=== PATIENT | female | born 1985 | race African-American/Black ===

== ENCOUNTER 2023-08-01 00:48 | Inpatient (IN) | payer OTHER, SELFPAY ==
[2023-07-31] VITALS (12 sets, daily range): BP systolic 157–188; BP diastolic 94–118
[2023-07-31 19:37] LABS: % Basophils 0.2 % (0-2); % Eosinophils 1.6 % (0-6); % Immature Granulocytes 0.7 % (0-0.5); % Lymphocytes 14.5 % (20.5-51.1); Absolute Eosinophils 0.3 10^3/uL (0-0.7); Absolute Immature Granulocytes 0.1 10^3/uL (0-0.05); Absolute Lymphocytes 2.4 10^3/uL (1.2-3.4); Absolute Monocytes 0.8 10^3/uL (0.1-0.6); Absolute Neutrophils 12.7 10^3/uL (1.4-6.5); Hematocrit 31.2 % (37.0-47.0); Hemoglobin 10.6 g/dL (12.0-16.0); Mean Corpuscular Volume 94.3 fL (81.0-99.0); Mean Platelet Volume 11.1 fL (7.4-10.4); Nucleated Red Blood Cells % 0 %; Platelet Count 351 10^3/uL (130-400); Red Blood Cell Count 3.31 10^6/uL (4.20-5.40); Red Cell Dist. Width 13.4 % (11.5-14.5); White Blood Cell Count 16.3 10^3/uL (4.8-10.8)
[2023-07-31 19:49] LABS: ALT (SGPT) 28 U/L (0-35); AST (SGOT) 30 U/L (14-36); Albumin 3.4 g/dl (3.5-5.0); Alkaline Phosphatase 67 U/L (38-126); Blood Urea Nitrogen 15 mg/dl (7-17); Calcium 9.4 mg/dl (8.4-10.2); Carbon Dioxide 25 mmol/L (22-30); Chloride 101 mmol/L (98-107); Glucose 111 mg/dl (70-99); Sodium 137 mmol/L (135-145); Total Bilirubin 0.5 mg/dl (0.2-1.3); Total Protein 6.6 g/dl (6.3-8.2); eGFR > 60.00
[2023-07-31 19:57] LABS: Potassium 4.1 mmol/L (3.5-5.1)
[2023-07-31 20:34] LABS: Urine Albumin Negative (Neg - Trace); Urine Bilirubin Negative (Negative); Urine Character Clear (Clear); Urine Color Yellow; Urine Glucose Negative (Negative); Urine Ketone Negative (Negative); Urine Leukocyte Negative (Negative); Urine Nitrite Negative (Negative); Urine Occult Blood Negative (Negative); Urine Specific Gravity 1.015 (<1.030); Urine Urobilinogen Negative (Neg - 1+)
[2023-07-31] MEDS: OMNIPAQUE 50 ML TUBE (20:52)
[2023-07-31] MEDS: APRESOLINE 10 MG IV (20:52)
[2023-07-31] MEDS: ZOFRAN 4 MG IV (21:18)
[2023-07-31] MEDS: NSS 1000 IV (23:14)
--- NOTE | 2023-07-31 23:21 | ED.GENMED ---
History of Present Illness
General
Chief Complaint: Abdominal Symptoms
Source: ambulance crew
Exam Limitations: clinical condition
Time Seen by Provider: 07/31/23 18:54
Travel History
Have you had any contact with someone who has COVID-19?: Unable to Answer
Do you have any symptoms of coronavirus? Fever > 100 degrees, chills, cough, shortness of breath, sore throat, loss of taste or smell, muscle aches, or headache?: Unable to Answer
History of Present Illness
History of Present Illness:
38-year-old female with a history of traumatic brain injury, tracheostomy, GJ who presents with vomiting. Patient was also found to be hypertensive. Patient was recently given hydralazine prior to arrival. Patient is unable to contribute to her
history. She is nonverbal. pt was recently here for fever and was placed on levaquin for suspected tracheitis
Past History
Past History
ED Past Medical History: Asthma, CHF, GERD, HTN and Other (cardiac arrest, PNA, Iron def anemia, traumatic brain injury, sepsis, Pseudomonas respiratory culture positive)
ED Past Surgical History: Other (Trach)
Social History
Personal: Single
Living: custodial
Phy Exam
Physical Exam
Physical Exam:
CONSTITUTIONAL Patient alert and nonverbal. ill-appearing. Vital signs reviewed.
HEAD atraumatic
NECK Trachea midline, no jugular venous distention. Tracheostomy noted
RESPIRATORY CHEST moderate respiratory distress noted, Chest expansion equal, Bilateral breath sounds clear.
CARDIOVASCULAR regular and tachycardic, Heart sounds normal.
ABDOMEN mild distention, unclear if there is tenderness, feeding tube noted to left upper quadrant.
UPPER EXTREMITY no cyanosis, no edema.
LOWER EXTREMITY , no cyanosis, no edema.
NEURO eyes open, nonverbal.
SKIN multiple areas of skin involved yeast infection
Course
Orders/Labs/Results
Orders:
Orders
07/31/23 18:55
Electrocardiogram (*1) Urgent
Reason for Study: Hypertension, Benign
EKG- Treatment ONCE
07/31/23 19:18
Complete Blood Count/With Diff Urgent
Comprehensive Metabolic Panel Urgent
07/31/23 19:30
CT Head W/o Iv Contrast Stat
Comment:
Reason For Exam: hypertension, vomiting
07/31/23 20:19
HydrALAZINE [Apresoline] 10 mg IV NOW STA
Iohexol [Omnipaque] See Protocol TUBE NOW STA
07/31/23 20:20
CT Abd/pel W Iv And Oral Contr Urgent
Comment: 1 cup VIA feeding tube
Reason For Exam: vomiting
07/31/23 20:26
Urinalysis Reflex To Culture Urgent
Date Specimen was Collected: 07/31/23
Time Specimen was Collected: 20:25
07/31/23 21:14
Ondansetron Injectable [Zofran] 4 mg IV NOW STA
07/31/23 22:53
Enema- Treatment ONCE
Type: Milk of Molasses
CR Chest Portable - 1 View Urgent
Comment:
Reason For Exam: vomiting, r/o aspiration
Reason Study Needs to be Portable: Unable to Transport
07/31/23 22:58
0.9% Sodium Chloride 1000 ml [Nss] 1,000 ml IV BOLUS
07/31/23 23:21
Labetalol HCl [Trandate] 10 mg IV NOW STA
07/31/23 23:30
Lactic Acid Q4H
Comment: CANCEL 2nd LACTIC ACID IF 1st LACTIC ACID IS LESS THAN 2
Blood Culture Q30M
VICK Source: Blood/Venous
Specimen Description:
08/01/23 00:00
Blood Culture Q30M
VICK Source: Blood/Venous
Specimen Description:
08/01/23 03:30
Lactic Acid Q4H
Comment: CANCEL 2nd LACTIC ACID IF 1st LACTIC ACID IS LESS THAN 2
Abnormal Lab Results
07/31/23
19:18
WBC 16.3 H 10^3/uL
(4.8-10.8)
RBC 3.31 L 10^6/uL
(4.20-5.40)
Hgb 10.6 L g/dL
(12.0-16.0)
Hct 31.2 L %
(37.0-47.0)
MCH 32.0 H pg
(27.0-31.0)
MPV 11.1 H fL
(7.4-10.4)
Abs Immat Gran (auto) 0.1 H 10^3/uL
(0-0.05)
Absolute Neuts (auto) 12.7 H 10^3/uL
(1.4-6.5)
Absolute Monos (auto) 0.8 H 10^3/uL
(0.1-0.6)
Immature Gran % 0.7 H %
(0-0.5)
Neutrophils % 78.0 H %
(42.2-75.2)
Lymphocytes % 14.5 L %
(20.5-51.1)
Creatinine 0.4 L mg/dL
(0.6-1.0)
Glucose 111 H mg/dl
(70-99)
Albumin 3.4 L g/dl
(3.5-5.0)
07/31/23 19:18
07/31/23 19:18
Vital Signs
Initial and Last Documented VS:
Initial Vital Signs
Pulse Ox
100
07/31/23 18:16
Last Documented Vital Signs
Temp Pulse Resp BP Pulse Ox
97.8 F 108 32 157/103 100
07/31/23 18:17 07/31/23 21:30 07/31/23 21:30 07/31/23 21:00 07/31/23 21:30
MDM/Problems Addressed
MDM/Problems Addressed:
Intractable vomiting, tachycardia, hypertension, stercoral colitis, constipation
*Radiology
Radiology exam reviewed: preliminary read by ED provider (No free air) and radiology read reviewed
*Pulse Oximetry
Patient hypoxic: no
*EKG
Interpreted by ED Provider?: Yes
Interpretation: abnormal
Rate: tachycardiac
Rhythm: sinus
[place]: normal axis
QRS Pattern: normal QRS
Ischemia: no ischemia
*Wound Care Nurse Interpretation
Rate: tachycardiac
Interpretation: normal
Rhythm: sinus
*Critical Care Note
Total Time (30-74mins, 75-104mins- exclusive of procedures): 30 minutes
Data Reviewed
Review of Other/Old Records Reveals: Progress Notes (Progress Notes from July 2023 reviewed) and Discharge Summary (July 2023 discharge summary reviewed)
Source: ambulance crew
Prescriptions/Medications Considered But Not Given:
Considered antibiotics but hold off for now. Chest x-ray okay
Patient Management
Discussion with other providers: Hospitalist
Escalation/DeEscalation of care consider admission/obs:
Patient remains tachycardic and tachypneic. Also hypertensive. Question whether she may have aspirated. Also noted to have significant constipation with stercoral colitis. Trial enema. Given the persistence of her intermittent vomiting and
tachycardia, admit. Hold antibiotics for now as there is no focal infiltrates on the chest x-ray.
ED Attending Note
-
Portions of this chart may have been created with voice recognition software.� Occasional wrong word or��sound alike� substitutions may have occurred due to the inherent limitations of voice recognition software.
Discharge Plan
Departure
Patient Disposition: Admit
Date of Disposition: 07/31/23
Time of Disposition: 23:31
Admit to: Telemetry
Presentation/result/management discussed w/ accepting MD/DO: Hospitalist
Discharge Problem:
Vomiting, possible aspiration, Constipation, Stercoral colitis
Prescriptions:
No Action
sennosides [senna] 8.6 mg Tablet
17.6 mg feeding tube DAILY PRN (Reason: constipation)
acetaminophen 325 mg Tablet
650 mg FEEDING TUBE Q6H PRN (Reason: mild pain/temp>100.4)
acetaminophen 650 mg Suppository
650 mg KY Q8H PRN (Reason: mild pain/temp>100.4)
ipratropium-albuterol 0.5 mg-3 mg(2.5 mg base)/3 mL Solution For Nebulization
3 ml INHALATION R Q6 PRN (Reason: sob/wheezing)
cetirizine 5 mg Tablet
5 mg feeding tube DAILY
miconazole nitrate 2 % Powder
1 applic TOPICAL BID
Rx Instructions:
apply to abdominal folds and groin
thiamine HCl (vitamin B1) 100 mg Tablet
100 mg FEEDING TUBE MOWEFR
magnesium hydroxide [Milk of Magnesia] 400 mg/5 mL Suspension
30 ml feeding tube DAILY PRN (Reason: if no bm x 3 days)
bisacodyl [Dulcolax (bisacodyl)] 10 mg Suppository
10 mg KY DAILY PRN (Reason: if mom ineffective)
losartan 25 mg Tablet
25 mg feeding tube DAILY
metoprolol tartrate 50 mg Tablet
50 mg feeding tube BID
folic acid 1 mg Tablet
1 mg feeding tube DAILY
atropine 1 % Drops
2 drp PO Q4H PRN (Reason: increased secretions)
glycopyrrolate 2 mg Tablet
2 mg FEEDING TUBE Q8H
Lansoprazole 3mg/Ml
10 ml feeding tube DAILY
docusate sodium
1 tab feeding tube Q12H PRN (Reason: constipation)
budesonide 0.5 mg/2 mL Suspension For Nebulization
0.5 mg inhalation R BID 30 Days Qty: 120 0RF
hydralazine 25 mg Tablet
25 mg feeding tube Q12H PRN (Reason: sbp>170 x 10 days)
Fleet Enema 19-7 gram/118 mL Enema
118 ml KY DAILY PRN (Reason: if dulcolax ineffective)
ipratropium-albuterol 0.5 mg-3 mg(2.5 mg base)/3 mL solution for nebulization
3 ml inhalation R BID@0600,1800
levofloxacin 750 mg tablet
750 mg feeding tube Q24H
Referrals:
Kai Muhammad DO [Family Provider] -
Interventions
Interventions:
*Risk Screen - Suicide Last Done: 07/31/23 18:17
*General Assessment Last Done: 07/31/23 18:17
*Neglect/Abuse Screening Last Done: 07/31/23 18:17
*ED COVID-19 Vaccine History Last Done: 07/31/23 18:17
RG-[id number]-Vebmcetcuc Assessment Last Done: 07/31/23 18:50
[2023-08-01] VITALS (16 sets, daily range): BP systolic 109–186; BP diastolic 72–120; BMI 35.2; BMI 34.8
[2023-08-01] MEDS: TRANDATE 10 MG IV (00:20)
[2023-08-01 00:42] LABS: Lactic Acid 1.1 mmol/L (0.7-2.0)
--- NOTE | 2023-08-01 00:57 | HPS.HSE ---
Family Physician
-
Family Physician: Kai Muhammad, DO
Chief Complaint
-
N/V
History of Present Illness
Patient is a 38y F with PMH significant for �anoxic brain injury s/p cardiac arrest with trach and PEG who presents to ED from [facility] for evaluation of N/V. Patient is non-verbal at baseline and is unable to contribute to this history.
Per [place], patient was noted to have N/V at the facility this evening. She has been hypertensive for the past few days and was newly started on hydralazine on 07/30/22.
Patient had multiple episodes of bilious appearing emesis here in the ED as well.
Medical History
Past Medical History
Past Medical History: Reports Other
Additional Past Medical History:
Cardiac Arrest - Uncertain Etiology
Anoxic Brain Injury secondary to the above
Tracheostomy Status
PEG-Dependent
Hypertension
Obesity
OCD
Past Surgical History: Reports Other
Additional Past Surgical History:
Tracheostomy
G-J Tube Placement
Social History
Unable to obtain full social history at this time due to: Patient Non-verbal
Family History
Family History: Unable to Obtain
Allergies / Home Medications
Allergies reflects when Allergies were last updated in [employer].
Home Medications with original date entered in [employer]
Allergy/Medication List:
Allergies
Allergy/AdvReac Type Severity Reaction Status Date / Time
No Known Allergies Allergy Unverified 07/24/23 01:19
Home Medications
Lansoprazole 3mg/Ml 10 ml feeding tube DAILY Gastrointestinal Issue 07/23/23
acetaminophen 325 mg tablet 650 mg feeding tube Q6H PRN mild pain/temp>100.4 07/23/23
acetaminophen 650 mg rectal suppository 650 mg VT Q8H PRN mild pain/temp>100.4 07/23/23
atropine 1 % eye drops 2 drp PO Q4H PRN increased secretions 07/23/23
bisacodyl 10 mg rectal suppository (Dulcolax (bisacodyl)) 10 mg VT DAILY PRN if mom ineffective 07/23/23
cetirizine 5 mg tablet 5 mg feeding tube DAILY Allergies 07/23/23
docusate sodium 1 tab feeding tube Q12H PRN constipation 07/23/23
folic acid 1 mg tablet 1 mg feeding tube DAILY Supplement 07/23/23
glycopyrrolate 2 mg tablet 2 mg feeding tube Q8H secretions 07/23/23
ipratropium 0.5 mg-albuterol 3 mg (2.5 mg base)/3 mL nebulization soln 3 ml inhalation R Q6 PRN sob/wheezing 07/23/23
losartan 25 mg tablet 25 mg feeding tube DAILY Blood Pressure 07/23/23
magnesium hydroxide 400 mg/5 mL oral suspension (Milk of Magnesia) 30 ml feeding tube DAILY PRN if no bm x 3 days 07/23/23
metoprolol tartrate 50 mg tablet 50 mg feeding tube BID Blood Pressure 07/23/23
miconazole nitrate 2 % topical powder 1 applic topical BID Skin Issues 07/23/23
sennosides 8.6 mg tablet (senna) 17.6 mg feeding tube DAILY PRN constipation 07/23/23
thiamine HCl (vitamin B1) 100 mg tablet 100 mg feeding tube MOWEFR Supplement 07/23/23
budesonide 0.5 mg/2 mL suspension for nebulization 0.5 mg (2 mL) inhalation R BID 30 days #120 mL 07/27/23
hydralazine 25 mg tablet 25 mg feeding tube Q12H PRN sbp>170 x 10 days 07/31/23
ipratropium 0.5 mg-albuterol 3 mg (2.5 mg base)/3 mL nebulization soln 3 ml inhalation R BID@0600,1800 07/31/23
levofloxacin 750 mg tablet 750 mg feeding tube Q24H 07/31/23
sodium phosphates 19 gram-7 gram/118 mL enema (Fleet Enema) 118 ml VT DAILY PRN if dulcolax ineffective 07/31/23
Review of Systems
-
Unable to obtain full review of systems at this time due to: Patient Non-verbal
Physical Exam
Vital Signs
Vital Signs
Temp Pulse Resp BP Pulse Ox
97.8 F 108 22 157/86 100
07/31/23 18:17 08/01/23 00:20 08/01/23 00:00 08/01/23 00:20 08/01/23 00:00
Physical Exam
General: Other (38y F awake but does not answer questions / follow commands.)
HEENT: Other (Thick neck. Trach in place without significant secretions / mucus. )
Respiratory: Other (Scattered coarse breath sounds throughout. No wheezing.)
Cardiac: S1/S2 and Regular Rhythm; No Murmur
GI: Other (Obese, no apparent tenderness. Pos BS. G-J tube site OK.)
Rectal: Other (Rectal exam with yellow, liquid stool. Minimal, very small formed stool removed during digital exam - but no appreciation of fecal stool ball seen on CT.)
Musculoskeletal: No Clubbing and No Cyanosis
Neuro: Awake
Laboratory Results
-
07/31/23 19:18
07/31/23 19:18
Laboratory Results
Lactic Acid Cancelled 08/01/23 03:30
Total Bilirubin 0.5 mg/dl (0.2-1.3) 07/31/23 19:18
AST 30 U/L (14-36) 07/31/23 19:18
ALT 28 U/L (0-35) 07/31/23 19:18
Alkaline Phosphatase 67 U/L (38-126) 07/31/23 19:18
Impression/Plan
-
A/P: �Patient is a 38y F with PMH significant for trach / PEG dependence s/p anoxic brain injury / cardiac arrest who presents to ED from [facility] for evaluation of vomiting.
N/V
Stercoral Colitis
- Admit for further evaluation and treatment.
- N/V likely secondary to constipation / stercoral colitis as noted on CT scan.
- Unable to manually disimpact in the ED as stool mass not appreciated in the rectal vault.
- Aggressive bowel regimen.
- Vent G-tube to alleviate nausea / further emesis.
- Hold TF for now. Meds via J-tube port.
- Follow for clinical improvement / results with bowel regimen.
- GI evaluation.
Anoxic Brain Injury
Cardiac Arrest - Unknown Etiology
Chronic Encephalopathy secondary to the above
�- Continue supportive measures including O2, repositioning, trach care, etc.
�- Hold TF for now pending improvement in acute process / sepsis.
�- IVF support.
Chronic Normocytic Anemia
�- Records indicate both B12 and iron deficiencies - ? etiology.
�- TSat normal and B12 high on recent admission labs.
�- Follow H&H for any changes.
�- No evidence of acute / significant blood loss at present.
Benign Hypertension
�- Recent increase in BP noted at the [facility] and started on hydralazine.
- ? increase due to stercoral colitis / abdominal discomfort?
- Continue losartan and metoprolol at usual doses.
- Hydralazine PRN for higher BP.
- Treat acute GI issue as noted above.
Recent Tracheitis
- Stable. No significant mucus production, coughing, etc noted on today's exam.
- Has completed course of levofloxacin (last dose today).
- Observe off of further abx for now.
DVT Prophylaxis:� Lovenox
Code Status:� Full
[2023-08-01 05:09] LABS: Hematocrit 30.7 % (37.0-47.0); Hemoglobin 10.4 g/dL (12.0-16.0); Mean Corp Hgb Conc. 33.9 g/dL (33.0-37.0); Mean Corpuscular Hgb 32.2 pg (27.0-31.0); Mean Platelet Volume 11.3 fL (7.4-10.4); Platelet Count 310 10^3/uL (130-400); Red Blood Cell Count 3.23 10^6/uL (4.20-5.40); Red Cell Dist. Width 13.6 % (11.5-14.5); White Blood Cell Count 18.3 10^3/uL (4.8-10.8)
[2023-08-01 05:33] LABS: ALT (SGPT) 26 U/L (0-35); AST (SGOT) 29 U/L (14-36); Albumin 3.3 g/dl (3.5-5.0); Alkaline Phosphatase 63 U/L (38-126); Blood Urea Nitrogen 13 mg/dl (7-17); Calcium 9.1 mg/dl (8.4-10.2); Carbon Dioxide 23 mmol/L (22-30); Chloride 102 mmol/L (98-107); Direct Bilirubin 0.5 mg/dl (0.0-0.4); Glucose 104 mg/dl (70-99); Sodium 138 mmol/L (135-145); Total Bilirubin 0.6 mg/dl (0.2-1.3); Total Protein 6.4 g/dl (6.3-8.2); eGFR > 60.00
[2023-08-01 06:02] LABS: TSH Reflex To Free T4 0.77 uIU/ml (0.47-4.68)
[2023-08-01] MEDS: NSS 1000 IV ×2 (06:17→14:16)
--- NOTE | 2023-08-01 07:46 | W.PN.HOSP.TC ---
Today's Communication/Plan
-
see A/P
Assessment / Plan
Assessment / Plan
HPI: 38 yo F with PMH significant for anoxic brain injury s/p cardiac arrest with trach and PEG, from [facility]; p/w N/V.� Patient is non-verbal at baseline and is unable to contribute to history.
Per [facility], patient was noted to have N/V at the facility in the evening.�She has been hypertensive for the past few days and was newly started on hydralazine on 07/30/22.
Patient had multiple episodes of bilious appearing emesis in the ED as well.
CT AP:
1. � ACUTE STERCORAL COLITIS in the RECTUM with fecal impaction, mild wall thickening, and mild perirectal inflammation.
2. � Moderate amount of fecal material throughout the colon consistent with constipation.
3. � No CT evidence for small bowel obstruction.
4. � Percutaneous gastrojejunostomy tube in place.
5. � Mild hepatomegaly and mild diffuse hepatic steatosis.
6. � Mild to moderate cardiomegaly.
A/P:
# N/V
# Stercoral Colitis
N/V likely secondary to constipation / stercoral colitis as noted on CT scan.
Unable to manually disimpact in the ED as stool mass not appreciated in the rectal vault.
Cont aggressive bowel regimen- per RN, she has had BM
Check Abd XR for stool burden
Vent G-tube to alleviate nausea / further emesis.
Hold TF for now.� Meds via J-tube port.
Follow for clinical improvement / results with bowel regimen.
GI evaluation.
# Anoxic Brain Injury
# Cardiac Arrest - Unknown Etiology
# Chronic Encephalopathy secondary to the above
Continue supportive measures including O2, repositioning, trach care, etc.
Hold TF for now pending improvement in acute process / sepsis.
IVF support.
# Chronic Normocytic Anemia
Records indicate both B12 and iron deficiencies - ? etiology.
TSat normal and B12 high on recent admission labs.
Follow H&H for any changes.
No evidence of acute / significant blood loss at present.
# Benign Hypertension
Recent increase in BP noted at the [place] and started on hydralazine.
? increase due to stercoral colitis / abdominal discomfort?
Continue losartan and metoprolol at usual doses- BP stable on such
Hydralazine PRN for higher BP.
Treat acute GI issue as noted above.
# Recent Tracheitis, Stable.�
No significant mucus production, coughing, etc noted on exam.
Has completed course of levofloxacin (last dose on DOA).
Observe off of further abx for now.
DVT Prophylaxis:� Lovenox
Code Status:� Full
DW RN
Anticipated Discharge: Within 24 hours
Subjective/Interval History
-
Date of Service: August 01, 2023
Objective Data
-
Labs:
Laboratory Results
07/31/23 08/01/23
19:18 04:57
WBC 18.3 H
Hgb 10.4 L
Hct 30.7 L
Plt Count 310
Sodium 137 138
Potassium 4.1 4.0
Chloride 101 102
Carbon Dioxide 25 23
BUN 15 13
Creatinine 0.4 L 0.4 L
Glucose 111 H 104 H
Calcium 9.4 9.1
Total Bilirubin 0.5 0.6
AST 30 29
ALT 28 26
Alkaline Phosphatase 67 63
Vital Signs:
Vital Signs
Temp Pulse Resp BP Pulse Ox
36.6 C 93 19 115/95 100
08/01/23 07:42 08/01/23 07:42 08/01/23 07:42 08/01/23 07:42 08/01/23 07:42
I&O
07/31/23 08/01/23 08/02/23
06:59 06:59 06:59
Intake Total 1000 / 1000
Balance 1000 / 1000
[2023-08-01] MEDS: DUONEB 3 ML INH ×2 (07:59→21:44)
[2023-08-01] MEDS: PULMICORT 0.5 MG INH ×2 (08:00→21:44)
[2023-08-01] MEDS: COLACE LIQUID 100 MG TUBE ×2 (08:23→23:35)
[2023-08-01] MEDS: COZAAR 25 MG TUBE (08:29)
[2023-08-01] MEDS: LOPRESSOR 50 MG TUBE ×2 (08:30→23:36)
[2023-08-01] MEDS: PROTONIX IV 40 MG IV (08:32)
[2023-08-01] MEDS: NSS (PRESERVATIVE FREE) 10 ML IV (08:33)
[2023-08-01] MEDS: DESENEX/MITRAZOL/ZEASORB 1 APPLIC TOPICAL ×2 (08:34→23:35)
[2023-08-01] MEDS: MIRALAX 17 GRAMS TUBE ×2 (08:37→23:35)
[2023-08-01] MEDS: APRESOLINE 5 MG IV (11:25)
[2023-08-01 15:26] LABS: COVID-19 Antigen Negative (Negative)
[2023-08-01] MEDS: LOVENOX 40 MG SC (17:11)
--- NOTE | 2023-08-01 20:29 | PTCARENOTE ---
Pt admitted as hold pt from ED aprox 1600 today. Pt slid over to bed to stretcher. Assessment complete. Pt 97% on trach collar. GJ tube currently to gravity. Pt is NPO. Pt turned and changed. Pt is nonverbal. ST on monitor.
[2023-08-01] MEDS: SENOKOT 17.6000000000000014 MG TUBE (23:34)
--- NOTE | 2023-08-01 23:35 | RESPNOTE ---
Pt has an I.D. 8.O cuffless trach, 11.4 mm OD, 7.00 inner cannula.
REF [id number]
I spoke to [facility] and gave REF number and we do not stock this size trach or inner cannulas.
No inner cannulas at bedside RN made aware we do not have supplies for this trach.
Pt has back up trach, ambu bag, and suctioned at bedside.
[2023-08-02] MEDS: NSS 1000 IV ×2 (00:45→10:34)
[2023-08-02] MEDS: ZOFRAN 4 MG IV ×2 (00:46→10:36)
[2023-08-02] MEDS: ATROPINE SULFATE 1% DROPS 2 DROP SL ×2 (00:46→16:13)
--- NOTE | 2023-08-02 02:33 | W.PN.UPDATE ---
Update Note
Progress Note Update
0000 BRAND DESIGNER called on pt for resp distress
RN states she was giving med through J Tube when pt vomited and then sounded 'gurgly.'
By the time BRAND DESIGNER team arrived pt was back to baseline and no signs resp distress noted. pulse ox 100% on trach collar.
Pt does have excess secretions. Has prn atropine and i added robinal both of which pt can have at [facility] too.
Pt afebrile.
Will add cxr for am given high risk for aspiration.
[2023-08-02 04:00] VITALS: BP 160/110
[2023-08-02 06:00] VITALS: BMI 36.1
[2023-08-02 07:00] VITALS: BP 164/109
[2023-08-02] MEDS: PULMICORT 0.5 MG INH ×2 (08:01→19:31)
[2023-08-02] MEDS: DUONEB 3 ML INH ×2 (08:01→19:31)
--- NOTE | 2023-08-02 08:02 | PTCARENOTE ---
Pt vomited and aspirated. trach suction, pt showing signs of respiratory distress. Rapid called. Pt quickly returned to baseline. POX 97%. will continue to monitor and follow plan of care.
[2023-08-02 08:51] LABS: Hematocrit 29.2 % (37.0-47.0); Hemoglobin 9.6 g/dL (12.0-16.0); Mean Corp Hgb Conc. 32.9 g/dL (33.0-37.0); Mean Corpuscular Hgb 31.7 pg (27.0-31.0); Mean Corpuscular Volume 96.4 fL (81.0-99.0); Mean Platelet Volume 11.5 fL (7.4-10.4); Platelet Count 347 10^3/uL (130-400); Red Blood Cell Count 3.03 10^6/uL (4.20-5.40); Red Cell Dist. Width 13.6 % (11.5-14.5); White Blood Cell Count 16.2 10^3/uL (4.8-10.8)
[2023-08-02 09:29] LABS: Blood Urea Nitrogen 9 mg/dl (7-17); Calcium 8.9 mg/dl (8.4-10.2); Carbon Dioxide 23 mmol/L (22-30); Chloride 108 mmol/L (98-107); Estimated Creatinine Clearance > 125 ml/min; Glucose 94 mg/dl (70-99); Potassium 3.8 mmol/L (3.5-5.1); Sodium 137 mmol/L (135-145); eGFR > 60.00
[2023-08-02] MEDS: TYLENOL 650 MG TUBE (10:35)
[2023-08-02] MEDS: MIRALAX 17 GRAMS TUBE ×2 (10:35→20:28)
[2023-08-02] MEDS: LOPRESSOR 50 MG TUBE ×2 (10:36→20:28)
[2023-08-02] MEDS: DESENEX/MITRAZOL/ZEASORB 1 APPLIC TOPICAL ×2 (10:36→20:31)
[2023-08-02] MEDS: COLACE LIQUID 100 MG TUBE ×2 (10:36→20:28)
[2023-08-02] MEDS: NSS (PRESERVATIVE FREE) 10 ML IV (10:36)
[2023-08-02] MEDS: COZAAR 25 MG TUBE (10:36)
[2023-08-02] MEDS: PROTONIX IV 40 MG IV (10:37)
[2023-08-02 11:00] VITALS: BP 168/111
--- NOTE | 2023-08-02 11:00 | W.PN.HOSP.TC ---
Today's Communication/Plan
-
cont to monitor N/V
follow repeat CXR
Assessment / Plan
Assessment / Plan
HPI: 38 yo F with PMH significant for anoxic brain injury s/p cardiac arrest with trach and PEG, from [facility]; p/w N/V.� Patient is non-verbal at baseline and is unable to contribute to history.
Per [facility], patient was noted to have N/V at the facility in the evening.�She has been hypertensive for the past few days and was newly started on hydralazine on 07/30/22.
Patient had multiple episodes of bilious appearing emesis in the ED as well.
CT AP:
1. � ACUTE STERCORAL COLITIS in the RECTUM with fecal impaction, mild wall thickening, and mild perirectal inflammation.
2. � Moderate amount of fecal material throughout the colon consistent with constipation.
3. � No CT evidence for small bowel obstruction.
4. � Percutaneous gastrojejunostomy tube in place.
5. � Mild hepatomegaly and mild diffuse hepatic steatosis.
6. � Mild to moderate cardiomegaly.
A/P:
# N/V
# Stercoral Colitis
N/V likely secondary to constipation / stercoral colitis as noted on CT scan.
s/p aggressive bowel regimen and pt has had BM
Follow up Abd XR: Nonobstructive bowel gas pattern. No gross free air, evaluation limited.
Cont to hold TF for her persistent vomiting
# Anoxic Brain Injury
# Cardiac Arrest - Unknown Etiology
# Chronic Encephalopathy secondary to the above
Continue supportive measures including O2, repositioning, trach care, etc.
Cont to hold TF for her persistent vomiting. IVF support.
Change to cuff trach to prevent aspiration. ENT consulted
Follow CXR 08/02 to eval for aspiration
# Chronic Normocytic Anemia
Records indicate both B12 and iron deficiencies - ? etiology.
TSat normal and B12 high on recent admission labs.
Follow H&H for any changes.
No evidence of acute / significant blood loss at present.
# Benign Hypertension
Recent increase in BP noted at the [place] and started on hydralazine.
? increase due to stercoral colitis / abdominal discomfort?
Continue losartan and metoprolol at usual doses
Hydralazine PRN for higher BP.
Treat acute GI issue as noted above.
# Recent Tracheitis, Stable.�
No significant mucus production, coughing, etc noted on exam.
Has completed course of levofloxacin (last dose on DOA).
Observe off of further abx for now.
DVT Prophylaxis:� Lovenox
Code Status:� Full
DW RN
Anticipated Discharge: 24 - 48 hours
Subjective/Interval History
-
Date of Service: August 02, 2023
Objective Data
-
Labs:
Laboratory Results
08/02/23
07:51
WBC 16.2 H
Hgb 9.6 L
Hct 29.2 L
Plt Count 347
Sodium 137
Potassium 3.8
Chloride 108 H
Carbon Dioxide 23
BUN 9
Creatinine 0.4 L
Glucose 94
Calcium 8.9
Vital Signs:
Vital Signs
Temp Pulse Resp BP Pulse Ox
36.9 C 117 16 164/109 95
08/02/23 07:00 08/02/23 07:00 08/02/23 07:00 08/02/23 07:00 08/02/23 07:00
I&O
08/01/23 08/02/23 08/03/23
06:59 06:59 06:59
Intake Total 1000 / 1000 2180 / 2180
Output Total 300 / 300
Balance 1000 / 1000 2180 / 2180 -300 / -300
Review of Systems
-
Unable to obtain full review of systems at this time due to: Patient Non-verbal
Physical Exam
-
General: Well Developed, Respiratory Distress (chronic) and Appears Chronically Ill
HEENT: Normocephalic, Atraumatic, Moist Mucous Membranes and Oxygen (trach collar)
Respiratory: Clear to Auscultation and Non Labored Respirations; Negative Accessory Resp Muscle Use
Cardiac: Regular Rhythm and S1/S2; Negative Murmur, Rub or Gallop
GI: Soft, Nontender, Nondistended, Normal Bowel Sounds and Peg Tube; Negative Organomegaly
Rectal: Deferred by Provider
Musculoskeletal: No Clubbing, No Cyanosis and No Edema
Skin: Negative Rash
Neuro: Awake and Other (does not follow commands )
Psych: Calm
Data Reviewed
-
Labs: Labs Reviewed by me
--- NOTE | 2023-08-02 11:05 | CM ---
CM following re: discharge planning.
Reviewed pt's chart, met with pt.
Pt is a 38year old female with PMH significant for �anoxic brain injury s/p cardiac arrest with trach and PEG who presents to ED from [facility] for evaluation of N/V. Patient is non-verbal at baseline.
Pt is a long term care administrator care resident at [facility], admitted there not far ago from [facility], requires total care, on Medicaid Pending bed hold.
D/C plan: return back to [facility] when medically stable for a detention, care.
CM will follow with discharge plan updates as hospitalization progresses
--- NOTE | 2023-08-02 12:10 | RESPNOTE ---
received pt in room 329 with Shiley size 7 cuffless trach with model number [id number]. our SPD department does not have size 7 inner cannula or Shiley 7 Trach.
placed Shiley size 6 cuffed and Shiley size 8 cuffed at bedside along with Ambu bag for emergencies.
at this time, this RT cleaned trach site and inner cannula . pt resting comfortably on 35% trach collar
per Dr. Ramos's note ENT has been consulted for replacing pt to cuffed trach.
--- NOTE | 2023-08-02 14:05 | W.PN.UPDATE ---
Update Note
Progress Note Update
Patient with history of traumatic brain injury.
Chronic tracheotomy tube present.
Patient generally on trach collar, uncuffed tube in place.
Patient with constipation, now with nausea and vomiting, admitted to [facility].
I was asked to change to the uncuffed trach tube to a cuffed trach tube.
At the bedside a #7 uncuffed Shiley trach was removed.
Well-healed stoma was noted.
6. Cuffed Shiley trach tube was easily inserted.
Cuff inflated, trach secured.
Patient without any respiratory distress.
Continue care as per medical team.
Please call me if problems arise.
--- NOTE | 2023-08-02 14:16 | RESPNOTE ---
pt is changed to 6Shiley cuffed trach tube by ENT.
this RT inflated cuff for pt for N/V
[2023-08-02 15:00] VITALS: BP 138/94
[2023-08-02] MEDS: LOVENOX 40 MG SC (16:09)
[2023-08-02] MEDS: APRESOLINE 5 MG IV (16:10)
--- NOTE | 2023-08-02 16:19 | PTCARENOTE ---
BP was 168/111. I was attempting to give prn apresoline however repeat BP improved and no longer required prn medications. See vitals.
[2023-08-02 19:30] VITALS: BP 156/101
[2023-08-02 23:00] VITALS: BP 165/108
[2023-08-02] MEDS: SENOKOT 17.6000000000000014 MG TUBE (23:17)
[2023-08-03 03:20] VITALS: BP 157/94
[2023-08-03 04:58] VITALS: BP 157/94
[2023-08-03 07:00] VITALS: BP 138/83
[2023-08-03] MEDS: PULMICORT 0.5 MG INH ×2 (08:19→20:08)
[2023-08-03] MEDS: DUONEB 3 ML INH ×2 (08:19→20:09)
[2023-08-03 08:49] LABS: Hematocrit 27.1 % (37.0-47.0); Mean Corp Hgb Conc. 33.2 g/dL (33.0-37.0); Mean Corpuscular Hgb 31.5 pg (27.0-31.0); Mean Corpuscular Volume 94.8 fL (81.0-99.0); Mean Platelet Volume 10.7 fL (7.4-10.4); Platelet Count 356 10^3/uL (130-400); Red Blood Cell Count 2.86 10^6/uL (4.20-5.40); Red Cell Dist. Width 13.6 % (11.5-14.5); White Blood Cell Count 14.6 10^3/uL (4.8-10.8)
[2023-08-03 09:02] LABS: Blood Urea Nitrogen 9 mg/dl (7-17); Calcium 8.7 mg/dl (8.4-10.2); Carbon Dioxide 23 mmol/L (22-30); Chloride 110 mmol/L (98-107); Estimated Creatinine Clearance > 125 ml/min; Glucose 90 mg/dl (70-99); Potassium 3.7 mmol/L (3.5-5.1); Sodium 137 mmol/L (135-145); eGFR > 60.00
[2023-08-03] MEDS: ATROPINE SULFATE 1% DROPS 2 DROP SL ×3 (10:10→22:34)
[2023-08-03] MEDS: LOPRESSOR 50 MG TUBE ×2 (10:10→21:46)
[2023-08-03] MEDS: COLACE LIQUID 100 MG TUBE ×2 (10:10→21:46)
[2023-08-03] MEDS: ROBINUL 2 MG TUBE (10:11)
[2023-08-03] MEDS: COZAAR 25 MG TUBE (10:11)
[2023-08-03] MEDS: TYLENOL 650 MG TUBE (10:11)
[2023-08-03] MEDS: PROTONIX IV 40 MG IV (10:11)
[2023-08-03] MEDS: DESENEX/MITRAZOL/ZEASORB 1 APPLIC TOPICAL ×2 (10:12→21:47)
[2023-08-03] MEDS: NSS (PRESERVATIVE FREE) 10 ML IV (10:12)
[2023-08-03] MEDS: ZOFRAN 4 MG IV (10:12)
[2023-08-03] MEDS: MIRALAX 17 GRAMS TUBE ×2 (10:12→21:46)
[2023-08-03 11:00] VITALS: BP 146/90
--- NOTE | 2023-08-03 11:55 | W.PN.HOSP.TC ---
Today's Communication/Plan
-
see A/P
Assessment / Plan
Assessment / Plan
HPI: 38 yo F with PMH significant for anoxic brain injury s/p cardiac arrest with trach and PEG, from [facility]; p/w N/V.� Patient is non-verbal at baseline and is unable to contribute to history.
Per NH, patient was noted to have N/V at the facility in the evening.�She has been hypertensive for the past few days and was newly started on hydralazine on 07/30/22.
Patient had multiple episodes of bilious appearing emesis in the ED as well.
CT AP:
1. � ACUTE STERCORAL COLITIS in the RECTUM with fecal impaction, mild wall thickening, and mild perirectal inflammation.
2. � Moderate amount of fecal material throughout the colon consistent with constipation.
3. � No CT evidence for small bowel obstruction.
4. � Percutaneous gastrojejunostomy tube in place.
5. � Mild hepatomegaly and mild diffuse hepatic steatosis.
6. � Mild to moderate cardiomegaly.
A/P:
# N/V
# Stercoral Colitis
N/V likely secondary to constipation / stercoral colitis as noted on CT scan.
s/p aggressive bowel regimen and pt has had BM
Follow up Abd XR: Nonobstructive bowel gas pattern. No gross free air, evaluation limited.
Cont bowel regimen, now PRN
Vomiting has resolved, resumed TF and titrated to goal
# Anoxic Brain Injury
# Cardiac Arrest - Unknown Etiology
# Chronic Encephalopathy secondary to the above
Continue supportive measures including O2, repositioning, trach care, etc.
Changed to cuff trach to prevent aspiration by ENT 08/02
Follow up CXR 08/02 no pneumonia
# Leucocytosis likely reactive
COVID/Flu neg, CXR unrevealing, UA clean
CRP 17
s/p Zosyn
was started with Augmentin, no reason to continue , will stop Abx
# Chronic Normocytic Anemia
Records indicate both B12 and iron deficiencies - ? etiology.
TSat normal and B12 high on recent admission labs.
Follow H&H for any changes.
No evidence of acute / significant blood loss at present.
# Benign Hypertension
Recent increase in BP noted at the [place] and started on hydralazine.
? increase due to stercoral colitis / abdominal discomfort?
Continue with increased doses of losartan and metoprolol
Hold HCTZ
Hydralazine PRN for higher BP.
Treat acute GI issue as noted above.
# Recent Tracheitis, Stable.�
No significant mucus production, coughing, etc noted on exam.
Has completed course of levofloxacin (last dose was on DOA).
DVT Prophylaxis:� Lovenox
Code Status:� Full
DW RN , CM
updated mother on the phone
Anticipated Discharge: Today
Subjective/Interval History
-
Date of Service: August 03, 2023
Objective Data
-
Labs:
Laboratory Results
08/03/23
08:27
WBC 14.6 H
Hgb 9.0 L
Hct 27.1 L
Plt Count 356
Sodium 137
Potassium 3.7
Chloride 110 H
Carbon Dioxide 23
BUN 9
Creatinine 0.4 L
Glucose 90
Calcium 8.7
Vital Signs:
Vital Signs
Temp Pulse Resp BP Pulse Ox
37.0 C 101 14 146/90 95
08/03/23 11:00 08/03/23 11:00 08/03/23 11:00 08/03/23 11:00 08/03/23 11:00
I&O
08/02/23 08/03/23 08/04/23
06:59 06:59 06:59
Intake Total 2180 / 2180
Output Total 300 / 300
Balance 2180 / 2180 -300 / -300
Review of Systems
-
Unable to obtain full review of systems at this time due to: Patient Non-verbal
Physical Exam
-
General: Well Developed, Respiratory Distress (chronic) and Appears Chronically Ill
HEENT: Normocephalic, Atraumatic, Moist Mucous Membranes and Oxygen (trach collar)
Respiratory: Clear to Auscultation and Non Labored Respirations; Negative Accessory Resp Muscle Use
Cardiac: Regular Rhythm and S1/S2; Negative Murmur, Rub or Gallop
GI: Soft, Nontender, Nondistended, Normal Bowel Sounds and Peg Tube; Negative Organomegaly
Rectal: Deferred by Provider
Musculoskeletal: No Clubbing, No Cyanosis and No Edema
Skin: Negative Rash
Neuro: Other (does not follow commands )
Psych: Calm; Negative Intact Judgement/Insight
Data Reviewed
-
Diagnostic Radiology: Image personally visualized and interpreted and Report Reviewed by me
Labs: Labs Reviewed by me
--- NOTE | 2023-08-03 12:44 | PTCARENOTE ---
PT with edema in BUE and both are elevated above heart level. heels with quilted heel booties bilaterlly to prevent pressure ulcer. MD made aware of her strong cough, WBC elevated and she started her on zosyn. IVF finished per orderd and tube feeds
are ordered to continue.
[2023-08-03] MEDS: VISBIOME 1 CAP TUBE (14:30)
[2023-08-03] MEDS: ZOSYN 50 IV ×2 (14:30→21:35)
[2023-08-03 14:42] LABS: Urine Albumin Trace (Neg - Trace); Urine Bilirubin Negative (Negative); Urine Character Clear (Clear); Urine Color Yellow; Urine Glucose Negative (Negative); Urine Ketone Negative (Negative); Urine Leukocyte Negative (Negative); Urine Nitrite Negative (Negative); Urine Occult Blood Negative (Negative); Urine Urobilinogen 1+ (Neg - 1+)
[2023-08-03 15:00] VITALS: BP 165/110
[2023-08-03] MEDS: LOVENOX 40 MG SC (17:00)
--- NOTE | 2023-08-03 17:09 | PTCARENOTE ---
ordered tube feeding to start at 10ml hour with 25 ml flush withgoal of 50 ml. Floor did not have irrigation trays. I called [facility] x3 times for trays so i could flush J tube to begin TF. TF Started at 1700. Tube flushed zero residual and flushed
easily. PT HOB up with aspiration precautions maintained.
[2023-08-03] MEDS: APRESOLINE 5 MG IV (17:11)
[2023-08-03] MEDS: FLUSH (NSS) 2 FLUSH IV (21:35)
[2023-08-03] MEDS: SENOKOT 17.6000000000000014 MG TUBE (21:47)
[2023-08-03 23:50] VITALS: BP 169/113
[2023-08-04] MEDS: FLUSH (NSS) 2 FLUSH IV (02:42)
[2023-08-04] MEDS: ZOSYN 50 IV ×2 (02:42→07:53)
[2023-08-04 03:30] VITALS: BP 168/109
[2023-08-04 06:00] VITALS: BMI 35.7
[2023-08-04 06:53] LABS: Hematocrit 29.9 % (37.0-47.0); Hemoglobin 9.8 g/dL (12.0-16.0); Mean Corp Hgb Conc. 32.8 g/dL (33.0-37.0); Mean Corpuscular Hgb 30.8 pg (27.0-31.0); Mean Platelet Volume 10.9 fL (7.4-10.4); Platelet Count 391 10^3/uL (130-400); Red Blood Cell Count 3.18 10^6/uL (4.20-5.40); Red Cell Dist. Width 13.4 % (11.5-14.5); White Blood Cell Count 13.9 10^3/uL (4.8-10.8)
[2023-08-04 07:18] LABS: Blood Urea Nitrogen 10 mg/dl (7-17); Carbon Dioxide 24 mmol/L (22-30); Chloride 107 mmol/L (98-107); Estimated Creatinine Clearance > 125 ml/min; Glucose 109 mg/dl (70-99); Potassium 3.5 mmol/L (3.5-5.1); Sodium 138 mmol/L (135-145); eGFR > 60.00
[2023-08-04] MEDS: PULMICORT 0.5 MG INH ×2 (07:51→20:27)
[2023-08-04] MEDS: DUONEB 3 ML INH ×2 (07:51→20:27)
[2023-08-04] MEDS: COLACE LIQUID 100 MG TUBE ×2 (07:57→21:05)
[2023-08-04] MEDS: COZAAR 25 MG TUBE ×2 (07:57→12:11)
[2023-08-04] MEDS: VISBIOME 1 CAP TUBE (07:57)
[2023-08-04] MEDS: LOPRESSOR 50 MG TUBE ×2 (07:57→21:06)
[2023-08-04] MEDS: MIRALAX 17 GRAMS TUBE (07:57)
[2023-08-04] MEDS: PROTONIX IV 40 MG IV (07:57)
[2023-08-04] MEDS: NSS (PRESERVATIVE FREE) 10 ML IV (07:58)
[2023-08-04 08:10] VITALS: BP 175/101
[2023-08-04] MEDS: DESENEX/MITRAZOL/ZEASORB 1 APPLIC TOPICAL ×2 (08:11→21:06)
[2023-08-04 11:00] VITALS: BP 154/106
--- NOTE | 2023-08-04 11:34 | W.PN.HOSP.TC ---
Addendum entered and electronically signed by Lewis Corona MD 08/04/23 14:57:
called mother no response. left vm.
Original Note:
Today's Communication/Plan
-
Increase losartan
cont aggressive bowel regimen
monitor for TF tolerance
Assessment / Plan
Assessment / Plan
HPI: 38 yo F with PMH significant for anoxic brain injury s/p cardiac arrest with trach and PEG, from [facility]; p/w N/V.� Patient is non-verbal at baseline and is unable to contribute to history.
Per NH, patient was noted to have N/V at the facility in the evening.�She has been hypertensive for the past few days and was newly started on hydralazine on 07/30/22.
Patient had multiple episodes of bilious appearing emesis in the ED as well.
CT AP:
1. � ACUTE STERCORAL COLITIS in the RECTUM with fecal impaction, mild wall thickening, and mild perirectal inflammation.
2. � Moderate amount of fecal material throughout the colon consistent with constipation.
3. � No CT evidence for small bowel obstruction.
4. � Percutaneous gastrojejunostomy tube in place.
5. � Mild hepatomegaly and mild diffuse hepatic steatosis.
6. � Mild to moderate cardiomegaly.
A/P:
# N/V
# Stercoral Colitis
N/V likely secondary to constipation / stercoral colitis as noted on CT scan.
s/p aggressive bowel regimen and pt has had BM
Follow up Abd XR: Nonobstructive bowel gas pattern. No gross free air, evaluation limited.
Cont bowel regimen
Vomiting has much resolved, resume TF slowly and titrate to goal , monitor for further N/V
# Anoxic Brain Injury
# Cardiac Arrest - Unknown Etiology
# Chronic Encephalopathy secondary to the above
Continue supportive measures including O2, repositioning, trach care, etc.
Changed to cuff trach to prevent aspiration by ENT 08/02
Follow up CXR 08/02 no pneumonia
# Leucocytosis likely reactive vs due to Stercoral Colitis
COVID/Flu neg
CXR unrevealing
CRP 17
UA neg
Improving
Start empiric Zosyn with probiotic
# Chronic Normocytic Anemia
Records indicate both B12 and iron deficiencies - ? etiology.
TSat normal and B12 high on recent admission labs.
Follow H&H for any changes.
No evidence of acute / significant blood loss at present.
# Benign Hypertension with sinus tachycardia
Recent increase in BP noted at the [place] and started on hydralazine.
Continue losartan and metoprolol at usual doses
If BP elevated increase dose of losartan.
Hydralazine PRN for higher BP.
Treat acute GI issue as noted above.
# Recent Tracheitis, Stable.�
No significant mucus production, coughing, etc noted on exam.
Has completed course of levofloxacin (last dose was on DOA).
DVT Prophylaxis:� Lovenox
Code Status:� Full
DW RN
Anticipated Discharge: Within 24 hours
Subjective/Interval History
-
Date of Service: August 04, 2023
No nausea or vomiting overnight
TF rate increased to 30cc this am
Objective Data
-
Labs:
Laboratory Results
08/04/23
06:01
WBC 13.9 H
Hgb 9.8 L
Hct 29.9 L
Plt Count 391
Sodium 138
Potassium 3.5
Chloride 107
Carbon Dioxide 24
BUN 10
Creatinine 0.5 L
Glucose 109 H
Calcium 9.0
Vital Signs:
Vital Signs
Temp Pulse Resp BP Pulse Ox
98.1 F 114 17 175/101 95
08/04/23 08:10 08/04/23 08:10 08/04/23 08:10 08/04/23 08:10 08/04/23 08:10
I&O
08/03/23 08/04/23 08/05/23
06:59 06:59 06:59
Intake Total 160 / 160 715 / 715
Output Total 300 / 300 250 / 250
Balance -300 / -300 160 / 160 465 / 465
Physical Exam
-
General: Well Developed and Appears Chronically Ill
HEENT: Normocephalic, Atraumatic, Moist Mucous Membranes and Oxygen (trach collar)
Respiratory: Clear to Auscultation and Non Labored Respirations; Negative Accessory Resp Muscle Use
Cardiac: Regular Rhythm and S1/S2; Negative Murmur, Rub or Gallop
GI: Soft, Nontender, Nondistended, Normal Bowel Sounds and Peg Tube; Negative Organomegaly
Rectal: Deferred by Provider
Musculoskeletal: No Clubbing, No Cyanosis and No Edema
Skin: Negative Rash
Neuro: Awake and Other (does not follow commands )
Psych: Calm
Data Reviewed
-
Total Time Spent with Patient (in minutes): 54
[2023-08-04 11:47] VITALS: BMI 35.7
[2023-08-04] MEDS: VITAMIN B1 100 MG TUBE (13:19)
[2023-08-04] MEDS: ZOSYN 100 IV ×2 (13:19→21:13)
[2023-08-04 15:01] VITALS: BP 160/106
[2023-08-04] MEDS: LOVENOX 40 MG SC (17:49)
[2023-08-04 19:00] VITALS: BP 160/110
[2023-08-04] MEDS: MIRALAX TUBE (21:10)
[2023-08-04] MEDS: SENOKOT TUBE (21:11)
[2023-08-04 23:00] VITALS: BP 170/99
[2023-08-05 03:00] VITALS: BP 157/99
[2023-08-05] MEDS: ZOSYN 100 IV ×4 (03:10→21:11)
[2023-08-05 05:48] LABS: % Basophils 0.4 % (0-2); % Eosinophils 1.9 % (0-6); % Immature Granulocytes 0.5 % (0-0.5); % Lymphocytes 16.8 % (20.5-51.1); % Monocytes 7.7 % (1.7-9.3); % Neutrophils 72.7 % (42.2-75.2); Absolute Basophils 0.1 10^3/uL (0-0.2); Absolute Eosinophils 0.3 10^3/uL (0-0.7); Absolute Immature Granulocytes 0.1 10^3/uL (0-0.05); Absolute Lymphocytes 2.7 10^3/uL (1.2-3.4); Absolute Monocytes 1.2 10^3/uL (0.1-0.6); Absolute Neutrophils 11.6 10^3/uL (1.4-6.5); Hematocrit 29.2 % (37.0-47.0); Hemoglobin 9.6 g/dL (12.0-16.0); Mean Corp Hgb Conc. 32.9 g/dL (33.0-37.0); Mean Corpuscular Hgb 31.6 pg (27.0-31.0); Mean Corpuscular Volume 96.1 fL (81.0-99.0); Mean Platelet Volume 10.7 fL (7.4-10.4); Nucleated Red Blood Cells % 0 %; Platelet Count 368 10^3/uL (130-400); Red Blood Cell Count 3.04 10^6/uL (4.20-5.40); Red Cell Dist. Width 13.2 % (11.5-14.5); White Blood Cell Count 15.9 10^3/uL (4.8-10.8)
[2023-08-05 06:00] VITALS: BMI 35.6
[2023-08-05 06:18] LABS: Blood Urea Nitrogen 10 mg/dl (7-17); Calcium 8.9 mg/dl (8.4-10.2); Carbon Dioxide 27 mmol/L (22-30); Chloride 102 mmol/L (98-107); Estimated Creatinine Clearance > 125 ml/min; Glucose 123 mg/dl (70-99); Potassium 3.2 mmol/L (3.5-5.1); Sodium 138 mmol/L (135-145); eGFR > 60.00
[2023-08-05 07:34] VITALS: BP 160/112
[2023-08-05] MEDS: DUONEB 3 ML INH ×2 (07:44→19:29)
[2023-08-05] MEDS: PULMICORT 0.5 MG INH ×2 (07:44→19:29)
[2023-08-05] MEDS: LOPRESSOR 75 MG TUBE ×2 (08:43→21:38)
[2023-08-05] MEDS: PREVACID 30 MG TUBE (08:43)
[2023-08-05] MEDS: VISBIOME 1 CAP TUBE (08:43)
[2023-08-05] MEDS: KCL ELIXIR 40 MEQ TUBE (08:43)
[2023-08-05] MEDS: FOLVITE 1 MG TUBE (08:44)
[2023-08-05] MEDS: COZAAR 75 MG TUBE (08:44)
[2023-08-05] MEDS: ZYRTEC 5 MG TUBE (08:44)
[2023-08-05] MEDS: COLACE LIQUID 100 MG TUBE ×2 (08:44→21:34)
[2023-08-05] MEDS: DESENEX/MITRAZOL/ZEASORB 1 APPLIC TOPICAL ×2 (08:45→21:34)
[2023-08-05] MEDS: MIRALAX 17 GRAMS TUBE (08:45)
--- NOTE | 2023-08-05 09:11 | PN.CDI ---
CDI
- -
CDI:
Physician Documentation Request
Admit Date: 08/01/23 00:48
Dear Doctor Cj,
Patient admitted for stercoral colitis.
07/31 H&P: 'PMH significant for �anoxic brain injury s/p cardiac arrest with trach and PEG...Patient is non-verbal at baseline and is unable to contribute to this history...awake but does not answer questions / follow commands'
08/01 PCN: 'Pt slid over to bed to stretcher...Pt turned and changed. Pt is nonverbal.'
08/02 Case Management Note: 'from [facility], requires total care'
Based on the above, could you clarify in the progress notes, the appropriate diagnosis, if significant, that supports the above abnormalities and additional evaluation, monitoring and/or treatment rendered:
Functional quadriplegia
Other
Use of terms such as suspected, likely, concern for, or probable (associated with a specific diagnosis that is being evaluated, monitored, or treated as if it exists) are acceptable and can be coded in the inpatient setting, when documented at the
time of discharge.
Thank you,
Edith Camacho RN, BSN
CDI Specialist
Available via [place] text
Please use your independent medical judgment in providing your response.
[2023-08-05] MEDS: LOPRESSOR TUBE (09:28)
[2023-08-05 11:08] VITALS: BP 150/98
--- NOTE | 2023-08-05 11:22 | CM ---
Addendum entered by Jennifer Andrea 08/05/23 11:27:
Per Jordon with Acute Care, will only require ALS if deep suctioning required past trach
Can transport via BLS if surface suctioning
Original Note:
CM reviewed pt with Dr Corona- ADC tomorrow pending labs/wbc
Update provided to SNF admissions/Delphine
As pt with total care needs, no auth is needed for SNF return
Plan to return back for LT care
Pt will likely need ALS transport due to trach
Return SNF referral sent via [facility] along with updated clinicals
Discharge Disposition- return [facility]
Phone- [phone] Fax- [phone]
--- NOTE | 2023-08-05 11:57 | W.PN.HOSP.TC ---
Today's Communication/Plan
-
Increase TF FWF
IVF 500 x 1
Adjust BP meds
abx
trend cbc
Assessment / Plan
Assessment / Plan
HPI: 38 yo F with PMH significant for anoxic brain injury s/p cardiac arrest with trach and PEG, from [facility]; p/w N/V.� Patient is non-verbal at baseline and is unable to contribute to history.
Per NH, patient was noted to have N/V at the facility in the evening.�She has been hypertensive for the past few days and was newly started on hydralazine on 07/30/22.
Patient had multiple episodes of bilious appearing emesis in the ED as well.
CT AP:
1. � ACUTE STERCORAL COLITIS in the RECTUM with fecal impaction, mild wall thickening, and mild perirectal inflammation.
2. � Moderate amount of fecal material throughout the colon consistent with constipation.
3. � No CT evidence for small bowel obstruction.
4. � Percutaneous gastrojejunostomy tube in place.
5. � Mild hepatomegaly and mild diffuse hepatic steatosis.
6. � Mild to moderate cardiomegaly.
A/P:
# N/V
# Stercoral Colitis
N/V likely secondary to constipation / stercoral colitis as noted on CT scan.
s/p aggressive bowel regimen and pt has had BM
Follow up Abd XR: Nonobstructive bowel gas pattern. No gross free air, evaluation limited.
Cont bowel regimen
Vomiting has much resolved, resume TF slowly and now at goal.
# Anoxic Brain Injury
# Cardiac Arrest post influenza/hypoxemia
# Functional quadriplegia
# Chronic Encephalopathy secondary to the above
Continue supportive measures including O2, repositioning, trach care, etc.
Changed to cuff trach to prevent aspiration by ENT 08/02
Follow up CXR 08/02 no pneumonia
# Leucocytosis likely reactive vs due to Stercoral Colitis
COVID/Flu neg
CXR unrevealing
CRP 17
UA neg
Bump in wbc but afebrile.
Start empiric Zosyn with probiotic-cont for today
# Chronic Normocytic Anemia
Records indicate both B12 and iron deficiencies - ? etiology.
TSat normal and B12 high on recent admission labs.
Follow H&H for any changes.
No evidence of acute / significant blood loss at present.
# Benign Hypertension with sinus tachycardia
Recent increase in BP noted at the [place] and started on hydralazine.
Continue losartan and metoprolol and increase losartan to 75mg lopressor 75mg q12h
If BP elevated increase dose of losartan.
Hydralazine PRN for higher BP.
Treat acute GI issue as noted above.
# Recent Tracheitis, Stable.�
No significant mucus production, coughing, etc noted on exam.
Has completed course of levofloxacin (last dose was on DOA).
DVT Prophylaxis:� Lovenox
Code Status:� Full
Anticipated Discharge: 24 - 48 hours
Subjective/Interval History
-
Date of Service: August 05, 2023
Remains afebrile
BP elevated
rouse with dark color urine
Objective Data
-
Labs:
Laboratory Results
08/05/23
05:25
WBC 15.9 H
Hgb 9.6 L
Hct 29.2 L
Plt Count 368
Sodium 138
Potassium 3.2 L
Chloride 102
Carbon Dioxide 27
BUN 10
Creatinine 0.5 L
Glucose 123 H
Calcium 8.9
Vital Signs:
Vital Signs
Temp Pulse Resp BP Pulse Ox
98.9 F 107 16 150/98 100
08/05/23 11:08 08/05/23 11:08 08/05/23 11:08 08/05/23 11:08 08/05/23 11:08
I&O
08/04/23 08/05/23 08/06/23
06:59 06:59 06:59
Intake Total 160 / 160 715 / 715
Output Total 500 / 500
Balance 160 / 160 215 / 215
Data Reviewed
-
Total Time Spent with Patient (in minutes): 54
[2023-08-05] MEDS: NSS 500 IV (13:30)
[2023-08-05 15:00] VITALS: BP 156/105
[2023-08-05] MEDS: LOVENOX 40 MG SC (16:43)
[2023-08-05 19:10] VITALS: BP 161/109
[2023-08-05 23:05] VITALS: BP 161/110
[2023-08-06] MEDS: ZOSYN 100 IV ×2 (01:52→07:17)
[2023-08-06] MEDS: ROBINUL 2 MG TUBE ×3 (02:02→21:22)
[2023-08-06] MEDS: ATROPINE SULFATE 1% DROPS 2 DROP SL ×4 (02:30→21:26)
[2023-08-06 02:43] VITALS: BMI 35.1
[2023-08-06 03:06] VITALS: BP 155/112
[2023-08-06 06:33] LABS: % Basophils 0.5 % (0-2); % Eosinophils 2.3 % (0-6); % Immature Granulocytes 0.7 % (0-0.5); % Lymphocytes 18.8 % (20.5-51.1); % Monocytes 9.4 % (1.7-9.3); % Neutrophils 68.3 % (42.2-75.2); Absolute Basophils 0.1 10^3/uL (0-0.2); Absolute Eosinophils 0.4 10^3/uL (0-0.7); Absolute Immature Granulocytes 0.1 10^3/uL (0-0.05); Absolute Lymphocytes 2.9 10^3/uL (1.2-3.4); Absolute Monocytes 1.4 10^3/uL (0.1-0.6); Absolute Neutrophils 10.4 10^3/uL (1.4-6.5); Hematocrit 28.5 % (37.0-47.0); Hemoglobin 9.8 g/dL (12.0-16.0); Mean Corp Hgb Conc. 34.4 g/dL (33.0-37.0); Mean Corpuscular Hgb 31.6 pg (27.0-31.0); Mean Corpuscular Volume 91.9 fL (81.0-99.0); Mean Platelet Volume 10.6 fL (7.4-10.4); Nucleated Red Blood Cells % 0 %; Platelet Count 317 10^3/uL (130-400); Red Cell Dist. Width 13.3 % (11.5-14.5); White Blood Cell Count 15.2 10^3/uL (4.8-10.8)
[2023-08-06 06:55] LABS: Blood Urea Nitrogen 9 mg/dl (7-17); Calcium 8.7 mg/dl (8.4-10.2); Carbon Dioxide 28 mmol/L (22-30); Chloride 101 mmol/L (98-107); Estimated Creatinine Clearance > 125 ml/min; Glucose 112 mg/dl (70-99); Potassium 3.4 mmol/L (3.5-5.1); Sodium 139 mmol/L (135-145); eGFR > 60.00
[2023-08-06 07:00] VITALS: BP 166/113
[2023-08-06] MEDS: COLACE LIQUID TUBE (07:15)
[2023-08-06] MEDS: ZYRTEC 5 MG TUBE (07:17)
[2023-08-06] MEDS: VISBIOME 1 CAP TUBE (07:17)
[2023-08-06] MEDS: FOLVITE 1 MG TUBE (07:17)
[2023-08-06] MEDS: PREVACID 30 MG TUBE (07:17)
[2023-08-06] MEDS: COZAAR 75 MG TUBE (07:18)
[2023-08-06] MEDS: LOPRESSOR 75 MG TUBE ×2 (07:21→21:22)
[2023-08-06] MEDS: DESENEX/MITRAZOL/ZEASORB 1 APPLIC TOPICAL ×2 (07:21→21:23)
[2023-08-06] MEDS: MIRALAX TUBE (07:21)
[2023-08-06] MEDS: KCL ELIXIR 40 MEQ TUBE (07:58)
[2023-08-06] MEDS: DUONEB 3 ML INH ×2 (07:58→19:53)
[2023-08-06] MEDS: PULMICORT 0.5 MG INH ×2 (07:58→19:53)
[2023-08-06 11:00] VITALS: BP 138/93
[2023-08-06] MEDS: VITAMIN B1 100 MG TUBE (12:04)
--- NOTE | 2023-08-06 13:38 | W.PN.HOSP.TC ---
Today's Communication/Plan
-
stop abx
robinul standing for secretion
monitor cbc
start dispo planning
Assessment / Plan
Assessment / Plan
HPI: 38 yo F with PMH significant for anoxic brain injury s/p cardiac arrest with trach and PEG, from [facility]; p/w N/V.� Patient is non-verbal at baseline and is unable to contribute to history.
Per NH, patient was noted to have N/V at the facility in the evening.�She has been hypertensive for the past few days and was newly started on hydralazine on 07/30/22.
Patient had multiple episodes of bilious appearing emesis in the ED as well.
CT AP:
1. � ACUTE STERCORAL COLITIS in the RECTUM with fecal impaction, mild wall thickening, and mild perirectal inflammation.
2. � Moderate amount of fecal material throughout the colon consistent with constipation.
3. � No CT evidence for small bowel obstruction.
4. � Percutaneous gastrojejunostomy tube in place.
5. � Mild hepatomegaly and mild diffuse hepatic steatosis.
6. � Mild to moderate cardiomegaly.
A/P:
# N/V
# Stercoral Colitis
N/V likely secondary to constipation / stercoral colitis as noted on CT scan.
s/p aggressive bowel regimen and pt has had BM
Follow up Abd XR: Nonobstructive bowel gas pattern. No gross free air, evaluation limited.
Vomiting has much resolved, resume TF slowly and now at goal.
DC abx and observe
# Anoxic Brain Injury
# Cardiac Arrest post influenza/hypoxemia
# Functional quadriplegia
# Chronic Encephalopathy secondary to the above
Continue supportive measures including O2, repositioning, trach care, etc.
Changed to cuff trach to prevent aspiration by ENT 08/02
Follow up CXR 08/02 no pneumonia
# Leucocytosis likely reactive vs due to Stercoral Colitis
COVID/Flu neg
CXR unrevealing
CRP 17
UA neg
Blood culture negative
DC zosyn and observe.
culture data negative so far
# Chronic Normocytic Anemia
Records indicate both B12 and iron deficiencies - ? etiology.
TSat normal and B12 high on recent admission labs.
Follow H&H for any changes.
No evidence of acute / significant blood loss at present.
# Benign Hypertension with sinus tachycardia
Recent increase in BP noted at the [place] and started on hydralazine.
Continue losartan and metoprolol and increase losartan to 75mg lopressor 75mg q12h
If BP elevated increase dose of losartan further
Hydralazine PRN for higher BP.
# Recent Tracheitis, Stable.�
No significant mucus production, coughing, etc noted on exam.
Has completed course of levofloxacin (last dose was on DOA).
DVT Prophylaxis:� Lovenox
Code Status:� Full
Anticipated Discharge: Within 24 hours
Subjective/Interval History
-
Date of Service: August 06, 2023
having loose stools
afebrile
wbc downtrending
Objective Data
-
Labs:
Laboratory Results
08/06/23
06:02
WBC 15.2 H
Hgb 9.8 L
Hct 28.5 L
Plt Count 317
Sodium 139
Potassium 3.4 L
Chloride 101
Carbon Dioxide 28
BUN 9
Creatinine 0.4 L
Glucose 112 H
Calcium 8.7
Vital Signs:
Vital Signs
Temp Pulse Resp BP Pulse Ox
99.1 F 95 17 138/93 99
08/06/23 11:00 08/06/23 11:00 08/06/23 11:00 08/06/23 11:00 08/06/23 11:00
I&O
08/05/23 08/06/23 08/07/23
06:59 06:59 06:59
Intake Total 715 / 715 1400 / 1400
Output Total 500 / 500 200 / 200
Balance 215 / 215 1200 / 1200
Data Reviewed
-
Total Time Spent with Patient (in minutes): 54
--- NOTE | 2023-08-06 14:03 | PN.CDI ---
CDI
- -
CDI:
Physician Documentation Request
Admit Date: 08/01/23 00:48
Dear Doctor Cj,
Patient admitted for stercoral colitis.
08/05 Potassium level: 3.2
08/05 Potassium chloride 40 meq administered
08/06 Potassium level: 3.4
08/06 Potassium chloride 40 meq administered
Based on the above, could you clarify in the progress notes, the appropriate diagnosis, if significant, that supports the above abnormalities and additional evaluation, monitoring and/or treatment rendered:
Hypokalemia
Abnormal lab value insignificant
Other
Use of terms such as suspected, likely, concern for, or probable (associated with a specific diagnosis that is being evaluated, monitored, or treated as if it exists) are acceptable and can be coded in the inpatient setting, when documented at the
time of discharge.
Thank you,
Edith Camacho RN, BSN
CDI Specialist
Available via [place] text
Please use your independent medical judgment in providing your response.
[2023-08-06 15:00] VITALS: BP 130/91
--- NOTE | 2023-08-06 16:23 | CM ---
Chart reviewed
D/C'ed antibiotics today
Following CBC in AM
Plan - discharge to [facility] when medically stable
[2023-08-06] MEDS: LOVENOX 40 MG SC (16:58)
[2023-08-06 19:36] VITALS: BP 143/97
[2023-08-06] MEDS: COLACE LIQUID 100 MG TUBE (21:23)
[2023-08-06 23:46] VITALS: BP 149/104
[2023-08-07 03:15] VITALS: BP 145/98
[2023-08-07 05:51] VITALS: BMI 35.0
[2023-08-07 06:56] LABS: % Basophils 0.5 % (0-2); % Eosinophils 2.6 % (0-6); % Immature Granulocytes 0.8 % (0-0.5); % Lymphocytes 21.8 % (20.5-51.1); % Monocytes 7.9 % (1.7-9.3); % Neutrophils 66.4 % (42.2-75.2); Absolute Basophils 0.1 10^3/uL (0-0.2); Absolute Eosinophils 0.4 10^3/uL (0-0.7); Absolute Immature Granulocytes 0.1 10^3/uL (0-0.05); Absolute Lymphocytes 3.4 10^3/uL (1.2-3.4); Absolute Monocytes 1.2 10^3/uL (0.1-0.6); Absolute Neutrophils 10.4 10^3/uL (1.4-6.5); Hematocrit 30.1 % (37.0-47.0); Hemoglobin 9.9 g/dL (12.0-16.0); Mean Corp Hgb Conc. 32.9 g/dL (33.0-37.0); Mean Corpuscular Hgb 30.8 pg (27.0-31.0); Mean Corpuscular Volume 93.8 fL (81.0-99.0); Nucleated Red Blood Cells % 0 %; Platelet Count 379 10^3/uL (130-400); Red Blood Cell Count 3.21 10^6/uL (4.20-5.40); Red Cell Dist. Width 13.4 % (11.5-14.5); White Blood Cell Count 15.6 10^3/uL (4.8-10.8)
[2023-08-07 07:00] VITALS: BP 168/105
[2023-08-07 07:21] LABS: Blood Urea Nitrogen 8 mg/dl (7-17); Carbon Dioxide 29 mmol/L (22-30); Chloride 105 mmol/L (98-107); Estimated Creatinine Clearance > 125 ml/min; Glucose 110 mg/dl (70-99); Sodium 136 mmol/L (135-145); eGFR > 60.00
[2023-08-07 07:27] LABS: Potassium 3.9 mmol/L (3.5-5.1)
[2023-08-07] MEDS: DUONEB 3 ML INH ×2 (07:51→19:32)
[2023-08-07] MEDS: PULMICORT 0.5 MG INH ×2 (07:51→19:32)
[2023-08-07] MEDS: COLACE LIQUID 100 MG TUBE ×2 (08:42→21:56)
[2023-08-07] MEDS: FOLVITE 1 MG TUBE (08:43)
[2023-08-07] MEDS: ZYRTEC 5 MG TUBE (08:43)
[2023-08-07] MEDS: ROBINUL 2 MG TUBE ×3 (08:43→22:10)
[2023-08-07] MEDS: VISBIOME 1 CAP TUBE (08:43)
[2023-08-07] MEDS: PREVACID 30 MG TUBE (08:44)
[2023-08-07] MEDS: LOPRESSOR 75 MG TUBE ×2 (08:44→22:01)
[2023-08-07] MEDS: COZAAR 75 MG TUBE (08:44)
[2023-08-07] MEDS: DESENEX/MITRAZOL/ZEASORB 1 APPLIC TOPICAL ×2 (08:45→21:58)
[2023-08-07] MEDS: MIRALAX TUBE (08:45)
--- NOTE | 2023-08-07 11:47 | W.PN.HOSP.TC ---
Today's Communication/Plan
-
Increase free water
Adjust losartan dose
po abx
fiber supplement
Assessment / Plan
Assessment / Plan
HPI: 38 yo F with PMH significant for anoxic brain injury s/p cardiac arrest with trach and PEG, from [facility]; p/w N/V.� Patient is non-verbal at baseline and is unable to contribute to history.
Per NH, patient was noted to have N/V at the facility in the evening.�She has been hypertensive for the past few days and was newly started on hydralazine on 07/30/22.
Patient had multiple episodes of bilious appearing emesis in the ED as well.
CT AP:
1. � ACUTE STERCORAL COLITIS in the RECTUM with fecal impaction, mild wall thickening, and mild perirectal inflammation.
2. � Moderate amount of fecal material throughout the colon consistent with constipation.
3. � No CT evidence for small bowel obstruction.
4. � Percutaneous gastrojejunostomy tube in place.
5. � Mild hepatomegaly and mild diffuse hepatic steatosis.
6. � Mild to moderate cardiomegaly.
A/P:
# Nausea/vomiting
# Stercoral Colitis
N/V likely secondary to constipation / stercoral colitis as noted on CT scan.
s/p aggressive bowel regimen and pt has had BM
Follow up Abd XR: Nonobstructive bowel gas pattern. No gross free air, evaluation limited.
Vomiting has much resolved, resume TF slowly and now at goal.
Increase free water at with some component of dehydration
Add fiber supplements
DC abx and observe
# Anoxic Brain Injury
# Cardiac Arrest post influenza/hypoxemia
# Functional quadriplegia
# Chronic Encephalopathy secondary to the above
Continue supportive measures including O2, repositioning, trach care, etc.
Changed to cuff trach to prevent aspiration by ENT 08/02
Follow up CXR 08/02 no pneumonia
# Leucocytosis likely 2/2 Stercoral Colitis
COVID/Flu neg
CXR unrevealing
CRP 17
UA neg
Blood culture negative
DC zosyn and switch to Augmentin
culture data negative so far
# Chronic Normocytic Anemia
Records indicate both B12 and iron deficiencies - ? etiology.
TSat normal and B12 high on recent admission labs.
Follow H&H for any changes.
No evidence of acute / significant blood loss at present.
# Benign Hypertension with sinus tachycardia
Recent increase in BP noted at the [place] and started on hydralazine.
Continue losartan and metoprolol and increase losartan to 100 mg lopressor 75mg q12h
Hydralazine PRN for higher BP.
# Recent Tracheitis, Stable.�
Has completed course of levofloxacin (last dose was on DOA).
DVT Prophylaxis:� Lovenox
Code Status:� Full
updated mother over the phone in details
Anticipated Discharge: Within 24 hours
Subjective/Interval History
-
Date of Service: August 07, 2023
Remains with increase secretions
afebrile
BP elevated
Objective Data
-
Labs:
Laboratory Results
08/07/23
06:22
WBC 15.6 H
Hgb 9.9 L
Hct 30.1 L
Plt Count 379
Sodium 136
Potassium 3.9
Chloride 105
Carbon Dioxide 29
BUN 8
Creatinine 0.4 L
Glucose 110 H
Calcium 9.0
Vital Signs:
Vital Signs
Temp Pulse Resp BP Pulse Ox
98.7 F 117 20 168/105 100
08/07/23 07:00 08/07/23 08:44 08/07/23 08:03 08/07/23 08:44 08/07/23 08:03
I&O
08/06/23 08/07/23 08/08/23
06:59 06:59 06:59
Intake Total 1400 / 1400 1200 / 1200
Output Total 200 / 200 1075 / 1075
Balance 1200 / 1200 125 / 125
Data Reviewed
-
Total Time Spent with Patient (in minutes): 55
[2023-08-07 11:50] VITALS: BP 156/99
[2023-08-07] MEDS: COZAAR 25 MG TUBE (14:10)
[2023-08-07] MEDS: AUGMENTIN 875 MG/125 MG 1 TABLET TUBE ×2 (14:11→21:49)
[2023-08-07 15:00] VITALS: BP 159/116
[2023-08-07] MEDS: TYLENOL 650 MG TUBE (17:24)
[2023-08-07] MEDS: ATROPINE SULFATE 1% DROPS 2 DROP SL (17:25)
[2023-08-07] MEDS: LOVENOX 40 MG SC (17:26)
[2023-08-07 19:30] VITALS: BP 130/96
[2023-08-07] MEDS: METAMUCIL, KONSYL 1 PACKET TUBE (22:07)
[2023-08-07 23:33] VITALS: BP 150/59
[2023-08-08 03:51] VITALS: BP 106/60
[2023-08-08 05:29] VITALS: BMI 34.6
[2023-08-08 06:33] LABS: % Basophils 0.4 % (0-2); % Immature Granulocytes 0.7 % (0-0.5); % Lymphocytes 12.4 % (20.5-51.1); % Monocytes 5.7 % (1.7-9.3); % Neutrophils 79.8 % (42.2-75.2); Absolute Basophils 0.1 10^3/uL (0-0.2); Absolute Eosinophils 0.2 10^3/uL (0-0.7); Absolute Immature Granulocytes 0.2 10^3/uL (0-0.05); Absolute Lymphocytes 2.7 10^3/uL (1.2-3.4); Absolute Monocytes 1.3 10^3/uL (0.1-0.6); Absolute Neutrophils 17.6 10^3/uL (1.4-6.5); Hemoglobin 10.7 g/dL (12.0-16.0); Mean Corp Hgb Conc. 33.4 g/dL (33.0-37.0); Mean Corpuscular Hgb 31.4 pg (27.0-31.0); Mean Corpuscular Volume 93.8 fL (81.0-99.0); Mean Platelet Volume 10.9 fL (7.4-10.4); Nucleated Red Blood Cells % 0 %; Platelet Count 379 10^3/uL (130-400); Red Blood Cell Count 3.41 10^6/uL (4.20-5.40); Red Cell Dist. Width 13.4 % (11.5-14.5)
[2023-08-08 07:00] VITALS: BP 160/114
[2023-08-08 07:20] LABS: Blood Urea Nitrogen 9 mg/dl (7-17); Calcium 9.2 mg/dl (8.4-10.2); Carbon Dioxide 25 mmol/L (22-30); Chloride 103 mmol/L (98-107); Estimated Creatinine Clearance > 125 ml/min; Glucose 119 mg/dl (70-99); Potassium 4.2 mmol/L (3.5-5.1); Sodium 136 mmol/L (135-145); eGFR > 60.00
[2023-08-08] MEDS: PULMICORT 0.5 MG INH ×2 (07:24→19:55)
[2023-08-08] MEDS: DUONEB 3 ML INH ×2 (07:24→19:55)
[2023-08-08] MEDS: FOLVITE 1 MG TUBE (09:44)
[2023-08-08] MEDS: ROBINUL 2 MG TUBE ×3 (09:44→21:47)
[2023-08-08] MEDS: ZYRTEC 5 MG TUBE (09:44)
[2023-08-08] MEDS: VISBIOME 1 CAP TUBE (09:44)
[2023-08-08] MEDS: METAMUCIL, KONSYL 1 PACKET TUBE ×2 (09:45→21:42)
[2023-08-08] MEDS: COZAAR 100 MG TUBE (09:45)
[2023-08-08] MEDS: PREVACID 30 MG TUBE (09:45)
[2023-08-08] MEDS: LOPRESSOR 75 MG TUBE (09:45)
[2023-08-08] MEDS: COLACE LIQUID TUBE ×2 (09:46→21:09)
[2023-08-08] MEDS: AUGMENTIN 875 MG/125 MG 1 TABLET TUBE ×2 (09:46→21:31)
[2023-08-08] MEDS: DESENEX/MITRAZOL/ZEASORB 1 APPLIC TOPICAL ×2 (09:46→21:36)
[2023-08-08] MEDS: MIRALAX TUBE (09:46)
[2023-08-08 11:00] VITALS: BP 161/111
--- NOTE | 2023-08-08 11:14 | W.PN.HOSP.TC ---
Today's Communication/Plan
-
stool studies
cont TF with increase free water as with diarrhea
Assessment / Plan
Assessment / Plan
HPI: 38 yo F with PMH significant for anoxic brain injury s/p cardiac arrest with trach and PEG, from [facility]; p/w N/V.� Patient is non-verbal at baseline and is unable to contribute to history.
Per NH, patient was noted to have N/V at the facility in the evening.�She has been hypertensive for the past few days and was newly started on hydralazine on 07/30/22.
Patient had multiple episodes of bilious appearing emesis in the ED as well.
CT AP:
1. � ACUTE STERCORAL COLITIS in the RECTUM with fecal impaction, mild wall thickening, and mild perirectal inflammation.
2. � Moderate amount of fecal material throughout the colon consistent with constipation.
3. � No CT evidence for small bowel obstruction.
4. � Percutaneous gastrojejunostomy tube in place.
5. � Mild hepatomegaly and mild diffuse hepatic steatosis.
6. � Mild to moderate cardiomegaly.
A/P:
# Leucocytosis likely 2/2 Stercoral Colitis
COVID/Flu neg
CXR unrevealing
CRP 17
UA neg
Blood culture negative
DC zosyn and switch to Augmentin
culture data negative so far
Check cdiff and stool studies as with recent levaquin exposure
If no improvement may need re-culture and repeat imaging and ID eval
# Nausea/vomiting
# Stercoral Colitis
N/V likely secondary to constipation / stercoral colitis as noted on CT scan.
s/p aggressive bowel regimen and pt has had BM
Follow up Abd XR: Nonobstructive bowel gas pattern. No gross free air, evaluation limited.
Vomiting has much resolved, resume TF slowly and now at goal.
Increase free water at with some component of dehydration
Add fiber supplements
DC abx and observe
# Anoxic Brain Injury
# Cardiac Arrest post influenza/hypoxemia
# Functional quadriplegia
# Chronic Encephalopathy secondary to the above
Continue supportive measures including O2, repositioning, trach care, etc.
Changed to cuff trach to prevent aspiration by ENT 08/02
Follow up CXR 08/02 no pneumonia
# Chronic Normocytic Anemia
Records indicate both B12 and iron deficiencies - ? etiology.
TSat normal and B12 high on recent admission labs.
Follow H&H for any changes.
No evidence of acute / significant blood loss at present.
# Benign Hypertension with sinus tachycardia
Recent increase in BP noted at the [place] and started on hydralazine.
Continue losartan and metoprolol and increase losartan to 100 mg lopressor 75mg q12h
Hydralazine PRN for higher BP.
# Recent Tracheitis, Stable.�
Has completed course of levofloxacin (last dose was on DOA).
DVT Prophylaxis:� Lovenox
Code Status:� Full
updated mother over the phone in details on 08/07
Anticipated Discharge: 24 - 48 hours
Subjective/Interval History
-
Date of Service: August 08, 2023
Bump in wbc
afebrile
remains with loose stools
tolerating TF
Objective Data
-
Labs:
Laboratory Results
08/08/23
06:16
WBC 22.0 H
Hgb 10.7 L
Hct 32.0 L
Plt Count 379
Sodium 136
Potassium 4.2
Chloride 103
Carbon Dioxide 25
BUN 9
Creatinine 0.4 L
Glucose 119 H
Calcium 9.2
Vital Signs:
Vital Signs
Temp Pulse Resp BP Pulse Ox
98.5 F 115 20 160/114 100
08/08/23 07:00 08/08/23 09:45 08/08/23 07:26 08/08/23 09:45 08/08/23 07:26
I&O
08/07/23 08/08/23 08/09/23
06:59 06:59 06:59
Intake Total 1200 / 1200
Output Total 1075 / 1075 1924
Balance 125 / 125 -1880 / -1880
Physical Exam
-
General: Well Developed and Appears Chronically Ill
HEENT: Normocephalic, Atraumatic, Moist Mucous Membranes and Oxygen (trach collar)
Respiratory: Clear to Auscultation and Non Labored Respirations; Negative Accessory Resp Muscle Use
Cardiac: Regular Rhythm and S1/S2; Negative Murmur, Rub or Gallop
GI: Soft, Nontender (No grimacing noted upon palpation of abd), Nondistended, Normal Bowel Sounds and Peg Tube; Negative Organomegaly
Rectal: Deferred by Provider
Musculoskeletal: No Clubbing, No Cyanosis and No Edema
Skin: Negative Rash
Neuro: Awake and Other (does not follow commands . aphasic. )
Psych: Calm
Data Reviewed
-
Total Time Spent with Patient (in minutes): 53
[2023-08-08] MEDS: VITAMIN B1 100 MG TUBE (12:30)
--- NOTE | 2023-08-08 15:38 | CM ---
patient with 98% o2 through trach collar,has pc g j tube ,tolerating tube feedings,abx changed to po augmentin.inc wbc.
Plan: patient will return to [facility] when stable for discharge.
[2023-08-08 15:59] VITALS: BP 169/123
[2023-08-08] MEDS: LOPRESSOR 5 MG IV (17:05)
[2023-08-08] MEDS: LOVENOX 40 MG SC (17:06)
[2023-08-08 20:05] VITALS: BP 160/104
[2023-08-08] MEDS: LOPRESSOR 100 MG TUBE (21:38)
[2023-08-08 23:41] VITALS: BP 155/98
[2023-08-09] VITALS (7 sets, daily range): BP systolic 116–186; BP diastolic 82–110; BMI 36.0
[2023-08-09 07:04] LABS: % Basophils 0.4 % (0-2); % Eosinophils 1.6 % (0-6); % Immature Granulocytes 0.5 % (0-0.5); % Lymphocytes 15.8 % (20.5-51.1); % Monocytes 6.1 % (1.7-9.3); % Neutrophils 75.6 % (42.2-75.2); Absolute Basophils 0.1 10^3/uL (0-0.2); Absolute Eosinophils 0.3 10^3/uL (0-0.7); Absolute Immature Granulocytes 0.1 10^3/uL (0-0.05); Absolute Lymphocytes 3.1 10^3/uL (1.2-3.4); Absolute Monocytes 1.2 10^3/uL (0.1-0.6); Absolute Neutrophils 14.7 10^3/uL (1.4-6.5); Hematocrit 30.5 % (37.0-47.0); Hemoglobin 10.5 g/dL (12.0-16.0); Mean Corp Hgb Conc. 34.4 g/dL (33.0-37.0); Mean Corpuscular Hgb 32.1 pg (27.0-31.0); Mean Corpuscular Volume 93.3 fL (81.0-99.0); Mean Platelet Volume 10.4 fL (7.4-10.4); Nucleated Red Blood Cells % 0 %; Platelet Count 417 10^3/uL (130-400); Red Blood Cell Count 3.27 10^6/uL (4.20-5.40); Red Cell Dist. Width 13.4 % (11.5-14.5); White Blood Cell Count 19.5 10^3/uL (4.8-10.8)
[2023-08-09 07:29] LABS: Blood Urea Nitrogen 10 mg/dl (7-17); Calcium 9.2 mg/dl (8.4-10.2); Carbon Dioxide 26 mmol/L (22-30); Chloride 103 mmol/L (98-107); Estimated Creatinine Clearance > 125 ml/min; Glucose 117 mg/dl (70-99); Potassium 3.9 mmol/L (3.5-5.1); Sodium 135 mmol/L (135-145); eGFR > 60.00
[2023-08-09] MEDS: DUONEB 3 ML INH ×2 (07:48→19:47)
[2023-08-09] MEDS: PULMICORT 0.5 MG INH ×2 (07:48→19:47)
[2023-08-09] MEDS: COLACE LIQUID 100 MG TUBE ×2 (09:32→22:08)
[2023-08-09] MEDS: AUGMENTIN 875 MG/125 MG 1 TABLET TUBE ×2 (09:32→22:07)
[2023-08-09] MEDS: MIRALAX 17 GRAMS TUBE (09:32)
[2023-08-09] MEDS: METAMUCIL, KONSYL 1 PACKET TUBE ×2 (09:32→22:12)
[2023-08-09] MEDS: ROBINUL 2 MG TUBE ×3 (09:33→22:07)
[2023-08-09] MEDS: COZAAR 100 MG TUBE (09:33)
[2023-08-09] MEDS: LOPRESSOR 100 MG TUBE ×2 (09:34→22:09)
[2023-08-09] MEDS: PREVACID 30 MG TUBE (09:34)
[2023-08-09] MEDS: DESENEX/MITRAZOL/ZEASORB TOPICAL (09:34)
[2023-08-09] MEDS: ZYRTEC 5 MG TUBE (09:34)
[2023-08-09] MEDS: VISBIOME 1 CAP TUBE (09:35)
[2023-08-09] MEDS: FOLVITE 1 MG TUBE (09:35)
[2023-08-09] MEDS: APRESOLINE 5 MG IV (09:48)
--- NOTE | 2023-08-09 11:16 | W.PN.HOSP.TC ---
Today's Communication/Plan
-
adjusted BP meds
DC FMS
trend cbc
start dispo planning
Assessment / Plan
Assessment / Plan
HPI: 38 yo F with PMH significant for anoxic brain injury s/p cardiac arrest with trach and PEG, from [facility]; p/w N/V.� Patient is non-verbal at baseline and is unable to contribute to history.
Per NH, patient was noted to have N/V at the facility in the evening.�She has been hypertensive for the past few days and was newly started on hydralazine on 07/30/22.
Patient had multiple episodes of bilious appearing emesis in the ED as well.
CT AP:
1. � ACUTE STERCORAL COLITIS in the RECTUM with fecal impaction, mild wall thickening, and mild perirectal inflammation.
2. � Moderate amount of fecal material throughout the colon consistent with constipation.
3. � No CT evidence for small bowel obstruction.
4. � Percutaneous gastrojejunostomy tube in place.
5. � Mild hepatomegaly and mild diffuse hepatic steatosis.
6. � Mild to moderate cardiomegaly.
A/P:
# Leucocytosis likely 2/2 Stercoral Colitis
COVID/Flu neg
CXR unrevealing
CRP 17
UA neg
Blood culture negative
DC zosyn and switch to Augmentin
culture data negative so far
Check cdiff and stool studies as with recent levaquin exposure -both negativ.e
WBC downtrending
# Nausea/vomiting
# Stercoral Colitis
N/V likely secondary to constipation / stercoral colitis as noted on CT scan.
s/p aggressive bowel regimen and pt has had BM
Follow up Abd XR: Nonobstructive bowel gas pattern. No gross free air, evaluation limited.
Vomiting has much resolved, resume TF slowly and now at goal.
Increase free water at with some component of dehydration
Add fiber supplements
DC abx and observe
DC FMS. Stool starting to form.
# Anoxic Brain Injury
# Cardiac Arrest post influenza/hypoxemia
# Functional quadriplegia
# Chronic Encephalopathy secondary to the above
Continue supportive measures including O2, repositioning, trach care, etc.
Changed to cuff trach to prevent aspiration by ENT 08/02
Follow up CXR 08/02 no pneumonia
# Chronic Normocytic Anemia
Records indicate both B12 and iron deficiencies - ? etiology.
TSat normal and B12 high on recent admission labs.
Follow H&H for any changes.
No evidence of acute / significant blood loss at present.
# Benign Hypertension with sinus tachycardia
Recent increase in BP noted at the [place] and started on hydralazine.
Continue losartan and metoprolol and increase losartan to 100 mg lopressor 100mg q12h
Start HCTZ 12.5mg
# Recent Tracheitis, Stable.�
Has completed course of levofloxacin (last dose was on DOA).
DVT Prophylaxis:� Lovenox
Code Status:� Full
Dispo-to SNF. Start dispo planning.
updated mother over the phone in details on 08/09/23
Anticipated Discharge: Within 24 hours
Subjective/Interval History
-
Date of Service: August 09, 2023
stools are starting to form
loose stools stopped
afebrile
Objective Data
-
Labs:
Laboratory Results
08/09/23
06:52
WBC 19.5 H
Hgb 10.5 L
Hct 30.5 L
Plt Count 417 H
Sodium 135
Potassium 3.9
Chloride 103
Carbon Dioxide 26
BUN 10
Creatinine 0.4 L
Glucose 117 H
Calcium 9.2
Vital Signs:
Vital Signs
Temp Pulse Resp BP Pulse Ox
99.0 F 120 20 156/105 97
08/09/23 07:10 08/09/23 09:48 08/09/23 07:50 08/09/23 10:53 08/09/23 07:50
I&O
08/08/23 08/09/23 08/10/23
06:59 06:59 06:59
Intake Total 45 / 45 45 / 45
Output Total 1924 / 1924 1000 / 1000
Balance -1880 / -1880 -955 / -955
Physical Exam
-
General: Well Developed and Appears Chronically Ill
HEENT: Normocephalic, Atraumatic, Moist Mucous Membranes and Oxygen (trach collar)
Respiratory: Clear to Auscultation and Non Labored Respirations; Negative Accessory Resp Muscle Use
Cardiac: Regular Rhythm and S1/S2; Negative Murmur, Rub or Gallop
GI: Soft, Nontender (No grimacing noted upon palpation of abd), Nondistended, Normal Bowel Sounds and Peg Tube; Negative Organomegaly
Rectal: Deferred by Provider
Musculoskeletal: No Clubbing, No Cyanosis and No Edema
Skin: Negative Rash
Neuro: Awake and Other (does not follow commands . aphasic. )
Psych: Calm
Data Reviewed
-
Total Time Spent with Patient (in minutes): 52
[2023-08-09] MEDS: ORETIC 12.5 MG PO (13:46)
[2023-08-09] MEDS: LOVENOX 40 MG SC (18:10)
[2023-08-09] MEDS: DESENEX/MITRAZOL/ZEASORB 1 APPLIC TOPICAL (22:12)
[2023-08-10 03:43] VITALS: BP 131/88
[2023-08-10] MEDS: ZYRTEC 5 MG TUBE (07:33)
[2023-08-10] MEDS: ROBINUL 2 MG TUBE ×3 (07:33→21:39)
[2023-08-10] MEDS: ORETIC 12.5 MG PO (07:33)
[2023-08-10] MEDS: COLACE LIQUID 100 MG TUBE (07:33)
[2023-08-10] MEDS: METAMUCIL, KONSYL 1 PACKET TUBE (07:33)
[2023-08-10] MEDS: PREVACID 30 MG TUBE (07:34)
[2023-08-10] MEDS: AUGMENTIN 875 MG/125 MG 1 TABLET TUBE ×2 (07:34→21:38)
[2023-08-10] MEDS: COZAAR 100 MG TUBE (07:34)
[2023-08-10] MEDS: DESENEX/MITRAZOL/ZEASORB 1 APPLIC TOPICAL ×2 (07:35→21:32)
[2023-08-10] MEDS: VISBIOME 1 CAP TUBE (07:35)
[2023-08-10] MEDS: MIRALAX 17 GRAMS TUBE (07:35)
[2023-08-10] MEDS: LOPRESSOR 100 MG TUBE ×2 (07:35→21:37)
[2023-08-10] MEDS: FOLVITE 1 MG TUBE (07:35)
[2023-08-10 07:45] LABS: % Basophils 0.4 % (0-2); % Eosinophils 2.4 % (0-6); % Immature Granulocytes 0.7 % (0-0.5); % Lymphocytes 19.3 % (20.5-51.1); % Monocytes 6.9 % (1.7-9.3); % Neutrophils 70.3 % (42.2-75.2); Absolute Basophils 0.1 10^3/uL (0-0.2); Absolute Eosinophils 0.5 10^3/uL (0-0.7); Absolute Immature Granulocytes 0.1 10^3/uL (0-0.05); Absolute Lymphocytes 3.8 10^3/uL (1.2-3.4); Absolute Monocytes 1.4 10^3/uL (0.1-0.6); Absolute Neutrophils 13.8 10^3/uL (1.4-6.5); Hemoglobin 10.2 g/dL (12.0-16.0); Mean Corp Hgb Conc. 32.9 g/dL (33.0-37.0); Mean Corpuscular Hgb 31.5 pg (27.0-31.0); Mean Corpuscular Volume 95.7 fL (81.0-99.0); Mean Platelet Volume 10.8 fL (7.4-10.4); Nucleated Red Blood Cells % 0 %; Platelet Count 414 10^3/uL (130-400); Red Blood Cell Count 3.24 10^6/uL (4.20-5.40); Red Cell Dist. Width 13.5 % (11.5-14.5); White Blood Cell Count 19.7 10^3/uL (4.8-10.8)
[2023-08-10 08:09] LABS: Blood Urea Nitrogen 10 mg/dl (7-17); Calcium 9.7 mg/dl (8.4-10.2); Carbon Dioxide 26 mmol/L (22-30); Chloride 99 mmol/L (98-107); Estimated Creatinine Clearance > 125 ml/min; Glucose 107 mg/dl (70-99); Sodium 136 mmol/L (135-145); eGFR > 60.00
[2023-08-10 08:17] VITALS: BP 133/88
[2023-08-10] MEDS: DUONEB 3 ML INH ×2 (08:26→21:36)
[2023-08-10] MEDS: PULMICORT 0.5 MG INH ×2 (08:26→21:37)
--- NOTE | 2023-08-10 10:30 | CM ---
Rcd message from Dr Corona - regarding pt returning to [facility] today
Called [phone] - [facility] admissions
Left message on with return number to return call - regarding pts return
--- NOTE | 2023-08-10 11:11 | W.PN.HOSP.TC ---
Addendum entered and electronically signed by Lewis Corona MD 08/13/23 08:15:
hypokalemia-repleted
Addendum entered and electronically signed by Tricia Ramos MD 08/12/23 14:08:
Total DC time 40 minutes
Original Note:
Today's Communication/Plan
-
Start dispo
monitor bp
bowel regimen
Cont TF
[employer] prognosis poor
Assessment / Plan
Assessment / Plan
HPI: 38 yo F with PMH significant for anoxic brain injury s/p cardiac arrest with trach and PEG, from [facility]; p/w N/V.� Patient is non-verbal at baseline and is unable to contribute to history.
Per NH, patient was noted to have N/V at the facility in the evening.�She has been hypertensive for the past few days and was newly started on hydralazine on 07/30/22.
Patient had multiple episodes of bilious appearing emesis in the ED as well.
CT AP:
1. � ACUTE STERCORAL COLITIS in the RECTUM with fecal impaction, mild wall thickening, and mild perirectal inflammation.
2. � Moderate amount of fecal material throughout the colon consistent with constipation.
3. � No CT evidence for small bowel obstruction.
4. � Percutaneous gastrojejunostomy tube in place.
5. � Mild hepatomegaly and mild diffuse hepatic steatosis.
6. � Mild to moderate cardiomegaly.
A/P:
# Leucocytosis likely 2/2 Stercoral Colitis
COVID/Flu neg
CXR unrevealing
CRP 17
UA neg
Blood culture negative
DC zosyn and switch to Augmentin
culture data negative so far
Check cdiff and stool studies as with recent levaquin exposure -both negativ.e
Trend WBC. If severe bump and or spikes fever velasquez culture
# Nausea/vomiting
# Stercoral Colitis
N/V likely secondary to constipation / stercoral colitis as noted on CT scan.
s/p aggressive bowel regimen and pt has had BM
Follow up Abd XR: Nonobstructive bowel gas pattern. No gross free air, evaluation limited.
Vomiting has much resolved, resume TF slowly and now at goal.
Increase free water at with some component of dehydration
Add fiber supplements
having bm.
# Anoxic Brain Injury
# Cardiac Arrest post influenza/hypoxemia
# Functional quadriplegia
# Chronic Encephalopathy secondary to the above
Continue supportive measures including O2, repositioning, trach care, etc.
Changed to cuff trach to prevent aspiration by ENT 08/02
Follow up CXR 08/02 no pneumonia
# Chronic Normocytic Anemia
Records indicate both B12 and iron deficiencies - ? etiology.
TSat normal and B12 high on recent admission labs.
Follow H&H for any changes.
No evidence of acute / significant blood loss at present.
# Benign Hypertension with sinus tachycardia
Recent increase in BP noted at the [place] and started on hydralazine.
Continue losartan and metoprolol and increased losartan to 100 mg lopressor 100mg q12h
Started HCTZ 12.5mg
# Recent Tracheitis, Stable.�
Has completed course of levofloxacin (last dose was on DOA).
DVT Prophylaxis:� Lovenox
Code Status:� Full
Dispo-to SNF. await placement. CM aware.
updated mother over the phone in details on 08/09/23
Anticipated Discharge: Today
Subjective/Interval History
-
Date of Service: August 10, 2023
Remains afebrile
Tolerating diet
Objective Data
-
Labs:
Laboratory Results
08/10/23
07:21
WBC 19.7 H
Hgb 10.2 L
Hct 31.0 L
Plt Count 414 H
Sodium 136
Potassium 4.0
Chloride 99
Carbon Dioxide 26
BUN 10
Creatinine 0.4 L
Glucose 107 H
Calcium 9.7
Vital Signs:
Vital Signs
Temp Pulse Resp BP Pulse Ox
99.0 F 115 20 133/88 99
08/10/23 08:17 08/10/23 08:28 08/10/23 08:28 08/10/23 08:17 08/10/23 08:28
I&O
08/09/23 08/10/23 08/11/23
06:59 06:59 06:59
Intake Total 45 / 45 1195 / 1195
Output Total 1000 / 1000 2625 / 2625
Balance -955 / -955 -1430 / -1430
Physical Exam
-
General: Well Developed and Appears Chronically Ill
HEENT: Normocephalic, Atraumatic, Moist Mucous Membranes and Oxygen (trach collar)
Respiratory: Clear to Auscultation and Non Labored Respirations; Negative Accessory Resp Muscle Use
Cardiac: Regular Rhythm and S1/S2; Negative Murmur, Rub or Gallop
GI: Soft, Nontender (No grimacing noted upon palpation of abd), Nondistended, Normal Bowel Sounds and Peg Tube; Negative Organomegaly
Rectal: Deferred by Provider
Musculoskeletal: No Clubbing, No Cyanosis and No Edema
Skin: Negative Rash
Neuro: Awake and Other (does not follow commands . aphasic. )
Psych: Calm
[2023-08-10 12:18] VITALS: BP 146/102
[2023-08-10 15:29] VITALS: BP 142/99
[2023-08-10 16:00] VITALS: BMI 34.0
--- NOTE | 2023-08-10 16:08 | PTCARENOTE ---
Patient mother called in reference to patient condition and treatment plan, RN informed mother of latest treatment and pt condition. Pt is not moving yet as case management called facility and left vm for patient to return back to facility, No clear
answer as to when patient will be returning- mother made aware.
[2023-08-10] MEDS: LOVENOX 40 MG SC (17:23)
[2023-08-10 19:20] VITALS: BP 142/94
[2023-08-10] MEDS: METAMUCIL, KONSYL TUBE (19:46)
[2023-08-10] MEDS: COLACE LIQUID TUBE (19:46)
[2023-08-10] MEDS: TYLENOL 650 MG TUBE (21:35)
[2023-08-10 23:30] VITALS: BP 131/84
[2023-08-11 03:00] VITALS: BP 137/95
[2023-08-11 06:00] VITALS: BMI 33.4
[2023-08-11 07:00] VITALS: BP 143/95
[2023-08-11] MEDS: PULMICORT 0.5 MG INH (07:24)
[2023-08-11] MEDS: DUONEB 3 ML INH (07:24)
[2023-08-11] MEDS: AUGMENTIN 875 MG/125 MG 1 TABLET TUBE (07:45)
[2023-08-11] MEDS: ZYRTEC 5 MG TUBE (07:45)
[2023-08-11] MEDS: ROBINUL 2 MG TUBE (07:46)
[2023-08-11] MEDS: PREVACID 30 MG TUBE (07:46)
[2023-08-11] MEDS: VISBIOME 1 CAP TUBE (07:46)
[2023-08-11] MEDS: ORETIC 12.5 MG PO (07:46)
[2023-08-11] MEDS: LOPRESSOR 100 MG TUBE (07:47)
[2023-08-11] MEDS: COZAAR 100 MG TUBE (07:47)
[2023-08-11] MEDS: MIRALAX TUBE (07:48)
[2023-08-11] MEDS: COLACE LIQUID TUBE (07:48)
[2023-08-11] MEDS: FOLVITE 1 MG TUBE (07:48)
[2023-08-11] MEDS: METAMUCIL, KONSYL TUBE (07:48)
[2023-08-11] MEDS: DESENEX/MITRAZOL/ZEASORB 1 APPLIC TOPICAL (07:48)
--- NOTE | 2023-08-11 09:58 | CM ---
Addendum entered by Oma Phoenix 08/11/23 10:03:
Patient mother updated about transfer and she plans to take papers for social security to the [facility].
Original Note:
Patient for transfer to SNF; return to [facility] today. CM spoke with nurse at [facility] and patient to return to rm [id number]. Please fax treatment/discharge summary to [phone] and call report to [phone]. CM spoke with Acute care and
reviewed transfer with ovidio, forms completed and plan for transfer today. CM will continue to follow for discharge planning needs.
Plan; SNF; return
[2023-08-11 11:00] VITALS: BP 157/105
[2023-08-11] MEDS: VITAMIN B1 100 MG TUBE (11:43)
--- NOTE | 2023-08-11 15:38 | W.DCSUMMARY ---
Discharge Summary
Discharge Data
Date of Admission: 08/01/23
Date of Discharge: 08/11/23
-
Pending Results: No
Hospital Course
Principal Diagnosis:
Leucocytosis with nausea and vomiting, due to Stercoral Colitis
Chronic Diagnoses:�
Anoxic Brain Injury with Chronic Encephalopathy , nonverbal at baseline
History of Cardiac Arrest status post tracheostomy and PEG tube placement
Functional quadriplegia
Chronic Normocytic Anemia
Benign Hypertension
Recent Tracheitis, Stable.�
Consultations:�
ENT
Procedures:�
Exchanged trach from cuffless to cuffed
Clinical course:�
This is a 38-year-old female with past medical history as stated above, from [facility], presented with nausea and vomiting.
Problem 1:
Leucocytosis with nausea and vomiting, due to Stercoral Colitis.
She has had extensive infectious workup this admission.
Her COVID and Flu were negative, her CXR was unrevealing, her UA was negative, her blood culture was negative, and her CRP was only mildly elevated at 17.
Her CT abdomen pelvis noted acute stercoral colitis in the rectum with fecal impaction.
The patient received aggressive bowel regimen and her constipation resolved.
The patient's tracheostomy was changed from a cuffless one to a cuffed one to prevent aspiration in setting of her nausea and vomiting.
Her nausea/ vomiting resolved, and her tube feed was slowly added back which she tolerated well.
She was treated with Zosyn initially, and this was switched to Augmentin subsequently.
No further antibiotic was continued following discharge given unrevealing infectious workup.
As for the rest of her medical problems, they were stable during her hospital stay.
Discharge Plan
-
Patient Disposition: Alf/SNF
Discharge Diagnosis/Procedures: Leucocytosis likely 2/2 Stercoral Colitis; Nausea and vomiting; Primary hypertension
Condition: Fair
Diet: Tube feeding
Activity: As tolerated
Driving Restrictions: No driving
Blood Work: cbc and bmp in 3-5 days with primary doctor.
Activity Restrictions/Additional Instructions:
Your Cozaar dose was increased from 25 to 100 mg daily.
Your metoprolol dose increased from 50 twice daily to 100 mg twice daily.
Your trach was changed from a cuffless one to a�cuff trach to prevent aspiration (by ENT 08/02/23).
Referrals:
Kai Muhammad, DO [Family Provider] - in less than 1 week
Prescriptions:
New
losartan 100 mg Tablet
100 mg feeding tube DAILY Qty: 30 0RF
metoprolol tartrate 100 mg Tablet
100 mg feeding tube BID Qty: 60 0RF
Continued
sennosides [senna] 8.6 mg Tablet
17.6 mg feeding tube DAILY PRN (Reason: constipation)
acetaminophen 325 mg Tablet
650 mg FEEDING TUBE Q6H PRN (Reason: mild pain/temp>100.4)
acetaminophen 650 mg Suppository
650 mg AZ Q8H PRN (Reason: mild pain/temp>100.4)
ipratropium-albuterol 0.5 mg-3 mg(2.5 mg base)/3 mL Solution For Nebulization
3 ml INHALATION R Q6 PRN (Reason: sob/wheezing)
cetirizine 5 mg Tablet
5 mg feeding tube DAILY
miconazole nitrate 2 % Powder
1 applic TOPICAL BID
Rx Instructions:
apply to abdominal folds and groin
thiamine HCl (vitamin B1) 100 mg Tablet
100 mg FEEDING TUBE MOWEFR
magnesium hydroxide [Milk of Magnesia] 400 mg/5 mL Suspension
30 ml feeding tube DAILY PRN (Reason: if no bm x 3 days)
bisacodyl [Dulcolax (bisacodyl)] 10 mg Suppository
10 mg AZ DAILY PRN (Reason: if mom ineffective)
folic acid 1 mg Tablet
1 mg feeding tube DAILY
atropine 1 % Drops
2 drp PO Q4H PRN (Reason: increased secretions)
glycopyrrolate 2 mg Tablet
2 mg FEEDING TUBE Q8H
Lansoprazole 3mg/Ml
10 ml feeding tube DAILY
docusate sodium
1 tab feeding tube Q12H PRN (Reason: constipation)
budesonide 0.5 mg/2 mL Suspension For Nebulization
0.5 mg inhalation R BID 30 Days Qty: 120 0RF
Fleet Enema 19-7 gram/118 mL Enema
118 ml AZ DAILY PRN (Reason: if dulcolax ineffective)
ipratropium-albuterol 0.5 mg-3 mg(2.5 mg base)/3 mL solution for nebulization
3 ml inhalation R BID@0600,1800
hydralazine 25 mg Tablet
25 mg feeding tube Q12H PRN (Reason: sbp>170) Qty: 0 0RF
Discontinued
losartan 25 mg Tablet
25 mg feeding tube DAILY
metoprolol tartrate 50 mg Tablet
50 mg feeding tube BID
levofloxacin 750 mg tablet
750 mg feeding tube Q24H
Discharge Orders:
Discharge Patient (As Directed); Ordered 08/11/23
Ordered By: Jag Van
Discharge Date and Time
Discharge Date/Time: 08/11/23 15:43
== END 2023-08-11 15:43 | DRG 391 ==
LOC: 3 WEST ACU 00:48
PROVIDERS: Hospitalist; Otolaryngology; ADMITTING PHYSICIAN Hospitalist; ATTENDING PHYSICIAN Internal Medicine; EMERGENCY PHYSICIAN Emergency Medicine; FAMILY PHYSICIAN Internal Medicine
PROC: 0B21XEZ Change Endotracheal Airway in Trachea, External Approach (ICD-10-PCS; 2023-08-02)
DX: K52.9 Noninfective gastroenteritis and colitis, unspecified (principal); I46.9 Cardiac arrest, cause unspecified; R53.2 Functional quadriplegia; G93.1 Anoxic brain damage, not elsewhere classified; G93.40 Encephalopathy, unspecified; D50.9 Iron deficiency anemia, unspecified; I50.9 Heart failure, unspecified; I11.0 Hypertensive heart disease with heart failure; K52.89 Other specified noninfective gastroenteritis and colitis; K56.41 Fecal impaction; E87.6 Hypokalemia
CPT/HCPCS: 70450; 71045; 74018; 74177; 80048; 80053; 81003; 82248; 83605; 84443; 85025; 85027; 86140; 87040; 87070; 87324; 87449; 87502; 87811; 89055; 93005; 94640; 96361; 96374; 96375; 99291; Q9967

== ENCOUNTER 2023-08-15 23:54 | Inpatient (IN) | payer OTHER, SELFPAY ==
[2023-08-15 21:53] VITALS: BP 144/105
[2023-08-15 21:54] VITALS: BP 144/105
[2023-08-15 22:00] VITALS: BP 157/90
--- NOTE | 2023-08-15 22:23 | ED.GENMED ---
History of Present Illness
General
Chief Complaint: Breathing Problem
Source: patient, records and previous hospital records
Exam Limitations: non verbal-adult
Time Seen by Provider: 08/15/23 22:04
Nursing documentation reviewed up to this point in time: agreed with
Travel History
Have you had any contact with someone who has COVID-19?: Unable to Answer
Do you have any symptoms of coronavirus? Fever > 100 degrees, chills, cough, shortness of breath, sore throat, loss of taste or smell, muscle aches, or headache?: Unable to Answer
History of Present Illness
History of Present Illness:
38 female group home patient nonverbal trached feeding tube, admitted a few weeks ago with stercoral colitis and constipation treated with antibiotics returns with fever increased sputum from her trach, she is on humidified air here, coughing
noted to be febrile
Past History
Past History
ED Past Medical History: Asthma, CHF, GERD, HTN and Other (cardiac arrest, PNA, Iron def anemia, traumatic brain injury, sepsis, Pseudomonas respiratory culture positive)
ED Past Surgical History: Other (Trach)
Social History
Tobacco: Non-smoker
Alcohol: None
Drug: None
Personal: Single
Living: group home
Review of Systems
Review of Systems
Unable to obtain full review of systems at this time due to: non-verbal
Other source history: transfer record
All Other Systems: Not applicable
Phy Exam
Physical Exam
Physical Exam:
Physical Exam
General: 38-year-old female trach nonverbal coughing
Neck: Yellowish sputum manage
Heart: s1/s2 regular rate and rhythm, no murmur. equal radial pulses.
Lungs: Rhonchi about
Abdomen: Soft
Neuro: Nonverbal blinks eyes
Skin: no rash
Psychiatric: Unable to
Extremities: No edema
Course
Orders/Labs/Results
Orders:
Orders
08/15/23 22:20
IV Insert/Care/Rem.- Treatment PRN
Ipratropium/Albuterol Sulfate [Duoneb] 3 ml INHALATION R NOW ONE
08/15/23 22:22
Electrocardiogram (*1) Stat
Reason for Study: Other
Other Reason for Exam: pneumonia
EKG- Treatment ONCE
CR Chest Portable - 1 View Urgent
Comment:
Reason For Exam: cough fever
Reason Study Needs to be Portable: Patient Unstable
08/15/23 22:26
COVID-19 Antigen Urgent
Source: Nasal Swab
Complete Blood Count/With Diff Urgent
Comprehensive Metabolic Panel Urgent
Lactic Acid Q4H
Comment: CANCEL 2nd LACTIC ACID IF 1st LACTIC ACID IS LESS THAN 2
Blood Culture Q30M
VICK Source: Blood/Venous
Specimen Description:
Influenza A+B Rapid Molecular Urgent
VICK Source: Nasal Swab
Specimen Description:
08/15/23 23:05
Cefepime HCl [Maxipime] 1,000 mg IV NOW STA
08/15/23 23:06
Acetaminophen 1000MG/100Ml [Ofirmev] 1,000 mg in 100 ml IV ONCE
Acetaminophen IV Indication:: ED Narcotic Naive Pt-ONCE
08/15/23 23:21
Blood Culture Q30M
VICK Source: Blood/Venous
Specimen Description:
08/15/23 23:36
Admit/Transfer Patient As Directed
Co-Sign Provider:
Level of Care: Inpatient admission
Assign to:: IMU- Intermediate Care
Physician / Group: Ramesh
Diagnosis: Sepsis / Tracheitis
Reason for Hospitalization: Sepsis / Tracheitis
Expected length of stay greater than two midnights?: Yes
ELOS- Estimated Length of Stay in days: 4
I certify the patient meets the requirements for IP care: Yes
08/15/23 23:39
Code Status As Directed
Resuscitation Status: Do not resuscitate
Reached after discussion with pt or family/Healthcare POA: Yes
08/15/23 23:42
DNR Bracelet Application ONCE
08/15/23 23:45
Influenza A+B Rapid Molecular Urgent
VICK Source: [facility]
Specimen Description:
08/16/23 02:30
Lactic Acid Q4H
Comment: CANCEL 2nd LACTIC ACID IF 1st LACTIC ACID IS LESS THAN 2
Abnormal Lab Results
08/15/23
22:26
WBC 19.4 H 10^3/uL
(4.8-10.8)
RBC 3.50 L 10^6/uL
(4.20-5.40)
Hgb 10.9 L g/dL
(12.0-16.0)
Hct 32.2 L %
(37.0-47.0)
MCH 31.1 H pg
(27.0-31.0)
Plt Count 461 H 10^3/uL
(130-400)
MPV 11.1 H fL
(7.4-10.4)
Abs Immat Gran (auto) 0.2 H 10^3/uL
(0-0.05)
Absolute Neuts (auto) 14.1 H 10^3/uL
(1.4-6.5)
Absolute Lymphs (auto) 3.5 H 10^3/uL
(1.2-3.4)
Absolute Monos (auto) 1.3 H 10^3/uL
(0.1-0.6)
Immature Gran % 0.9 H %
(0-0.5)
Lymphocytes % 17.8 L %
(20.5-51.1)
Sodium 134 L mmol/L
(135-145)
Creatinine 0.4 L mg/dL
(0.6-1.0)
Glucose 113 H mg/dl
(70-99)
ALT 39 H U/L
(0-35)
08/15/23 22:26
08/15/23 22:26
Vital Signs
Initial and Last Documented VS:
Initial Vital Signs
Pulse Resp
127 19
08/15/23 21:52 08/15/23 21:52
Last Documented Vital Signs
Temp Pulse Resp BP Pulse Ox
100.1 F 127 30 158/109 94
08/15/23 22:52 08/15/23 23:30 08/15/23 23:30 08/15/23 23:00 08/15/23 23:30
MDM/Problems Addressed
Differential Diagnosis Includes:
Pneumonia bronchitis aspiration tracheitis influenza
MDM/Problems Addressed:
Fever thick sputum
Chronic conditions affecting care:
Trach PEG anoxic brain injury
Chronic conditions affecting care: Neurological disorder
Acute Exacerbation and/or Progression of Chronic Illness: Neurological disorder
*Radiology
Radiology exam reviewed: preliminary read by ED provider
*Pulse Oximetry
Patient hypoxic: no
*Critical Care Note
Total Time (30-74mins, 75-104mins- exclusive of procedures): Not Applicable
Update Note
Update Note:
Update labs noted chest x-ray noted white count up has been chronically, does have some increased secretions
ED Attending Note
-
Portions of this chart may have been created with voice recognition software.� Occasional wrong word or��sound alike� substitutions may have occurred due to the inherent limitations of voice recognition software.
Discharge Plan
Departure
Patient Disposition: Admit
Date of Disposition: 08/15/23
Time of Disposition: 23:45
Admit to: Med/Surg
Presentation/result/management discussed w/ accepting MD/DO: Hospitalist
Condition: Fair
Covid-19: Negative COVID-19
Discharge Problem:
Tracheitis, Anoxic brain injury, PEG (percutaneous endoscopic gastrostomy) status, Hypertension, Tracheostomy status
Prescriptions:
No Action
sennosides [senna] 8.6 mg Tablet
17.6 mg feeding tube DAILY PRN (Reason: constipation)
acetaminophen 325 mg Tablet
650 mg FEEDING TUBE Q6H PRN (Reason: mild pain/temp>100.4)
cetirizine 5 mg Tablet
5 mg feeding tube DAILY
miconazole nitrate 2 % Powder
1 applic TOPICAL BID
Rx Instructions:
apply to abdominal folds and groin
thiamine HCl (vitamin B1) 100 mg Tablet
100 mg FEEDING TUBE MOWEFR
magnesium hydroxide [Milk of Magnesia] 400 mg/5 mL Suspension
30 ml feeding tube DAILY PRN (Reason: if no bm x 3 days)
bisacodyl [Dulcolax (bisacodyl)] 10 mg Suppository
10 mg [place] DAILY PRN (Reason: if mom ineffective)
folic acid 1 mg Tablet
1 mg feeding tube DAILY
atropine 1 % Drops
2 drp PO Q4H PRN (Reason: increased secretions)
glycopyrrolate 2 mg Tablet
2 mg FEEDING TUBE Q8H
Lansoprazole 3mg/Ml
10 ml feeding tube DAILY
docusate sodium
1 tab feeding tube Q12H PRN (Reason: constipation)
budesonide 0.5 mg/2 mL Suspension For Nebulization
0.5 mg inhalation R BID 30 Days Qty: 120 0RF
Fleet Enema 19-7 gram/118 mL Enema
118 ml [place] DAILY PRN (Reason: if dulcolax ineffective)
ipratropium-albuterol 0.5 mg-3 mg(2.5 mg base)/3 mL solution for nebulization
3 ml inhalation R BID@0600,1800
losartan 100 mg Tablet
100 mg feeding tube DAILY Qty: 30 0RF
metoprolol tartrate 100 mg Tablet
100 mg feeding tube BID Qty: 60 0RF
hydralazine 25 mg Tablet
25 mg feeding tube Q12H PRN (Reason: sbp>170) Qty: 0 0RF
Referrals:
Kai Muhammad, [Family Provider] -
Interventions
Interventions:
*ED COVID-19 Vaccine History Last Done: 08/15/23 21:51
ED- Cardiac Assessment Last Done: 08/15/23 22:22
ED- Pulmonary Assessment Last Done: 08/15/23 22:22
[2023-08-15 22:37] LABS: % Basophils 0.4 % (0-2); % Eosinophils 1.4 % (0-6); % Immature Granulocytes 0.9 % (0-0.5); % Lymphocytes 17.8 % (20.5-51.1); % Monocytes 6.8 % (1.7-9.3); % Neutrophils 72.7 % (42.2-75.2); Absolute Basophils 0.1 10^3/uL (0-0.2); Absolute Eosinophils 0.3 10^3/uL (0-0.7); Absolute Immature Granulocytes 0.2 10^3/uL (0-0.05); Absolute Lymphocytes 3.5 10^3/uL (1.2-3.4); Absolute Monocytes 1.3 10^3/uL (0.1-0.6); Absolute Neutrophils 14.1 10^3/uL (1.4-6.5); Hematocrit 32.2 % (37.0-47.0); Hemoglobin 10.9 g/dL (12.0-16.0); Mean Corp Hgb Conc. 33.9 g/dL (33.0-37.0); Mean Corpuscular Hgb 31.1 pg (27.0-31.0); Mean Platelet Volume 11.1 fL (7.4-10.4); Nucleated Red Blood Cells % 0 %; Platelet Count 461 10^3/uL (130-400); Red Cell Dist. Width 13.2 % (11.5-14.5); White Blood Cell Count 19.4 10^3/uL (4.8-10.8)
[2023-08-15 22:50] LABS: Lactic Acid 1.7 mmol/L (0.7-2.0)
[2023-08-15 22:51] LABS: ALT (SGPT) 39 U/L (0-35); AST (SGOT) 32 U/L (14-36); Albumin 4.1 g/dl (3.5-5.0); Alkaline Phosphatase 92 U/L (38-126); Blood Urea Nitrogen 12 mg/dl (7-17); Calcium 9.7 mg/dl (8.4-10.2); Carbon Dioxide 25 mmol/L (22-30); Chloride 100 mmol/L (98-107); Glucose 113 mg/dl (70-99); Potassium 4.9 mmol/L (3.5-5.1); Sodium 134 mmol/L (135-145); Total Bilirubin 0.5 mg/dl (0.2-1.3); Total Protein 7.5 g/dl (6.3-8.2); eGFR > 60.00
[2023-08-15 22:53] LABS: COVID-19 Antigen Negative (Negative)
[2023-08-15 23:00] VITALS: BP 158/109
[2023-08-15] MEDS: OFIRMEV 100 IV (23:14)
[2023-08-15] MEDS: DUONEB 3 ML INHALATION (23:28)
[2023-08-15] MEDS: MAXIPIME 1000 MG IV (23:36)
[2023-08-16] VITALS (22 sets, daily range): BP systolic 104–163; BP diastolic 76–110; BMI 33.0
--- NOTE | 2023-08-16 00:18 | HPS.HSE ---
Family Physician
-
Family Physician: Kai Muhammad, DO
Chief Complaint
-
Secretions
History of Present Illness
Patient is a 38y F with PMH significant for anoxic brain injury s/p cardiac arrest with trach and PEG who presents to ED from local [place] for evaluation of increased secretions via tracheostomy. Patient was recently hospitalized 08/01 - 08/11
secondary to stercoral colitis. Prior to that, she was hospitalized 07/24 - 07/27 secondary to suspected tracheitis. Today patient was noted to have cough with increased, thick secretions via her tracheostomy. She was sent to the ED for evaluation.
Patient is noted to have rectal temp here of 100.1. She has an effective cough productive of thick, yellow mucus via tracheostomy. Patient is non-verbal at baseline and unable to provide any additional history. No record of her being febrile,
hypoxemic, etc at [place].
Medical History
Past Medical History
Past Medical History: Reports Other
Additional Past Medical History:
Cardiac Arrest - Uncertain Etiology
Anoxic Brain Injury secondary to the above
Tracheostomy Status
PEG-Dependent
Hypertension
Obesity
OCD
Past Surgical History: Reports Other
Additional Past Surgical History:
Tracheostomy
G-J Tube Placement
Social History
Unable to obtain full social history at this time due to: Patient Non-verbal
Family History
Family History: Unable to Obtain
Allergies / Home Medications
Allergies reflects when Allergies were last updated in [facility].
Home Medications with original date entered in [facility]
Allergy/Medication List:
Allergies
Allergy/AdvReac Type Severity Reaction Status Date / Time
No Known Allergies Allergy Verified 08/15/23 21:47
Home Medications
Lansoprazole 3mg/Ml 10 ml feeding tube DAILY Gastrointestinal Issue 07/23/23
acetaminophen 325 mg tablet 650 mg feeding tube Q6H PRN mild pain/temp>100.4 07/23/23
atropine 1 % eye drops 2 drp PO Q4H PRN increased secretions 07/23/23
bisacodyl 10 mg rectal suppository (Dulcolax (bisacodyl)) 10 mg AL DAILY PRN if mom ineffective 07/23/23
cetirizine 5 mg tablet 5 mg feeding tube DAILY Allergies 07/23/23
docusate sodium 1 tab feeding tube Q12H PRN constipation 07/23/23
folic acid 1 mg tablet 1 mg feeding tube DAILY Supplement 07/23/23
glycopyrrolate 2 mg tablet 2 mg feeding tube Q8H secretions 07/23/23
magnesium hydroxide 400 mg/5 mL oral suspension (Milk of Magnesia) 30 ml feeding tube DAILY PRN if no bm x 3 days 07/23/23
miconazole nitrate 2 % topical powder 1 applic topical BID Skin Issues 07/23/23
sennosides 8.6 mg tablet (senna) 17.6 mg feeding tube DAILY PRN constipation 07/23/23
thiamine HCl (vitamin B1) 100 mg tablet 100 mg feeding tube MOWEFR Supplement 07/23/23
budesonide 0.5 mg/2 mL suspension for nebulization 0.5 mg (2 mL) inhalation R BID 30 days #120 mL 07/27/23
ipratropium 0.5 mg-albuterol 3 mg (2.5 mg base)/3 mL nebulization soln 3 ml inhalation R BID@0600,1800 Lung/Breathing Issues 07/31/23
sodium phosphates 19 gram-7 gram/118 mL enema (Fleet Enema) 118 ml AL DAILY PRN if dulcolax ineffective 07/31/23
hydralazine 25 mg tablet 25 mg feeding tube Q12H PRN sbp>170 #0 tabs 08/11/23
losartan 100 mg tablet 100 mg feeding tube DAILY #30 tabs 08/11/23
metoprolol tartrate 100 mg tablet 100 mg feeding tube BID #60 tabs 08/11/23
Review of Systems
-
Unable to obtain full review of systems at this time due to: Patient Non-verbal
Physical Exam
Vital Signs
Vital Signs
Temp Pulse Resp BP Pulse Ox
100.1 F 124 26 158/109 94
08/15/23 22:52 08/15/23 23:45 08/15/23 23:45 08/15/23 23:00 08/15/23 23:45
Physical Exam
General: Other (38y F awake but does not answer questions / follow commands.)
HEENT: Other (Thick neck. Trach in place with cough productive of thick, yellow mucus. Cough is effective.)
Respiratory: Other (Scattered coarse breath sounds throughout. No wheezing.)
Cardiac: S1/S2 and Regular Rhythm; No Murmur
GI: Other (Obese, no apparent tenderness. Pos BS. G-J tube site OK.)
Rectal: Other (Rectal exam with yellow, liquid stool. Minimal, very small formed stool removed during digital exam - but no appreciation of fecal stool ball seen on CT.)
Musculoskeletal: No Clubbing and No Cyanosis
Neuro: Awake
Laboratory Results
-
08/15/23 22:26
08/15/23 22:26
Laboratory Results
Lactic Acid 1.7 mmol/L (0.7-2.0) 08/15/23 22:26
Total Bilirubin 0.5 mg/dl (0.2-1.3) 08/15/23 22:26
AST 32 U/L (14-36) 08/15/23 22:26
ALT 39 U/L (0-35) H 08/15/23 22:26
Alkaline Phosphatase 92 U/L (38-126) 08/15/23 22:26
Impression/Plan
-
A/P: Patient is a 38y F with PMH significant for trach / PEG dependence s/p anoxic brain injury / cardiac arrest who presents to ED from [place] for evaluation of cough / secretions.
Tracheitis
Sepsis secondary to the above
�- Admit for further evaluation and treatment.
�- Increased secretions from trach with leukocytosis, tachycardia.
�- Normal CXR / no evidence of acute pneumonia.
�- ? secondary bacterial infection.
�- Cover with abx given recent hospitalizations, tracheostomy status, etc.
�- Follow-up gram stain / culture from sputum and adjust abx as appropriate.
�- Supportive care with nebs, mucolytics, oxygen support and secretion management.
�- Follow for clinical improvement.
Anoxic Brain Injury
History of Cardiac Arrest
Chronic Encephalopathy secondary to the above
�- Continue supportive measures including O2, repositioning, trach care, etc.
�- Continue tube feeds.
�- IVF support.
Chronic Normocytic Anemia
�- Stable. Hgb at / near known baseline.
�- Follow H&H for any changes.
�- No evidence of acute / significant blood loss at present.
Benign Hypertension
�- Stable. Continue usual BP medications with holding parameters.
DVT Prophylaxis:� Lovenox
Code Status:� DNR confirmed with family via phone.
[2023-08-16] MEDS: NSS 1000 IV ×3 (01:45→20:59)
--- NOTE | 2023-08-16 02:18 | PTCARENOTE ---
Pt arrived to ICU room 3363 from ER at 0105, as IMU overflow. Pt is non-verbal, hx anoxic brain injury. Does not follow commands, has not moved her extremities. Is able to open eyes but does not track. Will grimace to pain, try to clamp mouth shut
during mouth care, react to trach suctioning, etc. ST 120s on monitor. SpO2 96%, currently is on trach collar 28%. Pt with copious thick yellowish/whitish secretions that she is mostly able to cough up herself. Pt was suctioned once for sputum
culture, which was sent to the lab. Trach care done, inner cannula changed and new drsg sponge applied. Physical assessment completed, see nursing shift assessment flowsheet for full details. Attempted to complete admission database, unable to
document everything; called ER to ask if pt had any paperwork that came with her from [facility], they stated that she did not have any paperwork with her.
[2023-08-16 04:58] LABS: Hemoglobin 10.6 g/dL (12.0-16.0); Mean Corp Hgb Conc. 33.1 g/dL (33.0-37.0); Mean Corpuscular Hgb 30.9 pg (27.0-31.0); Mean Corpuscular Volume 93.3 fL (81.0-99.0); Mean Platelet Volume 10.5 fL (7.4-10.4); Platelet Count 434 10^3/uL (130-400); Red Blood Cell Count 3.43 10^6/uL (4.20-5.40); Red Cell Dist. Width 13.2 % (11.5-14.5); White Blood Cell Count 20.6 10^3/uL (4.8-10.8)
[2023-08-16 05:21] LABS: Blood Urea Nitrogen 11 mg/dl (7-17); Calcium 9.6 mg/dl (8.4-10.2); Carbon Dioxide 25 mmol/L (22-30); Chloride 104 mmol/L (98-107); Estimated Creatinine Clearance > 125 ml/min; Glucose 113 mg/dl (70-99); Magnesium 1.9 mg/dl (1.6-2.3); Potassium 4.4 mmol/L (3.5-5.1); Sodium 136 mmol/L (135-145); eGFR > 60.00
[2023-08-16] MEDS: PULMICORT 0.5 MG INH ×2 (07:27→20:16)
[2023-08-16] MEDS: DUONEB 3 ML INH ×4 (07:27→20:16)
--- NOTE | 2023-08-16 08:14 | W.PN.UPDATE ---
Update Note
Progress Note Update
Patient admitted early as of this morning for increased tracheal secretions and concern for tracheitis and pneumonia.
Afebrile today. Tachycardia noted. Sinus rhythm. Blood pressure stable. Saturating okay on trach collar.
Chest x-ray noted with possible left basilar pneumonia.
Leukocytosis noted
Previous tracheal aspirate of Pseudomonas aeruginosa noted.
Continue with cefepime. Continue with fluid support.
Continue with tube feeds.CW respiratory secretions management.
[2023-08-16] MEDS: COZAAR 100 MG TUBE (08:53)
[2023-08-16] MEDS: ZYRTEC 5 MG TUBE (08:53)
[2023-08-16] MEDS: FOLVITE 1 MG TUBE (08:54)
[2023-08-16] MEDS: PREVACID 30 MG TUBE (08:54)
[2023-08-16] MEDS: APRESOLINE 25 MG TUBE (08:54)
[2023-08-16] MEDS: ROBINUL 2 MG TUBE ×2 (08:56→15:27)
[2023-08-16] MEDS: LOPRESSOR 100 MG TUBE ×2 (08:56→20:57)
[2023-08-16] MEDS: MAXIPIME 2000 MG IV ×2 (08:57→15:27)
[2023-08-16] MEDS: DESENEX/MITRAZOL/ZEASORB 1 APPLIC TOPICAL ×2 (08:57→20:58)
[2023-08-16] MEDS: COLACE LIQUID 100 MG TUBE ×2 (08:57→20:58)
[2023-08-16] MEDS: ATROPINE SULFATE 1% DROPS 2 DROP SL ×3 (10:21→21:01)
[2023-08-16] MEDS: STERILE WATER FOR INJECTION 10 ML IV ×2 (10:21→15:27)
--- NOTE | 2023-08-16 10:59 | CON.PUL ---
Consultation
Consultation Request
Date/Time Consultation Requested: 08/16/2023-7 AM
Date/Time Consultation Performed: 08/16/2023-7:30 AM
Requesting Provider: Hospitalist
Performing Provider: Dr. Devine
Reason for Consultation: Shortness of breath, secretions
Medical History
-
Chief Complaint: Shortness of breath
History of Present Illness:
38-year-old female with a past medical history of anoxic brain injury status postcardiac arrest with trach and gastrostomy tube who has recurrent hospitalizations and presented with increasing secretions-pulmonary consulted for shortness of breath,
secretion management 08/16/2023. The patient is nonverbal and review of systems was unobtainable. Nursing reports voluminous amounts of thick yellow mucus coming from tracheostomy tube as well as a low-grade rectal temperature.
Past Medical History
Past Medical History: None (Anoxic brain injury status postcardiac arrest. Chronic tracheostomy tube-#6 Shiley. Gastrostomy tube. Hypertension. Obesity. OCD.)
Social History
Tobacco: Non-smoker
Alcohol: None
Drug: None
Personal: Single
Living: Assisted
Occupational Exposures: Unknown tuberculosis exposure
Environmental Exposures: Unknown asbestos exposure
Family History
Family History: Unable to Obtain
Allergies / Home Medications
Allergies
Allergy/AdvReac Type Severity Reaction Status Date / Time
No Known Allergies Allergy Verified 08/15/23 21:47
Home Medications
Medication Instructions Recorded Confirmed Last Taken Type
Lansoprazole 3mg/Ml 10 ml feeding tube DAILY 07/23/23 08/15/23 Unknown History
Gastrointestinal Issue
acetaminophen 325 mg tablet 650 mg feeding tube Q6H PRN mild 07/23/23 08/15/23 Unknown History
pain/temp>100.4
atropine 1 % eye drops 2 drp PO Q4H PRN increased 07/23/23 08/15/23 Unknown History
secretions
bisacodyl 10 mg rectal suppository 10 mg NJ DAILY PRN if mom 01/17/24 02/09/24 Unknown History
(Dulcolax (bisacodyl)) ineffective
cetirizine 5 mg tablet 5 mg feeding tube DAILY Allergies 07/23/23 08/15/23 Unknown History
docusate sodium 1 tab feeding tube Q12H PRN 07/23/23 08/15/23 Unknown History
constipation
folic acid 1 mg tablet 1 mg feeding tube DAILY Supplement 07/23/23 08/15/23 Unknown History
glycopyrrolate 2 mg tablet 2 mg feeding tube Q8H secretions 07/23/23 08/15/23 Unknown History
magnesium hydroxide 400 mg/5 mL 30 ml feeding tube DAILY PRN if no 07/23/23 08/15/23 Unknown History
oral suspension (Milk of Magnesia) bm x 3 days
miconazole nitrate 2 % topical 1 applic topical BID Skin Issues 07/23/23 08/15/23 Unknown History
powder
sennosides 8.6 mg tablet (senna) 17.6 mg feeding tube DAILY PRN 07/23/23 08/15/23 Unknown History
constipation
thiamine HCl (vitamin B1) 100 mg 100 mg feeding tube MOWEFR 07/23/23 08/15/23 Unknown History
tablet Supplement
budesonide 0.5 mg/2 mL suspension 0.5 mg (2 mL) inhalation R BID 30 07/27/23 08/15/23 Unknown Rx
for nebulization days #120 mL
ipratropium 0.5 mg-albuterol 3 mg 3 ml inhalation R BID@0600,1800 07/31/23 08/15/23 Unknown History
(2.5 mg base)/3 mL nebulization Lung/Breathing Issues
soln
sodium phosphates 19 gram-7 118 ml NJ DAILY PRN if dulcolax 07/31/23 08/15/23 Unknown History
gram/118 mL enema (Fleet Enema) ineffective
hydralazine 25 mg tablet 25 mg feeding tube Q12H PRN 08/11/23 08/15/23 Unknown Rx
sbp>170 #0 tabs
losartan 100 mg tablet 100 mg feeding tube DAILY #30 tabs 08/11/23 08/15/23 Unknown Rx
metoprolol tartrate 100 mg tablet 100 mg feeding tube BID #60 tabs 08/11/23 08/15/23 Unknown Rx
Review of Systems
-
Unable to Obtain full review of systems at this time due to: Patient Non Verbal
Vitals / Labs / Diagnostic Testing
Vital Signs
Temp Pulse Resp BP Pulse Ox
99.4 F 108 28 126/93 91
08/16/23 07:23 08/16/23 10:00 08/16/23 10:00 08/16/23 10:00 08/16/23 09:00
Lab Data
08/16/23 04:48
08/16/23 04:48
Microbiology
08/15/23 23:53 Nasal Swab Influenza Types A & B (SEBASTIÁN) - Final
Negative for Influenza A & B, NAAT
Negative results must be combined with clinical observations
and patient history.
Nucleic Acid Amplification test (NAAT)performed on the
[employer] platform.
08/15/23 22:26 Nasal Swab Influenza Types A & B (SEBASTIÁN) - Final
Test repeatedly invalid.
Nucleic Acid Amplification test (NAAT)performed on the
[employer] NOW platform.
Diagnostic Testing:
Physical Exam
-
Exam:
Well-nourished and well-developed in no apparent distress
HEENT-atraumatic, normocephalic, chronic tracheostomy tube
Neck-supple, no JVD, no bruit
Heart-regular rate and rhythm-no murmurs, rubs or gallops
Chest with coarse breath sounds, few rhonchi
Abdomen-soft, nontender, nondistended, no hepatosplenomegaly
Extremities-no cyanosis, clubbing, edema and good peripheral pulses
Integument-intact, no rashes, lesions or ecchymosis
Neurologically not alert, not oriented not moving extremities
Assessment
-
38-year-old female with a past medical history of anoxic brain injury status postcardiac arrest with trach and gastrostomy tube who has recurrent hospitalizations and presented with increasing secretions-pulmonary consulted for shortness of breath,
secretion management 08/16/2023.
Assessment
Tracheobronchitis/early left lower lobe pneumonia
Sepsis without shock
Anoxic brain injury
Chronic tracheostomy tube
Chronic gastrostomy tube
Anemia-normocytic
Leukocytosis-WBC 20.6
Mild hyperglycemia-blood sugar 113
Conditions present prior to admission:
Recent hospitalization 07/27/2023-sepsis with bacteremia, recent influenza and tracheobronchitis
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
Anoxic brain injury status postcardiac arrest.
Chronic tracheostomy tube-#6 Shiley.
Gastrostomy tube.
Hypertension.
Obesity.
OCD.
DNR
Plan
Respiratory decompensation likely due to tracheobronchitis/early pneumonia
Aspiration precautions
Supplemental oxygen
Nebulizers-DuoNebs
Consider saline
Consider Mucomyst
Budesonide continues
Mucolytic's
Suction as needed
Mucus clearing devices including sport bed and vest cofflater if felt may help
Check cultures
Sputum culture pending
Cefepime initiated-history of Pseudomonas
Follow leukocytosis
Gastrostomy tube care
Tube feeds
Monitor hemoglobin
Transfuse as needed
Monitor blood sugar
Insulin supplementation if needed
DVT prophylaxis-on Lovenox
Nutrition-on tube feeds
Bedside range of motion
Reviewed with primary team and nursing
Diagnostic data:
Chest x-ray 07/23/2023-NAD
Chest x-ray 08/02/2023-NAD
Chest x-ray 08/15/2023-slight increase opacification left lung base concerning for early pneumonia
CT head 07/31/2023-severe global hypoxemic ischemic encephalopathy
CT abdomen and pelvis 07/31/2023-acute sterile coral colitis in the rectum with fecal impaction, no evidence for small bowel obstruction, mild hepatomegaly and mild diffuse hepatic steatosis
Data Reviewed
-
EKG: Report reviewed by me
Radiology: Report reviewed by me
CT Scan: Report reviewed by me
Medical Tests (Nuc Med, Echo etc): Report reviewed by me
Labs: Labs reviewed by me
Total Time Spent with Patient (in minutes): 44
--- NOTE | 2023-08-16 12:00 | PTCARENOTE ---
Pt opens eyes, nonverbal. Sinus tachycardia 108.
Large amount of yellow secretions from trach this am. PRN Atropine very effective for increased secretions. Now 100% on 28% trach collar.
Tube feeds started via J-tube. G-tube to gravity.
Incontinent of brown soft stool.
Incontinent of urine. Purewick removed d/t stools.
All other assessments unchanged.
[2023-08-16] MEDS: LOVENOX 40 MG SC (17:21)
[2023-08-16] MEDS: APRESOLINE TUBE (20:57)
[2023-08-16] MEDS: SENOKOT 17.6000000000000014 MG TUBE (20:58)
[2023-08-17] VITALS (13 sets, daily range): BP systolic 104–140; BP diastolic 71–92; BMI 33.6
[2023-08-17] MEDS: MAXIPIME 2000 MG IV ×4 (00:13→23:49)
[2023-08-17] MEDS: STERILE WATER FOR INJECTION 10 ML IV ×4 (00:13→23:48)
[2023-08-17] MEDS: ROBINUL 2 MG TUBE ×4 (00:14→23:49)
[2023-08-17 04:28] LABS: Hematocrit 30.4 % (37.0-47.0); Mean Corp Hgb Conc. 32.9 g/dL (33.0-37.0); Mean Corpuscular Hgb 31.3 pg (27.0-31.0); Mean Platelet Volume 10.6 fL (7.4-10.4); Platelet Count 408 10^3/uL (130-400); Red Cell Dist. Width 12.9 % (11.5-14.5)
--- NOTE | 2023-08-17 04:35 | PTCARENOTE ---
Received pt at change of shift. VSS throughout shift. Trach collar at 28% in place with pulse ox 95-100%. ST on the monitor. Hygiene care provided as documented. Suctioned pt throughout shift PRN. Inner cannula changed this shift. Pt resting
comfortably in bed with call boykin in reach.
[2023-08-17 04:51] LABS: Blood Urea Nitrogen 14 mg/dl (7-17); Calcium 9.2 mg/dl (8.4-10.2); Carbon Dioxide 22 mmol/L (22-30); Chloride 104 mmol/L (98-107); Estimated Creatinine Clearance > 125 ml/min; Glucose 117 mg/dl (70-99); Potassium 4.2 mmol/L (3.5-5.1); Sodium 138 mmol/L (135-145); eGFR > 60.00
[2023-08-17] MEDS: DUONEB 3 ML INH ×4 (07:16→20:35)
[2023-08-17] MEDS: PULMICORT 0.5 MG INH (07:16)
[2023-08-17] MEDS: NSS IV (09:16)
[2023-08-17] MEDS: ZYRTEC 5 MG TUBE (09:19)
[2023-08-17] MEDS: FOLVITE 1 MG TUBE (09:19)
[2023-08-17] MEDS: PREVACID 30 MG TUBE (09:19)
[2023-08-17] MEDS: LOPRESSOR 100 MG TUBE ×2 (09:20→20:26)
[2023-08-17] MEDS: COZAAR 100 MG TUBE (09:21)
[2023-08-17] MEDS: DESENEX/MITRAZOL/ZEASORB 1 APPLIC TOPICAL ×2 (09:22→20:27)
[2023-08-17] MEDS: APRESOLINE 25 MG TUBE ×2 (09:22→20:27)
[2023-08-17] MEDS: COLACE LIQUID TUBE (09:22)
--- NOTE | 2023-08-17 09:29 | W.PN.HOSP.TC ---
Today's Communication/Plan
-
Continue with current antibiotics. Follow blood culture data.
Continue with aggressive trach secretion management.
Assessment / Plan
Assessment / Plan
A/P:� Patient is a 38y F with PMH significant for trach / PEG dependence s/p anoxic brain injury / cardiac arrest who presents to ED from [place] for evaluation of cough / secretions.
Tracheitis
Sepsis secondary to the above
�- Increased secretions from trach with leukocytosis, tachycardia.
�- Normal CXR / no evidence of acute pneumonia.
�- ? secondary bacterial infection.
�- Supportive care with nebs, mucolytics, oxygen support and secretion management.
�- Culture from sputum shows Pseudomonas aeruginosa. MRSA negative.
- 1/2 blood cultures positive for gram-positive cocci in clusters-await identification
-Continue with current antibiotics and follow
Anoxic Brain Injury
History of Cardiac Arrest
Chronic Encephalopathy secondary to the above
�- Continue supportive measures including O2, repositioning, trach care, etc.
�- Continue tube feeds.
�- hold further IV fluids -pt on goal rate of TF
Chronic Normocytic Anemia
�- Stable.� Hgb at / near known baseline.
�- Follow H&H for any changes.
�- No evidence of acute / significant blood loss at present.
Benign Hypertension
�- Stable.� Continue usual BP medications with holding parameters.
DVT Prophylaxis:� Lovenox
Code Status:� DNR�
Anticipated Discharge: > 48 hours
Subjective/Interval History
-
Date of Service: August 17, 2023
Today she is alert with eyes open but nonverbal which is her baseline.
Doesnt follow commands
Objective Data
-
Labs:
Laboratory Results
08/17/23
04:11
WBC 17.0 H
Hgb 10.0 L
Hct 30.4 L
Plt Count 408 H
Sodium 138
Potassium 4.2
Chloride 104
Carbon Dioxide 22
BUN 14
Creatinine 0.4 L
Glucose 117 H
Calcium 9.2
Vital Signs:
Vital Signs
Temp Pulse Resp BP Pulse Ox
98.6 F 119 22 140/90 99
08/17/23 03:15 08/17/23 09:20 08/17/23 07:19 08/17/23 09:20 08/17/23 07:19
I&O
08/16/23 08/17/23 08/18/23
06:59 06:59 06:59
Intake Total 200 / 200 1610 / 1610
Output Total 800 / 800
Balance 200 / 200 810 / 810
Review of Systems
-
Unable to obtain full review of systems at this time due to: Patient Non-verbal
Physical Exam
-
General: Comfortable
HEENT: Moist Mucous Membranes
Respiratory: Rhonchi (BL with significant thin trach secretions)
Cardiac: Regular Rhythm, S1/S2 and Tachycardic
GI: Soft
Neuro: Awake and Alert
Psych: Calm
Data Reviewed
-
Labs: Labs Reviewed by me
--- NOTE | 2023-08-17 10:29 | CM ---
CM reviewed medical records. Patient is from [facility]. Plan to return on discharge.
PLAN: [facility].
--- NOTE | 2023-08-17 10:53 | PTCARENOTE ---
Assumed care of pt from night RN, pt nonverbal at baseline. Purewick draining yellow urine, no Bm so far this shift. Frequent suctioning required via trach. Oral hygiene completed through shift. Pt repositioned frequently. TF rate decreased to
45ml/hr, IVF d/c'd. Family at bedside. Will continue to monitor through shift.
--- NOTE | 2023-08-17 12:26 | W.PN.PUL.V3 ---
Today's Communication / Plan
-
Cultures reviewed
Continue antibiotics
Continue mucus clearing maneuvers
Nebulizers
Assessment
-
38-year-old female with a past medical history of anoxic brain injury status postcardiac arrest with trach and gastrostomy tube who has recurrent hospitalizations and presented with increasing secretions-pulmonary consulted for shortness of breath,
secretion management 08/16/2023.
Assessment
Tracheobronchitis/early left lower lobe pneumonia
Sepsis without shock
Anoxic brain injury
Chronic tracheostomy tube
Chronic gastrostomy tube
Anemia-normocytic
Leukocytosis-WBC 20.6
Mild hyperglycemia-blood sugar 113
Conditions present prior to admission:
Recent hospitalization 07/27/2023-sepsis with bacteremia, recent influenza and tracheobronchitis
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
Anoxic brain injury status postcardiac arrest.
Chronic tracheostomy tube-#6 Shiley.
Gastrostomy tube.
Hypertension.
Obesity.
OCD.
DNR
Plan
Respiratory decompensation likely due to tracheobronchitis/early pneumonia
Aspiration precautions
Trach collar oxygen supplementation
Nebulizers-DuoNebs
Consider saline
Consider Mucomyst if worsens
Budesonide continues
Mucolytic's
Suction as needed
Mucus clearing devices including sport bed and vest cofflater if felt may help
Cultures reviewed
Sputum 08/16/2023 with Pseudomonas-sensitivities pending
Blood cultures 08/15/20239076-[id number] and sensitivities pending
Cefepime initiated-history of Pseudomonas
Monitor leukocytosis-currently 17,000
Gastrostomy tube care
Tube feeds as tolerated
Follow hemoglobin
Transfuse as needed
Monitor blood sugar
Insulin supplementation if needed
DVT prophylaxis-on Lovenox
Nutrition-on tube feeds
Bedside range of motion
Reviewed with nursing
Diagnostic data:
Chest x-ray 07/23/2023-NAD
Chest x-ray 08/02/2023-NAD
Chest x-ray 08/15/2023-slight increase opacification left lung base concerning for early pneumonia
CT head 07/31/2023-severe global hypoxemic ischemic encephalopathy
CT abdomen and pelvis 07/31/2023-acute sterile coral colitis in the rectum with fecal impaction, no evidence for small bowel obstruction, mild hepatomegaly and mild diffuse hepatic steatosis
Subjective Data
-
Date of Service:
Date of Service: August 17, 2023
Chief Complaint: Pulmonary Follow Up and Dyspnea Follow Up
Subjective:
Nonverbal, moderate amount secretions, no respiratory distress
Review of Systems
General: Unobtainable - Pat Unresp
Objective Data
Data Reviewed
Vital Signs / I&O:
Vital Signs
Temp Pulse Resp BP Pulse Ox
99.6 F 110 22 120/75 99
08/17/23 07:05 08/17/23 11:16 08/17/23 11:16 08/17/23 10:00 08/17/23 11:16
Intake and Output
08/16/23 08/17/23 08/18/23
06:59 06:59 06:59
Intake Total 200 / 200 1610 / 1610
Output Total 800 / 800
Balance 200 / 200 810 / 810
SaO2: 99
Physical Exam
General: Respiratory Distress (n) and Comfortable
HEENT: Normocephalic, Anicteric, Moist Mucous Membranes and Tracheotomy
Respiratory: Crackles, Rhonchi, Non-Labored Respirations (n), Accessory Resp Muscle Use and Stridor (n)
GI: Soft, Non Distended and Non Tender
Neurology: Alert and Unresponsive
Skin: Good Color, Cyanosis (n) and Jaundice (n)
Labs/Micro/Reports
Lab Data
08/17/23 04:11
08/17/23 04:11
Microbiology
08/15/23 23:21 Blood/Venous Blood Culture - Preliminary
Positive culture in progress
08/15/23 23:21 Blood/Venous Gram Stain - Final
08/16/23 01:49 Tracheal Aspirate Respiratory Culture - Preliminary
Pseudomonas aeruginosa
08/16/23 01:49 Tracheal Aspirate Gram Stain - Preliminary
08/16/23 01:49 Nose MRSA Screen - Final
No Methicillin Resistant Staphylococcus aureus isolated.
08/15/23 22:26 Blood/Venous Blood Culture - Preliminary
No Growth in 24 hours- Final report to follow
08/15/23 23:53 Nasal Swab Influenza Types A & B (SEBASTIÁN) - Final
Negative for Influenza A & B, NAAT
Negative results must be combined with clinical observations
and patient history.
Nucleic Acid Amplification test (NAAT)performed on the
[employer] platform.
08/15/23 22:26 Nasal Swab Influenza Types A & B (SEBASTIÁN) - Final
Test repeatedly invalid.
Nucleic Acid Amplification test (NAAT)performed on the
[employer] platform.
[2023-08-17] MEDS: LOVENOX 40 MG SC (17:20)
[2023-08-17] MEDS: COLACE LIQUID 100 MG TUBE (20:26)
[2023-08-17] MEDS: PULMICORT INH (20:37)
[2023-08-17] MEDS: SENOKOT 17.6000000000000014 MG TUBE (21:41)
[2023-08-18] VITALS (13 sets, daily range): BP systolic 103–141; BP diastolic 41–104
[2023-08-18] MEDS: ATROPINE SULFATE 1% DROPS 2 DROP SL (01:12)
--- NOTE | 2023-08-18 01:29 | PTCARENOTE ---
Pt nonverbal, opens eyes, but does not appear to track. Pupils equal, reactive. Pt recoils to uncomfortable stimuli, such as wet cloths, suctioning. Does not move extremities independently. Q2T schedule in place. Continues to exhibit strong,
productive cough with copious amounts of thick white/clear mucous. Inner cannula, trach ties, gauze replaced by this RN. PRN suctioning provided, but pt maintains SaO2 97-100%. Pt remains ST HR low 100s. Pt had one lg liq malhotra stool. RN and PCT
provided full bed bath with linen change. This RN will continue to monitor pt frequently throughout shift.
[2023-08-18 04:34] LABS: Hematocrit 31.2 % (37.0-47.0); Hemoglobin 10.2 g/dL (12.0-16.0); Mean Corp Hgb Conc. 32.7 g/dL (33.0-37.0); Mean Corpuscular Hgb 30.9 pg (27.0-31.0); Mean Corpuscular Volume 94.5 fL (81.0-99.0); Platelet Count 423 10^3/uL (130-400); White Blood Cell Count 17.5 10^3/uL (4.8-10.8)
[2023-08-18 04:59] LABS: Blood Urea Nitrogen 11 mg/dl (7-17); Calcium 9.7 mg/dl (8.4-10.2); Carbon Dioxide 24 mmol/L (22-30); Chloride 102 mmol/L (98-107); Estimated Creatinine Clearance > 125 ml/min; Glucose 109 mg/dl (70-99); Potassium 4.1 mmol/L (3.5-5.1); Sodium 138 mmol/L (135-145); eGFR > 60.00
[2023-08-18] MEDS: DUONEB 3 ML INH ×4 (07:42→20:06)
[2023-08-18] MEDS: PULMICORT 0.5 MG INH ×2 (07:42→20:06)
--- NOTE | 2023-08-18 09:13 | W.PN.PUL3 ---
Today's Communication / Plan
-
Pseudomonas in sputum, acute on chronic infection as there may be component of colonization
IV CFP noted, consider transition to PO LVQ or other equivalent for discharge
Trach collar care, can add vent if needed for clearance/hypoxemia/WOB
Continue TF
Fever noted this AM
Can evaluate for discharge when fever free
Assessment
-
38-year-old female with a past medical history of anoxic brain injury status postcardiac arrest with trach and gastrostomy tube who has recurrent hospitalizations and presented with increasing secretions-pulmonary consulted for shortness of breath,
secretion management 08/16/2023.
Pseudomonas pneumonia, acute on chronic infection
Colonization suspected
Sepsis without shock
Anoxic brain injury
Chronic tracheostomy tube
Chronic gastrostomy tube
Anemia-normocytic
Leukocytosis-WBC 20.6
Mild hyperglycemia-blood sugar 113
Conditions present prior to admission:
Recent hospitalization 07/27/2023-sepsis with bacteremia, recent influenza and tracheobronchitis
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
Anoxic brain injury status postcardiac arrest.
Chronic tracheostomy tube-#6 Shiley.
Gastrostomy tube.
Hypertension.
Obesity.
OCD.
DNR
Plan
Respiratory decompensation likely due to tracheobronchitis/early pneumonia
Aspiration precautions
Trach collar oxygen supplementation
Nebulizers-DuoNebs
Consider saline
Consider Mucomyst if worsens
Budesonide continues
Mucolytic's
Suction as needed
Mucus clearing devices including sport bed and vest cofflater if felt may help
Fever noted this AM
Continue to follow temp curve
Cultures reviewed
Sputum 08/16/2023 with Pseudomonas-sensitivities pending
Blood cultures 08/15/20236316-[id number] and sensitivities pending
Cefepime initiated-history of Pseudomonas
Monitor leukocytosis-currently 17,000
Can consider transition to PO LVQ for discharge planning
Pseudomonas likely colonization, has been positive 07/24/23
Gastrostomy tube care
Tube feeds as tolerated
Follow hemoglobin
Transfuse as needed
Monitor blood sugar
Insulin supplementation if needed
DVT prophylaxis-on Lovenox
Nutrition-on tube feeds
Bedside range of motion
Reviewed with nursing
Diagnostic Data:
Chest x-ray 07/23/2023-NAD
Chest x-ray 08/02/2023-NAD
Chest x-ray 08/15/2023-slight increase opacification left lung base concerning for early pneumonia
CT head 07/31/2023-severe global hypoxemic ischemic encephalopathy
CT abdomen and pelvis 07/31/2023-acute sterile coral colitis in the rectum with fecal impaction, no evidence for small bowel obstruction, mild hepatomegaly and mild diffuse hepatic steatosis
Subjective Data
-
Date of Service:
Date of Service: August 18, 2023
Chief Complaint: Pulmonary Follow Up
Subjective:
patient seen and examined, no events ON
Remains on trach collar, baseline unresponsive
copious sputum noted on collar
Objective Data
Data Reviewed
Vital Signs / I&O / Oxygen:
Vital Signs
Temp Pulse Resp BP Pulse Ox
100.5 F H 118 20 141/104 99
08/18/23 03:31 08/18/23 07:43 08/18/23 07:43 08/18/23 04:00 08/18/23 07:43
Intake and Output
08/17/23 08/18/23 08/19/23
06:59 06:59 06:59
Intake Total 1610 / 1610 1640 / 1640 1140 / 1140
Output Total 800 / 800 975 / 975
Balance 810 / 810 665 / 665 1140 / 1140
SaO2 99
Physical Exam
General: Respiratory Distress (n) and Comfortable
HEENT: Normocephalic, Anicteric, Moist Mucous Membranes and Tracheotomy
Cardiovascular: S1-S2 and Regular Rhythm
Respiratory: Rhonchi (bilateral), Non-Labored Respirations (n), Accessory Resp Muscle Use and Stridor (n)
GI: Soft, Non Distended and Non Tender
Neurology: Alert, Unresponsive and Non Verbal (baseline)
Skin: Good Color, Cyanosis (n) and Jaundice (n)
Labs/Micro/Reports
Lab Data
08/18/23 04:04
08/18/23 04:04
Microbiology
08/16/23 01:49 Tracheal Aspirate Respiratory Culture - Final
Pseudomonas aeruginosa
08/16/23 01:49 Tracheal Aspirate Gram Stain - Final
08/15/23 23:21 Blood/Venous Blood Culture - Preliminary
Coagulase neg. staphylococcus
Additional testing on request
08/15/23 23:21 Blood/Venous Gram Stain - Final
08/15/23 22:26 Blood/Venous Blood Culture - Preliminary
No Growth in 48 hours- Final report to follow
08/16/23 01:49 Nose MRSA Screen - Final
No Methicillin Resistant Staphylococcus aureus isolated.
08/15/23 23:53 Nasal Swab Influenza Types A & B (SEBASTIÁN) - Final
Negative for Influenza A & B, NAAT
Negative results must be combined with clinical observations
and patient history.
Nucleic Acid Amplification test (NAAT)performed on the
[employer] platform.
08/15/23 22:26 Nasal Swab Influenza Types A & B (SEBASTIÁN) - Final
Test repeatedly invalid.
Nucleic Acid Amplification test (NAAT)performed on the
[employer] platform.
[2023-08-18] MEDS: COLACE LIQUID 100 MG TUBE ×2 (09:51→20:40)
[2023-08-18] MEDS: APRESOLINE 25 MG TUBE ×2 (09:51→20:40)
[2023-08-18] MEDS: COZAAR 100 MG TUBE (09:52)
[2023-08-18] MEDS: FOLVITE 1 MG TUBE (09:52)
[2023-08-18] MEDS: DESENEX/MITRAZOL/ZEASORB 1 APPLIC TOPICAL ×2 (09:52→22:59)
[2023-08-18] MEDS: LOPRESSOR 100 MG TUBE ×2 (09:52→20:40)
[2023-08-18] MEDS: PREVACID 30 MG TUBE (09:53)
[2023-08-18] MEDS: ZYRTEC 5 MG TUBE (09:54)
[2023-08-18] MEDS: ROBINUL 2 MG TUBE ×3 (09:54→23:00)
[2023-08-18] MEDS: STERILE WATER FOR INJECTION 10 ML IV ×3 (09:55→23:00)
[2023-08-18] MEDS: VITAMIN B1 100 MG TUBE (09:55)
[2023-08-18] MEDS: MAXIPIME 2000 MG IV ×3 (09:55→23:00)
[2023-08-18 11:10] LABS: Procalcitonin 0.06 ng/ml (0.0-0.25)
--- NOTE | 2023-08-18 12:16 | W.PN.HOSP.TC ---
Today's Communication/Plan
-
Monitor vital signs and see plan
Spiked fever this morning, follow fever curve
Continue with cefepime for now
Check blood culture
Likely will need Levaquin on dc
cw trach care
Assessment / Plan
Assessment / Plan
A/P:� Patient is a 38y F with PMH significant for trach / PEG dependence s/p anoxic brain injury / cardiac arrest who presents to ED from [place] for evaluation of cough / secretions.
Tracheitis
Sepsis secondary to the above
�- Increased secretions from trach with leukocytosis, tachycardia.
�- Normal CXR / no evidence of acute pneumonia.
�- ? secondary bacterial infection.
�- Supportive care with nebs, mucolytics, oxygen support and secretion management.
�- Culture from sputum shows Pseudomonas aeruginosa. MRSA negative.
- 1/2 blood cultures positive for gram-positive cocci in clusters-await identification
-Continue with current antibiotics for now; if continues to be febrile then will get ID to evaluate.
procal not significant
Anoxic Brain Injury
History of Cardiac Arrest
Chronic Encephalopathy secondary to the above
�- Continue supportive measures including O2, repositioning, trach care, etc.
�- Continue tube feeds.
�- hold further IV fluids -pt on goal rate of TF
Chronic Normocytic Anemia
�- Stable.� Hgb at / near known baseline.
�- Follow H&H for any changes.
�- No evidence of acute / significant blood loss at present.
Benign Hypertension
�- Stable.� Continue usual BP medications with holding parameters.
DVT Prophylaxis:� Lovenox
Code Status:� DNR�
General: Comfortable
HEENT: Moist Mucous Membranes
Respiratory: Rhonchi (BL with significant thin� trach secretions)
Cardiac: Regular Rhythm, S1/S2 and Tachycardic
GI: Soft
Neuro: Awake and Alert
Psych: Calm
I spent a total of 52 minutes with the patient or on the floor. More than 50% of this time involved counseling and coordination of care.
Anticipated Discharge: > 48 hours
Subjective/Interval History
-
Date of Service: August 18, 2023
non verbal
Objective Data
-
Labs:
Laboratory Results
08/18/23
04:04
WBC 17.5 H
Hgb 10.2 L
Hct 31.2 L
Plt Count 423 H
Sodium 138
Potassium 4.1
Chloride 102
Carbon Dioxide 24
BUN 11
Creatinine 0.4 L
Glucose 109 H
Calcium 9.7
Vital Signs:
Vital Signs
Temp Pulse Resp BP Pulse Ox
100.5 F H 107 19 123/67 97
08/18/23 03:31 08/18/23 11:02 08/18/23 11:02 08/18/23 09:52 08/18/23 11:02
I&O
08/17/23 08/18/23 08/19/23
06:59 06:59 06:59
Intake Total 1610 / 1610 1640 / 1640 1140 / 1140
Output Total 800 / 800 975 / 975
Balance 810 / 810 665 / 665 1140 / 1140
[2023-08-18] MEDS: LOVENOX 40 MG SC (17:22)
--- NOTE | 2023-08-18 18:40 | SUR.OPER ---
Patient is nonverbal, tolerating tube feeds. Moderate amount of white frothy secretions this shift. Suctioned via trach collar. Patient coughing up secretions orally as well. Patient had a fever last night blood cultures completed. Patient turned
every two hours, bedfast, complete care. No objective signs of pain.
--- NOTE | 2023-08-18 21:21 | PTCARENOTE ---
Addendum entered by Aubree Ervin RN 08/18/23 21:56:
Dr Diallo was able to replace trach (#6 Shiley). Blood tinged secretions suctioned from pt. O2 sat 100% on 28% trach collar.
Original Note:
RT Don just replaced inner cannula and suctioned pt. Went into pts room to given 2000 medications, noticed her trach was displaced from her neck. Anesthesia notified via TT, unable to replace trach. ENT management information systems director Dr Diallo, notified via TT and phone,
will be in to insert new trach. VSS. O2 sat 98%. RT @ bedside.
--- NOTE | 2023-08-18 21:49 | W.PN.UPDATE ---
Update Note
Progress Note Update
Called in urgently due to dislodged trach.
Nurse found patient with trach removed from neck, apparently due to strong cough.
Patient was stable, saturating 98% on trach collar.
At the bedside patient was found to be in no distress.
#6 Cuffed Shiley trach easily placed back into stoma with minimal resistance.
Secretions immediately expressed via trach by patient.
Good air exchange noted.
Patient tolerated the replacement of the trach well without any distress.
--- NOTE | 2023-08-18 22:01 | RESPNOTE ---
called to bedside approx 21:10, appears pt had coughed her trach out. trach tie still connected both side, copious amounts of white secretions around stoma and neck. cleared mucus placed 28% trach collar over stoma, saturation remained 99%. Called
[employer] to come and replace, when at bedside, Dr Lynch attempted x1 to replace with a new trach, was uncomfortable to push in the trach. ENT then called, and arrived approx. 21:40, new Shiley size 6 trach replaced and secured at 21:43. suctioned for
copious amounts of thic white secretions. RN replacing trach cause now.
[2023-08-18] MEDS: SENOKOT TUBE (22:59)
[2023-08-19] VITALS (14 sets, daily range): BP systolic 96–156; BP diastolic 66–107
[2023-08-19] MEDS: PULMICORT 0.5 MG INH ×2 (07:22→19:23)
[2023-08-19] MEDS: DUONEB 3 ML INH ×4 (07:22→19:23)
[2023-08-19] MEDS: COLACE LIQUID 100 MG TUBE ×2 (07:55→19:34)
[2023-08-19] MEDS: STERILE WATER FOR INJECTION 10 ML IV (07:55)
[2023-08-19] MEDS: ZYRTEC 5 MG TUBE (07:55)
[2023-08-19] MEDS: MAXIPIME 2000 MG IV (07:55)
[2023-08-19] MEDS: ROBINUL 2 MG TUBE ×2 (07:56→16:57)
[2023-08-19] MEDS: FOLVITE 1 MG TUBE (07:56)
[2023-08-19] MEDS: PREVACID 30 MG TUBE (07:56)
[2023-08-19] MEDS: COZAAR 100 MG TUBE (07:56)
[2023-08-19] MEDS: LOPRESSOR 100 MG TUBE ×2 (07:57→19:34)
[2023-08-19] MEDS: DESENEX/MITRAZOL/ZEASORB 1 APPLIC TOPICAL ×2 (07:58→19:34)
[2023-08-19] MEDS: APRESOLINE 25 MG TUBE ×2 (07:58→19:34)
--- NOTE | 2023-08-19 09:20 | RESPNOTE ---
trach care completed, gauze and collar changed. suctioned for copious thick yellow/blood tinged sputum. SpO2 98% on 28% TC.6 shiley cuffed but DEFLATED.
--- NOTE | 2023-08-19 09:31 | W.PN.PUL3 ---
Today's Communication / Plan
-
Trach event noted, ENT eval reviewed
Tolerating trach collar, can add vent if needed
Continue airway clearance measures
Recommend transitioning IV abx to PO course for 14 days
If afebrile >24 hours, can consider discharge planning
Assessment
-
38-year-old female with a past medical history of anoxic brain injury status postcardiac arrest with trach and gastrostomy tube who has recurrent hospitalizations and presented with increasing secretions-pulmonary consulted for shortness of breath,
secretion management 08/16/2023.
Trach malfunction with replacement 08/18/23
Pseudomonas pneumonia, acute on chronic infection
Colonization suspected
Sepsis without shock
Anoxic brain injury
Chronic tracheostomy tube
Chronic gastrostomy tube
Anemia-normocytic
Leukocytosis-WBC 20.6
Mild hyperglycemia-blood sugar 113
Conditions present prior to admission:
Recent hospitalization 07/27/2023-sepsis with bacteremia, recent influenza and tracheobronchitis
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
Anoxic brain injury status postcardiac arrest.
Chronic tracheostomy tube-#6 Shiley.
Gastrostomy tube.
Hypertension.
Obesity.
OCD.
DNR
Plan
Trach malfunction noted, replaced by ENT, events reviewed
Respiratory decompensation likely due to tracheobronchitis/early pneumonia
+ Pseudomonas in sputum
Aspiration precautions
Trach collar oxygen supplementation
Nebulizers-DuoNebs
Consider saline
Consider Mucomyst if worsens
Budesonide continues
Mucolytic's
Suction as needed
Mucus clearing devices including sport bed and vest, cofflater if felt may help
Last fever 08/18/23
Continue to follow temp curve
Cultures reviewed
Sputum 08/16/2023 with Pseudomonas-velasquez sensitive
Blood cultures 08/15/2023-BUNGY JUMP MASTER likely contaminant
Cefepime initiated-history of Pseudomonas
Monitor leukocytosis-currently 17,000
Can consider transition to PO LVQ for discharge planning
Pseudomonas likely colonization, has been positive 07/24/23
Gastrostomy tube care
Tube feeds as tolerated
Follow hemoglobin
Transfuse as needed
Monitor blood sugar
Insulin supplementation if needed
DVT prophylaxis-on Lovenox
Nutrition-on tube feeds
Bedside range of motion
Reviewed with nursing
Diagnostic Data:
Chest x-ray 07/23/2023-NAD
Chest x-ray 08/02/2023-NAD
Chest x-ray 08/15/2023-slight increase opacification left lung base concerning for early pneumonia
CT head 07/31/2023-severe global hypoxemic ischemic encephalopathy
CT abdomen and pelvis 07/31/2023-acute sterile coral colitis in the rectum with fecal impaction, no evidence for small bowel obstruction, mild hepatomegaly and mild diffuse hepatic steatosis
Subjective Data
-
Date of Service:
Date of Service: August 19, 2023
Chief Complaint: Pulmonary Follow Up
Subjective:
patient seen and examined, events ON noted
now on trach collar tolerating well
Objective Data
Data Reviewed
Vital Signs / I&O / Oxygen:
Vital Signs
Temp Pulse Resp BP Pulse Ox
99.2 F 110 20 112/82 98
08/19/23 07:45 08/19/23 08:00 08/19/23 08:00 08/19/23 07:58 08/19/23 08:00
Intake and Output
08/18/23 08/19/23 08/20/23
06:59 06:59 06:59
Intake Total 1640 / 1640 3540 / 3540 120 / 120
Output Total 975 / 975 1200 / 1200 400 / 400
Balance 665 / 665 2340 / 2340 -280 / -280
SaO2 98
Physical Exam
General: Respiratory Distress (n) and Comfortable
HEENT: Normocephalic, Anicteric, Moist Mucous Membranes and Tracheotomy
Cardiovascular: S1-S2 and Regular Rhythm
Respiratory: Rhonchi (bilateral), Non-Labored Respirations (n), Accessory Resp Muscle Use and Stridor (n)
GI: Soft, Non Distended and Non Tender
Neurology: Alert, Unresponsive and Non Verbal (baseline)
Skin: Good Color, Cyanosis (n) and Jaundice (n)
Labs/Micro/Reports
Microbiology
08/15/23 22:26 Blood/Venous Blood Culture - Preliminary
No Growth in 72 hours- Final report to follow
08/16/23 01:49 Tracheal Aspirate Respiratory Culture - Final
Pseudomonas aeruginosa
08/16/23 01:49 Tracheal Aspirate Gram Stain - Final
08/15/23 23:21 Blood/Venous Blood Culture - Preliminary
Coagulase neg. staphylococcus
Additional testing on request
08/15/23 23:21 Blood/Venous Gram Stain - Final
08/16/23 01:49 Nose MRSA Screen - Final
No Methicillin Resistant Staphylococcus aureus isolated.
[2023-08-19 10:20] LABS: % Basophils 0.3 % (0-2); % Eosinophils 2.9 % (0-6); % Immature Granulocytes 0.7 % (0-0.5); % Lymphocytes 9.5 % (20.5-51.1); % Monocytes 6.2 % (1.7-9.3); % Neutrophils 80.4 % (42.2-75.2); Absolute Basophils 0.1 10^3/uL (0-0.2); Absolute Eosinophils 0.5 10^3/uL (0-0.7); Absolute Immature Granulocytes 0.1 10^3/uL (0-0.05); Absolute Lymphocytes 1.8 10^3/uL (1.2-3.4); Absolute Monocytes 1.1 10^3/uL (0.1-0.6); Absolute Neutrophils 14.8 10^3/uL (1.4-6.5); Hematocrit 29.7 % (37.0-47.0); Hemoglobin 10.1 g/dL (12.0-16.0); Mean Corpuscular Hgb 31.4 pg (27.0-31.0); Mean Corpuscular Volume 92.2 fL (81.0-99.0); Mean Platelet Volume 10.8 fL (7.4-10.4); Nucleated Red Blood Cells % 0 %; Platelet Count 376 10^3/uL (130-400); Red Blood Cell Count 3.22 10^6/uL (4.20-5.40); White Blood Cell Count 18.5 10^3/uL (4.8-10.8)
[2023-08-19 10:35] LABS: Blood Urea Nitrogen 12 mg/dl (7-17); Calcium 9.2 mg/dl (8.4-10.2); Carbon Dioxide 23 mmol/L (22-30); Chloride 105 mmol/L (98-107); Estimated Creatinine Clearance > 125 ml/min; Glucose 128 mg/dl (70-99); Sodium 134 mmol/L (135-145); eGFR > 60.00
--- NOTE | 2023-08-19 11:48 | RESPNOTE ---
patient with vomiting x2, cuff INFLATED for airway protection.
--- NOTE | 2023-08-19 13:13 | W.PN.HOSP.TC ---
Today's Communication/Plan
-
Monitor vital signs and see plan
Check EKG for QTc
Continue with antibiotics
Trach management per pulmonary
Follow fever curve
Follow bcx
Assessment / Plan
Assessment / Plan
A/P:� Patient is a 38y F with PMH significant for trach / PEG dependence s/p anoxic brain injury / cardiac arrest who presents to ED from [place] for evaluation of cough / secretions.
Tracheitis
Sepsis secondary to the above
�- Increased secretions from trach with leukocytosis, tachycardia.
�- Normal CXR / no evidence of acute pneumonia.
�- ? secondary bacterial infection.
�- Supportive care with nebs, mucolytics, oxygen support and secretion management.
�- Culture from sputum shows Pseudomonas aeruginosa. MRSA negative.
- 1/2 blood cultures positive for coag negative staph which appears contamination
-Continue with current antibiotics for now; if continues to be febrile then will get ID to evaluate.
Currently on cefepime, if QTc acceptable then will transition to Levaquin
follow fever curve
procal not significant
Trach event overnight noted 08/19; trach exchanged
Anoxic Brain Injury
History of Cardiac Arrest
Chronic Encephalopathy secondary to the above
�- Continue supportive measures including O2, repositioning, trach care, etc.
�- Continue tube feeds.
�- hold further IV fluids -pt on goal rate of TF
Chronic Normocytic Anemia
�- Stable.� Hgb at / near known baseline.
�- Follow H&H for any changes.
�- No evidence of acute / significant blood loss at present.
Benign Hypertension
�- Stable.� Continue usual BP medications with holding parameters.
DVT Prophylaxis:� Lovenox
Code Status:� DNR�
General: Comfortable
HEENT: Moist Mucous Membranes
Respiratory: Rhonchi (BL with significant thin� trach secretions)
Cardiac: Regular Rhythm, S1/S2 and Tachycardic
GI: Soft
Neuro: Awake and Alert
Psych: Calm
I spent a total of 53 minutes with the patient or on the floor. More than 50% of this time involved counseling and coordination of care.
Anticipated Discharge: 24 - 48 hours
Subjective/Interval History
-
Date of Service: August 19, 2023
trach event noted overnight
Objective Data
-
Labs:
Laboratory Results
08/19/23
10:12
WBC 18.5 H
Hgb 10.1 L
Hct 29.7 L
Plt Count 376
Sodium 134 L
Potassium 4.0
Chloride 105
Carbon Dioxide 23
BUN 12
Creatinine 0.4 L
Glucose 128 H
Calcium 9.2
Vital Signs:
Vital Signs
Temp Pulse Resp BP Pulse Ox
99 F 109 25 132/87 99
08/19/23 11:18 08/19/23 12:00 08/19/23 12:00 08/19/23 12:00 08/19/23 12:00
I&O
08/18/23 08/19/23 08/20/23
06:59 06:59 06:59
Intake Total 1640 / 1640 3540 / 3540 120 / 120
Output Total 975 / 975 1200 / 1200 400 / 400
Balance 665 / 665 2340 / 2340 -280 / -280
--- NOTE | 2023-08-19 15:10 | PTCARENOTE ---
Assumed care of patient at beginning of this shift from previous RN. Patient needs frequent suctioning via trach and orally; frequent productive cough. Patient will occasionally vomit small amount yellow if having a strong cough. Trach care done.
Tube feeing infusing without difficulty. See worklist for full assessment and vital signs.
[2023-08-19] MEDS: MAXIPIME IV (16:35)
[2023-08-19] MEDS: STERILE WATER FOR INJECTION IV (16:35)
[2023-08-19] MEDS: LEVAQUIN 750 MG TUBE (16:57)
[2023-08-19] MEDS: LOVENOX 40 MG SC (17:04)
--- NOTE | 2023-08-19 21:00 | PTCARENOTE ---
Received pt from nick SILVA. Trach #6.5 Sherin and oral care provided. Pt vomited once, suction provided. T.F infusing @45 ml/hr with 50 ml/hr flush through J tube. VSS. Pt is laying comfortable in bed with call boykin in reach.
[2023-08-19] MEDS: SENOKOT 17.6000000000000014 MG TUBE (21:22)
[2023-08-20] VITALS (9 sets, daily range): BP systolic 90–133; BP diastolic 58–88
[2023-08-20] MEDS: ROBINUL 2 MG TUBE ×3 (00:34→15:50)
[2023-08-20 03:30] LABS: % Basophils 0.5 % (0-2); % Eosinophils 3.2 % (0-6); % Immature Granulocytes 0.8 % (0-0.5); % Lymphocytes 15.7 % (20.5-51.1); % Monocytes 6.7 % (1.7-9.3); % Neutrophils 73.1 % (42.2-75.2); Absolute Basophils 0.1 10^3/uL (0-0.2); Absolute Eosinophils 0.5 10^3/uL (0-0.7); Absolute Immature Granulocytes 0.1 10^3/uL (0-0.05); Absolute Lymphocytes 2.3 10^3/uL (1.2-3.4); Absolute Neutrophils 10.6 10^3/uL (1.4-6.5); Hematocrit 31.8 % (37.0-47.0); Hemoglobin 10.6 g/dL (12.0-16.0); Mean Corp Hgb Conc. 33.3 g/dL (33.0-37.0); Mean Corpuscular Hgb 31.2 pg (27.0-31.0); Mean Corpuscular Volume 93.5 fL (81.0-99.0); Mean Platelet Volume 10.7 fL (7.4-10.4); Nucleated Red Blood Cells % 0 %; Platelet Count 409 10^3/uL (130-400); Red Cell Dist. Width 13.1 % (11.5-14.5); White Blood Cell Count 14.5 10^3/uL (4.8-10.8)
[2023-08-20 04:21] LABS: Blood Urea Nitrogen 10 mg/dl (7-17); Calcium 9.7 mg/dl (8.4-10.2); Carbon Dioxide 24 mmol/L (22-30); Chloride 101 mmol/L (98-107); Estimated Creatinine Clearance > 125 ml/min; Glucose 134 mg/dl (70-99); Potassium 4.1 mmol/L (3.5-5.1); Sodium 137 mmol/L (135-145); eGFR > 60.00
[2023-08-20] MEDS: DUONEB 3 ML INH ×3 (08:13→15:45)
[2023-08-20] MEDS: PULMICORT 0.5 MG INH (08:13)
[2023-08-20] MEDS: LEVAQUIN 750 MG TUBE (08:46)
[2023-08-20] MEDS: APRESOLINE 25 MG TUBE (08:46)
[2023-08-20] MEDS: LOPRESSOR 100 MG TUBE (08:47)
[2023-08-20] MEDS: PREVACID 30 MG TUBE (08:50)
[2023-08-20] MEDS: FOLVITE 1 MG TUBE (08:50)
[2023-08-20] MEDS: ZYRTEC 5 MG TUBE (08:50)
[2023-08-20] MEDS: COLACE LIQUID 100 MG TUBE (08:51)
[2023-08-20] MEDS: COZAAR 100 MG TUBE (08:51)
--- NOTE | 2023-08-20 09:32 | W.PN.PUL3 ---
Today's Communication / Plan
-
Transition oral abx per team
Afebrile >48 hours
Routine trach care, she is not on vent support
Discharge planning per team
We will sign off at this time, please call with questions
Assessment
-
38-year-old female with a past medical history of anoxic brain injury status postcardiac arrest with trach and gastrostomy tube who has recurrent hospitalizations and presented with increasing secretions-pulmonary consulted for shortness of breath,
secretion management 08/16/2023.
Trach malfunction with replacement 08/18/23
Pseudomonas pneumonia, acute on chronic infection
Colonization suspected
Sepsis without shock
Anoxic brain injury
Chronic tracheostomy tube
Chronic gastrostomy tube
Anemia-normocytic
Leukocytosis-WBC 20.6
Mild hyperglycemia-blood sugar 113
Conditions present prior to admission:
Recent hospitalization 07/27/2023-sepsis with bacteremia, recent influenza and tracheobronchitis
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
Anoxic brain injury status postcardiac arrest.
Chronic tracheostomy tube-#6 Shiley.
Gastrostomy tube.
Hypertension.
Obesity.
OCD.
DNR
Plan
Trach malfunction noted, replaced by ENT, events reviewed
Resolved, no further issues
Resume routine trach care
Respiratory decompensation likely due to tracheobronchitis/early pneumonia
+ Pseudomonas in sputum
Aspiration precautions
Trach collar oxygen supplementation
Nebulizers-DuoNebs
Consider saline
Consider Mucomyst if worsens
Budesonide continues
Mucolytic's
Suction as needed
Mucus clearing devices including sport bed and vest, cofflater if felt may help
Last fever 08/18/23
Continue to follow temp curve
Cultures reviewed
Sputum 08/16/2023 with Pseudomonas-velasquez sensitive
Blood cultures 08/15/2023-[employer] likely contaminant
Cefepime initiated-history of Pseudomonas
Monitor leukocytosis-currently 17,000
Can consider transition to PO LVQ for discharge planning
Pseudomonas likely colonization, has been positive 07/24/23
Gastrostomy tube care
Tube feeds as tolerated
Follow hemoglobin
Transfuse as needed
Monitor blood sugar
Insulin supplementation if needed
DVT prophylaxis-on Lovenox
Nutrition-on tube feeds
Bedside range of motion
Reviewed with nursing
Diagnostic Data:
Chest x-ray 07/23/2023-NAD
Chest x-ray 08/02/2023-NAD
Chest x-ray 08/15/2023-slight increase opacification left lung base concerning for early pneumonia
CT head 07/31/2023-severe global hypoxemic ischemic encephalopathy
CT abdomen and pelvis 07/31/2023-acute sterile coral colitis in the rectum with fecal impaction, no evidence for small bowel obstruction, mild hepatomegaly and mild diffuse hepatic steatosis
Subjective Data
-
Date of Service:
Date of Service: August 20, 2023
Chief Complaint: Pulmonary Follow Up
Subjective:
patient seen and examined, no acute events ON
remains clinically unchanged
Objective Data
Data Reviewed
Vital Signs / I&O / Oxygen:
Vital Signs
Temp Pulse Resp BP Pulse Ox
99.0 F 109 28 115/83 99
08/20/23 07:48 08/20/23 08:47 08/20/23 08:20 08/20/23 08:51 08/20/23 08:20
Intake and Output
08/19/23 08/20/23 08/21/23
06:59 06:59 06:59
Intake Total 3540 / 3540 2640 / 2640
Output Total 1200 / 1200 1875 / 1875
Balance 2340 / 2340 765 / 765
SaO2 99
Physical Exam
General: Respiratory Distress (n) and Comfortable
HEENT: Normocephalic, Anicteric, Moist Mucous Membranes and Tracheotomy
Cardiovascular: S1-S2 and Regular Rhythm
Respiratory: Rhonchi (bilateral, mild-improving), Non-Labored Respirations (n), Accessory Resp Muscle Use and Stridor (n)
GI: Soft, Non Distended and Non Tender
Neurology: Alert, Unresponsive and Non Verbal (baseline)
Skin: Good Color, Cyanosis (n) and Jaundice (n)
Labs/Micro/Reports
Lab Data
08/20/23 03:13
08/20/23 03:13
Microbiology
08/15/23 22:26 Blood/Venous Blood Culture - Preliminary
No Growth in 4 days- Final report to follow
08/18/23 12:03 Blood/Venous Blood Culture - Preliminary
No Growth in 24 hours- Final report to follow
08/18/23 10:25 Blood/Venous Blood Culture - Preliminary
No Growth in 24 hours- Final report to follow
08/15/23 23:21 Blood/Venous Blood Culture - Preliminary
Coagulase neg. staphylococcus
Additional testing on request
08/15/23 23:21 Blood/Venous Gram Stain - Final
08/16/23 01:49 Tracheal Aspirate Respiratory Culture - Final
Pseudomonas aeruginosa
08/16/23 01:49 Tracheal Aspirate Gram Stain - Final
08/16/23 01:49 Nose MRSA Screen - Final
No Methicillin Resistant Staphylococcus aureus isolated.
[2023-08-20] MEDS: DESENEX/MITRAZOL/ZEASORB 1 APPLIC TOPICAL (10:13)
[2023-08-20] MEDS: VITAMIN B1 100 MG TUBE (10:13)
--- NOTE | 2023-08-20 11:24 | W.PN.HOSP.TC ---
Today's Communication/Plan
-
Monitor vital signs see plan
Discharge today to [facility]
Continue Levaquin
Time of discharge 37 minutes
Assessment / Plan
Assessment / Plan
A/P:� Patient is a 38y F with PMH significant for trach / PEG dependence s/p anoxic brain injury / cardiac arrest who presents to ED from [place] for evaluation of cough / secretions.
Tracheitis
Sepsis secondary to the above
�- Increased secretions from trach with leukocytosis, tachycardia.
�- Normal CXR / no evidence of acute pneumonia.
�- ? secondary bacterial infection.
�- Supportive care with nebs, mucolytics, oxygen support and secretion management.
�- Culture from sputum shows Pseudomonas aeruginosa. MRSA negative.
- 1/2 blood cultures positive for coag negative staph which appears contamination
-Continue with current antibiotics for now; if continues to be febrile then will get ID to evaluate.
Currently on cefepime, if QTc acceptable then will transition to Levaquin
follow fever curve
procal not significant
Trach event overnight noted 08/19; trach exchanged
Anoxic Brain Injury
History of Cardiac Arrest
Chronic Encephalopathy secondary to the above
�- Continue supportive measures including O2, repositioning, trach care, etc.
�- Continue tube feeds.
�- hold further IV fluids -pt on goal rate of TF
Chronic Normocytic Anemia
�- Stable.� Hgb at / near known baseline.
�- Follow H&H for any changes.
�- No evidence of acute / significant blood loss at present.
Benign Hypertension
�- Stable.� Continue usual BP medications with holding parameters.
DVT Prophylaxis:� Lovenox
Code Status:� DNR�
General: Comfortable
HEENT: Moist Mucous Membranes
Respiratory: Rhonchi (BL with significant thin� trach secretions)
Cardiac: Regular Rhythm, S1/S2 and Tachycardic
GI: Soft
Neuro: Awake and Alert
Psych: Calm
Spoke with 08/20.' understands patient worsening condition and appears to be leaning towards hospice.' She will think about it and will speak to [facility]
I spent a total of 52 minutes with the patient or on the floor. More than 50% of this time involved counseling and coordination of care.
Anticipated Discharge: Today
Subjective/Interval History
-
Date of Service: August 20, 2023
no acute events overnight
Objective Data
-
Labs:
Laboratory Results
08/20/23
03:13
WBC 14.5 H
Hgb 10.6 L
Hct 31.8 L
Plt Count 409 H
Sodium 137
Potassium 4.1
Chloride 101
Carbon Dioxide 24
BUN 10
Creatinine 0.4 L
Glucose 134 H
Calcium 9.7
Vital Signs:
Vital Signs
Temp Pulse Resp BP Pulse Ox
99.0 F 99 21 119/88 96
08/20/23 07:48 08/20/23 10:00 08/20/23 10:00 08/20/23 10:00 08/20/23 10:00
I&O
08/19/23 08/20/23 08/21/23
06:59 06:59 06:59
Intake Total 3540 / 3540 2640 / 2640
Output Total 1200 / 1200 1875 / 1875
Balance 2340 / 2340 765 / 765
--- NOTE | 2023-08-20 11:32 | W.DCSUMMARY ---
Discharge Summary
Discharge Data
Date of Admission: 08/15/23
Date of Discharge: 08/20/23
-
Pending Results: No
Hospital Course
38-year-old female with past medical history of anoxic brain injury, history of cardiac arrest, chronic encephalopathy, tracheostomy/PEG dependence, hypertension, normocytic anemia came to the hospital with sepsis secondary to tracheitis. Patient
was seen by pulmonary throughout hospitalization. Patient also had an event on 08/19 via her tracheostomy came out so she was seen by ENT who changed her trach. She also had 1 out of 2 blood culture positive for coag negative staph which was
considered contaminant. She also spiked a fever was she was in the hospital which was likely thought was secondary to her tracheitis. She was initially treated with IV antibiotic which was later transitioned to oral antibiotics. Since patient
symptoms over time improved she was then discharged back to [facility] with instructions to follow-up with all her physicians outpatient.
Discharge Plan
-
Patient Disposition: Fpc/SNF
Discharge Diagnosis/Procedures: Sepsis secondary to tracheitis
Anoxic brain injury
Chronic anemia
Hypertension
Diet: Tube feeding
Activity: With assistance and As tolerated
Driving Restrictions: No driving
Bathing Restrictions: None
Activity Restrictions/Additional Instructions:
Last day Levaquin 08/30/2023
Referrals:
Kai Muhammad, [Family Provider] - in less than 1 week
Prescriptions:
New
levofloxacin 750 mg Tablet
750 mg feeding tube DAILY Qty: 11 0RF
Continued
sennosides [senna] 8.6 mg Tablet
17.6 mg feeding tube DAILY PRN (Reason: constipation)
acetaminophen 325 mg Tablet
650 mg FEEDING TUBE Q6H PRN (Reason: mild pain/temp>100.4)
cetirizine 5 mg Tablet
5 mg feeding tube DAILY
miconazole nitrate 2 % Powder
1 applic TOPICAL BID
Rx Instructions:
apply to abdominal folds and groin
thiamine HCl (vitamin B1) 100 mg Tablet
100 mg FEEDING TUBE MOWEFR
magnesium hydroxide [Milk of Magnesia] 400 mg/5 mL Suspension
30 ml feeding tube DAILY PRN (Reason: if no bm x 3 days)
bisacodyl [Dulcolax (bisacodyl)] 10 mg Suppository
10 mg WA DAILY PRN (Reason: if mom ineffective)
folic acid 1 mg Tablet
1 mg feeding tube DAILY
atropine 1 % Drops
2 drp PO Q4H PRN (Reason: increased secretions)
glycopyrrolate 2 mg Tablet
2 mg FEEDING TUBE Q8H
Lansoprazole 3mg/Ml
10 ml feeding tube DAILY
docusate sodium
1 tab feeding tube Q12H PRN (Reason: constipation)
budesonide 0.5 mg/2 mL Suspension For Nebulization
0.5 mg inhalation R BID 30 Days Qty: 120 0RF
Fleet Enema 19-7 gram/118 mL Enema
118 ml WA DAILY PRN (Reason: if dulcolax ineffective)
ipratropium-albuterol 0.5 mg-3 mg(2.5 mg base)/3 mL solution for nebulization
3 ml inhalation R BID@0600,1800
losartan 100 mg Tablet
100 mg feeding tube DAILY Qty: 30 0RF
metoprolol tartrate 100 mg Tablet
100 mg feeding tube BID Qty: 60 0RF
hydralazine 25 mg Tablet
25 mg feeding tube Q12H PRN (Reason: sbp>170) Qty: 0 0RF
Discharge Orders:
Discharge Patient (As Directed); Ordered 08/20/23
Ordered By: Juan Perez
Discharge Date and Time
Discharge Date/Time: 08/20/23 16:21
--- NOTE | 2023-08-20 14:15 | CM ---
Patient from [facility] with Hx anoxic brain injury, trach, PEG with tube feeds, with Dx Tracheitis, Sepsis. O2 21% trach collar. Jevity tube feedings. Per nurse assessment; non-verbal, complete bedrest.
Spoke with Adm Dayanas [facility]; they are able to accept the patient back today. The ph for report [phone], fax [phone].
Spoke with patient's mother Elias; she agrees with the patient returning to [facility]. Mother confirms patient does not currently have Medicare (IMM not needed), she has Medicaid.
Confirmed with nurse Colby patient has need for occasional deep tracheal suctioning, therefore will need ALS ambulance transport.
Plan return to [facility] today by ALS ambulance.
--- NOTE | 2023-08-20 16:09 | PTCARENOTE ---
Patient being discharged to [facility]. Report given to Arcadio; reviewed that patient's g-tube port is to gravity and confirmed that was done there. Lacrosse bag being sent back connected to patient. Transport was for 16:30; ambulance came at 16:00.
Resp therapist, Danielle, made aware and stated patient is on RA settings; she reviewed with transport. IV sites d/c'd; attends placed in case of incontinence during transport.
--- NOTE | 2023-08-22 14:21 | PN.CDI ---
CDI
- -
CDI:
Physician Documentation Request
Admit Date: 08/15/23 23:54
Dear Doctor Chris,
Please review the following and provide your response in the progress notes.
Clinical Indicators:
The diagnosis of Pseudomonas Pneumonia (acute on chronic infection) was documented by Pulmonology.
Your PN's include: Normal CXR/no evidence of acute pneumonia. ?secondary bacterial infection. Sepsis due to tracheitis
Sputum c/s--pseudomonas
WBC elevated during admission--19.4 on admission and consistently elevated during stay
Low grade temp on admission 100.1 and 100.5 on 08/18
Pt received cefepime IV from 08/15-08/19
Transitioned to Levaquin po and this was continued at d/c
Please clarify the following:
____ - Pseudomonas pneumonia was present on admission and is still being monitored, evaluated or treated
____ - Pseudomonas pneumonia was ruled out
____ - Pseudomonas pneumonia is still a likely, suspected, probable diagnosis
____ - Other
____ - Unable to determine
Use of terms such as suspected, likely, concern for, or probable (associated with a specific diagnosis that is being evaluated, monitored, or treated as if it exists) are acceptable and can be coded in the inpatient setting, when documented at the
time of discharge.
Thank you,
Oma MAZARIEGOS, RN, CCDS
CDI Specialist
[phone]
Please use your independent medical judgment in providing your response.
== END 2023-08-20 16:21 | DRG 872 ==
LOC: IMU 23:54
PROVIDERS: Internal Medicine; ADMITTING PHYSICIAN Hospitalist; ATTENDING PHYSICIAN Internal Medicine; CONSULT PHYSICIAN Internal Medicine Critical Care Medicine; EMERGENCY PHYSICIAN Emergency Medicine; FAMILY PHYSICIAN Internal Medicine
PROC: 0B21XFZ Change Tracheostomy Device in Trachea, External Approach (ICD-10-PCS; 2023-08-19)
DX: A41.89 Other specified sepsis (principal); G93.1 Anoxic brain damage, not elsewhere classified; G93.40 Encephalopathy, unspecified; J04.10 Acute tracheitis without obstruction; I50.9 Heart failure, unspecified; I11.0 Hypertensive heart disease with heart failure; J40 Bronchitis, not specified as acute or chronic; E66.9 Obesity, unspecified; F42.9 Obsessive-compulsive disorder, unspecified; D50.9 Iron deficiency anemia, unspecified; Z66 Do not resuscitate; Z68.33 Body mass index [BMI] 33.0-33.9, adult; Z93.0 Tracheostomy status; Z93.1 Gastrostomy status; Z11.52 Encounter for screening for COVID-19
CPT/HCPCS: 71045; 80048; 80053; 83605; 83735; 84145; 85025; 85027; 87040; 87070; 87071; 87150; 87186; 87205; 87502; 87811; 93005; 94640; 96374; 96375; 99285

== ENCOUNTER 2023-08-21 13:04 | Inpatient (IN) | payer OTHER, SELFPAY ==
[2023-08-21] VITALS (15 sets, daily range): BP systolic 100–148; BP diastolic 71–106; BMI 32.6
--- NOTE | 2023-08-21 09:44 | ED.GENMED ---
History of Present Illness
General
Chief Complaint: Fever
Source: records
Exam Limitations: clinical condition and non verbal-adult
Time Seen by Provider: 08/21/23 09:22
Nursing documentation reviewed up to this point in time: agreed with
Travel History
Have you had any contact with someone who has COVID-19?: Unable to Answer
Do you have any symptoms of coronavirus? Fever > 100 degrees, chills, cough, shortness of breath, sore throat, loss of taste or smell, muscle aches, or headache?: Unable to Answer
History of Present Illness
History of Present Illness:
38-year-old female discharged yesterday see below for details--- briefly seen by myself with fever tracheitis possible pneumonia admitted for antibiotics apparently an issue with her trach which was replaced was deemed stable for discharge this
discharge she is not having fevers EMS called for medical command, concerned that she was septic she was tachycardic my evaluation she has low-grade fever tachycardia tachypnea thick secretions from her trach
From the patient's recent discharge summary
38-year-old female with past medical history of anoxic brain injury, history of cardiac arrest, chronic encephalopathy, tracheostomy/PEG dependence, hypertension, normocytic anemia came to the hospital with sepsis secondary to tracheitis.�
Patient was seen by pulmonary throughout hospitalization.� Patient also had an event on 08/19 via her tracheostomy came out so she was seen by ENT who changed her trach.� She also had 1 out of 2 blood culture positive for coag negative staph which
was considered contaminant.� She also spiked a fever was she was in the hospital which was likely thought was secondary to her tracheitis.� She was initially treated with IV antibiotic which was later transitioned to oral antibiotics.� Since
patient s symptoms over time improved she was then discharged back to [facility] with instructions to follow-up with all her physicians outpatient.
Past History
Past History
ED Past Medical History: Asthma, CHF, GERD, HTN and Other (cardiac arrest, PNA, Iron def anemia, traumatic brain injury, sepsis, Pseudomonas respiratory culture positive)
ED Past Surgical History: Other (Trach)
Social History
Tobacco: Non-smoker
Alcohol: None
Drug: None
Personal: Single
Living: long-term
Employment: Not employed
Family History
Family History: Unable to obtain
Review of Systems
Review of Systems
Unable to obtain full review of systems at this time due to: non-verbal
Other source history: transfer record
All Other Systems: Not applicable
Phy Exam
Physical Exam
Physical Exam:
Physical Exam
General: Chronically ill-appearing female febrile tachycardic
Neck: Tracheostomy in place thick secretion
Heart: Tachycardia
Lungs: Tachypneic
Abdomen: Soft feeding tube
Neuro: Nonverbal
Skin: no rash
Psychiatric: Unable
Extremities: Trace edema
Course
Orders/Labs/Results
Orders:
Orders
08/21/23 09:36
Electrocardiogram (*1) Urgent
Reason for Study: Other
Other Reason for Exam: sepsis
EKG- Treatment ONCE
IV Insert/Care/Rem.- Treatment PRN
Urinalysis Reflex To Culture Urgent
Date Specimen was Collected: 08/21/23
Time Specimen was Collected: 09:40
0.9% Sodium Chloride 1000 ml [Nss] 2,000 ml IV BOLUS
Acetaminophen [Tylenol] 1,000 mg TUBE NOW STA
CR Chest Portable - 1 View Urgent
Comment:
Reason For Exam: fever
Reason Study Needs to be Portable: Patient Unstable
08/21/23 09:41
Lactic Acid Q4H
Comment: CANCEL 2nd LACTIC ACID IF 1st LACTIC ACID IS LESS THAN 2
08/21/23 09:42
Complete Blood Count/With Diff Urgent
Comprehensive Metabolic Panel Urgent
Procalcitonin Urgent
PCT Algorithmm Indication: Sepsis
Blood Culture Q30M
VICK Source: Blood/Venous
Specimen Description:
Sputum Culture [Respiratory Culture/Gram Stain] Routine
VICK Source: Sputum
Specimen Description:
Date Specimen was Collected: 08/21/23
Time Specimen was Collected: 09:40
08/21/23 10:15
Blood Culture Q30M
VICK Source: Blood/Venous
Specimen Description:
08/21/23 11:23
Cefepime HCl [Maxipime] 1,000 mg IV NOW STA
08/21/23 13:45
Lactic Acid Q4H
Comment: CANCEL 2nd LACTIC ACID IF 1st LACTIC ACID IS LESS THAN 2
Abnormal Lab Results
08/21/23 08/21/23
09:41 09:42
WBC 30.8 H 10^3/uL
(4.8-10.8)
RBC 3.57 L 10^6/uL
(4.20-5.40)
Hgb 10.8 L g/dL
(12.0-16.0)
Hct 34.2 L %
(37.0-47.0)
MCHC 31.6 L g/dL
(33.0-37.0)
Plt Count 430 H 10^3/uL
(130-400)
MPV 11.5 H fL
(7.4-10.4)
Glucose 176 H mg/dl
(70-99)
Lactic Acid 3.1 H mmol/L
(0.7-2.0)
Procalcitonin 0.35 H ng/ml
(0.0-0.25)
08/21/23 09:42
08/21/23 09:42
Vital Signs
Initial and Last Documented VS:
Initial Vital Signs
Temp Pulse Resp BP Pulse Ox
100.1 F 131 26 101/73 94
08/21/23 09:24 08/21/23 09:24 08/21/23 09:24 08/21/23 09:24 08/21/23 09:24
Last Documented Vital Signs
Temp Pulse Resp BP Pulse Ox
100.1 F 131 26 101/73 94
08/21/23 09:24 08/21/23 09:24 08/21/23 09:24 08/21/23 09:24 08/21/23 09:24
*Radiology
Radiology exam reviewed: radiology read reviewed
*Pulse Oximetry
Patient hypoxic: no
*EKG
Interpreted by ED Provider?: Yes
Interpretation: abnormal
Comparison EKG: no comparison EKG present
Heart Rate: 115
Rate: tachycardiac
Rhythm: sinus
Ischemia: non-specific ST changes
*Water Plumber Interpretation
Rate: tachycardiac
Interpretation: abnormal
Heart Rate: 118
Rhythm: sinus
*Critical Care Note
Total Time (30-74mins, 75-104mins- exclusive of procedures): 30
comment:
CRITICAL CARE STATEMENT: A total of 30 minutes of critical care time was provided for this patient. This includes management of unstable vital signs, evaluation of the patient at bedside, reviewing the patient's pertinent medical records discussion
with EMS providers and patient's family in addition to discussion with consultants, review of old EKGs and review of pertinent medical records. This time with separate from time utilized to perform the aforementioned documented procedures
Update Note
Update Note:
Update 1130 chest x-ray report noted labs noted white count up significantly, Pro-Willy noted prior trach culture noted looks like Pseudomonas pansensitive patient still having fevers, cultures are pending at this point I believe is prudent to admit
her to the hospital
ED Attending Note
-
Portions of this chart may have been created with voice recognition software.� Occasional wrong word or��sound alike� substitutions may have occurred due to the inherent limitations of voice recognition software.
Discharge Plan
Departure
Patient Disposition: Admit
Date of Disposition: 08/21/23
Time of Disposition: 11:38
Admit to: Telemetry
Presentation/result/management discussed w/ accepting MD/DO: Hospitalist
Patient with high blood pressure during this ER visit?: No
Condition: Fair
Covid-19: Not Applicable
Discharge Problem:
Tracheostomy status, Anoxic brain injury, Tracheitis, Sepsis
Prescriptions:
No Action
sennosides [senna] 8.6 mg Tablet
17.6 mg feeding tube DAILY PRN (Reason: constipation)
acetaminophen 325 mg Tablet
650 mg FEEDING TUBE Q6H PRN (Reason: mild pain/temp>100.4)
cetirizine 5 mg Tablet
5 mg feeding tube DAILY
miconazole nitrate 2 % Powder
1 applic TOPICAL BID
Rx Instructions:
apply to abdominal folds and groin
thiamine HCl (vitamin B1) 100 mg Tablet
100 mg FEEDING TUBE MOWEFR
Colace 50 mg Capsule
50 mg PO BIDPRN PRN (Reason: constipation) Qty: 0
magnesium hydroxide [Milk of Magnesia] 400 mg/5 mL Suspension
30 ml feeding tube [id number] PRN (Reason: if no bm by 3rd day)
bisacodyl [Dulcolax (bisacodyl)] 10 mg Suppository
10 mg OH DAILY PRN (Reason: if mom ineffective)
folic acid 1 mg Tablet
1 mg feeding tube DAILY
atropine 1 % Drops
2 drp PO Q4H PRN (Reason: increased secretions)
glycopyrrolate 2 mg Tablet
2 mg FEEDING TUBE Q8H
Lansoprazole 3mg/Ml
10 ml feeding tube DAILY
budesonide 0.5 mg/2 mL Suspension For Nebulization
0.5 mg inhalation R BID 30 Days Qty: 120 0RF
Fleet Enema 19-7 gram/118 mL Enema
118 ml OH DAILY PRN (Reason: if dulcolax ineffective)
ipratropium-albuterol 0.5 mg-3 mg(2.5 mg base)/3 mL solution for nebulization
3 ml inhalation R BID@0600,1800
losartan 100 mg Tablet
100 mg feeding tube DAILY Qty: 30 0RF
metoprolol tartrate 100 mg Tablet
100 mg feeding tube BID Qty: 60 0RF
hydralazine 25 mg Tablet
25 mg feeding tube Q12H PRN (Reason: sbp>170) Qty: 0 0RF
levofloxacin 750 mg Tablet
750 mg feeding tube DAILY Qty: 11 0RF
Patient Comments:
start 08/21/23- 08/30/23
Referrals:
Kai Muhammad DO [Family Provider] -
Interventions
Interventions:
*Risk Screen - Suicide Last Done: 08/21/23 09:24
*General Assessment Last Done: 08/21/23 09:24
*Neglect/Abuse Screening Last Done: 08/21/23 09:24
*ED COVID-19 Vaccine History Last Done: 08/21/23 09:24
ED- Neurological Assessment Last Done: 08/21/23 10:21
ED-Skin Assessment Last Done: 08/21/23 10:21
[2023-08-21] MEDS: TYLENOL 1000 MG TUBE (09:53)
[2023-08-21] MEDS: NSS 2000 IV (09:53)
[2023-08-21 10:18] LABS: ALT (SGPT) 21 U/L (0-35); AST (SGOT) 23 U/L (14-36); Albumin 4.2 g/dl (3.5-5.0); Alkaline Phosphatase 70 U/L (38-126); Blood Urea Nitrogen 15 mg/dl (7-17); Calcium 9.9 mg/dl (8.4-10.2); Chloride 103 mmol/L (98-107); Glucose 176 mg/dl (70-99); Potassium 4.9 mmol/L (3.5-5.1); Sodium 138 mmol/L (135-145); Total Bilirubin 0.4 mg/dl (0.2-1.3); Total Protein 7.5 g/dl (6.3-8.2); eGFR > 60.00
[2023-08-21 10:19] LABS: Lactic Acid 3.1 mmol/L (0.7-2.0)
[2023-08-21 10:42] LABS: Procalcitonin 0.35 ng/ml (0.0-0.25)
[2023-08-21 10:51] LABS: Carbon Dioxide 25 mmol/L (22-30)
[2023-08-21 10:58] LABS: % Basophils 0.2 % (0-2); % Eosinophils 0.1 % (0-6); % Immature Granulocytes 1.9 % (0-0.5); % Lymphocytes 2.9 % (20.5-51.1); % Monocytes 4.8 % (1.7-9.3); % Neutrophils 90.1 % (42.2-75.2); Absolute Basophils 0.1 10^3/uL (0-0.2); Absolute Immature Granulocytes 0.6 10^3/uL (0-0.05); Absolute Lymphocytes 0.9 10^3/uL (1.2-3.4); Absolute Monocytes 1.5 10^3/uL (0.1-0.6); Absolute Neutrophils 27.7 10^3/uL (1.4-6.5); Hematocrit 34.2 % (37.0-47.0); Hemoglobin 10.8 g/dL (12.0-16.0); Mean Corp Hgb Conc. 31.6 g/dL (33.0-37.0); Mean Corpuscular Hgb 30.3 pg (27.0-31.0); Mean Corpuscular Volume 95.8 fL (81.0-99.0); Mean Platelet Volume 11.5 fL (7.4-10.4); Nucleated Red Blood Cells % 0 %; Platelet Count 430 10^3/uL (130-400); Red Blood Cell Count 3.57 10^6/uL (4.20-5.40); Red Cell Dist. Width 13.2 % (11.5-14.5); White Blood Cell Count 30.8 10^3/uL (4.8-10.8)
[2023-08-21] MEDS: MAXIPIME 1000 MG IV (11:42)
--- NOTE | 2023-08-21 11:52 | CM ---
CM reviewed medical records. Patient is from [facility]. Plan to return on discharge.
[facility]
Report [phone] x [phone],
fax [phone].
[2023-08-21 12:05] LABS: Urine Albumin Negative (Neg - Trace); Urine Bilirubin Negative (Negative); Urine Character Clear (Clear); Urine Color Yellow; Urine Glucose Negative (Negative); Urine Ketone Negative (Negative); Urine Leukocyte Negative (Negative); Urine Nitrite Negative (Negative); Urine Occult Blood Negative (Negative); Urine Specific Gravity 1.015 (<1.030); Urine Urobilinogen Negative (Neg - 1+)
--- NOTE | 2023-08-21 12:14 | HPS.HSE ---
Addendum entered and electronically signed by Juan Perez MD 08/21/23 14:55:
I saw and examined the patient.
The SAILING INSTRUCTOR or PA's note was reviewed and I agree with the note.
Comment: 38-year-old female with a history of asthma, CHF, GERD, hypertension, cardiac arrest, traumatic brain injury, nonverbal at baseline, tracheostomy, recent Pseudomonas tracheitis came to the hospital after having a low-grade fever along with
tachycardia at [facility]. Suspect patient had an aspiration event. Continue with antibiotics for now. Const infectious disease and pulmonary. Monitor leukocytosis.Unfortunately patient will keep on having the similar symptoms due to her
worsening clinical status. Lactic acidosis. Trend lactate. Will need deep suctioning. High risk of decompensation.
General: Comfortable
HEENT: Moist Mucous Membranes
Respiratory: Rhonchi (BL with significant thin� trach secretions)
Cardiac: Regular Rhythm, S1/S2 and Tachycardic
GI: Soft
Neuro: Awake
Psych: Calm
I spent a total of 77 minutes with the patient or on the floor. More than 50% of this time involved counseling and coordination of care.
Original Note:
Family Physician
-
Family Physician: Kai Muhammad, DO
Chief Complaint
-
Tachycardia
Fever
History of Present Illness
38-year-old with past medical history for asthma, congestive heart failure,, GERD, hypertension, cardiac arrest, pneumonia, traumatic brain injury, Pseudomonas presented to us with low-grade fever and tachycardic. Patient is nonverbal. Patient not
able to provide any history.
Upon arrival patient is tachycardic and low-grade fever. Patient received a dose of IV cefepime and 2 L of normal saline in ER. Admitting for further management
Patient was admitted here with sepsis secondary tracheitis from 08/01 to 08/20. Patient was discharged on oral antibiotics.
Medical History
Past Medical History
Past Medical History: Reports Other
Additional Past Medical History:
Cardiac Arrest - Uncertain Etiology
Anoxic Brain Injury secondary to the above
Tracheostomy Status
PEG-Dependent
Hypertension
Obesity
OCD
Past Surgical History: Reports Other
Additional Past Surgical History:
Tracheostomy
GJ tube placement
Social History
Unable to obtain full social history at this time due to: Acuity
Family History
Family History: Not pertinent
Allergies / Home Medications
Allergies reflects when Allergies were last updated in [facility].
Home Medications with original date entered in [facility]
Allergy/Medication List:
Allergies
Allergy/AdvReac Type Severity Reaction Status Date / Time
No Known Allergies Allergy Verified 08/21/23 09:42
Home Medications
Lansoprazole 3mg/Ml 10 ml feeding tube DAILY Gastrointestinal Issue 07/23/23
acetaminophen 325 mg tablet 650 mg feeding tube Q6H PRN mild pain/temp>100.4 07/23/23
atropine 1 % eye drops 2 drp PO Q4H PRN increased secretions 07/23/23
bisacodyl 10 mg rectal suppository (Dulcolax (bisacodyl)) 10 mg CA DAILY PRN if mom ineffective 07/23/23
cetirizine 5 mg tablet 5 mg feeding tube DAILY Allergies 07/23/23
docusate sodium 50 mg capsule 50 mg PO BIDPRN PRN constipation ##0 07/23/23
folic acid 1 mg tablet 1 mg feeding tube DAILY Supplement 07/23/23
glycopyrrolate 2 mg tablet 2 mg feeding tube Q8H secretions 07/23/23
magnesium hydroxide 400 mg/5 mL oral suspension (Milk of Magnesia) 30 ml feeding tube [id number] PRN if no bm by 3rd day 07/23/23
miconazole nitrate 2 % topical powder 1 applic topical BID Skin Issues 07/23/23
sennosides 8.6 mg tablet (senna) 17.6 mg feeding tube DAILY PRN constipation 07/23/23
thiamine HCl (vitamin B1) 100 mg tablet 100 mg feeding tube MOWEFR Supplement 07/23/23
budesonide 0.5 mg/2 mL suspension for nebulization 0.5 mg (2 mL) inhalation R BID 30 days #120 mL 07/27/23
ipratropium 0.5 mg-albuterol 3 mg (2.5 mg base)/3 mL nebulization soln 3 ml inhalation R BID@0600,1800 Lung/Breathing Issues 07/31/23
sodium phosphates 19 gram-7 gram/118 mL enema (Fleet Enema) 118 ml CA DAILY PRN if dulcolax ineffective 07/31/23
hydralazine 25 mg tablet 25 mg feeding tube Q12H PRN sbp>170 #0 tabs 08/11/23
losartan 100 mg tablet 100 mg feeding tube DAILY #30 tabs 08/11/23
metoprolol tartrate 100 mg tablet 100 mg feeding tube BID #60 tabs 08/11/23
levofloxacin 750 mg tablet 750 mg feeding tube DAILY #11 tabs 08/20/23
Review of Systems
-
Unable to obtain full review of systems at this time due to: Acuity
Physical Exam
Vital Signs
Vital Signs
Temp Pulse Resp BP Pulse Ox
100.1 F 124 26 101/73 94
08/21/23 09:24 08/21/23 11:49 08/21/23 11:49 08/21/23 09:24 08/21/23 09:24
Physical Exam
General: Well Developed, Well Nourished and No Apparent Distress
HEENT: NormoCephalic, Moist mucous membranes and Atraumatic
Respiratory: Clear and Decreased Breath Sounds
Cardiac: S1/S2 and Regular Rhythm; No Murmur or Rub
GI: Soft, Non Tender, Non Distended and Normal Bowel Sounds; No Organomegaly
Rectal: Deferred by Provider
Musculoskeletal: No Clubbing, No Cyanosis and No Edema
Skin: No Rash
Laboratory Results
-
08/21/23 09:42
08/21/23 09:42
Laboratory Results
Lactic Acid 3.1 mmol/L (0.7-2.0) H 08/21/23 09:41
Total Bilirubin 0.4 mg/dl (0.2-1.3) 08/21/23 09:42
AST 23 U/L (14-36) 08/21/23 09:42
ALT 21 U/L (0-35) 08/21/23 09:42
Alkaline Phosphatase 70 U/L (38-126) 08/21/23 09:42
Data Reviewed
-
Lab Data: Labs Reviewed by me
Impression/Plan
-
#sepsis likely from tracheitis/ possible pneumonitis
-wbc 30.8, lactic 3.1, procalcitonin 0.35, tachy
-UA negative
-chest x ray with Lungs appear clear for portable AP technique.Cardiomegaly with no evidence for pulmonary edema or pleural effusion.
Culture from sputum shows Pseudomonas aeruginosa.� MRSA negative.
-� 1/2 blood cultures positive for coag negative staph which appears contamination
- Zosyn
-Tylenol prn for fever
-ID, pulmonary consulted
-blood culture and sputum culture sent from ER
-trend lact
#Anoxic Brain Injury
#History of Cardiac Arrest
#Chronic Encephalopathy secondary to the above
�- Continue supportive measures including O2, repositioning, trach care, etc.
�- Continue tube feeds.
#Chronic Normocytic Anemia
�-hgb 10.8
#Benign Hypertension
�- Stable.� Continue usual BP medications with holding parameters.
#DVT Prophylaxis:� Lovenox
#Code Status:� DNR�
[2023-08-21 13:29] LABS: Lactic Acid 2.1 mmol/L (0.7-2.0)
--- NOTE | 2023-08-21 14:56 | CON.PUL ---
Consultation
Consultation Request
Date/Time Consultation Requested: 08/21/23
Date/Time Consultation Performed: 08/21/23
Performing Provider: Maryellen
Reason for Consultation: Sepsis
Medical History
-
History of Present Illness:
Patient is a 38-year-old female with history of VDRF s/p trach/PEG, recent admission for pseudomonas PNA, CHF, anoxic brain injury, GERD, hypertension, sent to ER for fever and tachycardia at [facility]. She is not on routine airway clearance or vent at
facility. No further history/ROS obtained from patient, at baseline she is nonverbal.
She has white streaks from mouth, frothy sputum at trach.
Past Medical History
Past Medical History: Other (see list below)
Social History
Tobacco: Non-smoker
Alcohol: None
Drug: None
Family History
Family History: Reviewed & Not Pertinent
Allergies / Home Medications
Allergies
Allergy/AdvReac Type Severity Reaction Status Date / Time
No Known Allergies Allergy Verified 08/21/23 09:42
Home Medications
Medication Instructions Recorded Confirmed Last Taken Type
Lansoprazole 3mg/Ml 10 ml feeding tube DAILY 07/23/23 08/21/23 Unknown History
Gastrointestinal Issue
acetaminophen 325 mg tablet 650 mg feeding tube Q6H PRN mild 07/23/23 08/21/23 Unknown History
pain/temp>100.4
atropine 1 % eye drops 2 drp PO Q4H PRN increased 07/23/23 08/21/23 Unknown History
secretions
bisacodyl 10 mg rectal suppository 10 mg DE DAILY PRN if mom 07/23/23 08/21/23 Unknown History
(Dulcolax (bisacodyl)) ineffective
cetirizine 5 mg tablet 5 mg feeding tube DAILY Allergies 07/23/23 08/21/23 Unknown History
docusate sodium 50 mg capsule 50 mg PO BIDPRN PRN constipation 07/23/23 08/21/23 Unknown History
##0
folic acid 1 mg tablet 1 mg feeding tube DAILY Supplement 07/23/23 08/21/23 Unknown History
glycopyrrolate 2 mg tablet 2 mg feeding tube Q8H secretions 07/23/23 08/21/23 Unknown History
magnesium hydroxide 400 mg/5 mL 30 ml feeding tube [id number] PRN if 07/23/23 08/21/23 Unknown History
oral suspension (Milk of Magnesia) no bm by 3rd day
miconazole nitrate 2 % topical 1 applic topical BID Skin Issues 07/23/23 08/21/23 Unknown History
powder
sennosides 8.6 mg tablet (senna) 17.6 mg feeding tube DAILY PRN 07/23/23 08/21/23 Unknown History
constipation
thiamine HCl (vitamin B1) 100 mg 100 mg feeding tube MOWEFR 07/23/23 08/21/23 Unknown History
tablet Supplement
budesonide 0.5 mg/2 mL suspension 0.5 mg (2 mL) inhalation R BID 30 07/27/23 08/21/23 Unknown Rx
for nebulization days #120 mL
ipratropium 0.5 mg-albuterol 3 mg 3 ml inhalation R BID@0600,1800 07/31/23 08/21/23 Unknown History
(2.5 mg base)/3 mL nebulization Lung/Breathing Issues
soln
sodium phosphates 19 gram-7 118 ml DE DAILY PRN if dulcolax 07/31/23 08/21/23 Unknown History
gram/118 mL enema (Fleet Enema) ineffective
hydralazine 25 mg tablet 25 mg feeding tube Q12H PRN 08/11/23 08/21/23 Unknown Rx
sbp>170 #0 tabs
losartan 100 mg tablet 100 mg feeding tube DAILY #30 tabs 08/11/23 08/21/23 Unknown Rx
metoprolol tartrate 100 mg tablet 100 mg feeding tube BID #60 tabs 08/11/23 08/21/23 Unknown Rx
levofloxacin 750 mg tablet 750 mg feeding tube DAILY #11 tabs 08/20/23 08/21/23 Unknown Rx
Review of Systems
-
Unable to Obtain full review of systems at this time due to: Patient Non Verbal
Vitals / Labs / Diagnostic Testing
Vital Signs
Temp Pulse Resp BP Pulse Ox
99.2 F 126 15 131/87 94
08/21/23 12:23 08/21/23 14:30 08/21/23 14:30 08/21/23 14:30 08/21/23 09:24
Lab Data
08/21/23 09:42
08/21/23 09:42
Microbiology
08/21/23 09:42 Sputum Gram Stain - Preliminary
Diagnostic Testing:
Physical Exam
-
HEENT: Normocephalic, Anicteric, Moist Mucous Membranes and Tracheotomy
Cardiovascular: S1/S2 and Regular Rhythm
Respiratory: Rhonchi and Non-Labored Respirations
GI: Soft, Non Distended and Non Tender
Neurology: Other (eyes open, nonverbal, does not follow commands)
Skin: Warm and Dry
General: Comfortable and Other (NAD)
Assessment
-
Patient is a 38-year-old female with history of VDRF s/p trach/PEG, recent admission for pseudomonas PNA, CHF, anoxic brain injury, GERD, hypertension, sent to ER for fever and tachycardia at [facility]. She is not on routine airway clearance or vent at
facility. No further history/ROS obtained from patient, at baseline she is nonverbal. We are asked for eval 08/21/23.
Fever/sepsis
Tachycardia
Pseudomonas pneumonia, acute on chronic infection
Colonization suspected
Sepsis without shock
Conditions present prior to admission:
Recent hospitalization 07/27/2023-sepsis with bacteremia, recent influenza and tracheobronchitis
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
Anoxic brain injury status postcardiac arrest.�
Chronic tracheostomy tube-#6 Sherin.�
Gastrostomy tube
Hypertension
Obesity
OCD
Anemia-normocytic
DNR
Plan
Fever/tachy likely continued sepsis from prior admission
+ Pseudomonas in sputum
This is likely colonized
Agree with ID eval
She likely will need vent support for proper airway clearance
Will add vent orders/cofflator
Reviewed with RT
Aspiration precautions
Nebulizers-DuoNebs
Consider saline
Consider Mucomyst if worsens
Budesonide continues
Mucolytic's
Suction as needed
Mucus clearing devices including sport bed and vest, cofflater if felt may help
Fevers noted
Continue to follow temp curve
Cultures reviewed
Resent orders pending
Prior admission cultures:
Sputum 08/16/2023 with Pseudomonas-velasquez sensitive
Blood cultures 08/15/2023-[employer] likely contaminant
Gastrostomy tube care
Tube feeds as tolerated
DVT prophylaxis-on Lovenox
Nutrition-on tube feeds
Bedside range of motion
We will follow
Diagnostic Data:
CXR 08/21/23- Lungs appear clear for portable AP technique. Cardiomegaly with no evidence for pulmonary edema or pleural effusion.
Chest x-ray 07/23/2023-NAD
Chest x-ray 08/02/2023-NAD
Chest x-ray 08/15/2023-slight increase opacification left lung base concerning for early pneumonia
CT head 07/31/2023-severe global hypoxemic ischemic encephalopathy
CT abdomen and pelvis 07/31/2023-acute sterile coral colitis in the rectum with fecal impaction, no evidence for small bowel obstruction, mild hepatomegaly and mild diffuse hepatic steatosis
--- NOTE | 2023-08-21 15:56 | CON.ID ---
Consultation
-
Date/Time Consultation Requested: 08/21/2023 1254
Date/Time Consultation Performed: 08/21/2023 1520
Requesting Provider: Dr. Perez
Performing Provider: Dr. Gilbert
Reason for Consultation: Clinical sepsis
Chief Complaint / Past History
History of Present Illness
Sven Yee is a 38-year-old female being evaluated at the request of Dr. Perez in regards to leukocytosis and suspected sepsis. History is obtained from chart review alone as the patient has a significant past medical history of anoxic brain
injury and is currently noncommunicative.
The patient is known to the Infectious Diseases service, having been seen in mid July 2023 for leukocytosis and fever. She was a recent inpatient at [facility] from 08/15 through 08/20, during which time she was treated for tracheitis with
cefepime from 08/15 through 08/19, and then switched to levofloxacin to continue with a course of therapy.
She presents back to [facility] earlier today for concern of pneumonia as thick secretions from the trach were noted. Little more history is available at this time. In the ER she was started on empiric antibiotics, and Infectious Diseases
is asked to manage further antimicrobial therapy.
Past History
Additional Past Medical History:
Asthma
CHF
GERD
HTN
Hx cardiac arrest with anoxic encephalopathy
Hx PNA
Anemia
Additional Past Surgical History:
Tracheostomy
PEG
Allergy History:
No Known Allergies Allergy (Verified 08/21/23 09:42)
Medications Reviewed: Yes
Current Antibiotics:
Cefepime
Social History
Tobacco: Non-Smoker
Alcohol: None
Drug: None
Personal: Single
Living: Residential
Family History
Family History: Unable to Obtain
Review of Systems
Vital Signs
Temp Pulse Resp BP Pulse Ox
99.2 F 122 26 122/98 94
08/21/23 12:23 08/21/23 15:15 08/21/23 15:15 08/21/23 15:00 08/21/23 09:24
Physical Exam
Physical Exam
Constitutional: Acutely Ill, Chronically Ill and Non-toxic
Eyes: No Conjunctival Hemorrhage and Sclera Anicteric
Pharynx: Other (Tracheostomy in place with whitish secretions)
Cardiovascular: S1/S2; Negative S3/S4 or Murmur
Pulmonary: Rhonchi (Scattered throughout), Coarse and Non Labored
Gastrointestinal: Soft, Non Distended, Normal Bowel Sounds, No Rebound, No Guarding and Other (PEG in place)
Extremities: Other (Bilateral foot drop); Negative Edema, Cyanosis, Erythema or Splinter Hemorrhage
Neurological: Other (Responsive to noxious stimuli. Nonverbal for me. Does not follow commands.)
.
Lab / Diagnostic Study Results
08/21/23 09:42
08/21/23 09:42
Abs Immat Gran (auto) 0.6 10^3/uL (0-0.05) H 08/21/23 09:42
Absolute Neuts (auto) 27.7 10^3/uL (1.4-6.5) H 08/21/23 09:42
Absolute Lymphs (auto) 0.9 10^3/uL (1.2-3.4) L 08/21/23 09:42
Absolute Monos (auto) 1.5 10^3/uL (0.1-0.6) H 08/21/23 09:42
Absolute Basos (auto) 0.1 10^3/uL (0-0.2) 08/21/23 09:42
Immature Gran % 1.9 % (0-0.5) H 08/21/23 09:42
Neutrophils % 90.1 % (42.2-75.2) H 08/21/23 09:42
Lymphocytes % 2.9 % (20.5-51.1) L 08/21/23 09:42
Monocytes % 4.8 % (1.7-9.3) 08/21/23 09:42
Eosinophils % 0.1 % (0-6) 08/21/23 09:42
Basophils % 0.2 % (0-2) 08/21/23 09:42
Lactic Acid 2.1 mmol/L (0.7-2.0) H 08/21/23 13:00
Procalcitonin 0.35 ng/ml (0.0-0.25) H 08/21/23 09:42
Microbiology Results
Micro:
08/21/23 09:42 Respiratory Culture - Pending
Sputum Gram Stain - Preliminary
08/21/23 11:49 Blood Culture - Pending
Blood/Venous
08/21/23 09:42 Blood Culture - Pending
Blood/Venous
Imaging:
08/21/2023 CXR (portable): Cardiac silhouette size is enlarged, with no evidence for pulmonary edema. No significant pleural effusions are identified. Tracheostomy tube is in place. Please see full dictation for additional detail.
Assessment / Plan
Clinical sepsis
Leukocytosis
Lactic acidosis
Elevated procalcitonin
Asthma
CHF
GERD
HTN
Hx cardiac arrest with anoxic encephalopathy
Hx PNA
Anemia
Recommendations:
Blood cultures have been obtained and are pending. Sputum culture pending.
Tracheal aspirate culture from 08/16 reviewed, and reveals growth of a pansensitive Pseudomonas aeruginosa.
Agree that current clinical presentation may be secondary to aspiration event.
Continue with cefepime for now.
Will add metronidazole.
Follow white count and temperatures. Follow pending blood cultures and sputum culture.
Given leukocytosis, check C. difficile if patient develops diarrhea.
Given underlying comorbidities, overall long-term outlook appears dismal to nonexistent for any realistic quality of life.
[2023-08-21] MEDS: COLACE LIQUID TUBE (17:19)
[2023-08-21] MEDS: MIRALAX TUBE (17:19)
[2023-08-21] MEDS: FLAGYL 500 MG 100 IV (17:47)
[2023-08-21] MEDS: ROBINUL 2 MG TUBE (17:47)
[2023-08-21] MEDS: LOVENOX 40 MG SC (17:47)
[2023-08-21] MEDS: MAXIPIME 2000 MG IV (17:48)
[2023-08-21] MEDS: STERILE WATER FOR INJECTION 10 ML IV (17:49)
--- NOTE | 2023-08-21 18:22 | PTCARENOTE ---
Addendum entered by Khalida Vences RN 08/21/23 19:07:
Cdiff resulted negative, lactic 2.1. Next lactic due 22:00.
Addendum entered by Khalida Vences RN 08/21/23 18:36:
Per Dr. Perez, tube feeds on hold at this time.
Original Note:
Pt rec'd into IMU 3348 from ED approx 16:00, grossly incontinent brown liq stool. Pt is nonverbal at baseline 2/2 anoxic brain injury. Pt was fully washed and linens were changed, rectal trumpet placed per Dr. Perez, stool for Cdiff sent. Pt is
coughing frequently, producing copious white frothy secretions orally and via trach. RT at bedside -placed pt on ventilator with settings per pulm DR. Nicholas, AC: 12/400/30%/5, pt is tolerating vent settings at this time, sat is 97%. Repeat lactic
drawn and sent. Purewick placed, medications administered-see SEP. Will pass onto oncoming RN.
[2023-08-21 19:02] LABS: Lactic Acid 2.1 mmol/L (0.7-2.0)
[2023-08-21] MEDS: DUONEB 3 ML INH (20:46)
[2023-08-21] MEDS: LOPRESSOR TUBE (21:30)
[2023-08-21] MEDS: DESENEX/MITRAZOL/ZEASORB 1 APPLIC TOPICAL (22:31)
[2023-08-21] MEDS: LOPRESSOR 100 MG TUBE (22:34)
[2023-08-21 23:27] LABS: Lactic Acid 1.4 mmol/L (0.7-2.0)
[2023-08-22] VITALS (13 sets, daily range): BP systolic 103–146; BP diastolic 72–102; BMI 32.8
[2023-08-22] MEDS: ROBINUL 2 MG TUBE ×3 (00:58→17:28)
[2023-08-22] MEDS: FLAGYL 500 MG 100 IV ×3 (02:47→17:28)
[2023-08-22 05:05] LABS: Hematocrit 29.7 % (37.0-47.0); Hemoglobin 9.9 g/dL (12.0-16.0); Mean Corp Hgb Conc. 33.3 g/dL (33.0-37.0); Mean Corpuscular Hgb 31.2 pg (27.0-31.0); Mean Corpuscular Volume 93.7 fL (81.0-99.0); Mean Platelet Volume 10.7 fL (7.4-10.4); Platelet Count 407 10^3/uL (130-400); Red Blood Cell Count 3.17 10^6/uL (4.20-5.40); Red Cell Dist. Width 13.1 % (11.5-14.5); White Blood Cell Count 16.1 10^3/uL (4.8-10.8)
[2023-08-22 05:30] LABS: Blood Urea Nitrogen 17 mg/dl (7-17); Carbon Dioxide 24 mmol/L (22-30); Chloride 103 mmol/L (98-107); Estimated Creatinine Clearance > 125 ml/min; Potassium 3.9 mmol/L (3.5-5.1); Sodium 139 mmol/L (135-145); eGFR > 60.00
[2023-08-22 05:40] LABS: Calcium 9.6 mg/dl (8.4-10.2); Glucose 116 mg/dl (70-99)
[2023-08-22] MEDS: STERILE WATER FOR INJECTION 10 ML IV ×2 (06:22→17:29)
[2023-08-22] MEDS: MAXIPIME 2000 MG IV ×2 (06:22→17:30)
--- NOTE | 2023-08-22 06:45 | PTCARENOTE ---
Pt had copious oral and tracheal secretions earlier this shift and throughout the night the oral and tracheal secretions have diminished. She appears more restful also, tolerating the ventilator well. She had a 12 beat run of V-Tach at
06:40.Manual BP was 140/80. At times she will lift her head off the bed and have some muscle twitching.
[2023-08-22] MEDS: DUONEB 3 ML INH ×2 (07:27→20:06)
--- NOTE | 2023-08-22 08:02 | PTCARENOTE ---
Notified Dr. Perez via TT pt had 12 beat run of V tach at 0640.
--- NOTE | 2023-08-22 08:57 | PTOTSP ---
PT will sign off as Pt requires total care at baseline and resides in LTC setting at [facility].
[2023-08-22] MEDS: LOPRESSOR 100 MG TUBE ×2 (09:06→21:50)
[2023-08-22] MEDS: COLACE LIQUID 100 MG TUBE ×2 (09:06→21:50)
[2023-08-22] MEDS: COZAAR 100 MG TUBE (09:07)
[2023-08-22] MEDS: PREVACID 30 MG TUBE (09:07)
[2023-08-22] MEDS: FOLVITE 1 MG TUBE (09:07)
[2023-08-22] MEDS: DESENEX/MITRAZOL/ZEASORB 1 APPLIC TOPICAL ×2 (09:07→22:44)
[2023-08-22] MEDS: MIRALAX 17 GRAMS TUBE (09:07)
--- NOTE | 2023-08-22 09:10 | W.PN.PUL3 ---
Today's Communication / Plan
-
Continue airway clearance, Cufflator/sport bed, reviewed with RT
Vent weaning again back to trach collar as tolerated, PS wean at night
Sputum culture reviewed, ID following for abx recs
Resume TFs per team
Assessment
-
Patient is a 38-year-old female with history of VDRF s/p trach/PEG, recent admission for pseudomonas PNA, CHF, anoxic brain injury, GERD, hypertension, sent to ER for fever and tachycardia at [facility]. She is not on routine airway clearance or vent at
facility. No further history/ROS obtained from patient, at baseline she is nonverbal. We are asked for eval 08/21/23.
Fever/sepsis
Tachycardia
New Diphtheroids + sputum
Pseudomonas pneumonia, acute on chronic infection
Colonization suspected
Sepsis without shock
Conditions present prior to admission:
Recent hospitalization 07/27/2023-sepsis with bacteremia, recent influenza and tracheobronchitis
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
Anoxic brain injury status postcardiac arrest.�
Chronic tracheostomy tube-#6 Sherin.�
Gastrostomy tube
Hypertension
Obesity
OCD
Anemia-normocytic
DNR
Plan
Fever/tachy likely continued sepsis from prior admission
+ Pseudomonas in sputum--This is likely colonized
New positive sputum: +Diphtheroids
ID following for recs on abx
She likely will need vent support for proper airway clearance
Continued daily, recommend continuing at facility
Reviewed with RT
Can wean back to trach collar daily and PS wean at night
Aspiration precautions
Nebulizers-DuoNebs
Consider saline
Consider Mucomyst if worsens
Budesonide continues
Mucolytic's
Suction as needed
Mucus clearing devices including sport bed and vest, cofflater
Fevers noted
Continue to follow temp curve
Cultures reviewed
Sputum 08/21/23: Moderate Diphtheroids growth
Prior admission cultures:
Sputum 08/16/2023 with Pseudomonas-velasquez sensitive
Blood cultures 08/15/2023-[employer] likely contaminant
Gastrostomy tube care
Tube feeds as tolerated
DVT prophylaxis-on Lovenox
Nutrition-on tube feeds
Bedside range of motion
Diagnostic Data:
CXR 08/21/23- Lungs appear clear for portable AP technique. Cardiomegaly with no evidence for pulmonary edema or pleural effusion.
Chest x-ray 07/23/2023-NAD
Chest x-ray 08/02/2023-NAD
Chest x-ray 08/15/2023-slight increase opacification left lung base concerning for early pneumonia
CT head 07/31/2023-severe global hypoxemic ischemic encephalopathy
CT abdomen and pelvis 07/31/2023-acute sterile coral colitis in the rectum with fecal impaction, no evidence for small bowel obstruction, mild hepatomegaly and mild diffuse hepatic steatosis
Subjective Data
-
Date of Service:
Date of Service: August 22, 2023
Chief Complaint: Pulmonary Follow Up
Subjective:
improved airway clearance with use of vent
otherwise clinically unchanged
Objective Data
Data Reviewed
Vital Signs / I&O / Oxygen:
Vital Signs
Temp Pulse Resp BP Pulse Ox
99.3 F 115 14 111/76 100
08/22/23 03:50 08/22/23 09:07 08/22/23 06:43 08/22/23 09:07 08/22/23 07:44
Intake and Output
08/21/23 08/22/23 08/23/23
06:59 06:59 06:59
Intake Total 280 / 280
Output Total 850 / 850
Balance -570 / -570
SaO2 [A/C] 100
SaO2 100
Physical Exam
General: Comfortable and Other (NAD, chronically ill appearing)
HEENT: Normocephalic, Anicteric and Tracheotomy
Cardiovascular: S1-S2 and Regular Rhythm
Respiratory: Clear and Non-Labored Respirations
GI: Soft, Non Distended, Non Tender and Feeding Tube
Neurology: Unresponsive and Non Verbal (eyes open but not responding or following commands)
Skin: Warm, Dry and Good Color
Labs/Micro/Reports
Lab Data
08/22/23 04:40
08/22/23 04:40
Microbiology
08/21/23 18:08 Feces/Stool C. difficile GDH Antigen & Toxins - Final
Negative for toxigenic C.difficile
08/21/23 09:42 Sputum Gram Stain - Preliminary
[2023-08-22] MEDS: VITAMIN B1 100 MG TUBE (09:17)
--- NOTE | 2023-08-22 10:07 | W.PN.ID1 ---
Date of Service
Date of Service: August 22, 2023
Today's Communication
Continue current antibiotics.
Assessment / Plan
Clinical sepsis
Leukocytosis
Lactic acidosis
Elevated procalcitonin
Suspected aspiration
Asthma
CHF
GERD
HTN
Hx cardiac arrest with anoxic encephalopathy
Hx PNA
Anemia
Recommendations:
Blood cultures negative thus far. Respiratory culture pending.
Tracheal aspirate culture from 08/16 reviewed, and reveals growth of a pansensitive Pseudomonas aeruginosa.
Continue with cefepime and metronidazole.
Follow white count and temperatures. Follow pending blood cultures and sputum culture.
Given leukocytosis, C. difficile toxin assay was checked, but was negative.
Given underlying comorbidities, overall long-term outlook unfortunately appears nonexistent for any realistic quality of life.
����������������������������������������������������������
Chief Complaint
-: Leukocytosis
Subjective / Review of Systems
Patient seen and examined. Nursing reports no significant issues overnight.
Vital Signs / Physical Exam
Vital Signs
Vital Signs
Temp Pulse Resp BP Pulse Ox
99.1 F 115 14 111/76 100
08/22/23 07:44 08/22/23 09:07 08/22/23 06:43 08/22/23 09:07 08/22/23 07:44
Physical Exam
Constitutional: Chronically Ill and Non-toxic
Eyes: No Conjunctival Hemorrhage and Sclera Anicteric
Oropharyngeal: Other (Trach in place.)
Cardiovascular: S1/S2; Negative S3/S4
Pulmonary: Coarse and Non Labored
Gastrointestinal: Soft and Non Distended
Neurological: Other (Eyes open. Noncommunicative.)
Psychological: Calm
Objective Data
Lab Data
Lab Results
08/22/23 04:40
08/22/23 04:40
Estimated Creat Clear > 125 ml/min 08/22/23 04:40
Lactic Acid 1.4 mmol/L (0.7-2.0) 08/21/23 23:11
Total Bilirubin 0.4 mg/dl (0.2-1.3) 08/21/23 09:42
AST 23 U/L (14-36) 08/21/23 09:42
ALT 21 U/L (0-35) 08/21/23 09:42
Alkaline Phosphatase 70 U/L (38-126) 08/21/23 09:42
Most recent labs reviewed.
Micro Results:
08/21/23 09:42 Blood Culture - Preliminary
Blood/Venous No Growth in 24 hours- Final report to follow
08/21/23 18:08 C. difficile GDH Antigen & Toxins - Final
Feces/Stool Negative for toxigenic C.difficile
08/21/23 09:42 Respiratory Culture - Pending
Sputum Gram Stain - Preliminary
08/21/23 11:49 Blood Culture - Pending
Blood/Venous
Imaging:
08/21/2023 CXR (portable): Cardiac silhouette size is enlarged, with no evidence for pulmonary edema. No significant pleural effusions are identified. Tracheostomy tube is in place. Please see full dictation for additional detail.
--- NOTE | 2023-08-22 12:38 | CM ---
Addendum entered by Nancy Stokes 08/22/23 17:18:
patient 's mother spoke with [facility] and wanted a new facility closer to [place] for LTC.referrals sent via care port.
Addendum entered by Nancy Stokes 08/22/23 13:53:
referral sent to [facility] to speak with pt's mother about hospice.
Original Note:
patient is non verbal at baseline.vent weaning-back to trach collar as tolerated/ps wean ,continue peg tube feedings,iv abx.ry received a call from jaycee at [facility] asking if family is okay with patient returning to their facility.she is on a
bed hold for 15 days. i called and spoke with jarad madrid patient's mother who is interested in learning more information about hospice.dr amezcua aware.
mother shared with ry that pt was adm on jun 09 2023 to [facility] with the flu and pna and the following day had a cardiac arrest.jarad also had 2 daughters but one has with graves disease.so she wants to make sure she
makes the right decision with [facility].she did mention that [facility] is over an hour away and it is difficult for her to visit with her daughter since it is over an hour away.i did contact jaycee again at [facility] with my discussion with pt's
mother. mother indicated she is not able to care for patient if she returns home on hospice.
--- NOTE | 2023-08-22 12:47 | W.PN.HOSP.TC ---
Today's Communication/Plan
-
Monitor vital signs see plan
Continue with antibiotics
trach management per pulmonary
restart tube feeds
Assessment / Plan
Assessment / Plan
General: Comfortable
HEENT: Moist Mucous Membranes
Respiratory: Rhonchi (BL with significant thin� trach secretions)
Cardiac: Regular Rhythm, S1/S2 and Tachycardic
GI: Soft
Neuro: Awake
Psych: Calm
sepsis likely from tracheitis/ possible aspiration pneumonitis
Supect she had an aspiration event
-UA negative
-chest x ray with Lungs appear clear for portable AP technique.Cardiomegaly with no evidence for pulmonary edema or pleural effusion.
Culture from sputum shows Pseudomonas aeruginosa.� MRSA negative.
- Zcw abx per ID
-Tylenol prn for fever
-ID, pulmonary following
-bcx NGTD
neg cdiff
Leukocytosis slowly improving
restart tube feeds
Lactic acidosis
Resolved
#Anoxic Brain Injury
#History of Cardiac Arrest
#Chronic Encephalopathy secondary to the above
�- Continue supportive measures including O2, repositioning, trach care, etc.
�- Continue tube feeds.
#Chronic Normocytic Anemia
�-monitor
#Benign Hypertension
�- Stable.� Continue usual BP medications with holding parameters.
#DVT Prophylaxis:� Lovenox
#Code Status:� DNR�
I spent a total of 52 minutes with the patient or on the floor. More than 50% of this time involved counseling and coordination of care.
Anticipated Discharge: 24 - 48 hours
Subjective/Interval History
-
Date of Service: August 22, 2023
no acute events
Objective Data
-
Labs:
Laboratory Results
08/22/23
04:40
WBC 16.1 H
Hgb 9.9 L
Hct 29.7 L
Plt Count 407 H
Sodium 139
Potassium 3.9
Chloride 103
Carbon Dioxide 24
BUN 17
Creatinine 0.4 L
Glucose 116 H
Calcium 9.6
Vital Signs:
Vital Signs
Temp Pulse Resp BP Pulse Ox
98.9 F 100 15 121/81 99
08/22/23 11:46 08/22/23 10:00 08/22/23 10:00 08/22/23 10:00 08/22/23 12:00
I&O
08/21/23 08/22/23 08/23/23
06:59 06:59 06:59
Intake Total 280 / 280
Output Total 850 / 850
Balance -570 / -570
--- NOTE | 2023-08-22 14:02 | HOSPNOTE ---
Spoke with the patient's mom who is the POA. She would like the patient to be discharged to a facility closer to [place] so the mom can visit. The mom is in agreement with hospice would like to speak with other family members and try to get her
discharged to a facility near home. Case management aware.
[2023-08-22] MEDS: LOVENOX 40 MG SC (17:28)
--- NOTE | 2023-08-22 18:06 | PTCARENOTE ---
Total UO for shift 150mls dark onel. Purewick in place, changed and dry. Bladder scanned for 293ml. Pt weaned successfully to trach collar. Tube feeds initiated at 1800.
[2023-08-23] VITALS (12 sets, daily range): BP systolic 119–155; BP diastolic 68–104; BMI 33.0
[2023-08-23] MEDS: ROBINUL 2 MG TUBE ×3 (00:36→17:21)
[2023-08-23] MEDS: FLAGYL 500 MG 100 IV ×3 (02:52→17:21)
--- NOTE | 2023-08-23 04:10 | PTCARENOTE ---
Addendum entered by Azra Kenny RN 08/23/23 04:12:
Producing less sputum today and it is more manageable. At times she will cough and then begin retching and vomited a small amount yellow thin emesis once when turning her. Gastric port of G/J tube drains brown drainage, flushed as ordered. No
evidence of aspiration noted. Tolerating tube feedings and increased feeding rate to 20cc/hr. Placed on CPAP on vent and tolerating it well. Respiratory therapist did trach care on pt this shift. tolerated it well.
Original Note:
Received pt on 30% trach collar, tolerating it well. Sputunm
[2023-08-23 05:37] LABS: Hematocrit 30.2 % (37.0-47.0); Hemoglobin 10.1 g/dL (12.0-16.0); Mean Corp Hgb Conc. 33.4 g/dL (33.0-37.0); Mean Corpuscular Hgb 30.3 pg (27.0-31.0); Mean Corpuscular Volume 90.7 fL (81.0-99.0); Mean Platelet Volume 10.8 fL (7.4-10.4); Platelet Count 431 10^3/uL (130-400); Red Blood Cell Count 3.33 10^6/uL (4.20-5.40); Red Cell Dist. Width 13.1 % (11.5-14.5); White Blood Cell Count 18.8 10^3/uL (4.8-10.8)
[2023-08-23] MEDS: MAXIPIME 2000 MG IV ×2 (05:38→17:22)
[2023-08-23] MEDS: STERILE WATER FOR INJECTION 10 ML IV ×2 (05:38→17:22)
[2023-08-23 05:54] LABS: Blood Urea Nitrogen 18 mg/dl (7-17); Calcium 9.9 mg/dl (8.4-10.2); Carbon Dioxide 25 mmol/L (22-30); Chloride 101 mmol/L (98-107); Estimated Creatinine Clearance > 125 ml/min; Glucose 146 mg/dl (70-99); Potassium 3.8 mmol/L (3.5-5.1); Sodium 139 mmol/L (135-145); eGFR > 60.00
--- NOTE | 2023-08-23 06:57 | W.PN.ID1 ---
Date of Service
Date of Service: August 23, 2023
Today's Communication
Continue cefepime and metronidazole
Assessment / Plan
Clinical sepsis
Leukocytosis
Lactic acidosis
Elevated procalcitonin
Suspected aspiration
Asthma
CHF
GERD
HTN
Hx cardiac arrest with anoxic encephalopathy
Hx PNA
Anemia
Recommendations:
Blood cultures negative thus far. Respiratory culture without significant growth (only diphtheroids recovered).
Tracheal aspirate culture from 08/16/23 reviewed, and revealed growth of a pansensitive Pseudomonas aeruginosa.
Continue with cefepime and metronidazole.
Follow white count and temperatures. Follow pending blood cultures and sputum culture.
Given leukocytosis, C. difficile toxin assay was checked, but was negative.
Given underlying comorbidities, overall long-term outlook unfortunately appears nonexistent for any realistic quality of life.
����������������������������������������������������������
Chief Complaint
-: Leukocytosis
Subjective / Review of Systems
Seen / examined. Nsg reports retching overnight.
Review of Systems: No Fever
Vital Signs / Physical Exam
Vital Signs
Vital Signs
Temp Pulse Resp BP Pulse Ox
99.3 F 118 19 134/93 99
08/23/23 04:18 08/23/23 04:00 08/23/23 04:00 08/23/23 04:00 08/23/23 04:01
Physical Exam
Constitutional: Chronically Ill and Non-toxic
Eyes: Sclera Anicteric
Oropharyngeal: Other (Trach in place.)
Cardiovascular: Regular Rate (tachy) and S1/S2; Negative S3/S4 or Murmur
Pulmonary: Rhonchi (scattered) and Coarse
Gastrointestinal: Non Distended, Normal Bowel Sounds, No Rebound, No Guarding and Other (PEG in place)
Extremities: Edema (trace); Negative Cyanosis or Erythema
Neurological: Awake and Other (Noncommunicative. Appears more responsive today, though.)
Psychological: Calm
Objective Data
Lab Data
Lab Results
08/23/23 05:03
08/23/23 05:03
Estimated Creat Clear > 125 ml/min 08/23/23 05:03
Lactic Acid 1.4 mmol/L (0.7-2.0) 08/21/23 23:11
Total Bilirubin 0.4 mg/dl (0.2-1.3) 08/21/23 09:42
AST 23 U/L (14-36) 08/21/23 09:42
ALT 21 U/L (0-35) 08/21/23 09:42
Alkaline Phosphatase 70 U/L (38-126) 08/21/23 09:42
Most recent labs reviewed.
Micro Results:
08/21/23 11:49 Blood Culture - Preliminary
Blood/Venous No Growth in 24 hours- Final report to follow
08/21/23 09:42 Respiratory Culture - Preliminary
Sputum Diptheroids
Gram Stain - Preliminary
08/21/23 09:42 Blood Culture - Preliminary
Blood/Venous No Growth in 24 hours- Final report to follow
08/21/23 18:08 C. difficile GDH Antigen & Toxins - Final
Feces/Stool Negative for toxigenic C.difficile
Imaging:
08/21/2023 CXR (portable): Cardiac silhouette size is enlarged, with no evidence for pulmonary edema. No significant pleural effusions are identified. Tracheostomy tube is in place. Please see full dictation for additional detail.
[2023-08-23] MEDS: DUONEB 3 ML INH ×2 (08:10→19:58)
[2023-08-23] MEDS: COZAAR 100 MG TUBE (09:15)
[2023-08-23] MEDS: COLACE LIQUID 100 MG TUBE ×2 (09:15→20:25)
[2023-08-23] MEDS: FOLVITE 1 MG TUBE (09:16)
[2023-08-23] MEDS: LOPRESSOR 100 MG TUBE ×3 (09:17→20:35)
[2023-08-23] MEDS: PREVACID 30 MG TUBE (09:17)
[2023-08-23] MEDS: DESENEX/MITRAZOL/ZEASORB 1 APPLIC TOPICAL ×2 (09:18→20:26)
[2023-08-23] MEDS: MIRALAX TUBE (09:18)
--- NOTE | 2023-08-23 11:54 | W.PN.HOSP.TC ---
Today's Communication/Plan
-
Monitor vital signs see plan
Trach management per pulmonary
Continue with antibiotics
cw tube feeding
updated mother over the phone
Assessment / Plan
Assessment / Plan
General: Comfortable
HEENT: Moist Mucous Membranes
Respiratory: Rhonchi (BL with significant thin� trach secretions)
Cardiac: Regular Rhythm, S1/S2 and Tachycardic
GI: Soft
Neuro: Awake
Psych: Calm
sepsis likely from tracheitis/ possible aspiration pneumonitis
Suspect she had an aspiration event; do not supect pneumonia
has psuedomona tracheitis
-UA negative
-chest x ray with Lungs appear clear for portable AP technique.Cardiomegaly with no evidence for pulmonary edema or pleural effusion.
Culture from sputum shows Pseudomonas aeruginosa.� MRSA negative.
- Zcw abx per ID
-Tylenol prn for fever
-ID, pulmonary following
-bcx NGTD
neg cdiff
monitor leukocytosis
restarted tube feeds
Lactic acidosis
Resolved
#Anoxic Brain Injury
#History of Cardiac Arrest
#Chronic Encephalopathy secondary to the above
�- Continue supportive measures including O2, repositioning, trach care, etc.
�- Continue tube feeds.
#Chronic Normocytic Anemia
�-monitor
#Benign Hypertension
�- Stable.� Continue usual BP medications with holding parameters.
#DVT Prophylaxis:� Lovenox
#Code Status:� DNR�
Mother is interested in hospice but also interested in having patient placed closer to [place]. CM looking into this
I spent a total of 53 minutes with the patient or on the floor. More than 50% of this time involved counseling and coordination of care.
Anticipated Discharge: > 48 hours
Subjective/Interval History
-
Date of Service: August 23, 2023
no acute events
Objective Data
-
Labs:
Laboratory Results
08/23/23
05:03
WBC 18.8 H
Hgb 10.1 L
Hct 30.2 L
Plt Count 431 H
Sodium 139
Potassium 3.8
Chloride 101
Carbon Dioxide 25
BUN 18 H
Creatinine 0.4 L
Glucose 146 H
Calcium 9.9
Vital Signs:
Vital Signs
Temp Pulse Resp BP Pulse Ox
98.9 F 104 24 128/83 98
08/23/23 08:20 08/23/23 10:00 08/23/23 10:00 08/23/23 09:17 08/23/23 09:16
I&O
08/22/23 08/23/23 08/24/23
06:59 06:59 06:59
Intake Total 280 / 280 415 / 415 740 / 740
Output Total 850 / 850 350 / 350 265 / 265
Balance -570 / -570 65 / 65 475 / 475
--- NOTE | 2023-08-23 15:53 | W.PN.PUL3 ---
Today's Communication / Plan
-
Continue airway clearance, Cufflator/sport bed, reviewed with RT
Vent weaning again back to trach collar as tolerated, PS wean at night
Sputum culture reviewed, ID following for abx recs
Add IV vanco; repeat blood Cx
Resume TFs per team
Assessment
-
Patient is a 38-year-old female with history of VDRF s/p trach/PEG, recent admission for pseudomonas PNA, CHF, anoxic brain injury, GERD, hypertension, sent to ER for fever and tachycardia at [facility]. She is not on routine airway clearance or vent at
facility. No further history/ROS obtained from patient, at baseline she is nonverbal. We are asked for eval 08/21/23.
Fever/sepsis
Tachycardia
New Diphtheroids + sputum - seen on SCx from 08/21/2023
GPC in clusters seen on blood Cx from 08/21/2023
Pseudomonas pneumonia, acute on chronic infection
Colonization suspected
Sepsis without shock
Conditions present prior to admission:
Recent hospitalization 07/27/2023-sepsis with bacteremia, recent influenza and tracheobronchitis
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
Anoxic brain injury status postcardiac arrest.�
Chronic tracheostomy tube-#6 Sherin.�
Gastrostomy tube
Hypertension
Obesity
OCD
Anemia-normocytic
DNR
Plan
Fever/tachy likely continued sepsis from prior admission
+ Pseudomonas in sputum--This is likely colonized
New positive sputum: +Diphtheroids
GPC seen on blood Cx from 08/21/2023 --> add IV vanco
ID following for recs on abx
She likely will need vent support for proper airway clearance
Continued daily, recommend continuing at facility
Reviewed with RT
Can wean back to trach collar daily and PS wean at night
Aspiration precautions
Nebulizers-DuoNebs
Consider saline
Consider Mucomyst if worsens
Continue ICS with Flovent
Mucolytic's
Suction as needed
Mucus clearing devices including sport bed and vest, cofflater
Fevers noted -afebrile since 08/18/2023
Continue to follow temp curve
Cultures reviewed
Sputum 08/21/23: Moderate Diphtheroids growth
Prior admission cultures:
Sputum 08/16/2023 with Pseudomonas-velasquez sensitive
Blood cultures 08/15/2023-MILITARY EDUCATION COORDINATOR likely contaminant
Gastrostomy tube care
Tube feeds as tolerated
DVT prophylaxis-on Lovenox
Nutrition-on tube feeds
Bedside range of motion
Pulmonary service will continue to follow along
Diagnostic Data:
CXR 08/21/23- Lungs appear clear for portable AP technique. Cardiomegaly with no evidence for pulmonary edema or pleural effusion.
Chest x-ray 07/23/2023-NAD
Chest x-ray 08/02/2023-NAD
Chest x-ray 08/15/2023-slight increase opacification left lung base concerning for early pneumonia
CT head 07/31/2023-severe global hypoxemic ischemic encephalopathy
CT abdomen and pelvis 07/31/2023-acute sterile coral colitis in the rectum with fecal impaction, no evidence for small bowel obstruction, mild hepatomegaly and mild diffuse hepatic steatosis
Subjective Data
-
Date of Service:
Date of Service: August 23, 2023
Chief Complaint: Pulmonary Follow Up
Subjective:
Patient seen this afternoon. Saturating 90% on trach collar at 28% FiO2. BP 149/105. No acute events reported overnight.
Review of Systems
General: Unobtainable - Pat Unresp
Objective Data
Data Reviewed
Vital Signs / I&O / Oxygen:
Vital Signs
Temp Pulse Resp BP Pulse Ox
98.6 F 102 18 128/83 100
08/23/23 12:07 08/23/23 11:30 08/23/23 11:30 08/23/23 09:17 08/23/23 11:30
Intake and Output
08/22/23 08/23/23 08/24/23
06:59 06:59 06:59
Intake Total 280 / 280 415 / 415 740 / 740
Output Total 850 / 850 350 / 350 265 / 265
Balance -570 / -570 65 / 65 475 / 475
SaO2 [CPAP] 99
SaO2 [A/C] 100
SaO2 100
Physical Exam
General: Comfortable and Other (NAD, chronically ill appearing)
HEENT: Normocephalic, Anicteric and Tracheotomy
Cardiovascular: S1-S2
Respiratory: Clear, Wheeze (n) and Non-Labored Respirations
GI: Soft, Non Distended, Non Tender and Feeding Tube
Neurology: Unresponsive and Non Verbal (eyes open but not responding or following commands)
Skin: Warm, Dry and Good Color
Labs/Micro/Reports
Lab Data
08/23/23 05:03
08/23/23 05:03
Microbiology
08/21/23 11:49 Blood/Venous Blood Culture - Preliminary
No Growth in 48 hours- Final report to follow
08/21/23 09:42 Sputum Respiratory Culture - Final
Diptheroids
08/21/23 09:42 Sputum Gram Stain - Final
08/21/23 09:42 Blood/Venous Blood Culture - Preliminary
Positive culture in progress
08/21/23 09:42 Blood/Venous Gram Stain - Preliminary
08/21/23 18:08 Feces/Stool C. difficile GDH Antigen & Toxins - Final
Negative for toxigenic C.difficile
[2023-08-23] MEDS: LOVENOX 40 MG SC (17:22)
--- NOTE | 2023-08-23 18:40 | PHA.VAN.IN ---
Assessment
- Assessment
Renal Function: Appears similar to baseline
Concomitant Antimicrobials: CEFEPIME
Plan
- Plan
Initial / Loading Dose: VANCO 2000MG X1
Monitoring: RANDOM 08/24 @0600
SCR APPEARS TO BE AT BASELINE. BUN SLOWLY INCREASING, WILL DOSE BY LEVEL FOR NOW
Pharmacokinetics Vancomycin I
- -
Patient Age: 38
Patient Sex: Female
Vancomycin Day #: 1
Indication: Bacteremia
Requesting Provider: DR. GUERRERO
Height / Weight:
Height 5 ft 5 in
Actual Weight 90 kg
Pertinent Past Medical History: TRACH/PEG, ANOXIC BRAIN INJURY, RECENT PSEUDOMONAS PNA, BMI 33
- Vital Signs / Lab Results
Temp Pulse Resp BP Pulse Ox
99.5 F 97 22 151/90 96
08/23/23 15:00 08/23/23 18:00 08/23/23 18:00 08/23/23 18:00 08/23/23 17:33
Lab Results - Hematology
08/21/23 08/22/23 08/23/23
09:42 04:40 05:03
WBC 30.8 H 16.1 H 18.8 H
Lab Results - Chemistry
08/21/23 08/22/23 08/23/23
09:42 04:40 05:03
BUN 15 17 18 H
Creatinine 0.6 0.4 L 0.4 L
Estimated Creat Clear > 125 > 125
Albumin 4.2
08/21/23 08/21/23 08/21/23
09:41 13:00 18:07
Lactic Acid 3.1 H 2.1 H Cancelled
08/21/23 08/21/23
18:08 23:11
Lactic Acid 2.1 H 1.4
Lab Results - Urine
08/21/23
09:42
Urine Nitrite (Reflex) Negative
Leukocyte Esterase Rfl Negative
Microbiology Results
08/21/23 11:49 Blood Culture - Preliminary
Blood/Venous No Growth in 48 hours- Final report to follow
08/21/23 09:42 Respiratory Culture - Final
Sputum Diptheroids
Gram Stain - Final
08/21/23 09:42 Blood Culture - Preliminary
Blood/Venous Positive culture in progress
Gram Stain - Preliminary
08/21/23 18:08 C. difficile GDH Antigen & Toxins - Final
Feces/Stool Negative for toxigenic C.difficile
[2023-08-23] MEDS: VANCOCIN 540 MG IV (20:25)
[2023-08-24] VITALS (12 sets, daily range): BP systolic 112–143; BP diastolic 67–93; BMI 32.7
[2023-08-24] MEDS: ROBINUL 2 MG TUBE ×3 (00:20→15:41)
--- NOTE | 2023-08-24 01:16 | PTCARENOTE ---
pt with long periods of apnea and no tidal volume on cpap vent settings- R.T changed setting to assist control per previous AC settings. order received from [employer] for AC settings
[2023-08-24] MEDS: FLAGYL 500 MG 100 IV ×3 (01:22→17:06)
[2023-08-24] MEDS: MAXIPIME 2000 MG IV ×2 (05:15→17:06)
[2023-08-24] MEDS: STERILE WATER FOR INJECTION 10 ML IV ×2 (05:15→17:06)
[2023-08-24 05:20] LABS: Mean Corp Hgb Conc. 33.3 g/dL (33.0-37.0); Mean Corpuscular Hgb 30.1 pg (27.0-31.0); Mean Corpuscular Volume 90.4 fL (81.0-99.0); Mean Platelet Volume 10.7 fL (7.4-10.4); Platelet Count 428 10^3/uL (130-400); Red Blood Cell Count 3.32 10^6/uL (4.20-5.40)
[2023-08-24 05:26] LABS: Vancomycin Random 17.7 ug/ml
[2023-08-24 05:41] LABS: Blood Urea Nitrogen 15 mg/dl (7-17); Calcium 9.5 mg/dl (8.4-10.2); Carbon Dioxide 25 mmol/L (22-30); Chloride 102 mmol/L (98-107); Estimated Creatinine Clearance > 125 ml/min; Glucose 133 mg/dl (70-99); Potassium 3.6 mmol/L (3.5-5.1); Sodium 139 mmol/L (135-145); eGFR > 60.00
[2023-08-24] MEDS: DUONEB 3 ML INH ×2 (07:37→20:21)
[2023-08-24] MEDS: COZAAR 100 MG TUBE (08:21)
[2023-08-24] MEDS: COLACE LIQUID TUBE (08:21)
[2023-08-24] MEDS: PREVACID 30 MG TUBE (08:22)
[2023-08-24] MEDS: FOLVITE 1 MG TUBE (08:22)
[2023-08-24] MEDS: DESENEX/MITRAZOL/ZEASORB 1 APPLIC TOPICAL ×2 (08:22→21:01)
[2023-08-24] MEDS: MIRALAX TUBE (08:22)
[2023-08-24] MEDS: LOPRESSOR 100 MG TUBE ×2 (08:24→21:01)
--- NOTE | 2023-08-24 09:31 | W.PN.ID1 ---
Date of Service
Date of Service: August 24, 2023
Today's Communication
Continue antibiotics pending transition to hospice.
Assessment / Plan
Clinical sepsis
Leukocytosis
Lactic acidosis
Elevated procalcitonin
Suspected aspiration
Asthma
CHF
GERD
HTN
Hx cardiac arrest with anoxic encephalopathy
Hx PNA
Anemia
Recommendations:
Blood cultures negative thus far. Respiratory culture without significant growth (only diphtheroids recovered).
Tracheal aspirate culture from 08/16/23 reviewed, and revealed growth of a pansensitive Pseudomonas aeruginosa.
Continue with cefepime and metronidazole for now.
Follow white count and temperatures. Follow pending blood cultures and sputum culture.
Given leukocytosis, C. difficile toxin assay was checked, but was negative.
Given underlying comorbidities, overall long-term outlook unfortunately appears nonexistent for any realistic quality of life. Chart reviewed and discussed with nursing. Family is amenable to hospice and will potentially be looking into facilities
closer to their home to transfer her to.
����������������������������������������������������������
Chief Complaint
-: Leukocytosis
Subjective / Review of Systems
Patient seen and examined. No significant changes overnight.
Vital Signs / Physical Exam
Vital Signs
Vital Signs
Temp Pulse Resp BP Pulse Ox
98.6 F 117 21 131/82 100
08/24/23 07:10 08/24/23 08:24 08/24/23 08:00 08/24/23 08:24 08/24/23 07:45
Physical Exam
Constitutional: Chronically Ill and Non-toxic
Oropharyngeal: Other (Trach in place)
Cardiovascular: Regular Rate and S1/S2; Negative S3/S4
Pulmonary: Rhonchi and Coarse
Gastrointestinal: Soft and Non Distended
Objective Data
Lab Data
Lab Results
08/24/23 04:52
08/24/23 04:52
Estimated Creat Clear > 125 ml/min 08/24/23 04:52
Lactic Acid 1.4 mmol/L (0.7-2.0) 08/21/23 23:11
Total Bilirubin 0.4 mg/dl (0.2-1.3) 08/21/23 09:42
AST 23 U/L (14-36) 08/21/23 09:42
ALT 21 U/L (0-35) 08/21/23 09:42
Alkaline Phosphatase 70 U/L (38-126) 08/21/23 09:42
Most recent labs reviewed.
Micro Results:
08/23/23 18:40 Blood Culture - Pending
Blood/Venous
08/21/23 11:49 Blood Culture - Preliminary
Blood/Venous No Growth in 48 hours- Final report to follow
08/21/23 09:42 Respiratory Culture - Final
Sputum Diptheroids
Gram Stain - Final
08/21/23 09:42 Blood Culture - Preliminary
Blood/Venous Positive culture in progress
Gram Stain - Preliminary
08/21/23 18:08 C. difficile GDH Antigen & Toxins - Final
Feces/Stool Negative for toxigenic C.difficile
Imaging:
08/21/2023 CXR (portable): Cardiac silhouette size is enlarged, with no evidence for pulmonary edema. No significant pleural effusions are identified. Tracheostomy tube is in place. Please see full dictation for additional detail.
--- NOTE | 2023-08-24 10:33 | CM ---
Addendum entered by Zoila Hernandez RN 08/25/23 10:52:
Late Entry for 08/24/23 4pm
Received phone call from patient's mother and aunt that family prefers [facility] due to close location for mother.
Addendum entered by Zoila Hernandez RN 08/24/23 15:59:
Spoke with Doretha clinical liaison [facility] ); they have reviewed the referral and should be able to meet the patient's needs for trach care. They do not currently have an available bed but may have one in the next few days.
Spoke with [facility]; the nurse practitioner will review the referral. They do have an available bed.
Spoke with Elias, ; provided update about inpatient hospice referrals.
Plan follow up with [facility] and [facility].
Addendum entered by Zoila Hernandez RN 08/24/23 15:05:
Met with mother, daughter Sherita (cell [phone]) & aunt outside room with other family members at bedside;
mother, daughter and aunt do not want patient to return to [facility] as facility is dirty and smells of cigarette smoke.
They are interested in patient going to another care facility with hospice, and prefer a SNF or subacute closer to [place] or in [facility] where other family reside. They think [facility] (pulmonary care facility) in [place] and
[facility] are too far away. Mother/aunt interested in [facility].
Messages with [facility]; she will speak with the family. Patient may need to return to [facility] if no alternate facility found. Referral placed again.
10 additional SNF referrals placed- no accepting facilities. Referrals placed to [facility] and [facility].
Spoke with [facility]; they do accept patients with trachs. The Clinical Liaison will review the referral.
Plan follow up with [facility], and SNF referrals.
Original Note:
Patient readmitted from [facility] with Hx anoxic brain injury, trach, PEG with tube feeds, with Dx sepsis likely from tracheitis/ possible aspiration pneumonitis. Vent - assist control HS, 7.5 cuffed trach collar - daytime.
Receiving IV cefepime, IV Flagyl, IV Vanco. Per nurse assessment; unresponsive, nonverbal.
Met with Dr Perez and nurse Thalia; discussed patient status and possible goal of patient discharging to a SNF closer to mother's home, with patient on hospice and trach collar.
SNF referrals reviewed; no accepting SNFs from the 8 referrals in the [facility] area. [facility] expressed interest.
Spoke with Elvis, [facility]; he will have to check if they can get MA for the patient. They are not able to accept patients with cuffed trach.
Spoke with patient's mother Elias; offered to make additional SNF referrals. She wants to come in with her daughter who works in healthcare and meet with CM and discuss.
Plan meet with family re; SNF referrals.
--- NOTE | 2023-08-24 11:22 | PHA.VAN.FU ---
Vancomycin Assessment / Plan
- Assessment
Renal Function: Stable (0.4 to 0.4)
WBC's are: Trending Down (18.8>17)
In the past 24 hrs, patient has been: Afebrile
Concomitant Antimicrobials: Cefepime, Metronidazole
- Assessment - Therapeutic Drug Monitoring
Random Level: 17.7 drawn ~8.5 hours after vancomycin 2000mg loading yesterday
- Dosing Plan
Dosing by Level: Re-dose today (Vancomycin 1000mg (11mg/kg) x 1 will time for 14:00 today to allow for LD to clear)
Dosing Comments: Previous dosing experience 07/2023 dose by level w/similar renal function
- Monitoring Plan
Random Level: Ordered for 08/25/23 at 06:00
- Follow Up
Pharmacy will continue to follow.
Vancomycin Follow UP
- -
Patient Age: 38
Patient Sex: Female
Vancomycin Day #: 2
Indication: Bacteremia
Requesting Provider: DR. GUERRERO
Pertinent Antimicrobial Allergies:
No antibiotic allergies
Height / Weight:
Height 5 ft 5 in
Actual Weight 89 kg
Pertinent Past Medical History: TRACH/PEG, ANOXIC BRAIN INJURY, RECENT PSEUDOMONAS PNA, BMI 33
- Vital Signs / Lab Results
Temp Pulse Resp BP Pulse Ox
98.6 F 92 19 117/81 100
08/24/23 07:10 08/24/23 10:00 08/24/23 10:00 08/24/23 10:00 08/24/23 10:00
Lab Results - Hematology
08/22/23 08/23/23 08/24/23
04:40 05:03 04:52
WBC 16.1 H 18.8 H 17.0 H
Lab Results - Chemistry
08/22/23 08/23/23 08/24/23
04:40 05:03 04:52
BUN 17 18 H 15
Creatinine 0.4 L 0.4 L 0.4 L
Estimated Creat Clear > 125 > 125 > 125
08/21/23 08/21/23 08/21/23
13:00 18:07 18:08
Lactic Acid 2.1 H Cancelled 2.1 H
08/21/23
23:11
Lactic Acid 1.4
Microbiology Results
08/21/23 09:42 Blood Culture - Preliminary
Blood/Venous Coagulase neg. staphylococcus
Additional testing on request
Gram Stain - Preliminary
08/21/23 11:49 Blood Culture - Preliminary
Blood/Venous No Growth in 48 hours- Final report to follow
08/21/23 09:42 Respiratory Culture - Final
Sputum Diptheroids
Gram Stain - Final
Therapeutic Drug Monitoring
Random Vancomycin 17.7 ug/ml 08/24/23 04:52
--- NOTE | 2023-08-24 12:04 | HOSPNOTE ---
Hospice was asked to reach out to the patients mother and provide support. I called and spoke to the patients mother Elias. She expressed that the travel to [place] is over an hour for her one way and she cannot tolerate the distance with her
own medical issues. She stated that she wants the patient to come to a facility closer to her. She mentioned [facility] and if they knew of any facilities able to take patient. She stated that the patient needs her more now than ever with
being so ill and that is why she is adamant on patient not returning to facility in [place]. Sn provided active listening and emotional support. Reviewed CM is attempting further referrals for placement closer to her. Reviewed hospice will follow
for support. She was thankful. CM, Attending and Primary nurse updated.
--- NOTE | 2023-08-24 12:32 | PTCARENOTE ---
Rec'd pt this AM on trach collar 28%. vital signs stable. Updated family at bedside. Offered support as they transition pt to hospice care.
--- NOTE | 2023-08-24 13:14 | W.PN.HOSP.TC ---
Today's Communication/Plan
-
Monitor vital signs and see plan
Pulmonary for trach management
Continue with antibiotics
Hopeful eventual transition to hospice
Assessment / Plan
Assessment / Plan
General: Comfortable
HEENT: Moist Mucous Membranes
Respiratory: Rhonchi (BL with significant thin� trach secretions)
Cardiac: Regular Rhythm, S1/S2 and Tachycardic
GI: Soft
Neuro: Awake
Psych: Calm
sepsis likely from tracheitis/ possible aspiration pneumonitis
Suspect she had an aspiration event; do not supect pneumonia
has psuedomona tracheitis
-UA negative
-chest x ray with Lungs appear clear for portable AP technique.Cardiomegaly with no evidence for pulmonary edema or pleural effusion.
Culture from sputum shows Pseudomonas aeruginosa.� MRSA negative.
- cw abx per ID
-Tylenol prn for fever
-ID, pulmonary following
-bcx NGTD
neg cdiff
monitor leukocytosis
restarted tube feeds
Appears of apnea overnight, was put on AC overnight; management per pulm
Lactic acidosis
Resolved
#Anoxic Brain Injury
#History of Cardiac Arrest
#Chronic Encephalopathy secondary to the above
�- Continue supportive measures including O2, repositioning, trach care, etc.
�- Continue tube feeds.
#Chronic Normocytic Anemia
�-monitor
#Benign Hypertension
�- Stable.� Continue usual BP medications with holding parameters.
#DVT Prophylaxis:� Lovenox
#Code Status:� DNR�
Mother is interested in hospice but also interested in having patient placed closer to [place]. CM looking into this
I spent a total of 53 minutes with the patient or on the floor. More than 50% of this time involved counseling and coordination of care.
Anticipated Discharge: > 48 hours
Subjective/Interval History
-
Date of Service: August 24, 2023
was put on AC overnight
Objective Data
-
Labs:
Laboratory Results
08/24/23
04:52
WBC 17.0 H
Hgb 10.0 L
Hct 30.0 L
Plt Count 428 H
Sodium 139
Potassium 3.6
Chloride 102
Carbon Dioxide 25
BUN 15
Creatinine 0.4 L
Glucose 133 H
Calcium 9.5
Vital Signs:
Vital Signs
Temp Pulse Resp BP Pulse Ox
99.3 F 110 15 122/67 97
08/24/23 11:34 08/24/23 12:02 08/24/23 12:02 08/24/23 12:00 08/24/23 12:02
I&O
08/23/23 08/24/23 08/25/23
06:59 06:59 06:59
Intake Total 415 / 415 2800 / 2800
Output Total 350 / 350 915 / 915
Balance 65 / 65 1885 / 1885
[2023-08-24] MEDS: VANCOCIN 200 IV (13:38)
--- NOTE | 2023-08-24 14:52 | W.PN.PUL3 ---
Today's Communication / Plan
-
Continue airway clearance, Cufflator/sport bed, reviewed with RT
Vent weaning again back to trach collar as tolerated, PS wean at night
Sputum culture reviewed, ID following for abx recs
Added IV vanco; follow up repeat blood Cx from 08/23/2023
Resume TFs per team
Family considering hospice
Assessment
-
Patient is a 38-year-old female with history of VDRF s/p trach/PEG, recent admission for pseudomonas PNA, CHF, anoxic brain injury, GERD, hypertension, sent to ER for fever and tachycardia at [place]. She is not on routine airway clearance or vent at
facility. No further history/ROS obtained from patient, at baseline she is nonverbal. We are asked for eval 08/21/23.
Fever/sepsis
Tachycardia
New Diphtheroids + sputum - seen on SCx from 08/21/2023
GPC in clusters seen on blood Cx from 08/21/2023
Pseudomonas pneumonia, acute on chronic infection
Colonization suspected
Sepsis without shock
Conditions present prior to admission:
Recent hospitalization 07/27/2023-sepsis with bacteremia, recent influenza and tracheobronchitis
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
Anoxic brain injury status postcardiac arrest.�
Chronic tracheostomy tube-#6 Sherin.�
Gastrostomy tube
Hypertension
Obesity
OCD
Anemia-normocytic
DNR
Plan
Family is considering hospice.
Fever/tachy likely continued sepsis from prior admission
+ Pseudomonas in sputum--This is likely colonized
New positive sputum: +Diphtheroids
GPC seen on blood Cx from 08/21/2023 --> IV vanco added yesterday
Follow-up repeat blood culture from 08/23/2023
ID following for recs on abx
She likely will need vent support for proper airway clearance
Continued daily, recommend continuing at facility
Reviewed with RT
Can wean back to trach collar daily and PS wean at night
Aspiration precautions
Nebulizers-DuoNebs
Consider saline
Consider Mucomyst if worsens
Continue ICS with Flovent
Mucolytic's
Suction as needed
Mucus clearing devices including sport bed and vest, cofflater
Fevers noted -afebrile since 08/18/2023
Continue to follow temp curve
Cultures reviewed
Sputum 08/21/23: Moderate Diphtheroids growth
Prior admission cultures:
Sputum 08/16/2023 with Pseudomonas-velasquez sensitive
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
Gastrostomy tube care
Tube feeds as tolerated
DVT prophylaxis-on Lovenox
Nutrition-on tube feeds
Bedside range of motion
Pulmonary service will continue to follow along; once hospice has been decided, we will sign off.
Diagnostic Data:
CXR 08/21/23- Lungs appear clear for portable AP technique. Cardiomegaly with no evidence for pulmonary edema or pleural effusion.
Chest x-ray 07/23/2023-NAD
Chest x-ray 08/02/2023-NAD
Chest x-ray 08/15/2023-slight increase opacification left lung base concerning for early pneumonia
CT head 07/31/2023-severe global hypoxemic ischemic encephalopathy
CT abdomen and pelvis 07/31/2023-acute sterile coral colitis in the rectum with fecal impaction, no evidence for small bowel obstruction, mild hepatomegaly and mild diffuse hepatic steatosis
Subjective Data
-
Date of Service:
Date of Service: August 24, 2023
Chief Complaint: Pulmonary Follow Up
Subjective:
Patient seen today at bedside. Remains on trach collar at 28% FiO2. Saturating 97%. No acute events reported from overnight. Per the bedside nurse, hospice was brought up to the family and they are considering this.
Review of Systems
General: Other (Unable to obtain due to patient's clinical status)
Objective Data
Data Reviewed
Vital Signs / I&O / Oxygen:
Vital Signs
Temp Pulse Resp BP Pulse Ox
99.3 F 110 15 122/67 97
08/24/23 11:34 08/24/23 12:02 08/24/23 12:02 08/24/23 12:00 08/24/23 12:02
Intake and Output
08/23/23 08/24/23 08/25/23
06:59 06:59 06:59
Intake Total 415 / 415 2800 / 2800
Output Total 350 / 350 915 / 915
Balance 65 / 65 1885 / 1885
SaO2 [CPAP] 100
SaO2 [A/C] 99
SaO2 97
Physical Exam
General: Comfortable and Other (NAD, chronically ill appearing)
HEENT: Normocephalic, Anicteric and Other (Tracheostomy)
Cardiovascular: S1-S2, Peripheral Edema (Negative) and Other (Tachycardic)
Respiratory: Clear, Wheeze (n), Crackles (Negative), Non-Labored Respirations and Other (Reduced breath sounds bilaterally)
GI: Soft, Non Distended, Non Tender and Feeding Tube
Neurology: Unresponsive and Non Verbal (eyes open but not responding or following commands)
Skin: Warm, Dry and Good Color
Labs/Micro/Reports
Lab Data
08/24/23 04:52
08/24/23 04:52
Microbiology
08/21/23 11:49 Blood/Venous Blood Culture - Preliminary
No Growth in 72 hours- Final report to follow
08/21/23 09:42 Blood/Venous Blood Culture - Preliminary
Coagulase neg. staphylococcus
Additional testing on request
08/21/23 09:42 Blood/Venous Gram Stain - Preliminary
08/21/23 09:42 Sputum Respiratory Culture - Final
Diptheroids
08/21/23 09:42 Sputum Gram Stain - Final
08/21/23 18:08 Feces/Stool C. difficile GDH Antigen & Toxins - Final
Negative for toxigenic C.difficile
--- NOTE | 2023-08-24 15:48 | CHAP ---
Called by case management to visit Sugar and her family, as they are considering hospice. The family had stepped out; I prayed with Sugar, asking God's blessings. IMU nurses said they would call if/when the family returned, so prayers could be
said with them, too.
[2023-08-24] MEDS: LOVENOX 40 MG SC (17:06)
[2023-08-24] MEDS: COLACE LIQUID 100 MG TUBE (21:01)
[2023-08-25] VITALS (12 sets, daily range): BP systolic 99–134; BP diastolic 69–90; BMI 32.9
[2023-08-25] MEDS: ROBINUL 2 MG TUBE ×3 (00:22→15:43)
[2023-08-25] MEDS: FLAGYL 500 MG 100 IV ×3 (03:00→18:11)
--- NOTE | 2023-08-25 03:45 | PTCARENOTE ---
Pt was on trach collar and switched to CPap by resp therapy and she tolerated that with some apnea until 01:30. When repositioned to change her linens and clean her up due to liquid stool, her Resp rate went up to 40 and she was not breathing
deeply. Resp therapy placed pt on AC ventilation. Suctioned for thick white sputum and vent tubing near trach was changed due to thick sputum filling it up. Her rectal tube was not draining and she was having light brown/yellow liquid stool
around the tube. Removed the nasal trumpet rectal tube. CANS VACUUM TESTER notified and Fecal management system ordered and inserted and pt tolerated it well. there was some initial leakage so it was repositioned and now is not leaking. Her bed rotation function
was activated and air cushions are repositioning her. Heart monitor is Sinus tachycardia. She opens her eyes when moved or spoken to. Does not track.
[2023-08-25] MEDS: MAXIPIME 2000 MG IV ×2 (05:05→18:12)
[2023-08-25] MEDS: STERILE WATER FOR INJECTION 10 ML IV ×2 (05:05→18:12)
[2023-08-25 05:51] LABS: Hematocrit 28.1 % (37.0-47.0); Hemoglobin 9.3 g/dL (12.0-16.0); Mean Corp Hgb Conc. 33.1 g/dL (33.0-37.0); Mean Corpuscular Hgb 30.2 pg (27.0-31.0); Mean Corpuscular Volume 91.2 fL (81.0-99.0); Mean Platelet Volume 10.7 fL (7.4-10.4); Platelet Count 391 10^3/uL (130-400); Red Blood Cell Count 3.08 10^6/uL (4.20-5.40); Red Cell Dist. Width 13.2 % (11.5-14.5); White Blood Cell Count 14.4 10^3/uL (4.8-10.8)
[2023-08-25 06:21] LABS: Blood Urea Nitrogen 14 mg/dl (7-17); Calcium 9.2 mg/dl (8.4-10.2); Carbon Dioxide 25 mmol/L (22-30); Chloride 103 mmol/L (98-107); Estimated Creatinine Clearance > 125 ml/min; Glucose 151 mg/dl (70-99); Potassium 3.2 mmol/L (3.5-5.1); Sodium 137 mmol/L (135-145); eGFR > 60.00
[2023-08-25 06:56] LABS: Vancomycin Random 7.2 ug/ml
--- NOTE | 2023-08-25 07:18 | W.PN.HOSP.TC ---
Today's Communication/Plan
-
Continue to monitor his follow-up blood cultures
Replete potassium
Remains on cefepime and metronidazole/for pansensitive Pseudomonas trach aspirate
Presumed single blood culture coag negative probable contaminant/need for vancomycin?
Case management to pursue hospice facility in [place] area
Assessment / Plan
Assessment / Plan
General: Comfortable
HEENT: Moist Mucous Membranes
Respiratory: Rhonchi (BL with significant thin� trach secretions)
Cardiac: Regular Rhythm, S1/S2 and Tachycardic
GI: Soft
Neuro: Awake
Psych: Calm
Sepsis likely from tracheitis/ possible aspiration pneumonitis
Suspect she had an aspiration event; do not supect pneumonia
has psuedomona tracheitis
-UA negative
-chest x ray with Lungs appear clear for portable AP technique.Cardiomegaly with no evidence for pulmonary edema or pleural effusion.
Culture from sputum shows Pseudomonas aeruginosa.� MRSA negative.
-Initial blood culture showed coag negative staph presumed contaminant as subsequent blood cultures negative//presumed can discontinue vancomycin
- cw abx per ID
-Tylenol prn for fever
-ID, pulmonary following
neg cdiff
monitor leukocytosis
restarted tube feeds
Appears of apnea overnight, was put on AC overnight; management per pulm/vent management on nights and trach collar during the day
Lactic acidosis
Resolved
#Anoxic Brain Injury
#History of Cardiac Arrest
#Chronic Encephalopathy secondary to the above
�- Continue supportive measures including O2, repositioning, trach care, etc.
�- Continue tube feeds.
-Family now considering hospice facility up in [place] once for further stabilization of present infection status
#Chronic Normocytic Anemia
�-monitor
#Benign Hypertension
�- Stable.� Continue usual BP medications with holding parameters.
#DVT Prophylaxis:� Lovenox
#Code Status:� DNR�
Mother is interested in hospice but also interested in having patient placed closer to [place]. MAURO looking into this
I spent a total of 53 minutes with the patient or on the floor. More than 50% of this time involved counseling and coordination of care.
Anticipated Discharge: > 48 hours
Subjective/Interval History
-
Date of Service: August 25, 2023
Opens eyes on vent CPAP overnight no issues
Objective Data
-
Labs:
Laboratory Results
08/25/23
05:21
WBC 14.4 H
Hgb 9.3 L
Hct 28.1 L
Plt Count 391
Sodium 137
Potassium 3.2 L
Chloride 103
Carbon Dioxide 25
BUN 14
Creatinine 0.3 L
Glucose 151 H
Calcium 9.2
Vital Signs:
Vital Signs
Temp Pulse Resp BP Pulse Ox
98.8 F 96 8 114/77 98
08/25/23 03:21 08/25/23 02:00 08/25/23 02:00 08/25/23 02:00 08/25/23 03:57
I&O
08/24/23 08/25/23 08/26/23
06:59 06:59 06:59
Intake Total 2800 / 2800 2590 / 2590
Output Total 915 / 915 900 / 900
Balance 1885 / 1885 1690 / 1690
Review of Systems
-
Unable to obtain full review of systems at this time due to: Patient Intubation and Patient Non-verbal
History Source: Coordinated Provider
All other systems: Reviewed and negative
Physical Exam
-
General: No Apparent Distress
HEENT: Normocephalic and Tracheostomy Collar
Respiratory: Rhonchi
Cardiac: Regular Rhythm
GI: Soft, Nontender and Nondistended
Musculoskeletal: Edema, Right Lower Extrem and Edema, Left Lower Extrem
Skin: IV Access / Catheter Site
Neuro: Awake, Alert and Oriented
Data Reviewed
-
Total Time Spent with Patient (in minutes): 45
CT Scan: Report Reviewed by me
Labs: Labs Reviewed by me (White count trending down/hemoglobin stable 9.3/potassium remains at 3.2)
--- NOTE | 2023-08-25 08:00 | W.PN.ID1 ---
Date of Service
Date of Service: August 25, 2023
Today's Communication
Continue antibiotics for today.
Assessment / Plan
Clinical sepsis
Leukocytosis
Lactic acidosis
Elevated procalcitonin
Suspected aspiration
Asthma
CHF
GERD
HTN
Hx cardiac arrest with anoxic encephalopathy
Hx PNA
Anemia
Recommendations:
Blood cultures with coag negative staph; suspect contaminant.
Respiratory culture without significant growth (only diphtheroids recovered).
Tracheal aspirate culture from 08/16/23 reviewed, and revealed growth of a pansensitive Pseudomonas aeruginosa.
Continue with cefepime and metronidazole for now.
Follow white count and temperatures. Follow pending blood cultures and sputum culture.
Given leukocytosis, C. difficile toxin assay was checked, but was negative.
Given underlying comorbidities, overall long-term outlook unfortunately appears nonexistent for any realistic quality of life.
Chart reviewed and discussed with nursing.
Family is interested in hospice and will potentially be looking into facilities closer to their home to transfer her to.
����������������������������������������������������������
Chief Complaint
-: Leukocytosis
Subjective / Review of Systems
Patient seen and examined. No significant changes overnight.
Review of Systems: No Fever
Vital Signs / Physical Exam
Vital Signs
Vital Signs
Temp Pulse Resp BP Pulse Ox
98.8 F 96 8 114/77 98
08/25/23 03:21 08/25/23 02:00 08/25/23 02:00 08/25/23 02:00 08/25/23 03:57
Physical Exam
Constitutional: Chronically Ill and Non-toxic
Oropharyngeal: Other (Trach)
Lymph Nodes: Negative Lymphadenopathy
Cardiovascular: S1/S2; Negative S3/S4
Pulmonary: Rhonchi (Scattered), Coarse and Non Labored
Gastrointestinal: Soft, Non Distended and Other (PEG in place. FMS in place.)
Extremities: Edema; Negative Cyanosis or Erythema
Skin: Warm and Dry; Negative Rash
Objective Data
Lab Data
Lab Results
08/25/23 05:21
08/25/23 05:21
Estimated Creat Clear > 125 ml/min 08/25/23 05:21
Lactic Acid 1.4 mmol/L (0.7-2.0) 08/21/23 23:11
Total Bilirubin 0.4 mg/dl (0.2-1.3) 08/21/23 09:42
AST 23 U/L (14-36) 08/21/23 09:42
ALT 21 U/L (0-35) 08/21/23 09:42
Alkaline Phosphatase 70 U/L (38-126) 08/21/23 09:42
Most recent labs reviewed.
Micro Results:
08/23/23 18:40 Blood Culture - Preliminary
Blood/Venous No Growth in 24 hours- Final report to follow
08/21/23 11:49 Blood Culture - Preliminary
Blood/Venous No Growth in 72 hours- Final report to follow
08/21/23 09:42 Blood Culture - Preliminary
Blood/Venous Coagulase neg. staphylococcus
Additional testing on request
Gram Stain - Preliminary
08/21/23 09:42 Respiratory Culture - Final
Sputum Diptheroids
Gram Stain - Final
08/21/23 18:08 C. difficile GDH Antigen & Toxins - Final
Feces/Stool Negative for toxigenic C.difficile
Imaging:
08/21/2023 CXR (portable): Cardiac silhouette size is enlarged, with no evidence for pulmonary edema. No significant pleural effusions are identified. Tracheostomy tube is in place. Please see full dictation for additional detail.
[2023-08-25] MEDS: DUONEB 3 ML INH ×2 (08:13→20:03)
--- NOTE | 2023-08-25 08:20 | W.PN.PUL3 ---
Today's Communication / Plan
-
T/C O2
MV as needed
Atbs
CPT
Assessment
-
Patient is a 38-year-old female with history of VDRF s/p trach/PEG, recent admission for pseudomonas PNA, CHF, anoxic brain injury, GERD, hypertension, sent to ER for fever and tachycardia at [facility]. She is not on routine airway clearance or vent at
facility. No further history/ROS obtained from patient, at baseline she is nonverbal. We are asked for eval 08/21/23.
Fever, resolved
Tachycardia
New Diphtheroids + sputum - seen on SCx from 08/21/2023
Pseudomonas pneumonia, acute on chronic infection
Colonization suspected
Sepsis without shock
Conditions present prior to admission:
Recent hospitalization 07/27/2023-sepsis with bacteremia, recent influenza and tracheobronchitis
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
Anoxic brain injury status postcardiac arrest.�
Chronic tracheostomy tube-#6 Shiley.�
Gastrostomy tube
Hypertension
Obesity
OCD
Anemia-normocytic
DNR
Plan
Fever resolved
+ Pseudomonas in sputum--This is likely colonized
New positive sputum: +Diphtheroids
CoNS on 07/08 blood cxs 01-25
Follow-up repeat blood culture from 08/23/2023
ID following for recs on abx: cefepime/metronidazole
She likely will need vent support for proper airway clearance
Continued daily, recommend continuing at facility
Return to trach collar daily and PS wean at night
Aspiration precautions
Nebulizers-DuoNebs
Continue ICS with Flovent
Mucolytic
Suction as needed
Mucus clearing devices including sport bed and vest, cough assist device (cofflator )
Gastrostomy tube care
Tube feeds as tolerated
DVT prophylaxis-on Lovenox
Nutrition-on tube feeds
Bedside range of motion
Family is considering hospice.
Pulmonary service will continue to follow along; once hospice has been decided, we will sign off.
Diagnostic Data:
CXR 08/21/23- Lungs appear clear for portable AP technique. Cardiomegaly with no evidence for pulmonary edema or pleural effusion.
Chest x-ray 07/23/2023-NAD
Chest x-ray 08/02/2023-NAD
Chest x-ray 08/15/2023-slight increase opacification left lung base concerning for early pneumonia
CT head 07/31/2023-severe global hypoxemic ischemic encephalopathy
CT abdomen and pelvis 07/31/2023-acute sterile coral colitis in the rectum with fecal impaction, no evidence for small bowel obstruction, mild hepatomegaly and mild diffuse hepatic steatosis
Subjective Data
-
Date of Service:
Date of Service: August 25, 2023
Chief Complaint: Pulmonary Follow Up
Subjective:
No major events reported overnight discussed with RN
Found on trach collar, respiratory gilman stable
On PRVC last night
Review of Systems
General: Unobtainable - Pat Unresp
Objective Data
Data Reviewed
Vital Signs / I&O / Oxygen:
Vital Signs
Temp Pulse Resp BP Pulse Ox
98.8 F 119 16 103/69 100
08/25/23 03:21 08/25/23 08:14 08/25/23 08:14 08/25/23 08:00 08/25/23 08:14
Intake and Output
08/24/23 08/25/23 08/26/23
06:59 06:59 06:59
Intake Total 2800 / 2800 2590 / 2590
Output Total 915 / 915 900 / 900
Balance 1885 / 1885 1690 / 1690
SaO2 [CPAP] 98
SaO2 [A/C] 98
SaO2 100
Physical Exam
General: Comfortable and Other (NAD, chronically ill appearing)
HEENT: Normocephalic, Anicteric and Tracheotomy
Cardiovascular: S1-S2, Murmur (n) and Peripheral Edema (Negative)
Respiratory: Clear, Wheeze (n), Crackles (Negative), Non-Labored Respirations and Stridor (n)
GI: Soft, Non Distended, Non Tender and Feeding Tube
Neurology: Unresponsive and Non Verbal (eyes open but not responding or following commands)
Skin: Warm, Dry and Good Color
Labs/Micro/Reports
Lab Data
08/25/23 05:21
08/25/23 05:21
Microbiology
08/23/23 18:40 Blood/Venous Blood Culture - Preliminary
No Growth in 24 hours- Final report to follow
08/21/23 11:49 Blood/Venous Blood Culture - Preliminary
No Growth in 72 hours- Final report to follow
08/21/23 09:42 Blood/Venous Blood Culture - Preliminary
Coagulase neg. staphylococcus
Additional testing on request
08/21/23 09:42 Blood/Venous Gram Stain - Preliminary
08/21/23 09:42 Sputum Respiratory Culture - Final
Diptheroids
08/21/23 09:42 Sputum Gram Stain - Final
[2023-08-25] MEDS: KCL ELIXIR 40 MEQ TUBE (08:25)
[2023-08-25] MEDS: PREVACID 30 MG TUBE (08:26)
[2023-08-25] MEDS: COZAAR TUBE (08:26)
[2023-08-25] MEDS: FOLVITE 1 MG TUBE (08:26)
[2023-08-25] MEDS: COLACE LIQUID 100 MG TUBE ×2 (08:26→20:17)
[2023-08-25] MEDS: MIRALAX 17 GRAMS TUBE (08:26)
[2023-08-25] MEDS: LOPRESSOR 100 MG TUBE ×2 (08:26→20:17)
[2023-08-25] MEDS: DESENEX/MITRAZOL/ZEASORB 1 APPLIC TOPICAL ×2 (08:27→20:17)
[2023-08-25] MEDS: VITAMIN B1 100 MG TUBE (08:39)
--- NOTE | 2023-08-25 09:15 | PTCARENOTE ---
Patient received from manufacturing shift supervisor. Patient resting comfortably in bed. Alert to verbal and tactile stimuli but does not track or respond. No events noted overnight. No pain per non-verbal pain assessment, patient relaxed. Ventilator HS CPAP,
A/C 12 400 +5 30% as backup. Trach Collar @ 28% during the day. G port connected to gravity drainage bag. Tubefeed Jevity 1.5 @ 50mL/hr with 25mL flush through J port. FMS placed overnight for lose stools. Purewick placed back due to FMS. Call
boykin in reach.
--- NOTE | 2023-08-25 10:15 | PN.CDI ---
CDI
- -
CDI:
Physician Documentation Request
Admit Date: 08/21/23 13:04
Dear Doctor Susannah,
Please review the following and provide your response in the progress notes.
Clinical Indicators:
- RN skin assessments indicate Stage 2 sacrum pressure injury, POA
Physician documentation of the type and location of wounds is required for compliant documentation. Based on the above clinical findings and your assessment, please provide the following in your progress note:
1. Location of the ulcer/wound, including laterality.
2. Type (etiology) of ulcer/wound:
- Arterial (ischemic) ulcer
- Traumatic wound
- Venous stasis ulcer
- Pressure (decubitus) ulcer
- Other
Use of terms such as suspected, likely, concern for, or probable (associated with a specific diagnosis that is being evaluated, monitored, or treated as if it exists) are acceptable and can be coded in the inpatient setting, when documented at the
time of discharge.
Thank you,
Meryl Bronson RN
CDI Specialist
Please use your independent medical judgment in providing your response.
*Source: National Pressure Ulcer Advisory Panel (NPUAP)
--- NOTE | 2023-08-25 10:23 | PN.CDI ---
CDI
- -
CDI:
Physician Documentation Request
Admit Date: 08/21/23 13:04
Dear Doctor Susannah,
Please review the following and provide your response in the progress notes.
Clinical Indicators:
- 08/21 H&P 'pmh anoxic brain injury...nonverbal at baseline, tracheostomy'
- 08/22 Pulmonary 'Unresponsive and Non Verbal (eyes open but not responding or following commands)'
- 08/22 CM 'adm on jun 09 2023 to [facility] with the flu and pna and the following day had a cardiac arrest'
- Patient requiring complete care for all hygiene, feeding, activities
Please clarify a diagnosis with the above findings:
Functional quadriplegia (complete immobility due to severe physical disability or frailty)
Other
Use of terms such as suspected, likely, concern for, or probable (associated with a specific diagnosis that is being evaluated, monitored, or treated as if it exists) are acceptable and can be coded in the inpatient setting, when documented at the
time of discharge.
Thank you,
Meryl Bronson RN
CDI Specialist
Please use your independent medical judgment in providing your response.
--- NOTE | 2023-08-25 10:33 | CM ---
Addendum entered by Zoila Hernandez RN 08/25/23 14:30:
Received phone call from MATTHEW Bueno at [facility]; their medical unit secretary is reviewing the referral. They cannot take a patient on a ventilator, on IV Abx, on tube feedings and O2 need can only be up to 10L. They may be able to accept
patient with a trach and will let CM know if they can accept.
Message sent to Joe Goodman & Jacqueline, [place] [facility] [employer] [facility]: Family meeting is setup for 08/27 11am in the IMU/ICU Family Respite Room. Mother Elias, grand-dtr Sherita, aunt and CM will be attending.
Plan follow up with [facility].
Plan family meeting Fri 11am in IMU/ICU Family Respite Room.
Original Note:
Patient readmitted from [facility] with Hx anoxic brain injury, trach, PEG with tube feeds, with Dx sepsis likely from tracheitis/ possible aspiration pneumonitis. Vent - assist control, 7.5 cuffed trach collar, suctioning.
Receiving IV cefepime, IV Flagyl. Per nurse assessment; unresponsive, nonverbal, eyes not tracking. Seen by [facility] [employer] [facility].
Spoke with Elvis Anderson, [facility] (ph [phone]); MATTHEW Bueno is reviewing and will callback - her ph [phone].
Spoke with Amanda, Foundation Relations Director, [facility] (ph [phone], direct [phone]); they are unable to accept at this time. CM can call her and request again once Vent is discontinued and patient needs symptom management with IV
meds.
Message to Joe Goodman and nurse Parra requesting clarification regarding ventilator for d/c planning.
Plan continued hospice and SNF/subacute d/c planning efforts.
[2023-08-25] MEDS: LOVENOX 40 MG SC (18:11)
[2023-08-26] VITALS (11 sets, daily range): BP systolic 113–151; BP diastolic 71–95; BMI 32.9
[2023-08-26] MEDS: ROBINUL 2 MG TUBE ×3 (00:31→15:41)
[2023-08-26] MEDS: FLAGYL 500 MG 100 IV ×3 (02:06→17:46)
[2023-08-26 03:35] LABS: Hematocrit 28.9 % (37.0-47.0); Hemoglobin 9.7 g/dL (12.0-16.0); Mean Corp Hgb Conc. 33.6 g/dL (33.0-37.0); Mean Corpuscular Hgb 30.2 pg (27.0-31.0); Mean Platelet Volume 10.9 fL (7.4-10.4); Platelet Count 367 10^3/uL (130-400); Red Blood Cell Count 3.21 10^6/uL (4.20-5.40); Red Cell Dist. Width 13.1 % (11.5-14.5); White Blood Cell Count 19.3 10^3/uL (4.8-10.8)
[2023-08-26 04:01] LABS: Blood Urea Nitrogen 14 mg/dl (7-17); Calcium 9.1 mg/dl (8.4-10.2); Carbon Dioxide 23 mmol/L (22-30); Chloride 108 mmol/L (98-107); Estimated Creatinine Clearance > 125 ml/min; Glucose 117 mg/dl (70-99); Potassium 3.8 mmol/L (3.5-5.1); Sodium 137 mmol/L (135-145); eGFR > 60.00
--- NOTE | 2023-08-26 05:47 | PTCARENOTE ---
No acute events overnight. Tmax 100.1. Required frequent suctioning on the vent.
[2023-08-26] MEDS: MAXIPIME 2000 MG IV ×2 (05:56→17:47)
[2023-08-26] MEDS: STERILE WATER FOR INJECTION 10 ML IV ×2 (05:56→17:47)
--- NOTE | 2023-08-26 07:49 | W.PN.HOSP.TC ---
Addendum entered and electronically signed by Manuel Davalos MD 08/26/23 18:18:
Stage sacral pressure ulcer
Functional quadriplegia
Original Note:
Today's Communication/Plan
-
Had copious secretions through trach while on vent overnight with low-grade temperature development and increasing leukocytosis
May not be feasible to place patient on [id number] trach collar given secretions management needed while on vent/this may obviate the need for inpatient hospice if to be taken off vent he is to return home with the
Assessment / Plan
Assessment / Plan
General: Comfortable
HEENT: Moist Mucous Membranes
Respiratory: Rhonchi (BL with significant thin� trach secretions)
Cardiac: Regular Rhythm, S1/S2 and Tachycardic
GI: Soft
Neuro: Awake
Psych: Calm
Sepsis likely from tracheitis/ possible aspiration pneumonitis
Suspect she had an aspiration event; do not supect pneumonia
has psuedomona tracheitis
-UA negative
-chest x ray with Lungs appear clear for portable AP technique.Cardiomegaly with no evidence for pulmonary edema or pleural effusion.
Culture from sputum shows Pseudomonas aeruginosa.� MRSA negative.
-Initial blood culture showed coag negative staph presumed contaminant as subsequent blood cultures negative//presumed can discontinue vancomycin
- cw abx per ID
-Tylenol prn for fever
-ID, pulmonary following
neg cdiff
monitor leukocytosis
restarted tube feeds
Appears of apnea overnight, was put on AC overnight; management per pulm/vent management on nights and trach collar during the day
-Will have family meeting in the next 24 hours in regards to goals of care and placement on hospice and whether continues trach collar management is feasible on discharge/given amount of secretions through the trach while on vent overnight mainly be
a candidate to be placed in inpatient hospice if to be taken off vent
Family meeting is setup for 08/27 11am in the IMU/ICU Family Respite Room. Mother Elias, grand-dtr Sherita, aunt and CM will be attending.
Lactic acidosis
Resolved
#Anoxic Brain Injury
#History of Cardiac Arrest
#Chronic Encephalopathy secondary to the above
�- Continue supportive measures including O2, repositioning, trach care, etc.
�- Continue tube feeds.
-Family now considering hospice facility up in [place] once for further stabilization of present infection status
#Chronic Normocytic Anemia
�-monitor
#Benign Hypertension
�- Stable.� Continue usual BP medications with holding parameters.
#DVT Prophylaxis:� Lovenox
#Code Status:� DNR�
Mother is interested in hospice but also interested in having patient placed closer to [place]. CM looking into this
I spent a total of 53 minutes with the patient or on the floor. More than 50% of this time involved counseling and coordination of care.
Anticipated Discharge: 24 - 48 hours
Subjective/Interval History
-
Date of Service: August 26, 2023
Response to voice by opening eyes but does not track or follow commands/low-grade temp overnight continuing to need for suction and vent management overnight
Objective Data
-
Labs:
Laboratory Results
08/26/23
03:16
WBC 19.3 H
Hgb 9.7 L
Hct 28.9 L
Plt Count 367
Sodium 137
Potassium 3.8
Chloride 108 H
Carbon Dioxide 23
BUN 14
Creatinine 0.3 L
Glucose 117 H
Calcium 9.1
Vital Signs:
Vital Signs
Temp Pulse Resp BP Pulse Ox
100.1 F 130 19 119/86 99
08/26/23 03:54 08/26/23 06:00 08/26/23 06:00 08/26/23 06:00 08/26/23 06:00
I&O
08/25/23 08/26/23 08/27/23
06:59 06:59 06:59
Intake Total 2590 / 2590 2443 / 2443
Output Total 900 / 900 60 / 60
Balance 1690 / 1690 2383 / 2383
Review of Systems
-
Unable to obtain full review of systems at this time due to: Dementia and Patient Non-verbal
History Source: Patient and Coordinated Provider
Constitutional: Reports Fever
Respiratory: Reports Trouble Breathing and Other (Copious secretions from trach and required vent overnight)
Physical Exam
-
General: Appears Chronically Ill
HEENT: Normocephalic, Tracheotomy, Tracheostomy Collar and Oxygen
Cardiac: Regular Rhythm
GI: Soft, Nontender and Nondistended
Skin: Warm and IV Access / Catheter Site
Neuro: Awake
Data Reviewed
-
Total Time Spent with Patient (in minutes): 56
Labs: Labs Reviewed by me (White count trending up again to 19.3/increase secretions noted through trach)
[2023-08-26] MEDS: DUONEB 3 ML INH ×2 (07:55→19:48)
[2023-08-26] MEDS: MIRALAX 17 GRAMS TUBE (09:14)
[2023-08-26] MEDS: COLACE LIQUID 100 MG TUBE ×2 (09:14→20:27)
[2023-08-26] MEDS: COZAAR 100 MG TUBE (09:14)
[2023-08-26] MEDS: LOPRESSOR 100 MG TUBE ×2 (09:14→20:27)
[2023-08-26] MEDS: PREVACID 30 MG TUBE (09:14)
[2023-08-26] MEDS: FOLVITE 1 MG TUBE (09:14)
[2023-08-26] MEDS: DESENEX/MITRAZOL/ZEASORB 1 APPLIC TOPICAL ×2 (09:15→20:31)
--- NOTE | 2023-08-26 09:30 | PTCARENOTE ---
Patient received from night time babysitter. Patient resting comfortably in bed. Continuing to be alert to verbal and tactile stimuli but does not track or respond. No events noted overnight. No pain per non-verbal pain assessment, patient relaxed.
Placed on ventilator HS CPAP for increased secretion production, A/C 12 400 +5 30% as backup. Trach Collar @ 28% during the day. G port continues to be connected to gravity drainage bag. Tubefeed Jevity 1.5 @ 45mL/hr with 25mL flush through J
port. FMS in place. Family meeting planning for 08/27. Call boykin in reach.
--- NOTE | 2023-08-26 11:26 | W.PN.ID1 ---
Date of Service
Date of Service: August 26, 2023
Today's Communication
Continue current antibiotics.
Assessment / Plan
Clinical sepsis
Leukocytosis
Lactic acidosis
Elevated procalcitonin
Suspected aspiration
Asthma
CHF
GERD
HTN
Hx cardiac arrest with anoxic encephalopathy
Hx PNA
Anemia
Recommendations:
Blood cultures with coag negative staph; suspect contaminant.
Respiratory culture without significant growth (only diphtheroids recovered).
Tracheal aspirate culture from 08/16/23 reviewed, and revealed growth of a pansensitive Pseudomonas aeruginosa.
Continue with cefepime and metronidazole for now.
Follow white count and temperatures. Follow pending blood cultures and sputum culture.
Given leukocytosis, C. difficile toxin assay was checked, but was negative.
Given underlying comorbidities, overall long-term outlook unfortunately appears nonexistent for any realistic quality of life.
Chart reviewed and discussed with nursing.
Family is interested in hospice and will potentially be looking into facilities closer to their home to transfer her to. Family meeting noted to be scheduled for tomorrow.
����������������������������������������������������������
Chief Complaint
-: Leukocytosis
Vital Signs / Physical Exam
Vital Signs
Vital Signs
Temp Pulse Resp BP Pulse Ox
99.9 F 128 22 113/71 98
08/26/23 07:54 08/26/23 09:14 08/26/23 08:11 08/26/23 09:14 08/26/23 09:57
Physical Exam
Physical Exam:
Constitutional: Chronically Ill and Non-toxic
Oropharyngeal: Other (Trach)
Lymph Nodes: Negative Lymphadenopathy
Cardiovascular: S1/S2; Negative S3/S4
Pulmonary: Rhonchi (Scattered), Coarse and Non Labored
Gastrointestinal: Soft, Non Distended and Other (PEG in place.� FMS in place.)
Extremities: Edema; Negative Cyanosis or Erythema
Skin: Warm and Dry; Negative Rash
Objective Data
Lab Data
Lab Results
08/26/23 03:16
08/26/23 03:16
Estimated Creat Clear > 125 ml/min 08/26/23 03:16
Lactic Acid 1.4 mmol/L (0.7-2.0) 08/21/23 23:11
Total Bilirubin 0.4 mg/dl (0.2-1.3) 08/21/23 09:42
AST 23 U/L (14-36) 08/21/23 09:42
ALT 21 U/L (0-35) 08/21/23 09:42
Alkaline Phosphatase 70 U/L (38-126) 08/21/23 09:42
Most recent labs reviewed.
Micro Results:
08/23/23 18:40 Blood Culture - Preliminary
Blood/Venous No Growth in 48 hours- Final report to follow
08/21/23 11:49 Blood Culture - Preliminary
Blood/Venous No Growth in 4 days- Final report to follow
08/21/23 09:42 Blood Culture - Preliminary
Blood/Venous Coagulase neg. staphylococcus
Additional testing on request
Gram Stain - Preliminary
08/21/23 09:42 Respiratory Culture - Final
Sputum Diptheroids
Gram Stain - Final
08/21/23 18:08 C. difficile GDH Antigen & Toxins - Final
Feces/Stool Negative for toxigenic C.difficile
Imaging:
08/21/2023 CXR (portable): Cardiac silhouette size is enlarged, with no evidence for pulmonary edema. No significant pleural effusions are identified. Tracheostomy tube is in place. Please see full dictation for additional detail.
--- NOTE | 2023-08-26 11:40 | W.PN.PUL3 ---
Today's Communication / Plan
-
T/C as tolerated
MV as needed
Atbs
GOC
Assessment
-
Patient is a 38-year-old female with history of VDRF s/p trach/PEG, recent admission for pseudomonas PNA, CHF, anoxic brain injury, GERD, hypertension, sent to ER for fever and tachycardia at [facility]. She is not on routine airway clearance or vent at
facility. No further history/ROS obtained from patient, at baseline she is nonverbal. We are asked for eval 08/21/23.
Fever, resolved
Tachycardia
New Diphtheroids + sputum - seen on SCx from 08/21/2023
Pseudomonas pneumonia, acute on chronic infection
Colonization suspected
Sepsis without shock
Conditions present prior to admission:
Recent hospitalization 07/27/2023-sepsis with bacteremia, recent influenza and tracheobronchitis
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
Anoxic brain injury status postcardiac arrest.�
Chronic tracheostomy tube-#6 Shiley.�
Gastrostomy tube
Hypertension
Obesity
OCD
Anemia-normocytic
DNR
Plan
Fever resolved
+ Pseudomonas in sputum--This is likely colonized
New positive sputum: +Diphtheroids
CoNS on 07/08 blood cxs -25
Follow-up repeat blood culture from 08/23/2023 so far negative
ID following for recs on abx: cefepime/metronidazole, to continue
Continue T/C O2 as tolerated during the day
Return to MV as needed during day and night time
Trach care
Aspiration precautions
Nebulizers-DuoNebs
Continue ICS with Flovent
Mucolytic
Suction as needed
Mucus clearing devices including sport bed and vest, cough assist device (cofflator )
Gastrostomy tube care
Tube feeds as tolerated
C diff negative
DVT prophylaxis-on Lovenox
Nutrition-on tube feeds
Bedside range of motion
Family is considering hospice, family will visit 08-27 to discussed GOC options
Pulmonary service will continue to follow along; once hospice has been decided, we will sign off.
Diagnostic Data:
CXR 08/21/23- Lungs appear clear for portable AP technique. Cardiomegaly with no evidence for pulmonary edema or pleural effusion.
Chest x-ray 07/23/2023-NAD
Chest x-ray 08/02/2023-NAD
Chest x-ray 08/15/2023-slight increase opacification left lung base concerning for early pneumonia
CT head 07/31/2023-severe global hypoxemic ischemic encephalopathy
CT abdomen and pelvis 07/31/2023-acute sterile coral colitis in the rectum with fecal impaction, no evidence for small bowel obstruction, mild hepatomegaly and mild diffuse hepatic steatosis
Subjective Data
-
Date of Service:
Date of Service: August 26, 2023
Chief Complaint: Pulmonary Follow Up
Subjective:
Tolerated T/C all day yesterday
Placed back on MV last night, reported had copious resp secretions while on MV
Returned to T/C this morning
Review of Systems
General: Unobtainable - Pat Unresp
Objective Data
Data Reviewed
Vital Signs / I&O / Oxygen:
Vital Signs
Temp Pulse Resp BP Pulse Ox
99.9 F 128 22 113/71 98
08/26/23 07:54 08/26/23 09:14 08/26/23 08:11 08/26/23 09:14 08/26/23 09:57
Intake and Output
08/25/23 08/26/23 08/27/23
06:59 06:59 06:59
Intake Total 2590 / 2590 2443 / 2443
Output Total 900 / 900 60 / 60
Balance 1690 / 1690 2383 / 2383
SaO2 [CPAP] 98
SaO2 [A/C] 98
SaO2 98
Physical Exam
General: Comfortable and Other (NAD, chronically ill appearing)
HEENT: Normocephalic, Anicteric and Tracheotomy
Cardiovascular: S1-S2, Murmur (n) and Peripheral Edema (Negative)
Respiratory: Clear, Wheeze (n), Crackles (Negative), Non-Labored Respirations and Stridor (n)
GI: Soft, Non Distended, Non Tender and Feeding Tube
Neurology: Unresponsive and Non Verbal (eyes open but not responding or following commands)
Skin: Warm, Dry and Good Color
Labs/Micro/Reports
Lab Data
08/26/23 03:16
08/26/23 03:16
Microbiology
08/23/23 18:40 Blood/Venous Blood Culture - Preliminary
No Growth in 48 hours- Final report to follow
08/21/23 11:49 Blood/Venous Blood Culture - Preliminary
No Growth in 4 days- Final report to follow
08/21/23 09:42 Blood/Venous Blood Culture - Preliminary
Coagulase neg. staphylococcus
Additional testing on request
08/21/23 09:42 Blood/Venous Gram Stain - Preliminary
08/21/23 09:42 Sputum Respiratory Culture - Final
Diptheroids
08/21/23 09:42 Sputum Gram Stain - Final
--- NOTE | 2023-08-26 16:18 | CM ---
CM reviewed chart
Plan for family meeting tomorrow to discuss GOC
Call from Mindy from [facility] inpatient hospice unit
They will continue to follow pt and requesting call tomorrow after family meeting
Also noted their vice president medical affairs will likely want to speak directly with attending for further consideration
Ximena will be covering admissions tomorrow and can be reached at [phone]
Discharge Disposition- ongoing GOC discussions and possible SNF/hospice or inpatient hospice unit
[2023-08-26] MEDS: LOVENOX 40 MG SC (17:46)
[2023-08-27] VITALS (13 sets, daily range): BP systolic 96–156; BP diastolic 62–104; BMI 33.2
[2023-08-27] MEDS: ROBINUL 2 MG TUBE ×3 (00:22→15:42)
[2023-08-27] MEDS: FLAGYL 500 MG 100 IV ×3 (04:00→18:00)
[2023-08-27 04:17] LABS: Hematocrit 30.2 % (37.0-47.0); Hemoglobin 10.1 g/dL (12.0-16.0); Mean Corp Hgb Conc. 33.4 g/dL (33.0-37.0); Mean Corpuscular Hgb 30.9 pg (27.0-31.0); Mean Corpuscular Volume 92.4 fL (81.0-99.0); Mean Platelet Volume 11.2 fL (7.4-10.4); Platelet Count 383 10^3/uL (130-400); Red Blood Cell Count 3.27 10^6/uL (4.20-5.40); Red Cell Dist. Width 13.4 % (11.5-14.5); White Blood Cell Count 18.9 10^3/uL (4.8-10.8)
--- NOTE | 2023-08-27 04:20 | DOWNTIME ---
There was a [employer] Human Services Manager Downtime on 08/27/2023 from 0111 to 08/27/2023 at 0405. Downtime documentation of patient's care, including medication administrations, has been reconciled in the electronic record per guidelines. Refer to the
patient's paper chart under the miscellaneous tab to see printed paper medication records and downtime forms.
[2023-08-27] MEDS: TYLENOL 650 MG TUBE (05:42)
[2023-08-27] MEDS: MAXIPIME 2000 MG IV ×2 (05:54→18:00)
[2023-08-27] MEDS: STERILE WATER FOR INJECTION 10 ML IV ×2 (05:54→18:00)
--- NOTE | 2023-08-27 06:36 | PTCARENOTE ---
No acute events overnight. T max 100.4. PRN tylenol given. Remained off vent overnight on the trach collar.
--- NOTE | 2023-08-27 07:14 | W.PN.HOSP.TC ---
Today's Communication/Plan
-
Awaiting family meeting for further delineation and decision process on transition to hospice tolerated trach collar overnight so optimistic that can be transition to [facility] will call admission at that facility after meeting.
Assessment / Plan
Assessment / Plan
General: Comfortable
HEENT: Moist Mucous Membranes
Respiratory: Rhonchi (BL with significant thin� trach secretions)
Cardiac: Regular Rhythm, S1/S2 and Tachycardic
GI: Soft
Neuro: Awake
Psych: Calm
Sepsis likely from tracheitis/ possible aspiration pneumonitis
Suspect she had an aspiration event; do not supect pneumonia
has psuedomona tracheitis
-UA negative
-chest x ray with Lungs appear clear for portable AP technique.Cardiomegaly with no evidence for pulmonary edema or pleural effusion.
Culture from sputum shows Pseudomonas aeruginosa.� MRSA negative.
-Initial blood culture showed coag negative staph presumed contaminant as subsequent blood cultures negative//presumed can discontinue vancomycin
- cw abx per ID
-Tylenol prn for fever
-ID, pulmonary following
neg cdiff
monitor leukocytosis remains elevated at 19,000
restarted tube feeds
Appears of apnea overnight, was put on AC overnight; management per pulm/vent management on nights and trach collar during the day
-Will have family meeting in the next 24 hours in regards to goals of care and placement on hospice and whether continues trach collar management is feasible on discharge/given amount of secretions through the trach while on vent overnight mainly be
a candidate to be placed in inpatient hospice if to be taken off vent
Family meeting is setup for 08/27 11am in the IMU/ICU Family Respite Room. Mother Elias, grand-dtr Christineyah, aunt and CM will be attending.
Lactic acidosis
Resolved
#Anoxic Brain Injury/functional quadriplegia
#History of Cardiac Arrest
#Chronic Encephalopathy secondary to the above
�- Continue supportive measures including O2, repositioning, trach care, etc.
�- Continue tube feeds.
-Family now considering hospice facility up in [place] once for further stabilization of present infection status
-Schedule for family meeting later this morning at 11 AM with pulmonary service in attendance/discussions in relation to transition to hospice up in [place] and tolerability of ongoing trach collar/as will not be excepted under vent management/if
all in agreement after meeting will speak to low-dose covering admissions up at [facility] at [phone]
#Chronic Normocytic Anemia
�-monitor
#Benign Hypertension
�- Stable.� Continue usual BP medications with holding parameters.
#DVT Prophylaxis:� Lovenox
#Code Status:� DNR�
Mother is interested in hospice but also interested in having patient placed closer to [place]. CM looking into this
I spent a total of 20 minutes with the patient or on the floor. More than 50% of this time involved counseling and coordination of care.
Anticipated Discharge: Within 24 hours
Subjective/Interval History
-
Date of Service: August 27, 2023
Was on trach collar overnight no change in level response remains febrile
Objective Data
-
Labs:
Laboratory Results
08/27/23
03:32
WBC 18.9 H
Hgb 10.1 L
Hct 30.2 L
Plt Count 383
Vital Signs:
Vital Signs
Temp Pulse Resp BP Pulse Ox
100.4 F H 121 25 96/67 95
08/27/23 03:00 08/27/23 06:00 08/27/23 06:00 08/27/23 06:00 08/27/23 04:00
I&O
08/26/23 08/27/23 08/28/23
06:59 06:59 06:59
Intake Total 2278 / 2278 1540 / 1540
Output Total 225 / 225 1500 / 1500
Balance 2052 / 2052 40 / 40
Review of Systems
-
Unable to obtain full review of systems at this time due to: Patient Intubation and Patient Non-verbal
All other systems: Not reviewed unless documented
Constitutional: Reports Fever
Physical Exam
-
General: No Apparent Distress
HEENT: Tracheostomy Collar
Respiratory: Rhonchi
Cardiac: Regular Rhythm
GI: Soft
Psych: Calm
Data Reviewed
-
Total Time Spent with Patient (in minutes): 45
Labs: Labs Reviewed by me (White count remains elevated at 19,000)
[2023-08-27] MEDS: DUONEB 3 ML INH ×2 (07:35→19:28)
[2023-08-27] MEDS: COZAAR 100 MG TUBE (08:56)
[2023-08-27] MEDS: FOLVITE 1 MG TUBE (08:57)
[2023-08-27] MEDS: LOPRESSOR 100 MG TUBE ×2 (08:57→19:57)
[2023-08-27] MEDS: MIRALAX 17 GRAMS TUBE (08:57)
[2023-08-27] MEDS: PREVACID 30 MG TUBE (08:57)
[2023-08-27] MEDS: DESENEX/MITRAZOL/ZEASORB 1 APPLIC TOPICAL ×2 (08:57→19:57)
[2023-08-27] MEDS: COLACE LIQUID 100 MG TUBE ×2 (08:57→19:57)
[2023-08-27] MEDS: VITAMIN B1 100 MG TUBE (09:03)
--- NOTE | 2023-08-27 09:37 | W.PN.PUL3 ---
Today's Communication / Plan
-
T/C
CPT
Atbs
Assessment
-
Patient is a 38-year-old female with history of VDRF s/p trach/PEG, recent admission for pseudomonas PNA, CHF, anoxic brain injury, GERD, hypertension, sent to ER for fever and tachycardia at [facility]. She is not on routine airway clearance or vent at
facility. No further history/ROS obtained from patient, at baseline she is nonverbal. We are asked for eval 08/21/23.
Fever, resolved
Tachycardia
New Diphtheroids + sputum - seen on SCx from 08/21/2023
Pseudomonas pneumonia, acute on chronic infection
Colonization suspected
Sepsis without shock
Conditions present prior to admission:
Recent hospitalization 07/27/2023-sepsis with bacteremia, recent influenza and tracheobronchitis
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
Anoxic brain injury status postcardiac arrest.�
Chronic tracheostomy tube-#6 Sherin.�
Gastrostomy tube
Hypertension
Obesity
OCD
Anemia-normocytic
DNR
Plan
Fever resolved
+ Pseudomonas in sputum--pansensitive
New positive sputum: +Diphtheroids
CoNS on 07/08 blood cxs 01-25
Follow-up repeat blood culture from 08/23/2023 so far negative
ID following for recs on abx: cefepime/metronidazole, to continue
Continue T/C O2 as tolerated during the day
Return to MV as needed during day and night time
Trach care
Aspiration precautions
Nebulizers-DuoNebs
Continue ICS with Flovent
Mucolytic
Suction as needed
Mucus clearing devices including sport bed and vest, cough assist device (cofflator)
Gastrostomy tube care
Tube feeds as tolerated
C diff negative
DVT prophylaxis-on Lovenox
Nutrition-on tube feeds
Bedside range of motion
Family is considering hospice, family will visit 08-27 to discuss GOC options
Diagnostic Data:
CXR 08/21/23- Lungs appear clear for portable AP technique. Cardiomegaly with no evidence for pulmonary edema or pleural effusion.
Chest x-ray 07/23/2023-NAD
Chest x-ray 08/02/2023-NAD
Chest x-ray 08/15/2023-slight increase opacification left lung base concerning for early pneumonia
CT head 07/31/2023-severe global hypoxemic ischemic encephalopathy
CT abdomen and pelvis 07/31/2023-acute sterile coral colitis in the rectum with fecal impaction, no evidence for small bowel obstruction, mild hepatomegaly and mild diffuse hepatic steatosis
Subjective Data
-
Date of Service:
Date of Service: August 27, 2023
Chief Complaint: Pulmonary Follow Up
Subjective:
Did not require MV last night, remained on T/C all day yesterday and overnight
Review of Systems
General: Unobtainable - Pat Unresp
Objective Data
Data Reviewed
Vital Signs / I&O / Oxygen:
Vital Signs
Temp Pulse Resp BP Pulse Ox
98.7 F 123 38 139/91 96
08/27/23 07:19 08/27/23 08:57 08/27/23 08:00 08/27/23 08:57 08/27/23 08:00
Intake and Output
08/26/23 08/27/23 08/28/23
06:59 06:59 06:59
Intake Total 2278 / 2278 1540 / 1540
Output Total 225 / 225 1500 / 1500
Balance 2052 40 / 40
SaO2 [CPAP] 98
SaO2 [A/C] 98
SaO2 96
Physical Exam
General: Comfortable and Other (NAD, chronically ill appearing)
HEENT: Normocephalic, Anicteric and Tracheotomy
Cardiovascular: S1-S2, Murmur (n) and Peripheral Edema (Negative)
Respiratory: Clear, Wheeze (n), Crackles (Negative), Non-Labored Respirations and Stridor (n)
GI: Soft, Non Distended, Non Tender and Feeding Tube
Neurology: Unresponsive and Non Verbal (eyes open but not responding or following commands)
Skin: Warm, Dry and Good Color
Labs/Micro/Reports
Lab Data
08/27/23 03:32
08/26/23 03:16
Microbiology
08/23/23 18:40 Blood/Venous Blood Culture - Preliminary
No Growth in 72 hours- Final report to follow
08/21/23 11:49 Blood/Venous Blood Culture - Final
No Growth - Final Report
08/21/23 09:42 Blood/Venous Blood Culture - Preliminary
Coagulase neg. staphylococcus
Additional testing on request
08/21/23 09:42 Blood/Venous Gram Stain - Preliminary
--- NOTE | 2023-08-27 11:10 | W.PN.ID1 ---
Date of Service
Date of Service: August 27, 2023
Today's Communication
Continue antibiotics
Assessment / Plan
Clinical sepsis
Leukocytosis
Lactic acidosis
Elevated procalcitonin
Suspected aspiration
Asthma
CHF
GERD
HTN
Hx cardiac arrest with anoxic encephalopathy
Hx PNA
Anemia
Recommendations:
Blood cultures with coag negative staph; suspect contaminant.
Respiratory culture without significant growth (only diphtheroids recovered).
Prior tracheal aspirate culture from 08/16/23 reviewed, and revealed growth of a pansensitive Pseudomonas aeruginosa.
Continue with cefepime and metronidazole for now.
Given underlying comorbidities, overall long-term outlook unfortunately appears nonexistent for any realistic quality of life.
Chart reviewed and discussed with nursing.
Family is interested in hospice and will potentially be looking into facilities closer to their home to transfer her to. Family meeting noted to be scheduled for today.
����������������������������������������������������������
Chief Complaint
-: Leukocytosis
Subjective / Review of Systems
Patient seen and examined. No significant changes overnight.
Vital Signs / Physical Exam
Vital Signs
Vital Signs
Temp Pulse Resp BP Pulse Ox
98.7 F 91 15 121/80 99
08/27/23 07:19 08/27/23 10:00 08/27/23 10:00 08/27/23 10:00 08/27/23 09:48
Physical Exam
Physical Exam:
Constitutional: Chronically Ill and Non-toxic
Oropharyngeal: Other (Trach)
Lymph Nodes: Negative Lymphadenopathy
Cardiovascular: S1/S2; Negative S3/S4
Pulmonary: Rhonchi (Scattered), Coarse and Non Labored
Gastrointestinal: Soft, Non Distended and Other (PEG in place.� FMS in place.)
Extremities: Edema; Negative Cyanosis or Erythema
Skin: Warm and Dry; Negative Rash
Objective Data
Lab Data
Lab Results
08/27/23 03:32
08/26/23 03:16
Estimated Creat Clear > 125 ml/min 08/26/23 03:16
Lactic Acid 1.4 mmol/L (0.7-2.0) 08/21/23 23:11
Total Bilirubin 0.4 mg/dl (0.2-1.3) 08/21/23 09:42
AST 23 U/L (14-36) 08/21/23 09:42
ALT 21 U/L (0-35) 08/21/23 09:42
Alkaline Phosphatase 70 U/L (38-126) 08/21/23 09:42
Most recent labs reviewed.
Micro Results:
08/23/23 18:40 Blood Culture - Preliminary
Blood/Venous No Growth in 72 hours- Final report to follow
08/21/23 11:49 Blood Culture - Final
Blood/Venous No Growth - Final Report
08/21/23 09:42 Blood Culture - Preliminary
Blood/Venous Coagulase neg. staphylococcus
Additional testing on request
Gram Stain - Preliminary
08/21/23 09:42 Respiratory Culture - Final
Sputum Diptheroids
Gram Stain - Final
08/21/23 18:08 C. difficile GDH Antigen & Toxins - Final
Feces/Stool Negative for toxigenic C.difficile
Imaging:
08/21/2023 CXR (portable): Cardiac silhouette size is enlarged, with no evidence for pulmonary edema. No significant pleural effusions are identified. Tracheostomy tube is in place. Please see full dictation for additional detail.
--- NOTE | 2023-08-27 11:45 | CM ---
Patient readmitted from [facility] with Hx anoxic brain injury, trach, PEG with tube feeds, with Dx sepsis likely from tracheitis/ possible aspiration pneumonitis. Trach collar - 5L 28%. Receiving IV cefepime, IV Flagyl. Jevity
tube feeds. Per nurse assessment; unresponsive, nonverbal, eyes not tracking. Seen by Hospice.
Family meeting today 11:15am in the IMU/ICU Family Respite Room. Mother Elias, grand-dtr Sherita, aunt Valeria and grandmother attended. Joe Davalos & Yaritza, [facility] & CM present. [facility] discussed- mother & other family agreed to
inpatient hospice with trach with O2 (no ventilator), no PEG feedings (comfort feedings only), no antibiotics. Mother & other family hoping patient will be accepted by [facility] which is near mother's home. Mother and other family tearful
stating patient was vibrant and active until her cardiac arrest that occurred prior to admission. Provided emotional support and offered [facility] Educator and family declined. Discussed possible d/c tomorrow if [facility] accepts.
Spoke with MATTHEW Bueno [facility] (ph [phone]); provided update that family meeting occurred and family agreed to their hospice with trach with O2, no PEG feeds, no antibiotics. She will need to discuss with her director and
let CM know if can accept tomorrow. She will find out if doctor to doctor call is needed. She will have to send the family some admission paperwork and discuss costs.
Plan follow up with [facility].
--- NOTE | 2023-08-27 11:55 | HOSPNOTE ---
Family meeting completed. The plan is for patient to go to [facility] on hospice services to be closer to family. Case management is calling to coordinate and give the facility an update. If plans are to change please keep me updated.
--- NOTE | 2023-08-27 12:41 | PTCARENOTE ---
Assumed care of patient this morning. FMS and perineal care performed. Mouth Care and Q2T maintained. TF maintained, G-tube flushed per order. Patient's family at bedside. Meeting with Family, CM, Hospice, and MD's completed, see notes. Assessment,
care and VS as charted.
[2023-08-27] MEDS: LOVENOX 40 MG SC (18:00)
[2023-08-27] MEDS: ATROPINE SULFATE 1% DROPS 2 DROP SL (19:58)
[2023-08-28] VITALS (12 sets, daily range): BP systolic 105–168; BP diastolic 63–110; BMI 32.9
[2023-08-28] MEDS: ROBINUL 2 MG TUBE ×3 (00:14→16:09)
[2023-08-28] MEDS: FLAGYL 500 MG 100 IV (02:15)
[2023-08-28 03:39] LABS: Hematocrit 31.4 % (37.0-47.0); Hemoglobin 10.5 g/dL (12.0-16.0); Mean Corp Hgb Conc. 33.4 g/dL (33.0-37.0); Mean Corpuscular Volume 92.6 fL (81.0-99.0); Mean Platelet Volume 10.9 fL (7.4-10.4); Platelet Count 406 10^3/uL (130-400); Red Blood Cell Count 3.39 10^6/uL (4.20-5.40); Red Cell Dist. Width 13.2 % (11.5-14.5); White Blood Cell Count 18.4 10^3/uL (4.8-10.8)
[2023-08-28] MEDS: MAXIPIME 2000 MG IV (06:05)
[2023-08-28] MEDS: STERILE WATER FOR INJECTION 10 ML IV (06:06)
--- NOTE | 2023-08-28 06:15 | PTCARENOTE ---
No acute events overnight. Remained on trach collar- copious amounts of secretions with frequent suctioning. Waiting for hospice facility placement.
--- NOTE | 2023-08-28 07:00 | W.PN.HOSP.TC ---
Today's Communication/Plan
-
Family meeting 08/27 11am in the IMU/ICU Family Respite Room/discussion had with family members with pulmonary service and case management in addition to myself in attendance all have agreed to comfort care on the patient as the patient now is on
trach collar management will discontinue antibiotics and tube feeds in preparation for transfer to [facility] facility. Condolences offered in the setting of offering comfort to family and agreement and decision process for hospice care
on this patient at there is no meaningful quality of life and no chance for improvement.
Will await case management input need for further interaction with [facility] as necessary/patient can be transferred once logistics are set up in the meantime we will stop antibiotics stop tube feeds and referral morphine and secretions
management
Assessment / Plan
Assessment / Plan
General: Awakens but no interaction
HEENT: Moist Mucous Membranes
Respiratory: Rhonchi (BL with significant thin� trach secretions)
Cardiac: Regular Rhythm, S1/S2 and Tachycardic
GI: Soft
Neuro: Awake
Psych: Calm
Sepsis likely from tracheitis/ possible aspiration pneumonitis
Suspect she had an aspiration event; do not supect pneumonia
has psuedomona tracheitis
-UA negative
-chest x ray with Lungs appear clear for portable AP technique.Cardiomegaly with no evidence for pulmonary edema or pleural effusion.
Culture from sputum shows Pseudomonas aeruginosa.� MRSA negative.
-Initial blood culture showed coag negative staph presumed contaminant as subsequent blood cultures negative//presumed can discontinue vancomycin
- cw abx per ID
-Tylenol prn for fever
-ID, pulmonary following
neg cdiff
monitor leukocytosis remains elevated at 19,000
restarted tube feeds
Appears of apnea overnight, was put on AC overnight; management per pulm/vent management on nights and trach collar during the day
-Will have family meeting in the next 24 hours in regards to goals of care and placement on hospice and whether continues trach collar management is feasible on discharge/given amount of secretions through the trach while on vent overnight mainly be
a candidate to be placed in inpatient hospice if to be taken off vent
Family meeting is setup for 08/27 11am in the IMU/ICU Family Respite Room/discussion had with family members with pulmonary service and case management this to myself in attendance all have agreed to comfort care on the patient as the patient now
is on trach collar management will discontinue antibiotics and tube feeds in preparation for transfer to [facility]
Lactic acidosis
Resolved
#Anoxic Brain Injury/functional quadriplegia
#History of Cardiac Arrest
#Chronic Encephalopathy secondary to the above
�- Continue supportive measures including O2, repositioning, trach care, etc.
�- Continue tube feeds.
-Family now considering hospice facility up in [place] once for further stabilization of present infection status
-Schedule for family meeting later this morning at 11 AM with pulmonary service in attendance/discussions in relation to transition to hospice up in [place] and tolerability of ongoing trach collar/as will not be excepted under vent management/if
all in agreement after meeting will speak to low-dose covering admissions up at [facility] at [phone]
#Chronic Normocytic Anemia
�-monitor
#Benign Hypertension
�- Stable.� Continue usual BP medications with holding parameters.
#DVT Prophylaxis:� Lovenox
#Code Status:� DNR�
Mother is interested in hospice but also interested in having patient placed closer to [place]. CM looking into this
Family meeting 08/27 11am in the IMU/ICU Family Respite Room/discussion had with family members with pulmonary service and case management in addition to myself in attendance all have agreed to comfort care on the patient as the patient now is on
trach collar management will discontinue antibiotics and tube feeds in preparation for transfer to [facility] facility. Condolences offered in the setting of offering comfort to family and agreement and decision process for hospice care
on this patient at there is no meaningful quality of life and no chance for improvement.
Anticipated Discharge: Within 24 hours
Subjective/Interval History
-
Date of Service: August 28, 2023
Awakens to stimuli but no interaction
Objective Data
-
Labs:
Laboratory Results
08/28/23
03:05
WBC 18.4 H
Hgb 10.5 L
Hct 31.4 L
Plt Count 406 H
Vital Signs:
Vital Signs
Temp Pulse Resp BP Pulse Ox
99.4 F 120 28 150/108 99
08/28/23 03:05 08/28/23 06:00 08/28/23 06:00 08/28/23 06:00 08/28/23 06:00
I&O
08/27/23 08/28/23 08/29/23
06:59 06:59 06:59
Intake Total 2380 / 2380 1440 / 1440
Output Total 1500 / 1500 260 / 260
Balance 880 / 880 1180 / 1180
Review of Systems
-
All other systems: Not reviewed unless documented
Physical Exam
-
General: Intubated (Tracheotomy) and Appears Chronically Ill
Respiratory: Rhonchi and Crackles
Cardiac: Regular Rhythm and Tachycardic
Neuro: Awake and No Motor Deficits (Functional quadriplegia)
Data Reviewed
-
Total Time Spent with Patient (in minutes): 56
Labs: Labs Reviewed by me (White count 18,000)
[2023-08-28] MEDS: DUONEB 3 ML INH ×2 (07:40→19:26)
[2023-08-28] MEDS: MIRALAX TUBE (08:54)
[2023-08-28] MEDS: COLACE LIQUID TUBE (08:54)
[2023-08-28] MEDS: TYLENOL 650 MG TUBE (08:54)
[2023-08-28] MEDS: PREVACID 30 MG TUBE (08:55)
[2023-08-28] MEDS: COZAAR 100 MG TUBE (08:55)
[2023-08-28] MEDS: LOPRESSOR 100 MG TUBE ×2 (08:55→21:03)
[2023-08-28] MEDS: FOLVITE 1 MG TUBE (08:55)
[2023-08-28] MEDS: DESENEX/MITRAZOL/ZEASORB 1 APPLIC TOPICAL ×2 (08:56→21:00)
--- NOTE | 2023-08-28 09:00 | PTCARENOTE ---
discontinued TF and IV antibiotics. Morphine Q4 PRN ordered for dyspnea. Pt suctioned multiple times this morning for thick white sputum. Pt with harsh cough at times and able to clear airway occasionally. G-tube still connected to
drainage tube, flushed per order. FMS remains intact. Assessment, care and VS as charted.
--- NOTE | 2023-08-28 11:02 | CM ---
Addendum entered by Zoila Hernandez RN 08/28/23 12:17:
Spoke with Idalia Jorge [facility]; they cannot accept as they feel that the patient does not need their level of intense respiratory care if she is on comfort care/hospice.
Spoke with Elias, mother; she agrees with her daughter returning to [facility] tomorrow with Hospice.
Spoke with Idalia Anne [facility]; they are able to accept the patient back tomorrow with Hospice and agree to 11am transport time. The ph for report [phone], fax [phone].
Message with Jacqueline [facility]; they will have a nurse available tomorrow to admit the patient at [facility] and agree to 11am transport time.
Out of Hosp DNR form on chart.
Plan return to [facility] tomorrow with [facility] with 11am ambulance transport.
Original Note:
Patient readmitted from [facility] with Hx anoxic brain injury, trach, PEG, with Dx sepsis likely from tracheitis/ possible aspiration pneumonitis. Trach collar - 5L 28% - suctioning. Per nurse assessment; unresponsive, nonverbal,
eyes not tracking. Seen by [facility]. Comfort care.
Spoke with MATTHEW Bueno [facility] (ph [phone]); [facility] declined her due to patient not having symptoms that require medical management.
17 more SNF referrals made near [place] (none accepting) and 3 more subacute referrals.
Spoke with patient's mother and informed her that unfortunately the patient was not accepted by [facility]. Offered to pursue [facility] in [place] who expressed interest, or if she prefers the patient can return to [facility]
tomorrow. She was disappointed and will discuss with family and let CM know.
Phone call to Idalia Jorge [facility]; left message requesting callback re; referral.
Plan follow up with mother re; her preference of [facility] vs [facility] SNFs.
--- NOTE | 2023-08-28 11:20 | W.PN.UPDATE ---
Update Note
Progress Note Update
Attended [facility] discussion with family 08-27
Mother decided on comfort care in presence and agreement of her mother and two other family members
Will not resume MV
Started and to continue comfort care
Reconsult prn
[2023-08-28] MEDS: MORPHINE SULFATE 2 MG IV (11:46)
--- NOTE | 2023-08-28 12:27 | PTCARENOTE ---
Patient with RR in 30s, pt remained tachycardic following morning cardiac medications. Pt already suctioned multiple times and pt not coughing. PRN Morphine IV given for dyspnea, see MAR.
--- NOTE | 2023-08-28 13:53 | W.PN.ID1 ---
Date of Service
Date of Service: August 28, 2023
Today's Communication
sign off.
Assessment / Plan
Clinical sepsis
Leukocytosis
Lactic acidosis
Elevated procalcitonin
Suspected aspiration
Asthma
CHF
GERD
HTN
Hx cardiac arrest with anoxic encephalopathy
Hx PNA
Anemia
Recommendations:
Given underlying comorbidities, overall long-term outlook unfortunately appears nonexistent for any realistic quality of life.
Chart reviewed and discussed with nursing.
Family has decided upon hospice. Patient to be transferred to an [facility] facility to be closer to family.
Antibiotics have been discontinued.
Nothing further to add from a Infectious Diseases standpoint.
Will see again at your request.
����������������������������������������������������������
Chief Complaint
-: Leukocytosis
Vital Signs / Physical Exam
Vital Signs
Vital Signs
Temp Pulse Resp BP Pulse Ox
98.8 F 107 21 134/90 99
08/28/23 12:09 08/28/23 12:00 08/28/23 12:00 08/28/23 12:00 08/28/23 12:00
Physical Exam
Constitutional: Comfortable, Chronically Ill and Non-toxic
Pulmonary: Non Labored
Psychological: Calm
Objective Data
Lab Data
Lab Results
08/28/23 03:05
08/26/23 03:16
Estimated Creat Clear > 125 ml/min 08/26/23 03:16
Lactic Acid 1.4 mmol/L (0.7-2.0) 08/21/23 23:11
Total Bilirubin 0.4 mg/dl (0.2-1.3) 08/21/23 09:42
AST 23 U/L (14-36) 08/21/23 09:42
ALT 21 U/L (0-35) 08/21/23 09:42
Alkaline Phosphatase 70 U/L (38-126) 08/21/23 09:42
Most recent labs reviewed.
Micro Results:
08/21/23 09:42 Blood Culture - Final
Blood/Venous Coagulase neg. staphylococcus
Additional testing on request
Gram Stain - Final
08/23/23 18:40 Blood Culture - Preliminary
Blood/Venous No Growth in 4 days- Final report to follow
08/21/23 11:49 Blood Culture - Final
Blood/Venous No Growth - Final Report
08/21/23 09:42 Respiratory Culture - Final
Sputum Diptheroids
Gram Stain - Final
08/21/23 18:08 C. difficile GDH Antigen & Toxins - Final
Feces/Stool Negative for toxigenic C.difficile
Imaging:
08/21/2023 CXR (portable): Cardiac silhouette size is enlarged, with no evidence for pulmonary edema. No significant pleural effusions are identified. Tracheostomy tube is in place. Please see full dictation for additional detail.
[2023-08-28] MEDS: STERILE WATER FOR INJECTION IV (15:33)
[2023-08-28] MEDS: COLACE LIQUID 100 MG TUBE (21:00)
[2023-08-29] VITALS: BP 126/84
[2023-08-29] MEDS: ROBINUL 2 MG TUBE ×2 (00:36→08:26)
[2023-08-29 02:00] VITALS: BP 130/83
[2023-08-29 04:00] VITALS: BP 127/93
[2023-08-29] MEDS: STERILE WATER FOR INJECTION IV (05:57)
[2023-08-29 06:00] VITALS: BP 137/101
[2023-08-29] MEDS: DUONEB 3 ML INH (07:48)
[2023-08-29 08:00] VITALS: BP 133/90
[2023-08-29] MEDS: LOPRESSOR 100 MG TUBE (08:25)
[2023-08-29] MEDS: PREVACID 30 MG TUBE (08:26)
[2023-08-29] MEDS: MIRALAX TUBE (08:26)
[2023-08-29] MEDS: DESENEX/MITRAZOL/ZEASORB 1 APPLIC TOPICAL (08:26)
[2023-08-29] MEDS: COLACE LIQUID TUBE (08:26)
[2023-08-29] MEDS: COZAAR 100 MG TUBE (08:26)
[2023-08-29] MEDS: FOLVITE 1 MG TUBE (08:26)
[2023-08-29] MEDS: VITAMIN B1 100 MG TUBE (08:30)
[2023-08-29 10:00] VITALS: BP 131/96
--- NOTE | 2023-08-29 10:10 | PTCARENOTE ---
Patient nonverbal. VSS. NSR. Trach care performed. Patient 96% on room air. Plan to be discharged at 1100 to [facility]. Report given. IV removed. Continuing to monitor patient.
--- NOTE | 2023-08-29 11:24 | PTCARENOTE ---
Addendum entered by Jose J Adhikari RN 08/29/23 11:27:
Report given. Ambulance took patient by stretcher. Tele removed.
Original Note:
Patient nonverbal. VSS. NSR. Trach care performed. Fecal management system removed. Purewyck removed. Patient 96% on room air. Plan to be discharged at [address] [facility]. Report to be given, multiple attempts, will continue to reach. IV removed.
Continuing to monitor patient.
--- NOTE | 2023-08-29 11:36 | W.DCSUMMARY ---
Discharge Summary
Discharge Data
Date of Admission: 08/21/23
Date of Discharge: 08/29/23
Total time spent discharging patient (in min): 45
-
Pending Results: No
Hospital Course
This is a 38-year-old unfortunate female with a history of ventilator dependent respiratory failure status post trach and PEG placement she had a recent hospitalization that included steroid sterile coral colitis and in July had an episode in
admission another hospital with sepsis with bacteremia recent influenza and tracheobronchitis she suffered an anoxic brain injury s/p cardiac arrest prompting continued chronic tracheostomy care. More recently with a admission for Pseudomonas
pneumonia CHF and she comes in on this admission on 21 August with fever and tachycardia from [facility]. There she had been having increasing respiratory secretions through the tracheostomy. She presented with a febrile course of 100.1
and she had a productive cough that produced thick yellow mucus via tracheostomy she is on tube feeds through her G-tube.
Chest x-ray showed a possible left lower lobe pneumonia and presented with leukocytosis and a tracheal aspirate again showed Pseudomonas aeruginosa she was started empiric management with cefepime with ID consultation added metronidazole.
Noteworthy is the fact that the patient has functional quadriplegia and really does not interact although opens eyes when stimulated/is felt that her long-term look unfortunately appears to be nonexistent for any realistic quality of life and
ongoing discussions with family members were undertaken toward goals of care discussion for hospice which did seem to be amenable to. She has unfortunately continued to be tachycardic continue to be febrile final culture results from the tracheal
aspirate showed new DIP steroids seen on prior culture of 21 August felt that Pseudomonas pneumonia was a an acute on chronic infection and colonization is suspected at this point/a family meeting with all caregivers. Undertaken at 11 AM on
August 27 with a consensus that the patient be placed on comfort care after she had gone a 24-hour period back on trach collar maintenance attempts were made to obtain a hospice facility placement near to family members in the [place]
area these were eventually refused by the facilities due to the lack of needed acuity after level of care and decision was finally made to transport the patient back under comfort care and hospice care management to [facility] we had discontinued
antibiotics and feeding tubes with secretions management ongoing control of blood pressure with medications given through her G-tube and Roxanol liquid for dyspnea and agitation.
Diagnosis hypoxic brain injury status postcardiac arrest
Chronic hypoxic respiratory failure with tracheostomy with recurrent tracheitis and colonization with Pseudomonas
Functional quadriplegia
Hypertension
Recent stercoral colitis
Discharge Plan
-
Patient Disposition: Skilled Nursing/SNF
Discharge Diagnosis/Procedures: Anoxic brain injury
Functional quadriplegia
Tracheostomy with trach collar secretions management
Comfort care medications through G-tube/stopped tube feedings in setting of hospice care
Colonized with Pseudomonas in sputum
Persisting febrile illness
Additional Diets: Medications through G-tube only water flushes
Referrals:
Kai Muhammad, [Family Provider] -
Prescriptions:
New
morphine concentrate 10 mg/0.5 mL Syringe
10 mg feeding tube Q4HPRN PRN (Reason: dyspnea) Qty: 1 0RF
Continued
sennosides [senna] 8.6 mg Tablet
17.6 mg feeding tube DAILY PRN (Reason: constipation)
acetaminophen 325 mg Tablet
650 mg FEEDING TUBE Q6H PRN (Reason: mild pain/temp>100.4)
docusate sodium 50 mg Capsule
50 mg PO BIDPRN PRN (Reason: constipation) Qty: 0
magnesium hydroxide [Milk of Magnesia] 400 mg/5 mL Suspension
30 ml feeding tube [id number] PRN (Reason: if no bm by 3rd day)
bisacodyl [Dulcolax (bisacodyl)] 10 mg Suppository
10 mg [place] DAILY PRN (Reason: if mom ineffective)
atropine 1 % Drops
2 drp PO Q4H PRN (Reason: increased secretions)
glycopyrrolate 2 mg Tablet
2 mg FEEDING TUBE Q8H
Lansoprazole 3mg/Ml
10 ml feeding tube DAILY
Fleet Enema 19-7 gram/118 mL Enema
118 ml [place] DAILY PRN (Reason: if dulcolax ineffective)
ipratropium-albuterol 0.5 mg-3 mg(2.5 mg base)/3 mL solution for nebulization
3 ml inhalation R BID@0600,1800
losartan 100 mg Tablet
100 mg feeding tube DAILY Qty: 30 0RF
metoprolol tartrate 100 mg Tablet
100 mg feeding tube BID Qty: 60 0RF
hydralazine 25 mg Tablet
25 mg feeding tube Q12H PRN (Reason: sbp>170) Qty: 0 0RF
Discontinued
cetirizine 5 mg Tablet
5 mg feeding tube DAILY
miconazole nitrate 2 % Powder
1 applic TOPICAL BID
Rx Instructions:
apply to abdominal folds and groin
thiamine HCl (vitamin B1) 100 mg Tablet
100 mg FEEDING TUBE MOWEFR
folic acid 1 mg Tablet
1 mg feeding tube DAILY
budesonide 0.5 mg/2 mL Suspension For Nebulization
0.5 mg inhalation R BID 30 Days Qty: 120 0RF
levofloxacin 750 mg Tablet
750 mg feeding tube DAILY Qty: 11 0RF
Patient Comments:
start 08/21/23- 08/30/23
Discharge Orders:
Discharge Patient (As Directed); Ordered 08/29/23
Ordered By: Manuel Davalos
--- NOTE | 2023-08-29 16:16 | CM ---
Patient readmitted from [facility] with Hx anoxic brain injury, trach, PEG, with Dx sepsis likely from tracheitis/ possible aspiration pneumonitis. Trach collar - RA. Per nurse assessment; unresponsive, nonverbal. Seen by
Hospice. Comfort care.
Patient accepted by [facility] for return today. The for report [phone], fax [phone].
Received phone call from daughter Sherita (cell [phone]) who asked if additional referrals could be made today to SNFs in [facility] or [facility] in [facility]. Informed her that had made an exhaustive search and numerous # of referrals
to subacute, SNF and inpatient hospices in the geographic area the patient's mother had agreed to, with no accepting facilities. Consulted Developer Programmer Analyst and informed Sherita that family would need to pay privately here if they wanted patient to stay
longer- and daughter said they were not able to do that. Advised her that patient could pursue alternate placement options with the [facility]. Sherita expressed concerns about the quality of care at [facility] however no specific complaints
were provided; advised her to speak with DON or Legal Manager at the SNF and she could also contact the [facility] with any concerns.
Plan return to [facility] today with Hospice with 11am ALS ambulance transport.
== END 2023-08-29 11:41 | DRG 871 ==
LOC: IMU 13:04
PROVIDERS: Internal Medicine Critical Care Medicine; Registered Nurse; ADMITTING PHYSICIAN Internal Medicine; ATTENDING PHYSICIAN Internal Medicine; CONSULT PHYSICIAN Internal Medicine Infectious Disease; EMERGENCY PHYSICIAN Emergency Medicine; FAMILY PHYSICIAN Internal Medicine; OTHER PHYSICIAN Internal Medicine
DX: A41.9 Sepsis, unspecified organism (principal); J15.1 Pneumonia due to Pseudomonas; R53.2 Functional quadriplegia; J69.0 Pneumonitis due to inhalation of food and vomit; G93.1 Anoxic brain damage, not elsewhere classified; E87.20 Acidosis, unspecified; J96.11 Chronic respiratory failure with hypoxia; G93.40 Encephalopathy, unspecified; J04.10 Acute tracheitis without obstruction; Z93.0 Tracheostomy status; I50.9 Heart failure, unspecified; I11.0 Hypertensive heart disease with heart failure; E66.9 Obesity, unspecified; Z66 Do not resuscitate; D50.9 Iron deficiency anemia, unspecified; F42.9 Obsessive-compulsive disorder, unspecified; Z51.5 Encounter for palliative care; J45.909 Unspecified asthma, uncomplicated; K21.9 Gastro-esophageal reflux disease without esophagitis; L89.152 Pressure ulcer of sacral region, stage 2
CPT/HCPCS: 71045; 80048; 80053; 80202; 81003; 83605; 84145; 85025; 85027; 87040; 87070; 87205; 87324; 87449; 93005; 94002; 94003; 94640; 94668; 96361; 96374; 99291

== ENCOUNTER 2023-10-03 18:04 | Inpatient (IN) | payer OTHER, SELFPAY ==
[2023-10-03] VITALS (9 sets, daily range): BP systolic 100–131; BP diastolic 73–97
--- NOTE | 2023-10-03 15:01 | ED.GENMED ---
History of Present Illness
General
Chief Complaint: Skin Problem
Time Seen by Provider: 10/03/23 14:58
History of Present Illness
History of Present Illness:
HPI: Patient has history of anoxic brain injury from cardiac arrest, quadriplegia, VDRF status post trach/PEG, recently admitted for Pseudomonas pneumonia/CHF and later had another admission for sepsis/pneumonia. She ultimately was made hospice
level of care. I spoke to Dr. Dorantes, hospice physician: The patient is currently staying at [facility] under hospice level of care however [facility] staff had wound care doctor evaluate the patient and the wound care doctor wanted patient to have
further imaging and mother therefore revoked hospice.
EXAM:
GENERAL: The patient appears chronically ill, she is febrile
HEENT: Lacks eye contact, trach present, currently on trach collar
CARDIOVASCULAR: Regular rate and rhythm
PULMONARY: No respiratory distress, breathing is nonlabored, equal and clear breath sounds
ABDOMEN: Soft and nontender with no peritoneal signs, GJ tube present with significant amount of drainage from the G port
NEUROLOGIC: The patient is nonverbal and lacks any strength in the extremities, there is some flexion contracture of the upper extremities
EXTREMITIES: No extremity movement
PYSCHIATRIC: Patient is nonverbal
BACK/SKIN: There is a large unstageable foul-smelling sacral wound
TIME OF INITIAL ENCOUNTER: 3 PM
NUMBER AND COMPLEXITY OF PROBLEMS ADDRESSED AT THE ENCOUNTER
� Chronic conditions affecting care: Anoxic brain injury, sepsis, COPD, CHF
� Acute Exacerbation and/or Progression of Chronic Illness: This is a subacute problem
� Differential Diagnosis includes: Sepsis, bacteremia, wound infection
AMOUNT AND/OR COMPLEXITY OF DATA TO BE REVIEWED AND ANALYZED
� I performed an independent evaluation of and my interpretation is:
EKG:
CT: CT suggests early stages of osteomyelitis
X-rays: Chest x-ray by my read shows no definite acute abnormality, trach noted
Laboratory Studies: White count 32.3, hemoglobin 10.4, creatinine normal,
Other:
� Review of other/old records: I reviewed the last discharge summary patient was treated as sepsis
� Clinical information was obtained by an independent historian: I spoke with Dr. Dorantes
� Prescriptions/Medications Considered but not given:
� Further testing considered but not performed:
RISK OF COMPLICATIONS AND/OR MORBIDITY OR MORTALITY OF PATIENT MANAGEMENT
� Social determinants of health affecting care: Currently at [facility] revoking hospice
� Discussion with other providers: See above; I discussed with Dr. Dorantes and he offered to answer any other questions�cell phone [phone]; hospitalist for admission
� Escalation of care including admission/observation vs risk of discharge considered: The patient appears chronically ill but she is acutely septic as she is currently febrile and tachycardic. I personally gave rectal Tylenol
and of ordered IV fluids. Will give broad-spectrum antibiotics. Likely source of infection is the sacral wound. According to Dr. Dorantes, family wants to revoke hospice and want her to be aggressively treated.
Past History
Past History
ED Past Medical History: Asthma, CHF, GERD, HTN and Other (cardiac arrest, PNA, Iron def anemia, traumatic brain injury, sepsis, Pseudomonas respiratory culture positive)
ED Past Surgical History: Other (Trach)
Social History
Tobacco: Non-smoker
Alcohol: None
Drug: None
Personal: Single
Living: half-way
Employment: Not employed
Family History
Family History: Unable to obtain
Phy Exam
Physical Exam
Physical Exam:
See HPI
Course
Orders/Labs/Results
Orders:
Orders
10/03/23 15:12
Acetaminophen [Tylenol/Feverall] 650 mg .ROUTE .STK-MED ONE
10/03/23 15:23
CT Pelvis W/o Iv Contrast Urgent
Comment:
Reason For Exam: eval sacrum wound for osteomyelitis
0.9% Sodium Chloride 1000 ml [Nss] 1,000 ml IV BOLUS
Piperacillin/Tazo 3.375 Gram [Zosyn] 3.375 gram in 50 ml IV NOW
10/03/23 15:26
CR Chest Portable - 1 View Urgent
Comment:
Reason For Exam: sepsis
Reason Study Needs to be Portable: Unable to Transport
10/03/23 15:27
Acetaminophen [Tylenol/Feverall] 650 mg RECTAL NOW STA
10/03/23 15:28
COVID-19 Antigen Urgent
Source: Nasal Swab
Complete Blood Count/With Diff Urgent
Comprehensive Metabolic Panel Urgent
Lactic Acid Q4H
Comment: CANCEL 2nd LACTIC ACID IF 1st LACTIC ACID IS LESS THAN 2
Blood Culture Q30M
VICK Source: Blood/Venous
Specimen Description:
Influenza A+B Rapid Molecular Urgent
VICK Source: Nasal Swab
Specimen Description:
10/03/23 15:38
Blood Culture Q30M
VICK Source: Blood/Venous
Specimen Description:
10/03/23 16:00
Vancomycin [Vancocin] 2,000 mg 0.9% Sodium Chloride 500 ml [Nss] 500 ml IV NOW
10/03/23 17:26
Admit/Transfer Patient As Directed
Co-Sign Provider:
Level of Care: Inpatient admission
Assign to:: IMU- Intermediate Care
Physician / Group: scottie dale
Diagnosis: sepsis
Reason for Hospitalization: sepsis
Expected length of stay greater than two midnights?: Yes
ELOS- Estimated Length of Stay in days: 3
I certify the patient meets the requirements for IP care: Yes
10/03/23 17:28
Code Status As Directed
Resuscitation Status: Do not resuscitate
Reached after discussion with pt or family/Healthcare POA: Yes
DNR Bracelet Application ONCE
10/03/23 17:44
Code Status As Directed
Resuscitation Status: Full Code
Reached after discussion with pt or family/Healthcare POA: Yes
10/03/23 19:30
Lactic Acid Q4H
Comment: CANCEL 2nd LACTIC ACID IF 1st LACTIC ACID IS LESS THAN 2
Abnormal Lab Results
10/03/23
15:28
WBC 32.3 H 10^3/uL
(4.8-10.8)
RBC 3.89 L 10^6/uL
(4.20-5.40)
Hgb 10.4 L g/dL
(12.0-16.0)
Hct 32.3 L %
(37.0-47.0)
MCH 26.7 L pg
(27.0-31.0)
MCHC 32.2 L g/dL
(33.0-37.0)
RDW 15.1 H %
(11.5-14.5)
MPV 11.2 H fL
(7.4-10.4)
Abs Immat Gran (auto) 0.3 H 10^3/uL
(0-0.05)
Absolute Neuts (auto) 26.8 H 10^3/uL
(1.4-6.5)
Absolute Monos (auto) 1.8 H 10^3/uL
(0.1-0.6)
Immature Gran % 1.1 H %
(0-0.5)
Neutrophils % 82.8 H %
(42.2-75.2)
Lymphocytes % 10.0 L %
(20.5-51.1)
BUN 19 H mg/dl
(7-17)
Creatinine 0.4 L mg/dL
(0.6-1.0)
Glucose 137 H mg/dl
(70-99)
Lactic Acid 3.1 H mmol/L
(0.7-2.0)
AST 74 H U/L
(14-36)
ALT 94 H U/L
(0-35)
Alkaline Phosphatase 215 H U/L
(38-126)
10/03/23 15:28
10/03/23 15:28
Vital Signs
Initial and Last Documented VS:
Initial Vital Signs
Pulse Resp Pulse Ox
141 30 100
10/03/23 14:54 10/03/23 14:54 10/03/23 14:54
Last Documented Vital Signs
Temp Pulse Resp BP Pulse Ox
101.6 F H 137 27 100/80 94
10/03/23 15:01 10/03/23 16:54 10/03/23 16:54 10/03/23 16:00 10/03/23 16:30
*Critical Care Note
Total Time (30-74mins, 75-104mins- exclusive of procedures): Not Applicable
ED Attending Note
-
Portions of this chart may have been created with voice recognition software.� Occasional wrong word or��sound alike� substitutions may have occurred due to the inherent limitations of voice recognition software.
Discharge Plan
Departure
Patient Disposition: Admit
Date of Disposition: 10/03/23
Time of Disposition: 16:07
Presentation/result/management discussed w/ accepting MD/DO: Hospitalist
Discharge Problem:
Sepsis
Prescriptions:
No Action
sennosides [senna] 8.6 mg Tablet
17.6 mg feeding tube DAILY PRN (Reason: constipation)
acetaminophen 325 mg Tablet
650 mg FEEDING TUBE Q6H PRN (Reason: mild pain/temp>100.4)
magnesium hydroxide [Milk of Magnesia] 400 mg/5 mL Suspension
30 ml feeding tube [id number] PRN (Reason: if no bm by 3rd day)
bisacodyl [Dulcolax (bisacodyl)] 10 mg Suppository
10 mg [place] DAILY PRN (Reason: if mom ineffective)
atropine 1 % Drops
2 drp PO Q4H PRN (Reason: increased secretions)
Fleet Enema 19-7 gram/118 mL Enema
118 ml [place] DAILY PRN (Reason: if dulcolax ineffective)
morphine concentrate 10 mg/0.5 mL Syringe
10 mg feeding tube Q4HPRN PRN (Reason: dyspnea) Qty: 1 0RF
acetaminophen 650 mg Suppository
650 mg [place] Q8H PRN (Reason: mild pain/temp>100.4)
ondansetron HCl [Zofran] 4 mg Tablet
4 mg feeding tube Q6H PRN (Reason: nausea)
miconazole nitrate 2 % Powder
1 applic TOPICAL BID
Rx Instructions:
apply to abdominal folds/groin
scopolamine base 1 mg over 3 days Patch 3 Day
1 patch TRANSDERMAL Q3D
atropine 1 % drops
2 drp PO Q4H
lorazepam [Lorazepam Intensol] 2 mg/mL Concentrate
0.5 mg FEEDING TUBE Q4H PRN (Reason: anxiety)
Flagyl 500 mg tablet
1 applic topical HS
Patient Comments:
for wound care R/T odor in wound
LG 10/03/23: on half-way list it is listed as a tablet for topical administration starting on 09/30/23
docusate sodium
1 tab feeding tube Q12H PRN (Reason: constipation)
docusate sodium 50 mg tablet
50 mg feeding tube DAILY
Referrals:
Kai Muhammad, [Family Provider] -
Interventions
Interventions:
*Risk Screen - Suicide Last Done: 10/03/23 15:10
*General Assessment Last Done: 10/03/23 15:06
*Neglect/Abuse Screening Last Done: 10/03/23 15:07
ED- Fall Risk Assessment Last Done: 10/03/23 15:10
*ED COVID-19 Vaccine History Last Done: 10/03/23 15:06
ED-Skin Assessment Last Done: 10/03/23 15:18
Discharge Date and Time
Print Language: GUINEAN
--- NOTE | 2023-10-03 15:17 | RESPNOTE ---
patient was received from [facility] 1oo % nrb mask on trach, patient wears 6 liters at facility where she lives, She was placed on 50 % trachcollar humdified, sao2=99%
[2023-10-03] MEDS: ZOSYN 50 IV ×2 (15:33→22:05)
[2023-10-03] MEDS: NSS 1000 IV ×2 (15:33→21:48)
[2023-10-03] MEDS: TYLENOL/FEVERALL 650 MG RECTAL ×2 (15:33→22:13)
[2023-10-03 15:39] LABS: % Basophils 0.3 % (0-2); % Eosinophils 0.4 % (0-6); % Immature Granulocytes 1.1 % (0-0.5); % Monocytes 5.4 % (1.7-9.3); % Neutrophils 82.8 % (42.2-75.2); Absolute Basophils 0.1 10^3/uL (0-0.2); Absolute Eosinophils 0.1 10^3/uL (0-0.7); Absolute Immature Granulocytes 0.3 10^3/uL (0-0.05); Absolute Lymphocytes 3.2 10^3/uL (1.2-3.4); Absolute Monocytes 1.8 10^3/uL (0.1-0.6); Absolute Neutrophils 26.8 10^3/uL (1.4-6.5); Hematocrit 32.3 % (37.0-47.0); Hemoglobin 10.4 g/dL (12.0-16.0); Mean Corp Hgb Conc. 32.2 g/dL (33.0-37.0); Mean Corpuscular Hgb 26.7 pg (27.0-31.0); Mean Platelet Volume 11.2 fL (7.4-10.4); Nucleated Red Blood Cells % 0 %; Platelet Count 392 10^3/uL (130-400); Red Blood Cell Count 3.89 10^6/uL (4.20-5.40); Red Cell Dist. Width 15.1 % (11.5-14.5); White Blood Cell Count 32.3 10^3/uL (4.8-10.8)
[2023-10-03 16:00] LABS: COVID-19 Antigen Negative (Negative)
[2023-10-03 16:03] LABS: Lactic Acid 3.1 mmol/L (0.7-2.0)
[2023-10-03] MEDS: VANCOCIN 540 MG IV (16:23)
[2023-10-03 16:35] LABS: ALT (SGPT) 94 U/L (0-35); AST (SGOT) 74 U/L (14-36); Albumin 3.7 g/dl (3.5-5.0); Alkaline Phosphatase 215 U/L (38-126); Blood Urea Nitrogen 19 mg/dl (7-17); Calcium 9.3 mg/dl (8.4-10.2); Carbon Dioxide 26 mmol/L (22-30); Chloride 105 mmol/L (98-107); Glucose 137 mg/dl (70-99); Potassium 4.5 mmol/L (3.5-5.1); Sodium 141 mmol/L (135-145); Total Bilirubin 1.2 mg/dl (0.2-1.3); Total Protein 8.1 g/dl (6.3-8.2); eGFR > 60.00
--- NOTE | 2023-10-03 17:09 | HPS.HSE ---
Family Physician
-
Family Physician: Kai Muhammad, DO
Chief Complaint
-
wound
History of Present Illness
Patient has history of anoxic brain injury from cardiac arrest, quadriplegia, VDRF status post trach/PEG, recently admitted for Pseudomonas pneumonia/CHF ,sepsis/pneumonia presented to us with sacral wound. ROS limited.
noted to have fever, tachycardia and elevated wbc. received a dose of vanco and Zosyn in ER. admitting for further management.
last admission, she was sent on hospice. The patient is currently staying at [facility] under hospice level of care however [facility] staff had wound care doctor evaluate the patient and the wound care doctor wanted patient to have further imaging
and mother therefore revoked hospice.
Medical History
Past Medical History
Past Medical History: Reports Other
Additional Past Medical History:
Cardiac Arrest - Uncertain Etiology
Anoxic Brain Injury secondary to the above
Tracheostomy Status
PEG-Dependent
Hypertension
Obesity
OCD
Past Surgical History: Reports Other
Additional Past Surgical History:
tracheostomy
peg tube placement
Social History
Tobacco: Former Smoker
Alcohol: Former
Drug: None
Personal: Single
Living: Intermediate
Family History
Family History: Not pertinent
Allergies / Home Medications
Allergies reflects when Allergies were last updated in [facility].
Home Medications with original date entered in [facility]
Allergy/Medication List:
Allergies
Allergy/AdvReac Type Severity Reaction Status Date / Time
No Known Allergies Allergy Verified 08/21/23 09:42
Home Medications
acetaminophen 325 mg tablet 650 mg feeding tube Q6H PRN mild pain/temp>100.4 07/23/23
atropine 1 % eye drops 2 drp PO Q4H PRN increased secretions 07/23/23
bisacodyl 10 mg rectal suppository (Dulcolax (bisacodyl)) 10 mg DE DAILY PRN if mom ineffective 07/23/23
magnesium hydroxide 400 mg/5 mL oral suspension (Milk of Magnesia) 30 ml feeding tube [id number] PRN if no bm by 3rd day 07/23/23
sennosides 8.6 mg tablet (senna) 17.6 mg feeding tube DAILY PRN constipation 07/23/23
sodium phosphates 19 gram-7 gram/118 mL enema (Fleet Enema) 118 ml DE DAILY PRN if dulcolax ineffective 07/31/23
morphine concentrate 10 mg/0.5 mL oral syringe (FOR ORAL USE ONLY) 10 mg (0.5 mL) feeding tube Q4HPRN PRN dyspnea #1 ea 08/29/23
Flagyl 1 applic topical HS 10/03/23
acetaminophen 650 mg rectal suppository 650 mg DE Q8H PRN mild pain/temp>100.4 10/03/23
atropine 1 % eye drops 2 drp PO Q4H 10/03/23
docusate sodium 1 tab feeding tube Q12H PRN constipation 10/03/23
docusate sodium 50 mg feeding tube DAILY 10/03/23
lorazepam 2 mg/mL oral concentrate (Lorazepam Intensol) 0.5 mg feeding tube Q4H PRN anxiety 10/03/23
miconazole nitrate 2 % topical powder 1 applic topical BID 10/03/23
ondansetron HCl 4 mg tablet 4 mg feeding tube Q6H PRN nausea 10/03/23
scopolamine base 1 mg over 3 days transdermal patch 1 patch transdermal Q3D 10/03/23
Review of Systems
-
Unable to obtain full review of systems at this time due to: Acuity
Physical Exam
Vital Signs
Vital Signs
Temp Pulse Resp BP Pulse Ox
101.6 F H 137 27 100/80 94
10/03/23 15:01 10/03/23 16:54 10/03/23 16:54 10/03/23 16:00 10/03/23 16:30
Physical Exam
General: Well Developed, Well Nourished and No Apparent Distress
HEENT: NormoCephalic, Moist mucous membranes and Atraumatic
Respiratory: Clear
Cardiac: S1/S2 and Regular Rhythm; No Murmur or Rub
GI: Soft, Non Tender, Non Distended and Normal Bowel Sounds; No Organomegaly
Rectal: Deferred by Provider
Musculoskeletal: No Clubbing, No Cyanosis and No Edema
Skin: Rash and Decubitus Ulcers (sacral wound)
Laboratory Results
-
10/03/23 15:28
10/03/23 15:28
Laboratory Results
Lactic Acid 3.1 mmol/L (0.7-2.0) H 10/03/23 15:28
Total Bilirubin 1.2 mg/dl (0.2-1.3) 10/03/23 15:28
AST 74 U/L (14-36) H 10/03/23 15:28
ALT 94 U/L (0-35) H 10/03/23 15:28
Alkaline Phosphatase 215 U/L (38-126) H 10/03/23 15:28
Data Reviewed
-
Lab Data: Labs Reviewed by me
Impression/Plan
-
# Sepsis likely from sacral wound
-WBC is 32, tachycardia, temp 101.6
-Vanco and Zosyn continued
-CT pending
-Surgery consulted
-Wound care consulted
-Fluids continued
-Trend WBCs
-Blood culture sent from ER
-Tylenol as needed for fever
-ID consulted
# Anemia of chronic disease
-Hemoglobin stable at 10.4
-Continue to monitor
# Acute LFT elevation likely from acute infection
-AST and ALT high
-Continue to trend liver enzymes
#Anoxic Brain Injury/functional quadriplegia
#History of Cardiac Arrest
#Chronic Encephalopathy secondary to the above
�- Continue supportive measures including O2, repositioning, trach care
�- Continue tube feeds.
#Benign Hypertension
�- Stable.�
#DVT Prophylaxis:� Lovenox
#Code Status:� full code
--- NOTE | 2023-10-03 18:07 | W.PN.UPDATE ---
Update Note
Progress Note Update
This addendum is in reference to history and physical noted by Kelsey Mora on October 03, 2023
Patient seen and examined independently--agree with findings as set forth
GENERAL: well developed, well nourished, female in no apparent distress
HEENT: flushed face, trach collar on room air humidified
HEART: regular rate and rhythm, +S1, +S2--tachycardic
LUNGS : clear to auscultation bilaterally
ABDOM: soft, nontender, nondistended, + bowel sounds Peg tube
EXT: no cyanosis, clubbing, or edema--bilateral plantar foot droop
NEUROLOGIC: non-verbal, contracted hands--bilateral plantar foot droop
: no rouse--uses diapers
SKIN: large sacral decubitus ulcer --reviewed picture sent from ED physician
Sepsis likely from sacral wound, WBC 32K, Lactic acid 3.1--CT scan concerning for osteomyelitis--ADMIT to IMU--cont vanco/zosyn/IVF--consult ID and surgery--may need debridement--follow blood and wound cultures--consider rouse cath to divert urine
Anemia of chronic disease--Hemoglobin stable at 10.4
Acute LFT elevation likely from acute infection--follow
Anoxic Brain Injury/functional quadriplegia/History of Cardiac Arrest/Chronic Encephalopathy secondary to the above�- Continue supportive measures including O2, repositioning, trach care
- Continue tube feeds.
Essential Hypertension- Stable.�
DVT Prophylaxis:� Lovenox
Code Status:� full code--reports are that her mother revoked hospice for treatment--also reportedly wants pt in a facility closer to her in [place]
[2023-10-03 20:21] LABS: Lactic Acid 1.8 mmol/L (0.7-2.0)
[2023-10-03] MEDS: ATROPINE SULFATE 1% DROPS 1 DROP SL (21:51)
[2023-10-03] MEDS: DESENEX/MITRAZOL/ZEASORB 1 APPLIC TOPICAL (21:51)
[2023-10-03] MEDS: TRANSDERM-SCOP 1 PATCH TRANSDERM (22:10)
--- NOTE | 2023-10-03 22:25 | PTCARENOTE ---
Patient arrived to room 3354. Non verbal, opens eyes. Does not follow commands. Pt flinched when staff wiped her down with CHG wipes. Withdrawls to pain at times. RT at bedside, placed pt to trach collar. Tele showing sinus tach HR 130-140s. Pt was
found to be febrile 101. Rectal tylenol given. STRADDLE CARRIER OPERATOR made aware. EKG done. Sacral wound care done. G/J tube intact; G tube to gravity draining brown fluid. Heels floated. Pt turned q2 hours. Purewick placed, jackie care done, powder applied. RN sitting
outside closest nursing station.
Pt has a DNR bracelet on but FULL code ordered in chart.
[2023-10-04] VITALS (12 sets, daily range): BP systolic 96–123; BP diastolic 59–96
--- NOTE | 2023-10-04 00:18 | PTCARENOTE ---
Pt continues to be febrile 101.3 post tylenol administration. Pt is visibly flushed and feels warm to the touch. SHEET METAL ERECTOR aware and ordered cooling blanket.
[2023-10-04] MEDS: ATROPINE SULFATE 1% DROPS 1 DROP SL ×4 (02:06→13:05)
[2023-10-04] MEDS: ZOSYN 50 IV ×4 (04:38→21:56)
[2023-10-04 05:30] LABS: Hematocrit 33.2 % (37.0-47.0); Hemoglobin 10.6 g/dL (12.0-16.0); Mean Corp Hgb Conc. 31.9 g/dL (33.0-37.0); Mean Corpuscular Hgb 26.9 pg (27.0-31.0); Mean Corpuscular Volume 84.3 fL (81.0-99.0); Mean Platelet Volume 11.7 fL (7.4-10.4); Platelet Count 410 10^3/uL (130-400); Red Blood Cell Count 3.94 10^6/uL (4.20-5.40); Red Cell Dist. Width 15.3 % (11.5-14.5); White Blood Cell Count 27.3 10^3/uL (4.8-10.8)
[2023-10-04 05:53] LABS: Vancomycin Random 18.8 ug/ml
[2023-10-04 06:00] LABS: Blood Urea Nitrogen 23 mg/dl (7-17); Calcium 9.3 mg/dl (8.4-10.2); Carbon Dioxide 24 mmol/L (22-30); Chloride 107 mmol/L (98-107); Glucose 114 mg/dl (70-99); Potassium 4.9 mmol/L (3.5-5.1); Sodium 144 mmol/L (135-145); eGFR > 60.00
--- NOTE | 2023-10-04 08:22 | W.PN.HOSP.TC ---
Today's Communication/Plan
-
await ID and surgery input
cont vanco/zosyn
cont supportive care
d/c planning
Assessment / Plan
Assessment / Plan
pt is a 38 year old female
Sepsis likely from sacral wound-- WBC 32K, Lactic acid 3.1 to 1.8--CT scan concerning for osteomyelitis---cont vanco/zosyn/IVF--await ID and surgery--may need debridement-- blood and wound cultures pending--consider rouse cath to divert urine
Anemia of chronic disease--Hemoglobin stable at 10.4
Acute LFT elevation likely from acute infection--follow
Anoxic Brain Injury/functional quadriplegia/History of Cardiac Arrest/Chronic Encephalopathy secondary to the above�- Continue supportive measures including O2, repositioning, trach care- Continue tube feeds.
sinus tachycardia--likely combination of fever, infection--no improvement with IVF
Essential Hypertension- Stable.�
DVT Prophylaxis:� Lovenox
Code Status:� full code--reports are that her mother revoked hospice for treatment--also reportedly wants pt in a facility closer to her in [place]-- per ED physician documentation: [facility] staff had wound care doctor evaluate the patient and
the wound care doctor wanted patient to have further imaging and mother therefore revoked hospice.
Anticipated Discharge: > 48 hours
Subjective/Interval History
-
Date of Service: October 04, 2023
pt nonverbal, functional quadriplegia
Objective Data
-
Labs:
Laboratory Results
10/04/23
04:50
WBC 27.3 H
Hgb 10.6 L
Hct 33.2 L
Plt Count 410 H
Sodium 144
Potassium 4.9
Chloride 107
Carbon Dioxide 24
BUN 23 H
Creatinine 0.9
Glucose 114 H
Calcium 9.3
Vital Signs:
max temp for 24 hours
10/03/23
15:01
Temp 101.6 F H
Vital Signs
Temp Pulse Resp BP Pulse Ox
100.3 F 126 22 121/96 100
10/04/23 06:00 10/04/23 06:00 10/04/23 06:00 10/04/23 06:00 10/04/23 08:20
I&O
10/03/23 10/04/23 10/05/23
06:59 06:59 06:59
Intake Total 664 / 664
Output Total 525 / 525
Balance 139 / 139
Review of Systems
-
Unable to obtain full review of systems at this time due to: Patient Non-verbal
Physical Exam
-
General: Well Developed, Well Nourished and No Apparent Distress
HEENT: Normocephalic, Atraumatic and Other (trach collar on room air)
Respiratory: Clear to Auscultation; Negative Wheezes, Rales, Rhonchi or Crackles
Cardiac: Regular Rhythm, S1/S2 and Tachycardic
GI: Soft, Nontender, Nondistended, Normal Bowel Sounds and Peg Tube (G tube to gravity, J tube with tube feeds)
Musculoskeletal: No Clubbing, No Cyanosis and No Edema
Neuro: Awake (eyes open--functional quadriplegia--contacted hands, bilateral foot drop)
Psych: Calm
--- NOTE | 2023-10-04 08:39 | CON.ID ---
Consultation
-
Date/Time Consultation Requested: 10/03/20232045
Date/Time Consultation Performed: 10/04/2023 08:20
Requesting Provider: Kelsey Mora
Performing Provider: Dr. Gilbert
Reason for Consultation: Sacral wound; sepsis
Chief Complaint / Past History
History of Present Illness
Sven Yee is a 38-year-old female being evaluated at the request of Kelsey Mora in regards to leukocytosis and suspected sepsis. History is obtained from chart review alone as the patient has a significant past medical history of anoxic brain
injury and is currently noncommunicative.
The patient is known to the Infectious Diseases service, having been seen in mid July 2023 for leukocytosis and fever. She was a recent inpatient at [facility] from 08/15 through 08/20, during which time she was treated for
tracheobronchitis with cefepime from 08/15 through 08/19, and then switched to levofloxacin to continue with a course of therapy. She presented back to the hospital on 08/21 with concerns for pneumonia and was seen through 08/28 when she was transferred
to hospice-level care at a local nursing facility ([facility]).
She presents back to the emergency room yesterday in regards to sepsis. According to reviewed notes, the wound care provider at the facility desired further imaging of the large sacral wound, spoke with the patient's mother, who then revoked
hospice and sent her to the emergency room for further evaluation. Here, the patient was found to be febrile and have a marked leukocytosis. She has been started on empiric antibiotics, and Infectious Diseases is asked to manage further
antimicrobial therapy.
Past History
Additional Past Medical History:
Hx cardiac arrest with anoxic encephalopathy
Asthma
CHF
GERD
HTN
Hx PNA
Anemia
Sacral decubidi
Additional Past Surgical History:
Tracheostomy
PEG
Allergy History:
No Known Allergies Allergy (Verified 08/21/23 09:42)
Medications Reviewed: Yes
Current Antibiotics:
Vancomycin
Zosyn
Social History
Tobacco: Non-Smoker
Drug: None
Personal: Single
Living: Retirement
Employment: Disabled
Family History
Family History: Unable to Obtain
Review of Systems
Vital Signs
Temp Pulse Resp BP Pulse Ox
100.3 F 126 22 121/96 100
10/04/23 06:00 10/04/23 06:00 10/04/23 06:00 10/04/23 06:00 10/04/23 08:20
Physical Exam
Physical Exam
Constitutional: Comfortable, Acutely Ill and Chronically Ill
Eyes: Pupils Equal, Pupils Round, No Conjunctival Hemorrhage and Sclera Anicteric
Pharynx: Other (Tracheostomy in place with collar)
Oral: No Thrush and No Ulcers
Cardiovascular: Regular Rate and S1/S2; Negative S3/S4
Pulmonary: Rhonchi (Few; scattered), Coarse and Other
Gastrointestinal: Soft, Non Distended, Normal Bowel Sounds, No Rebound and No Guarding
Wound: Other (Large and extensive sacral decubiti with malodor. Bone visible)
Neurological: Other (Opens eyes, but is noncommunicative, nonverbal, and does not respond to questions or follow commands.)
.
Lab / Diagnostic Study Results
10/04/23 04:50
10/04/23 04:50
Abs Immat Gran (auto) 0.3 10^3/uL (0-0.05) H 10/03/23 15:28
Absolute Neuts (auto) 26.8 10^3/uL (1.4-6.5) H 10/03/23 15:28
Absolute Lymphs (auto) 3.2 10^3/uL (1.2-3.4) 10/03/23 15:28
Absolute Monos (auto) 1.8 10^3/uL (0.1-0.6) H 10/03/23 15:28
Absolute Basos (auto) 0.1 10^3/uL (0-0.2) 10/03/23 15:28
Immature Gran % 1.1 % (0-0.5) H 10/03/23 15:28
Neutrophils % 82.8 % (42.2-75.2) H 10/03/23 15:
Lymphocytes % 10.0 % (20.5-51.1) L 10/03/23 15:28
Monocytes % 5.4 % (1.7-9.3) 10/03/23 15:
Eosinophils % 0.4 % (0-6) 10/03/23 15:
Basophils % 0.3 % (0-2) 10/03/23 15:
Lactic Acid 1.8 mmol/L (0.7-2.0) 10/03/23 20:04
Microbiology Results
Micro:
10/04/23 04:50 MRSA Screen - Pending
Nose
10/03/23 18:21 Wound Culture - Pending
Sacral Gram Stain - Preliminary
10/03/23 15:38 Blood Culture - Pending
Blood/Venous
10/03/23 15:28 Influenza Types A & B (SEBASTIÁN) - Final
Nasal Swab Negative for Influenza A & B, NAAT
Negative results must be combined with clinical observations
and patient history.
Nucleic Acid Amplification test (NAAT)performed on the
[employer] NOW platform.
10/03/23 15:28 Blood Culture - Pending
Blood/Venous
Imaging:
10/03/2023 CXR (portable): No acute infiltrates or acute cardiopulmonary process noted.
Assessment / Plan
Fever
Leukocytosis
Stage IV sacral decubiti with osteomyelitis (based upon exposed bone)
Hx cardiac arrest with anoxic encephalopathy
Asthma
CHF
GERD
HTN
Hx PNA
Anemia
Recommendations:
Continue with current empiric antibiotics.
Continue with local care to the sacral decubiti. Will change wet-to-dry to Dakin's solution.
May consider surgical evaluation for local debridement, but unfortunately there is little more to do at this point. As noted on previous evaluations, given the patient's underlying comorbidities (profound anoxic encephalopathy), her overall
long-term outlook is nonexistent for any realistic quality of life.
No role for further workup of sacral area regarding osteomyelitis as the wound is extensive, and is unlikely to close. Without wound coverage (i.e., with extensive surgery and flap coverage, along with specialty bed care to protect flap, along with
other modalities of offloading to also protect flap) treatment of osteomyelitis is futile.
Further interventions are not likely to change overall prognosis, and only serve to prolong patient's eventual passing.
Would recommend transition back to hospice.
Care Review
Plan reviewed with: Physician (Hospitalist)
--- NOTE | 2023-10-04 08:54 | PHA.VAN.IN ---
Assessment
- Assessment
Renal Function: Appears elevated from baseline (Pt likely will not follow population PK with her comorbities.)
Maximum Temperature: 101.6
Minimum Temperature: 100.3
Concomitant Antimicrobials: Piperacillin-tazobactam
Plan
- Plan
Initial / Loading Dose: Vanc 2gm IV 10/03/2023 at 1623
Maintenance Regimen: Dose by level
Monitoring: R = 18.8 ~12.5hrs post Vanc 2gm. No Vanc today. R 10/04 AM
Pharmacokinetics Vancomycin I
- -
Patient Age: 38
Patient Sex: Female
Vancomycin Day #: 1
Indication: Skin And Soft Tissue
Requesting Provider: Kelsey Mora
Height / Weight:
Height 5 ft 5 in
Actual Weight 83.3 kg
IBW in k
Adjusted BW in k.5
Pertinent Past Medical History: Anoxic brain injury; quadriplegia
- Vital Signs / Lab Results
Temp Pulse Resp BP Pulse Ox
100.3 F 126 22 121/96 100
10/04/23 06:00 10/04/23 06:00 10/04/23 06:00 10/04/23 06:00 10/04/23 08:20
Lab Results - Hematology
10/03/23 10/04/23
15:28 04:50
WBC 32.3 H 27.3 H
Lab Results - Chemistry
10/03/23 10/04/23
15:28 04:50
BUN 19 H 23 H
Creatinine 0.4 L 0.9
Albumin 3.7
10/03/23 10/03/23
15:28 20:04
Lactic Acid 3.1 H 1.8
Microbiology Results
10/03/23 18:21 Gram Stain - Preliminary
Sacral
10/03/23 15:28 Influenza Types A & B (SEBASTIÁN) - Final
Nasal Swab Negative for Influenza A & B, NAAT
Negative results must be combined with clinical observations
and patient history.
Nucleic Acid Amplification test (NAAT)performed on the
[employer] NOW platform.
[2023-10-04] MEDS: NSS 1000 IV ×2 (10:14→21:58)
[2023-10-04] MEDS: COLACE LIQUID 50 MG TUBE (10:16)
[2023-10-04] MEDS: SANTYL OINTMENT 1 APPLIC TOPICAL (10:16)
[2023-10-04] MEDS: DESENEX/MITRAZOL/ZEASORB 1 APPLIC TOPICAL ×2 (10:17→21:55)
[2023-10-04] MEDS: TYLENOL ORAL SOLUTION 650 MG TUBE (13:04)
--- NOTE | 2023-10-04 13:19 | CON.GS ---
Addendum entered and electronically signed by Axel Hinds MD 10/04/23 14:28:
Mother contacted by phone. She is disabled and lives 90 mins away, she is concerned she may not be able to visit in person. She has insight into her daughter's condition and understands this wound is unlikely to ever heal. I advised her to work with
to determine the best next place for her when she is well enough for DC, as the mother does not wish for her to return to [facility].
Addendum entered and electronically signed by Axel Hinds MD 10/04/23 14:15:
I saw and examined the patient.
The [facility]'s note was reviewed and I agree with the note.
Comment: Non verbal pt, does not respond to questions, does grimace for pain; stage IV sacral pressure wound with moslty clean granulating tissue in the wound base, the sacrum itself is becoming necrotic. There does not appear to be a need for soft
tissue debridement at this time but would benefit from santyl, dakins and local wound care with off loading and nutritional support.
Original Note:
Consultation
-
Date/Time Consultation Requested: 10/03/23 0916
Date/Time Consultation Performed: 10/04/23 0930
Requesting Provider: Morgan
Performing Provider: Patti
Reason for Consultation: wound
Medical History
-
Chief Complaint: wound
History of Present Illness:
This is a 38 yo female with h/o anoxic brain injury with cardiopulmonary arrest maintained with Trach for VDRF and PEG for feedings who has been on hospice care at [facility] which was revoked by the patient's mother with transfer to for
management of sacral ulcer. She is unable to participate in care, but does open eyes to stimuli. There is a large sacral decubitus present down to bone noted on exam with drainage of odorous malhotra/serous fluid on dressing. Leukocytosis and elevated
lactic acid noted on presentation but now improving. She is febrile and on cooling protocols with tachycardia noted as well.
Past Medical History
Past Medical History: Asthma, CHF, GERD and Other (Cardiopulmonary arrest with anoxic brain injury with VDRF, anemia, stage 4 sacral decubitus ulcer)
Past Surgical History: Other (Trach/Peg)
Social History
Living: [facility] ([facility])
Family History
Family History: Reviewed & Not Pertinent
Allergies / Home Medications
Allergy/AdvReac Type Severity Reaction Status Date / Time
No Known Allergies Allergy Verified 08/21/23 09:42
�Medication �Instructions �Recorded �Confirmed �Type
acetaminophen 325 mg tablet 650 mg feeding tube Q6H PRN mild 07/23/23 10/03/23 History
pain/temp>100.4
atropine 1 % eye drops 2 drp PO Q4H PRN increased 07/23/23 10/03/23 History
secretions
bisacodyl 10 mg rectal suppository 10 mg MI DAILY PRN if mom 07/23/23 10/03/23 History
(Dulcolax (bisacodyl)) ineffective
magnesium hydroxide 400 mg/5 mL 30 ml feeding tube [id number] PRN if 07/23/23 10/03/23 History
oral suspension (Milk of Magnesia) no bm by 3rd day
sennosides 8.6 mg tablet (senna) 17.6 mg feeding tube DAILY PRN 07/23/23 10/03/23 History
constipation
sodium phosphates 19 gram-7 118 ml MI DAILY PRN if dulcolax 07/31/23 10/03/23 History
gram/118 mL enema (Fleet Enema) ineffective
morphine concentrate 10 mg/0.5 mL 10 mg (0.5 mL) feeding tube Q4HPRN 08/29/23 10/03/23 Rx
oral syringe (FOR ORAL USE ONLY) PRN dyspnea #1 ea
Flagyl 1 applic topical HS 10/03/23 10/03/23 History
acetaminophen 650 mg rectal 650 mg MI Q8H PRN mild 10/03/23 10/03/23 History
suppository pain/temp>100.4
atropine 1 % eye drops 2 drp PO Q4H 10/03/23 10/03/23 History
docusate sodium 1 tab feeding tube Q12H PRN 10/03/23 10/03/23 History
constipation
docusate sodium 50 mg feeding tube DAILY 10/03/23 10/03/23 History
lorazepam 2 mg/mL oral concentrate 0.5 mg feeding tube Q4H PRN anxiety 10/03/23 10/03/23 History
(Lorazepam Intensol)
miconazole nitrate 2 % topical 1 applic topical BID 10/03/23 10/03/23 History
powder
ondansetron HCl 4 mg tablet 4 mg feeding tube Q6H PRN nausea 10/03/23 10/03/23 History
scopolamine base 1 mg over 3 days 1 patch transdermal Q3D 10/03/23 10/03/23 History
transdermal patch
Review of Systems
-
Unable to obtain full review of systems at this time due to: Patient Non Verbal
A 10 point review of systems was completed, and was negative except as per HPI.
Physical Exam
Vital Signs
Temp Pulse Resp BP Pulse Ox
101.4 F H 132 31 99/59 100
10/04/23 13:00 10/04/23 12:00 10/04/23 12:00 10/04/23 12:00 10/04/23 10:00
10/03/23 10/04/23 10/05/23
06:59 06:59 06:59
Actual Weight 83.3 kg 83.3 kg
Lab Results
10/04/23 04:50
10/04/23 04:50
WBC 27.3 10^3/uL (4.8-10.8) H 10/04/23 04:50
Hgb 10.6 g/dL (12.0-16.0) L 10/04/23 04:50
Hct 33.2 % (37.0-47.0) L 10/04/23 04:50
Plt Count 410 10^3/uL (130-400) H 10/04/23 04:50
Abs Immat Gran (auto) 0.3 10^3/uL (0-0.05) H 10/03/23 15:28
Neutrophils % 82.8 % (42.2-75.2) H 10/03/23 15:28
Physical Exam
General: Intubated (VDRF: vent to trach)
HEENT: Moist Mucous Membranes and Other (trach)
Respiratory: Other (cough with secretions with turns)
GI: Soft, Non Distended and Other (PEG)
Skin: Warm, Dry and Other (Large sacral stage 4 ulcer present down to bone. Some necrotic areas as well as slough. Odorous malhotra drainage noted. )
Neuro: Other (decerebrate posturing/opens eyes to stimuli. Does not follow commands)
Psych: Calm
Data Reviewed
-
CT Scan: Image Personally Visualized and interpreted, Report Reviewed by me, Discussed with Physician, Discussed with Patient and Discussed with Family
Labs: Labs Reviewed by me, Discussed with Physician, Discussed with Patient and Discussed with Family
Old Records: Reviewed
Assessment / Plan
-
38 yo female with anoxic brain injury after a cardiopulmonary arrest maintained with vent/peg on hospice/palliative care at [facility] and transferred to for management of sepsis and sacral ulcer with patient's mother having revoked hospice
status. Currently patient is a full code. CT imaging and exam consistent with sacral osteomyelitis. Concern for mild stercoral colitis as well with stool burden noted. Significant leukocytosis with down trend since admission. Still with fevers and
with cooling blanket for management.
--Continue local care to wound; apply santyl to necrotic tissue, pack with dakin's soaked gauze and cover with absorbant pad BID and prn
--Bowel regimen
--ABX as per ID
--Medical management as per primary team.
[2023-10-04] MEDS: MIRALAX 17 GRAMS PO (16:28)
[2023-10-04] MEDS: ATROPINE SULFATE 1% DROPS 2 DROP SL ×2 (17:55→21:56)
[2023-10-05] VITALS (11 sets, daily range): BP systolic 95–143; BP diastolic 63–103; BMI 30.3
[2023-10-05] MEDS: ATROPINE SULFATE 1% DROPS 2 DROP SL ×5 (02:46→16:45)
[2023-10-05] MEDS: ZOSYN 50 IV ×4 (02:47→21:48)
[2023-10-05 04:28] LABS: Hematocrit 32.4 % (37.0-47.0); Hemoglobin 10.1 g/dL (12.0-16.0); Mean Corp Hgb Conc. 31.2 g/dL (33.0-37.0); Mean Corpuscular Hgb 26.6 pg (27.0-31.0); Mean Corpuscular Volume 85.5 fL (81.0-99.0); Mean Platelet Volume 11.1 fL (7.4-10.4); Platelet Count 535 10^3/uL (130-400); Red Blood Cell Count 3.79 10^6/uL (4.20-5.40); Red Cell Dist. Width 15.4 % (11.5-14.5); White Blood Cell Count 21.4 10^3/uL (4.8-10.8)
[2023-10-05 04:45] LABS: Vancomycin Random 13.6 ug/ml
[2023-10-05 04:50] LABS: ALT (SGPT) 60 U/L (0-35); AST (SGOT) 31 U/L (14-36); Albumin 3.2 g/dl (3.5-5.0); Alkaline Phosphatase 153 U/L (38-126); Blood Urea Nitrogen 28 mg/dl (7-17); Carbon Dioxide 26 mmol/L (22-30); Chloride 108 mmol/L (98-107); Estimated Creatinine Clearance 53 ml/min; Glucose 135 mg/dl (70-99); Magnesium 2.6 mg/dl (1.6-2.3); Potassium 4.2 mmol/L (3.5-5.1); Sodium 148 mmol/L (135-145); Total Bilirubin 0.8 mg/dl (0.2-1.3)
[2023-10-05] MEDS: TYLENOL ORAL SOLUTION 650 MG TUBE ×3 (05:14→21:49)
--- NOTE | 2023-10-05 05:25 | PTCARENOTE ---
Pt easily arousable to tactile stimulation. NOn verbal. Pt opens eyes, but does not track or follow commands. Absent hand grasps, Quadripalegia. Contracted hands, B/L foot drop. Non verbal. HR in the 120[address] ST on the monitor. Tylenol administered
this am for low grade temp and tachycardia. POX 98% on #6 Shiley Trach collar on RA. Lungs course with scattered Rhonchi. Copious oral secretions, frequent mouth care provided. Trach care complete. GJ tube in place, Jevity 1.5 @35ml/hr with 25ml/hr
flush. + bowel round obese abd. Pt inc of large formed BM, jackie care provided. Pt inc of urine. Pure wick removed. Sacral wound care complete, see wound care documentation. +1 Anasarca. Heels elevated on pillows. NO need for cooling blanket
overnight. Will continue to monitor.
--- NOTE | 2023-10-05 07:54 | PHA.VAN.FU ---
Vancomycin Assessment / Plan
- Assessment
Renal Function: SCR Increasing (0.4 to 1.5)
WBC's are: Trending Down
In the past 24 hrs, patient has been: Febrile (Tmax = 100.5)
Concomitant Antimicrobials: Piperacillin-tazobactam
- Assessment - Therapeutic Drug Monitoring
Random Level: R = 13.6. Last Vanco dose was 2gm 10/02 at 1623.
- Dosing Plan
Continue: Dose by level
Dosing by Level: Hold off on dosing today
- Monitoring Plan
Random Level: 4/1 AM
- Follow Up
Pharmacy will continue to follow.
Vancomycin Follow UP
- -
Patient Age: 38
Patient Sex: Female
Vancomycin Day #: 2
Indication: Skin And Soft Tissue
Requesting Provider: Kelsey Mora
Height / Weight:
Height 5 ft 5 in
Actual Weight 82.7 kg
IBW in k
Adjusted BW in k.5
Pertinent Past Medical History: Anoxic brain injury; quadriplegia
- Vital Signs / Lab Results
Temp Pulse Resp BP Pulse Ox
99.9 F 128 28 98/66 100
10/05/23 04:00 10/05/23 04:30 10/05/23 04:30 10/05/23 04:00 10/05/23 04:30
Lab Results - Hematology
10/03/23 10/04/23 10/05/23
15:28 04:50 04:14
WBC 32.3 H 27.3 H 21.4 H
Lab Results - Chemistry
10/03/23 10/04/23 10/05/23
15:28 04:50 04:14
BUN 19 H 23 H 28 H
Creatinine 0.4 L 0.9 1.5 H
Estimated Creat Clear 53
Albumin 3.7 3.2 L
10/03/23 10/03/23
15:28 20:04
Lactic Acid 3.1 H 1.8
Microbiology Results
10/03/23 15:38 Blood Culture - Preliminary
Blood/Venous No Growth in 24 hours- Final report to follow
10/03/23 15:28 Blood Culture - Preliminary
Blood/Venous No Growth in 24 hours- Final report to follow
10/03/23 18:21 Wound Culture - Preliminary
Sacral Gram Stain - Preliminary
10/03/23 15:28 Influenza Types A & B (SEBASTIÁN) - Final
Nasal Swab Negative for Influenza A & B, NAAT
Negative results must be combined with clinical observations
and patient history.
Nucleic Acid Amplification test (NAAT)performed on the
[employer] platform.
Therapeutic Drug Monitoring
Random Vancomycin 13.6 ug/ml 10/05/23 04:14
--- NOTE | 2023-10-05 08:53 | W.PN.ID1 ---
Date of Service
Date of Service: October 05, 2023
Today's Communication
Continue antibiotics for today.
Assessment / Plan
Fever
Leukocytosis
Stage IV sacral decubiti with osteomyelitis (based upon exposed bone)
Hx cardiac arrest with anoxic encephalopathy
Asthma
CHF
GERD
HTN
Hx PNA
Anemia
Recommendations:
Continue with current empiric antibiotics. Await culture data.
Continue with local care to the sacral decubiti.
Patient s/p evaluation by [facility] but unfortunately there is little more to do at this point. As noted on previous evaluations, given the patient's underlying comorbidities (profound anoxic encephalopathy), her overall long-term outlook is
nonexistent for any realistic quality of life.
No role for further workup of sacral area regarding osteomyelitis as the wound is extensive, and is unlikely to close. Without wound coverage (i.e., with extensive surgery and flap coverage, along with specialty bed care to protect flap, along with
other modalities of offloading to also protect flap) treatment of osteomyelitis is futile.
Further interventions are not likely to change overall prognosis, and only serve to prolong patient's eventual passing.
Would recommend transition back to hospice.
Chief Complaint
-: Leukocytosis and Other (Sacral wound)
Subjective / Review of Systems
Review of Systems: Fever
Vital Signs / Physical Exam
Vital Signs
Vital Signs
Temp Pulse Resp BP Pulse Ox
99.9 F 128 28 98/66 100
10/05/23 04:00 10/05/23 04:30 10/05/23 04:30 10/05/23 04:00 10/05/23 04:30
Physical Exam
Constitutional: Comfortable, Chronically Ill and Non-toxic
Eyes: Sclera Anicteric
Cardiovascular: S1/S2; Negative S3/S4
Pulmonary: Coarse and Non Labored; Negative Wheezes or Rales
Extremities: Edema; Negative Cyanosis or Erythema
Wound: Other (Sacral wound dressed.)
Neurological: Other (Responsive to touch.)
Objective Data
Lab Data
Lab Results
10/05/23 04:14
10/05/23 04:14
Estimated Creat Clear 53 ml/min 10/05/23 04:14
Lactic Acid 1.8 mmol/L (0.7-2.0) 10/03/23 20:04
Total Bilirubin 0.8 mg/dl (0.2-1.3) 10/05/23 04:14
AST 31 U/L (14-36) 10/05/23 04:14
ALT 60 U/L (0-35) H 10/05/23 04:14
Alkaline Phosphatase 153 U/L (38-126) H 10/05/23 04:14
Most recent labs reviewed.
Micro Results:
10/03/23 15:38 Blood Culture - Preliminary
Blood/Venous No Growth in 24 hours- Final report to follow
10/03/23 15:28 Blood Culture - Preliminary
Blood/Venous No Growth in 24 hours- Final report to follow
10/03/23 18:21 Wound Culture - Preliminary
Sacral Gram Stain - Preliminary
10/04/23 04:50 MRSA Screen - Pending
Nose
10/03/23 15:28 Influenza Types A & B (SEBASTIÁN) - Final
Nasal Swab Negative for Influenza A & B, NAAT
Negative results must be combined with clinical observations
and patient history.
Nucleic Acid Amplification test (NAAT)performed on the
[employer] platform.
Imaging:
10/03/2023 CXR (portable): No acute infiltrates or acute cardiopulmonary process noted.
--- NOTE | 2023-10-05 08:59 | W.PN.HOSP.TC ---
Today's Communication/Plan
-
d/c planning will be challenging
Assessment / Plan
Assessment / Plan
pt is a 38 year old female
Sepsis likely from sacral wound-- WBC 32K to 21K, Lactic acid 3.1 to 1.8--CT scan concerning for osteomyelitis---cont vanco/zosyn/IVF--apprec ID and surgery, no role for any other management-- blood and wound cultures pending--consider rouse cath to
divert urine
hypernatremia--increase free water flushes
Anemia of chronic disease--Hemoglobin stable at 10.4
Acute LFT elevation likely from acute infection--follow
Anoxic Brain Injury/functional quadriplegia/History of Cardiac Arrest/Chronic Encephalopathy secondary to the above�- Continue supportive measures including O2, repositioning, trach care- Continue tube feeds.
sinus tachycardia--likely combination of fever, infection--no improvement with IVF
Essential Hypertension- Stable.�
DVT Prophylaxis:� Lovenox
Code Status:� full code--reports are that her mother revoked hospice for treatment--also reportedly wants pt in a facility closer to her in [place]-- per ED physician documentation: [facility] staff had wound care doctor evaluate the patient and
the wound care doctor wanted patient to have further imaging and mother therefore revoked hospice.
Anticipated Discharge: > 48 hours
Subjective/Interval History
-
Date of Service: October 05, 2023
pt nonverbal
Objective Data
-
Labs:
Laboratory Results
10/05/23
04:14
WBC 21.4 H
Hgb 10.1 L
Hct 32.4 L
Plt Count 535 H D
Sodium 148 H
Potassium 4.2
Chloride 108 H
Carbon Dioxide 26
BUN 28 H
Creatinine 1.5 H
Glucose 135 H
Calcium 9.0
Total Bilirubin 0.8
AST 31
ALT 60 H
Alkaline Phosphatase 153 H
Vital Signs:
max temp for 24 hours
10/04/23
20:00
Temp 100.4 F H
Vital Signs
Temp Pulse Resp BP Pulse Ox
99.9 F 128 28 98/66 100
10/05/23 04:00 10/05/23 04:30 10/05/23 04:30 10/05/23 04:00 10/05/23 04:30
I&O
10/04/23 10/05/23 10/06/23
06:59 06:59 06:59
Intake Total 664 / 664 3245 / 3245
Output Total 525 / 525 650 / 650
Balance 139 / 139 2595 / 2595
Review of Systems
-
Unable to obtain full review of systems at this time due to: Patient Non-verbal
Physical Exam
-
General: Well Developed and Appears Chronically Ill
HEENT: Normocephalic, Atraumatic and Tracheostomy Collar (room air)
Respiratory: Clear to Auscultation; Negative Wheezes or Rhonchi
Cardiac: Regular Rhythm, S1/S2 and Tachycardic
GI: Soft, Nontender, Nondistended and Normal Bowel Sounds
Musculoskeletal: No Clubbing, No Cyanosis and No Edema
Skin: Ulcers (large sacral decub ulcer)
Neuro: Awake; Negative Alert or No Motor Deficits (functional quadriplegia--contracted hands, bilateral foot drop)
[2023-10-05] MEDS: DESENEX/MITRAZOL/ZEASORB 1 APPLIC TOPICAL ×2 (10:01→21:49)
[2023-10-05] MEDS: COLACE LIQUID 50 MG TUBE (10:01)
[2023-10-05] MEDS: MIRALAX 17 GRAMS PO (10:02)
[2023-10-05] MEDS: SANTYL OINTMENT 1 APPLIC TOPICAL (13:11)
--- NOTE | 2023-10-05 14:24 | PTCARENOTE ---
Patient is in chair position in bed, aspiration precautions enforced. Tube feeds adjusted as per RD recommendations. Wound care completed as per doctors orders. Trach collar @28% , pulse ox 98%. Oral secretions minimal this shift. Oral suction and
cleansing provided. Pain assessed with nonverbal scale. Low grade temp 99.2 treated with Tylenol.
--- NOTE | 2023-10-05 21:10 | PTCARENOTE ---
Assessment unchanged from previous RN. Pt changed and repositioned in bed. incontinent of large amount of urine. Sacral wound changed as ordered. Tube feeding @ 60ml/hr, at goal rate. Report given Alisa RN, Pt transferred to [facility]. No issues.
[2023-10-05] MEDS: ATROPINE SULFATE 1% DROPS 1 DROP SL (21:49)
[2023-10-06 02:16] VITALS: BMI 31.3
[2023-10-06] MEDS: ZOSYN 50 IV ×4 (02:57→22:28)
[2023-10-06] MEDS: ATROPINE SULFATE 1% DROPS 1 DROP SL ×3 (02:57→09:39)
[2023-10-06 06:39] LABS: Hematocrit 28.6 % (37.0-47.0); Hemoglobin 9.1 g/dL (12.0-16.0); Mean Corp Hgb Conc. 31.8 g/dL (33.0-37.0); Mean Corpuscular Hgb 26.9 pg (27.0-31.0); Mean Corpuscular Volume 84.6 fL (81.0-99.0); Mean Platelet Volume 11.1 fL (7.4-10.4); Platelet Count 547 10^3/uL (130-400); Red Blood Cell Count 3.38 10^6/uL (4.20-5.40); Red Cell Dist. Width 15.3 % (11.5-14.5); White Blood Cell Count 20.2 10^3/uL (4.8-10.8)
[2023-10-06 06:51] LABS: Vancomycin Random 7.9 ug/ml
[2023-10-06 07:00] VITALS: BP 130/88
[2023-10-06 07:03] LABS: Blood Urea Nitrogen 26 mg/dl (7-17); Calcium 8.7 mg/dl (8.4-10.2); Carbon Dioxide 28 mmol/L (22-30); Chloride 110 mmol/L (98-107); Estimated Creatinine Clearance 62 ml/min; Glucose 142 mg/dl (70-99); Magnesium 2.5 mg/dl (1.6-2.3); Potassium 3.6 mmol/L (3.5-5.1); Sodium 145 mmol/L (135-145); eGFR 53.31
[2023-10-06] MEDS: COLACE LIQUID 50 MG TUBE (09:23)
[2023-10-06] MEDS: DESENEX/MITRAZOL/ZEASORB 1 APPLIC TOPICAL ×2 (09:27→22:28)
[2023-10-06] MEDS: MIRALAX 17 GRAMS PO (09:36)
--- NOTE | 2023-10-06 09:51 | PHA.VAN.FU ---
Vancomycin Assessment / Plan
- Assessment
Renal Function: SCR Decreasing
WBC's are: Trending Down
In the past 24 hrs, patient has been: Afebrile
Concomitant Antimicrobials: Piperacillin/Tazobactam
- Assessment - Therapeutic Drug Monitoring
Random Level: 7.9
- Dosing Plan
Dosing by Level: Re-dose today (750mg given how long it took to clear, will start with a lower dose)
- Monitoring Plan
Random Level: 10/07/23 @0600
- Follow Up
Pharmacy will continue to follow.
Vancomycin Follow UP
- -
Patient Age: 38
Patient Sex: Female
Vancomycin Day #: 3
Indication: Skin And Soft Tissue
Requesting Provider: Kelsey Mora
Height / Weight:
Height 5 ft 5 in
Actual Weight 85.417 kg
IBW in k
Adjusted BW in k.5
Pertinent Past Medical History: Anoxic brain injury; quadriplegia
- Vital Signs / Lab Results
Temp Pulse Resp BP Pulse Ox
99.1 F 128 20 130/88 99
10/06/23 07:00 10/06/23 07:00 10/06/23 07:00 10/06/23 07:00 10/06/23 07:00
Lab Results - Hematology
10/03/23 10/04/23 10/05/23
15:28 04:50 04:14
WBC 32.3 H 27.3 H 21.4 H
10/06/23
06:01
WBC 20.2 H
Lab Results - Chemistry
10/03/23 10/04/23 10/05/23
15:28 04:50 04:14
BUN 19 H 23 H 28 H
Creatinine 0.4 L 0.9 1.5 H
Estimated Creat Clear 53
Albumin 3.7 3.2 L
10/06/23
06:01
BUN 26 H
Creatinine 1.3 H
Estimated Creat Clear 62
Albumin
10/03/23 10/03/23
15:28 20:04
Lactic Acid 3.1 H 1.8
Microbiology Results
10/03/23 15:38 Blood Culture - Preliminary
Blood/Venous No Growth in 48 hours- Final report to follow
10/03/23 15:28 Blood Culture - Preliminary
Blood/Venous No Growth in 48 hours- Final report to follow
10/03/23 18:21 Wound Culture - Preliminary
Sacral Escherichia coli
Gram negative bacilli
Gram Stain - Preliminary
10/04/23 04:50 MRSA Screen - Final
Nose No Methicillin Resistant Staphylococcus aureus isolated.
Therapeutic Drug Monitoring
Random Vancomycin 7.9 ug/ml 10/06/23 06:01
[2023-10-06] MEDS: ROXANOL ORAL CONCENTRATE 10 MG TUBE (10:16)
--- NOTE | 2023-10-06 10:30 | W.PN.HOSP.TC ---
Today's Communication/Plan
-
.
Assessment / Plan
Assessment / Plan
pt is a 38 year old female
Sepsis likely from sacral wound-- WBC 32K to 21K, Lactic acid 3.1 to 1.8--CT scan concerning for osteomyelitis---cont vanco/Zosyn/IVF--apprec ID and surgery, no role for any other management-- blood cultures no growth
Wound culture expected to show multiple organisms
WBC at 20
Temp this morning 99.1
Will give low dose morphine to help with discomfort noted while cleaning the sacral wound
Empiric Abx
hypernatremia- NA is down to 145
s/p -increase free water flushes
# BELL
with Creatinine 1.5
Will do IVF and Check if we need to do Coombs if retention
will d/w nursing staff
# Stage 4 sacral pressure ulcer.
Appreciate wound care nurse help
c/w care, change position / pressure relief protocol
Anemia of chronic disease--Hemoglobin stable at 10.4
Acute LFT elevation likely from acute infection--
LFT is coming down
No abd distension
Anoxic Brain Injury/functional quadriplegia/History of Cardiac Arrest/Chronic Encephalopathy secondary to the above�- Continue supportive measures including O2, repositioning, trach care- Continue tube feeds.
sinus tachycardia--likely combination of fever, infection--no improvement with IVF
Will do low dose BB
Essential Hypertension- Stable.�
DVT Prophylaxis:� Lovenox
Code Status:� full code--reports are that her mother revoked hospice for treatment--also reportedly wanted pt in a facility closer to her in [place]-- per ED physician documentation: [facility] staff had wound care doctor evaluated the patient
and the wound care doctor wanted patient to have further imaging and mother therefore revoked hospice.
Total time spent to see the patient, examine the patient on the floor, review data and lab results, discuss treatment plan with patient, nursing staff around 55 minutes.
Anticipated Discharge: 24 - 48 hours
Subjective/Interval History
-
Date of Service: October 06, 2023
No fevers
Objective Data
-
Labs:
Laboratory Results
10/06/23
06:01
WBC 20.2 H
Hgb 9.1 L
Hct 28.6 L
Plt Count 547 H
Sodium 145
Potassium 3.6
Chloride 110 H
Carbon Dioxide 28
BUN 26 H
Creatinine 1.3 H
Glucose 142 H
Calcium 8.7
Vital Signs:
Vital Signs
Temp Pulse Resp BP Pulse Ox
99.1 F 128 20 130/88 99
10/06/23 07:00 10/06/23 07:00 10/06/23 07:00 10/06/23 07:00 10/06/23 07:00
I&O
10/05/23 10/06/23 10/07/23
06:59 06:59 06:59
Intake Total 3245 / 3245 2745 / 2745
Output Total 650 / 650 865 / 865
Balance 2595 / 2595 188 / 1880
[2023-10-06] MEDS: VANCOCIN 150 IV (10:33)
[2023-10-06] MEDS: SANTYL OINTMENT TOPICAL (10:49)
--- NOTE | 2023-10-06 10:54 | WOUNDNOTE ---
SACRUM (TO BONE)
--- NOTE | 2023-10-06 11:15 | WOUNDNOTE ---
WO RN note: Patient admitted with sepsis, pneumonia. Taken off hospice for imaging sacrum as per physician documentation. Plan is SNF when discharged.
See H&P for complete history.
PMH: anoxic brain injury from cardiac arrest, functional quadriplegia, PEG, Trach, recent admission for pseudomonas pneumonia/CHF, HTN, obesity, former smoker, former ETOH.
Wound Location and type/assessment: Patient admitted with: large stage 4 sacral pressure injury to bone. Wound base yellow/malhotra slough, rest of wound pink. Large amount ss drainage. See ID report. See Surgeon report.
Appetite: tube feeding.
Pressure redistribution devices in place: Waffle air overlay. Patient immobile. Heels off bed with air chair cushion.
Plan: Sacral dressing/packing changed. Patient turned to R semi side lying position with help from RN Kalyan and DC Albarran. Heels off bed with air chair cushion.
Care plan to be updated and will follow as needed.
Note to case management of equipment requested for discharge: Air mattress if not already in place.
[2023-10-06] MEDS: LOPRESSOR 25 MG TUBE (11:35)
--- NOTE | 2023-10-06 13:58 | W.PN.ID1 ---
Date of Service
Date of Service: October 06, 2023
Today's Communication
Await further cultures. Continue antibiotics for today.
Assessment / Plan
Fever
- improved
Leukocytosis
- Improved
Stage IV sacral decubiti with osteomyelitis (based upon exposed bone)
Hx cardiac arrest with anoxic encephalopathy
Asthma
CHF
GERD
HTN
Hx PNA
Anemia
Recommendations:
Continue with current empiric antibiotics. Await culture data.
Continue with local care to the sacral decubiti.
Patient s/p evaluation by [facility] but unfortunately there is little more to do at this point.
As noted on previous evaluations, given the patient's underlying comorbidities (profound anoxic encephalopathy), her overall long-term outlook is nonexistent for any realistic quality of life.
No role for further workup of sacral area regarding osteomyelitis as the wound is extensive, and is unlikely to close. Without wound coverage (i.e., with extensive surgery and flap coverage, along with specialty bed care to protect flap, along with
other modalities of offloading to also protect flap) treatment of osteomyelitis is futile. Surgery such as this should be performed at a tertiary care center.
Further interventions are not likely to change overall prognosis, and only serve to prolong patient's eventual passing.
Would strongly recommend transition back to hospice.
����������������������������������������������������������
Chief Complaint
-: Leukocytosis and Other (Sacral wound)
Subjective / Review of Systems
Overall temperature curve improved.
Vital Signs / Physical Exam
Vital Signs
Vital Signs
Temp Pulse Resp BP Pulse Ox
99.1 F 128 20 130/88 99
10/06/23 07:00 10/06/23 07:00 10/06/23 07:00 10/06/23 07:00 10/06/23 07:00
Physical Exam
Constitutional: Chronically Ill and Non-toxic
Eyes: Sclera Anicteric
Pulmonary: Non Labored
Gastrointestinal: Soft and Non Distended
Wound: Other (Large, stage IV sacral decubiti dressed.)
Neurological: Awake (Eyes open) and Other (Noncommunicative.)
Objective Data
Lab Data
Lab Results
10/06/23 06:01
10/06/23 06:01
Estimated Creat Clear 62 ml/min 10/06/23 06:01
Lactic Acid 1.8 mmol/L (0.7-2.0) 10/03/23 20:04
Total Bilirubin 0.8 mg/dl (0.2-1.3) 10/05/23 04:14
AST 31 U/L (14-36) 10/05/23 04:14
ALT 60 U/L (0-35) H 10/05/23 04:14
Alkaline Phosphatase 153 U/L (38-126) H 10/05/23 04:14
Most recent labs reviewed.
Micro Results:
10/03/23 15:38 Blood Culture - Preliminary
Blood/Venous No Growth in 48 hours- Final report to follow
10/03/23 15:28 Blood Culture - Preliminary
Blood/Venous No Growth in 48 hours- Final report to follow
10/03/23 18:21 Wound Culture - Preliminary
Sacral Escherichia coli
Gram negative bacilli
Gram Stain - Preliminary
10/04/23 04:50 MRSA Screen - Final
Nose No Methicillin Resistant Staphylococcus aureus isolated.
10/03/23 15:28 Influenza Types A & B (SEBASTIÁN) - Final
Nasal Swab Negative for Influenza A & B, NAAT
Negative results must be combined with clinical observations
and patient history.
Nucleic Acid Amplification test (NAAT)performed on the
[employer] platform.
Imaging:
10/03/2023 CXR (portable): No acute infiltrates or acute cardiopulmonary process noted.
--- NOTE | 2023-10-06 14:15 | CM ---
Patient seen bedside.
patient from LTC/Hospice at [facility].
patient was taken off hospice prior to transfer to Hospital (facility unsure of which hospice patient was with).
Spoke with Delphine from [facility] patient is total care.
Stage 4 sacral pressure wound.
Wound care nurse recommending an air mattress.
Facility requesting insurance authorization if there are any skilled needs.
[facility]
Report# [phone]
[2023-10-06] MEDS: ATROPINE SULFATE 1% DROPS 2 DROP SL ×3 (15:36→23:53)
[2023-10-06 15:55] VITALS: BP 121/83
[2023-10-06] MEDS: LOPRESSOR 12.5 MG PO (22:25)
[2023-10-06] MEDS: TYLENOL ORAL SOLUTION 650 MG TUBE (22:47)
[2023-10-06] MEDS: TRANSDERM-SCOP 1 PATCH TRANSDERM (22:49)
[2023-10-06 23:18] VITALS: BP 124/78
[2023-10-07] MEDS: ATROPINE SULFATE 1% DROPS 2 DROP SL ×3 (01:07→21:21)
[2023-10-07] MEDS: ZOSYN 50 IV ×4 (05:06→21:28)
[2023-10-07] MEDS: SANTYL OINTMENT 1 APPLIC TOPICAL (06:12)
[2023-10-07 07:10] VITALS: BP 135/93
[2023-10-07 08:42] LABS: Hematocrit 31.1 % (37.0-47.0); Hemoglobin 9.5 g/dL (12.0-16.0); Mean Corp Hgb Conc. 30.5 g/dL (33.0-37.0); Mean Corpuscular Hgb 26.4 pg (27.0-31.0); Mean Corpuscular Volume 86.4 fL (81.0-99.0); Mean Platelet Volume 11.9 fL (7.4-10.4); Platelet Count 467 10^3/uL (130-400); Red Cell Dist. Width 15.4 % (11.5-14.5); White Blood Cell Count 18.7 10^3/uL (4.8-10.8)
[2023-10-07 08:53] LABS: Vancomycin Random 9.8 ug/ml
[2023-10-07] MEDS: COLACE LIQUID 50 MG TUBE (09:03)
[2023-10-07] MEDS: DESENEX/MITRAZOL/ZEASORB 1 APPLIC TOPICAL ×2 (09:03→21:24)
[2023-10-07] MEDS: MIRALAX 17 GRAMS PO (09:04)
[2023-10-07] MEDS: LOPRESSOR 12.5 MG PO (09:04)
[2023-10-07] MEDS: ATROPINE SULFATE 1% DROPS 1 DROP SL ×3 (09:05→15:56)
[2023-10-07 09:19] LABS: ALT (SGPT) 42 U/L (0-35); AST (SGOT) 32 U/L (14-36); Alkaline Phosphatase 121 U/L (38-126); Blood Urea Nitrogen 25 mg/dl (7-17); Calcium 8.7 mg/dl (8.4-10.2); Carbon Dioxide 26 mmol/L (22-30); Chloride 106 mmol/L (98-107); Estimated Creatinine Clearance 73 ml/min; Glucose 119 mg/dl (70-99); Potassium 4.2 mmol/L (3.5-5.1); Sodium 141 mmol/L (135-145); Total Bilirubin 0.5 mg/dl (0.2-1.3); Total Protein 6.6 g/dl (6.3-8.2); eGFR > 60.00
--- NOTE | 2023-10-07 09:57 | PHA.VAN.FU ---
Vancomycin Assessment / Plan
- Assessment
Renal Function: SCR Decreasing
WBC's are: Trending Down
Concomitant Antimicrobials: piperacillin/tazobactam
- Assessment - Therapeutic Drug Monitoring
Random Level: 9.8 - drawn ~21H after previous dose of 750mg
Half life between level 18.8 --> 13.6 = 50.1H
Half life between level 13.6 --> 7.9 = 32.9 H
- Dosing Plan
Dosing by Level: Re-dose today (Vanc 1250mg)
Half-life previously decreasing and SCR continues to decrease; however, expect patient may still require prolonged dosing interval compared to estimated CrCl
Will trial 1250mg x1 today, which is ~15 mg/kg
- Monitoring Plan
Random Level: 10/07 0600
- Follow Up
Pharmacy will continue to follow.
Vancomycin Follow UP
- -
Patient Age: 38
Patient Sex: Female
Vancomycin Day #: 4
Indication: Skin And Soft Tissue
Requesting Provider: Kelsey Mora
Pertinent Antimicrobial Allergies:
NKDA
Height / Weight:
Height 5 ft 5 in
Actual Weight 85.417 kg
IBW in k
Adjusted BW in k.5
Pertinent Past Medical History: Anoxic brain injury; quadriplegia
- Vital Signs / Lab Results
Temp Pulse Resp BP Pulse Ox
99.5 F 128 20 135/93 99
10/07/23 07:10 10/07/23 07:10 10/07/23 07:10 10/07/23 07:10 10/07/23 08:55
Lab Results - Hematology
10/05/23 10/06/23 10/07/23
04:14 06:01 07:36
WBC 21.4 H 20.2 H 18.7 H
Lab Results - Chemistry
10/05/23 10/06/23 10/07/23
04:14 06:01 07:36
BUN 28 H 26 H 25 H
Creatinine 1.5 H 1.3 H 1.1 H
Estimated Creat Clear 53 62 73
Albumin 3.2 L 3.0 L
Microbiology Results
10/03/23 18:21 Wound Culture - Final
Sacral Escherichia coli - ESBL
Proteus mirabilis
Gram Stain - Final
10/03/23 15:38 Blood Culture - Preliminary
Blood/Venous No Growth in 72 hours- Final report to follow
10/03/23 15:28 Blood Culture - Preliminary
Blood/Venous No Growth in 72 hours- Final report to follow
10/04/23 04:50 MRSA Screen - Final
Nose No Methicillin Resistant Staphylococcus aureus isolated.
Therapeutic Drug Monitoring
Random Vancomycin 9.8 ug/ml 10/07/23 07:36
--- NOTE | 2023-10-07 11:35 | W.PN.HOSP.TC ---
Today's Communication/Plan
-
dc planning
Assessment / Plan
Assessment / Plan
pt is a 38 year old female
Sepsis likely from sacral wound-- WBC 32K to 21K, Lactic acid 3.1 to 1.8--CT scan concerning for osteomyelitis---cont vanco/Zosyn/IVF--apprec ID and surgery, no role for any other management-- blood cultures no growth
Wound culture expected to show multiple organisms
WBC at 20
Temp low grade 100-99
c/w low dose morphine to help with discomfort noted while cleaning the sacral wound. Informed the mother, she is agreeable.
Empiric Abx
hypernatremia- NA is down to 141
s/p -increase free water flushes
# BELL
improving
Creatinine is coming down with Coombs
d/w nursing staff
# Stage 4 sacral pressure ulcer.
Appreciate wound care nurse help
c/w care, change position / pressure relief protocol
Anemia of chronic disease--Hemoglobin stable at 10.4
Acute LFT elevation likely from acute infection--
LFT is coming down
No abd distension
Anoxic Brain Injury/functional quadriplegia/History of Cardiac Arrest/Chronic Encephalopathy secondary to the above�- Continue supportive measures including O2, repositioning, trach care- Continue tube feeds.
sinus tachycardia--likely combination of fever, infection--no improvement with IVF
c/w low dose BB
According to the patient's mother, the patient's older sister of Graves' disease. Will check TSH
Essential Hypertension- Stable.�
DVT Prophylaxis:� Lovenox
Code Status:� full code--reports are that her mother revoked hospice for treatment--also reportedly wanted pt in a facility closer to her in [place]-- per ED physician documentation: [facility] staff had wound care doctor evaluated the patient
and the wound care doctor wanted patient to have further imaging and mother therefore revoked hospice.
Total time spent to see the patient, examine the patient on the floor, review data and lab results, discuss treatment plan with patient, mother, nursing staff around 55 minutes.
Anticipated Discharge: 24 - 48 hours
Subjective/Interval History
-
Date of Service: October 07, 2023
Nursing staff, low grade temp around 99
+ Coombs
Objective Data
-
Labs:
Laboratory Results
10/07/23
07:36
WBC 18.7 H
Hgb 9.5 L
Hct 31.1 L
Plt Count 467 H
Sodium 141
Potassium 4.2
Chloride 106
Carbon Dioxide 26
BUN 25 H
Creatinine 1.1 H
Glucose 119 H
Calcium 8.7
Total Bilirubin 0.5
AST 32
ALT 42 H
Alkaline Phosphatase 121
Vital Signs:
Vital Signs
Temp Pulse Resp BP Pulse Ox
99.5 F 128 20 135/93 99
10/07/23 07:10 10/07/23 07:10 10/07/23 07:10 10/07/23 07:10 10/07/23 08:55
I&O
10/06/23 10/07/23 10/08/23
06:59 06:59 06:59
Intake Total 2745 / 2745 1770 / 1770
Output Total 865 / 865 1300 / 1300
Balance 1880 / 1880 470 / 470
[2023-10-07] MEDS: VANCOCIN 275 MG IV (11:44)
[2023-10-07 14:29] LABS: TSH 0.66 uIU/ml (0.47-4.68)
--- NOTE | 2023-10-07 15:07 | W.PN.ID1 ---
Date of Service
Date of Service: October 07, 2023
Today's Communication
Continue antibiotics.
Assessment / Plan
Fever
- improved
Leukocytosis
- Improved
Stage IV sacral decubiti with osteomyelitis (exposed bone)
Hx cardiac arrest with anoxic encephalopathy
Asthma
CHF
GERD
HTN
Hx PNA
Anemia
Recommendations:
Continue with Zosyn. No MRSA recovered; will discontinue further vancomycin.
Continue with local care to the sacral decubiti.
Patient s/p evaluation by [facility] but unfortunately there is little more to do at this point.
As noted on previous evaluations, given the patient's underlying comorbidities (profound anoxic encephalopathy), her overall long-term outlook is nonexistent for any realistic quality of life.
No role for further workup of sacral area regarding osteomyelitis as the wound is extensive, and is unlikely to close. Without wound coverage (i.e., requiring extensive surgery and flap coverage, along with specialty bed care to protect flap, along
with other modalities of offloading to also protect flap) treatment of osteomyelitis is futile. Surgery such as this should be performed at a tertiary care center.
Further interventions are not likely to change overall prognosis, and only serve to prolong patient's eventual passing.
Would strongly recommend transition back to hospice.
����������������������������������������������������������
Chief Complaint
-: Leukocytosis and Other (Sacral wound)
Subjective / Review of Systems
Review of Systems: No Fever
Vital Signs / Physical Exam
Vital Signs
Vital Signs
Temp Pulse Resp BP Pulse Ox
99.5 F 128 20 135/93 99
10/07/23 07:10 10/07/23 07:10 10/07/23 07:10 10/07/23 07:10 10/07/23 08:55
Physical Exam
Physical Exam:
Constitutional: Chronically Ill and Non-toxic
Oropharyngeal: Other (Trach)
Lymph Nodes: Negative Lymphadenopathy
Cardiovascular: S1/S2; Negative S3/S4
Pulmonary: Rhonchi (Scattered), Coarse and Non Labored
Gastrointestinal: Soft, Non Distended and Other (PEG in place.� FMS in place.)
Extremities: Edema; Negative Cyanosis or Erythema
Skin: Warm and Dry; Negative Rash
Objective Data
Lab Data
Lab Results
10/07/23 07:36
10/07/23 07:36
Estimated Creat Clear 73 ml/min 10/07/23 07:36
Lactic Acid 1.8 mmol/L (0.7-2.0) 10/03/23 20:04
Total Bilirubin 0.5 mg/dl (0.2-1.3) 10/07/23 07:36
AST 32 U/L (14-36) 10/07/23 07:36
ALT 42 U/L (0-35) H 10/07/23 07:36
Alkaline Phosphatase 121 U/L (38-126) 10/07/23 07:36
Most recent labs reviewed.
Micro Results:
10/03/23 18:21 Wound Culture - Final
Sacral Escherichia coli - ESBL
Proteus mirabilis
Gram Stain - Final
10/03/23 15:38 Blood Culture - Preliminary
Blood/Venous No Growth in 72 hours- Final report to follow
10/03/23 15:28 Blood Culture - Preliminary
Blood/Venous No Growth in 72 hours- Final report to follow
10/04/23 04:50 MRSA Screen - Final
Nose No Methicillin Resistant Staphylococcus aureus isolated.
10/03/23 15:28 Influenza Types A & B (SEBASTIÁN) - Final
Nasal Swab Negative for Influenza A & B, NAAT
Negative results must be combined with clinical observations
and patient history.
Nucleic Acid Amplification test (NAAT)performed on the
[employer] platform.
Imaging:
10/03/2023 CXR (portable): No acute infiltrates or acute cardiopulmonary process noted.
[2023-10-07 15:38] VITALS: BP 152/95
[2023-10-07] MEDS: LOPRESSOR 12.5 MG TUBE (21:24)
[2023-10-07] MEDS: TYLENOL ORAL SOLUTION 650 MG TUBE (21:33)
[2023-10-07] MEDS: FLUSH (NSS) 2 FLUSH IV (21:34)
[2023-10-07 23:08] VITALS: BP 143/103
[2023-10-08] MEDS: ATROPINE SULFATE 1% DROPS 2 DROP SL ×5 (02:54→21:32)
[2023-10-08] MEDS: ZOSYN 50 IV ×4 (04:12→21:32)
[2023-10-08] MEDS: FLUSH (NSS) 2 FLUSH IV (04:13)
[2023-10-08 08:00] VITALS: BP 139/96
[2023-10-08 08:39] LABS: Hematocrit 29.6 % (37.0-47.0); Hemoglobin 9.5 g/dL (12.0-16.0); Mean Corp Hgb Conc. 32.1 g/dL (33.0-37.0); Mean Corpuscular Hgb 26.7 pg (27.0-31.0); Mean Corpuscular Volume 83.1 fL (81.0-99.0); Mean Platelet Volume 11.7 fL (7.4-10.4); Platelet Count 490 10^3/uL (130-400); Red Blood Cell Count 3.56 10^6/uL (4.20-5.40); Red Cell Dist. Width 15.3 % (11.5-14.5); White Blood Cell Count 21.7 10^3/uL (4.8-10.8)
[2023-10-08] MEDS: COLACE LIQUID TUBE (08:48)
[2023-10-08] MEDS: MIRALAX TUBE (08:53)
[2023-10-08] MEDS: DESENEX/MITRAZOL/ZEASORB 1 APPLIC TOPICAL ×2 (09:18→21:32)
[2023-10-08] MEDS: LOPRESSOR 25 MG TUBE ×2 (09:19→21:31)
--- NOTE | 2023-10-08 10:12 | PN.CDI ---
Addendum entered and electronically signed by Jag Van MD 10/08/23 11:22:
Acute
Original Note:
CDI
- -
CDI:
Physician Documentation Request
Admit Date: 10/03/23 18:04
Dear Doctor Carlota,
Patient is admitted with sepsis likely from sacral wound with concern for osteomyelitis.
Please clarify which of the following accurately represents the acuity of the osteomyelitis:
____ Acute
Chronic
____ Other
Use of terms such as suspected, likely, concern for, or probable (associated with a specific diagnosis that is being evaluated, monitored, or treated as if it exists) are acceptable and can be coded in the inpatient setting, when documented at the
time of discharge.
Thank you,
Brook Menendez RN, BSN
CDI Specialist
tiger text
Please use your independent medical judgment in providing your response.
--- NOTE | 2023-10-08 11:21 | W.PN.HOSP.TC ---
Today's Communication/Plan
-
dc planning
Assessment / Plan
Assessment / Plan
pt is a 38 year old female
Sepsis likely from sacral wound-- WBC 32K to 21K, Lactic acid 3.1 to 1.8--CT scan c/w acute osteomyelitis---s/p vanco
c/w Zosyn
Apprec ID and surgery, no role for any other management-- blood cultures no growth
Wound culture expected to show multiple organisms
WBC at 20
Temp low grade 100-99, do Tylenol TID.
c/w low dose morphine to help with discomfort noted while cleaning the sacral wound. Informed the mother, she is agreeable.
Empiric Abx but unlikely to treat the infection completely but only help as palliative approach.
Coombs catheter to keep wound dry
hypernatremia- NA is down to 141
s/p -increased free water flushes
# BELL
improving
Creatinine is coming down with Coombs
d/w nursing staff
# Stage 4 sacral pressure ulcer.
Appreciate wound care nurse help
c/w care, change position / pressure relief protocol
Anemia of chronic disease--Hemoglobin stable
Acute LFT elevation likely from acute infection--
LFT is coming down
No abd distension
Anoxic Brain Injury/functional quadriplegia/History of Cardiac Arrest/Chronic Encephalopathy secondary to the above�- Continue supportive measures including O2, repositioning, trach care- Continue tube feeds.
sinus tachycardia--likely combination of fever, infection--no improvement with IVF
c/w low dose BB, increased BB to 25 BID
According to the patient's mother, the patient's older sister of Graves' disease. Will check TSH
Essential Hypertension- Stable.�
DVT Prophylaxis:� Lovenox
Code Status:� full code--reports are that her mother revoked hospice for treatment--also reportedly wanted pt in a facility closer to her in [place]-- per ED physician documentation: [facility] staff had wound care doctor evaluated the patient
and the wound care doctor wanted patient to have further imaging and mother therefore revoked hospice.
Total time spent to see the patient, examine the patient on the floor, review data and lab results, discuss treatment plan with patient, mother, nursing staff around 55 minutes.
Anticipated Discharge: Within 24 hours
Subjective/Interval History
-
Date of Service: October 08, 2023
No events
no hypotension
Temp around 99
Objective Data
-
Labs:
Laboratory Results
10/08/23
08:02
WBC 21.7 H
Hgb 9.5 L
Hct 29.6 L
Plt Count 490 H
Vital Signs:
Vital Signs
Temp Pulse Resp BP Pulse Ox
99.0 F 123 20 139/96 99
10/08/23 08:00 10/08/23 09:19 10/07/23 23:08 10/08/23 09:19 10/08/23 08:00
I&O
10/07/23 10/08/23 10/09/23
06:59 06:59 06:59
Intake Total 1770 / 1770 3285 / 3285
Output Total 1300 / 1300 1450 / 1450
Balance 470 / 470 1835 / 1835
--- NOTE | 2023-10-08 12:34 | W.PN.ID1 ---
Date of Service
Date of Service: October 08, 2023
Today's Communication
Continue antibiotics for today.
Assessment / Plan
Fever
- improved
Leukocytosis
- Persists
Stage IV sacral decubiti with osteomyelitis (exposed bone)
Hx cardiac arrest with anoxic encephalopathy
Asthma
CHF
GERD
HTN
Hx PNA
Anemia
Recommendations:
Continue with Zosyn (d#6). Unfortunately, given current cultures, there is no oral option in this setting.
Would complete a 10-14 day course of zosyn, which could be completed in SNF.
Continue with ongoing local care to the sacral decubiti.
Patient s/p evaluation by [facility] but unfortunately there is little more to do at this point.
As noted on previous evaluations, given the patient's underlying comorbidities (profound anoxic encephalopathy), her overall long-term outlook is nonexistent for any realistic quality of life.
No role for further workup of sacral area regarding osteomyelitis as the wound is extensive, and is unlikely to close. Without wound coverage (i.e., requiring extensive surgery and flap coverage, along with specialty bed care to protect flap, along
with other modalities of offloading to also protect flap) treatment of osteomyelitis is futile. Surgery such as this should be performed at a tertiary care center.
Further interventions are not likely to change overall prognosis, and only serve to prolong patient's eventual passing.
Would strongly recommend transition back to hospice.
����������������������������������������������������������
Chief Complaint
-: Leukocytosis and Other (Sacral wound (stage 4))
Vital Signs / Physical Exam
Vital Signs
Vital Signs
Temp Pulse Resp BP Pulse Ox
99.0 F 123 20 139/96 99
10/08/23 08:00 10/08/23 09:19 10/07/23 23:08 10/08/23 09:19 10/08/23 08:00
Physical Exam
Physical Exam:
Constitutional: Chronically Ill and Non-toxic
Oropharyngeal: Other (Trach)
Lymph Nodes: Negative Lymphadenopathy
Cardiovascular: S1/S2; Negative S3/S4
Pulmonary: Rhonchi (Scattered), Coarse and Non Labored
Gastrointestinal: Soft, Non Distended and Other (PEG in place.� FMS in place.)
Extremities: Edema; Negative Cyanosis or Erythema
Skin: Warm and Dry; Negative Rash
Objective Data
Lab Data
Lab Results
10/08/23 08:02
10/07/23 07:36
Estimated Creat Clear 73 ml/min 10/07/23 07:36
Lactic Acid 1.8 mmol/L (0.7-2.0) 10/03/23 20:04
Total Bilirubin 0.5 mg/dl (0.2-1.3) 10/07/23 07:36
AST 32 U/L (14-36) 10/07/23 07:36
ALT 42 U/L (0-35) H 10/07/23 07:36
Alkaline Phosphatase 121 U/L (38-126) 10/07/23 07:36
Most recent labs reviewed.
Micro Results:
10/03/23 15:38 Blood Culture - Preliminary
Blood/Venous No Growth in 4 days- Final report to follow
10/03/23 15:28 Blood Culture - Preliminary
Blood/Venous No Growth in 4 days- Final report to follow
10/03/23 18:21 Wound Culture - Final
Sacral Escherichia coli - ESBL
Proteus mirabilis
Gram Stain - Final
10/04/23 04:50 MRSA Screen - Final
Nose No Methicillin Resistant Staphylococcus aureus isolated.
10/03/23 15:28 Influenza Types A & B (SEBASTIÁN) - Final
Nasal Swab Negative for Influenza A & B, NAAT
Negative results must be combined with clinical observations
and patient history.
Nucleic Acid Amplification test (NAAT)performed on the
[employer] platform.
Imaging:
10/03/2023 CXR (portable): No acute infiltrates or acute cardiopulmonary process noted.
[2023-10-08] MEDS: SANTYL OINTMENT 1 APPLIC TOPICAL (14:45)
[2023-10-08] MEDS: LOPRESSOR TUBE (15:12)
--- NOTE | 2023-10-08 15:20 | CM ---
Patient seen bedside.
TC to patients Mother to discuss d/c plan.
Patients mother does not want transfer back to [facility] and requested alternate facilities closer to [facility] where she lives.
Explained we could initiate the referrals but her daughter may be hard to place and may have to go back to [facility], which she is refusing.
Multiple referrals sent.
Plan: skilled rehab when stable.
[2023-10-08 15:21] VITALS: BP 135/88
[2023-10-08] MEDS: TYLENOL 650 MG TUBE ×2 (16:24→21:31)
[2023-10-08] MEDS: ATROPINE SULFATE 1% DROPS 1 DROP SL (17:25)
[2023-10-08 23:00] VITALS: BP 150/103
[2023-10-09] MEDS: ATROPINE SULFATE 1% DROPS 2 DROP SL ×4 (02:02→21:05)
[2023-10-09] MEDS: ZOSYN 50 IV ×4 (03:09→21:04)
[2023-10-09 06:08] VITALS: BMI 31.3
[2023-10-09 07:30] VITALS: BP 115/74
[2023-10-09] MEDS: COLACE LIQUID 50 MG TUBE (08:06)
[2023-10-09] MEDS: SANTYL OINTMENT 1 APPLIC TOPICAL (08:07)
[2023-10-09] MEDS: TYLENOL 650 MG TUBE ×3 (08:07→21:05)
[2023-10-09] MEDS: MIRALAX 17 GRAMS TUBE (08:07)
[2023-10-09] MEDS: DESENEX/MITRAZOL/ZEASORB 1 APPLIC TOPICAL ×2 (08:08→21:06)
[2023-10-09] MEDS: LOPRESSOR 50 MG TUBE ×2 (08:11→21:05)
--- NOTE | 2023-10-09 08:59 | CM ---
TC from Delphine at [facility], requested update.
Updated Delphine that family would like transfer to another facility, but may return to [facility] to continue search.
Delphine in agreement and stated their social work department could assist.
Unsure if patient will return to Hospice services at this time, mother wants treatment and a facility closer to her in [facility].
Bed search continues.
Patient continues on with IV anbx and wound care.
Plan: Skilled rehab when stable and bed available.
[2023-10-09] MEDS: ATROPINE SULFATE 1% DROPS 1 DROP SL ×2 (09:47→17:59)
--- NOTE | 2023-10-09 11:31 | WOUNDNOTE ---
WOC RN note: Spoke with Plant Reliability Engineer Arely Hendrix who is aware air mattress if recommended at SNF.
--- NOTE | 2023-10-09 12:32 | W.PN.ID1 ---
Date of Service
Date of Service: October 09, 2023
Today's Communication
Continue Zosyn x 10 to 14 day course.
Assessment / Plan
Fever
- resolved
Leukocytosis
- Persists
Stage IV sacral decubiti with osteomyelitis (exposed bone)
Hx cardiac arrest with anoxic encephalopathy
Asthma
CHF
GERD
HTN
Hx PNA
Anemia
Recommendations:
Continue with Zosyn (d#7). Unfortunately, given current cultures, there is no oral option in this setting.
Would complete a 10-14 day course of zosyn, which could be completed in SNF.
Continue with ongoing local care to the sacral decubiti.
Patient s/p evaluation by [facility] but unfortunately there is little more to do at this point.
As noted on previous evaluations, given the patient's underlying comorbidities (profound anoxic encephalopathy), her overall long-term outlook is nonexistent for any realistic quality of life.
No role for further workup of sacral area regarding osteomyelitis as the wound is extensive, and is unlikely to close. Without wound coverage (i.e., requiring extensive surgery and flap coverage, along with specialty bed care to protect flap, along
with other modalities of offloading to also protect flap) treatment of osteomyelitis is futile. Surgery such as this should be performed at a tertiary care center.
Further interventions are not likely to change overall prognosis, and only serve to prolong patient's eventual passing.
Would strongly recommend transition back to hospice.
����������������������������������������������������������
Chief Complaint
-: Leukocytosis and Other (Sacral wound (stage 4))
Subjective / Review of Systems
Nonverbal
Vital Signs / Physical Exam
Vital Signs
Vital Signs
Temp Pulse Resp BP Pulse Ox
99.2 F 134 22 115/74 100
10/09/23 07:30 10/09/23 08:11 10/09/23 07:30 10/09/23 08:11 10/09/23 07:30
Physical Exam
Constitutional: Chronically Ill
Gastrointestinal: Soft, Non Tender and Non Distended
Objective Data
Lab Data
Lab Results
10/08/23 08:02
10/07/23 07:36
Estimated Creat Clear 73 ml/min 10/07/23 07:36
Lactic Acid 1.8 mmol/L (0.7-2.0) 10/03/23 20:04
Total Bilirubin 0.5 mg/dl (0.2-1.3) 10/07/23 07:36
AST 32 U/L (14-36) 10/07/23 07:36
ALT 42 U/L (0-35) H 10/07/23 07:36
Alkaline Phosphatase 121 U/L (38-126) 10/07/23 07:36
Most recent labs reviewed.
Micro Results:
10/03/23 15:38 Blood Culture - Final
Blood/Venous No Growth - Final Report
10/03/23 15:28 Blood Culture - Final
Blood/Venous No Growth - Final Report
10/03/23 18:21 Wound Culture - Final
Sacral Escherichia coli - ESBL
Proteus mirabilis
Gram Stain - Final
10/04/23 04:50 MRSA Screen - Final
Nose No Methicillin Resistant Staphylococcus aureus isolated.
10/03/23 15:28 Influenza Types A & B (SEBASTIÁN) - Final
Nasal Swab Negative for Influenza A & B, NAAT
Negative results must be combined with clinical observations
and patient history.
Nucleic Acid Amplification test (NAAT)performed on the
[employer] platform.
Imaging:
10/03/2023 CXR (portable): No acute infiltrates or acute cardiopulmonary process noted.
--- NOTE | 2023-10-09 14:20 | W.PN.HOSP.TC ---
Today's Communication/Plan
-
dc planning
Assessment / Plan
Assessment / Plan
pt is a 38 year old female
Sepsis likely from sacral wound-- WBC 32K to 21K, Lactic acid 3.1 to 1.8--CT scan c/w acute osteomyelitis---s/p vanco
c/w Zosyn
Apprec ID and surgery, no role for any other management-- blood cultures no growth
Wound culture expected to show multiple organisms
WBC at 20
Temp low grade 100-99, do Tylenol TID.
c/w low dose morphine to help with discomfort noted while cleaning the sacral wound. Informed the mother, she is agreeable.
Empiric Abx but unlikely to treat the infection completely but only help as palliative approach.
Coombs catheter to keep wound dry
hypernatremia- NA is down to 141
s/p -increased free water flushes
# BELL
improving
Creatinine is coming down with Coombs
d/w nursing staff
# Stage 4 sacral pressure ulcer.
Appreciate wound care nurse help
c/w care, change position / pressure relief protocol
Anemia of chronic disease--Hemoglobin stable
Acute LFT elevation likely from acute infection--
LFT is coming down
No abd distension
Anoxic Brain Injury/functional quadriplegia/History of Cardiac Arrest/Chronic Encephalopathy secondary to the above�- Continue supportive measures including O2, repositioning, trach care- Continue tube feeds.
sinus tachycardia--likely combination of fever, infection--no improvement with IVF
c/w low dose BB, increased BB to 50 BID
According to the patient's mother, the patient's older sister of Graves' disease. Normal TSH
Essential Hypertension- on high side, uncontrolled, increase BB.�
DVT Prophylaxis:� Lovenox
Code Status:� full code--reports are that her mother revoked hospice for treatment--also reportedly wanted pt in a facility closer to her in [place]-- per ED physician documentation: [facility] staff had wound care doctor evaluated the patient
and the wound care doctor wanted patient to have further imaging and mother therefore revoked hospice.
Total time spent to see the patient, examine the patient on the floor, review data and lab results, discuss treatment plan with patient, mother, nursing staff around 55 minutes.
Anticipated Discharge: Within 24 hours
Subjective/Interval History
-
Date of Service: October 09, 2023
Still tachycardia with high blood pressure
Objective Data
-
Vital Signs:
Vital Signs
Temp Pulse Resp BP Pulse Ox
99.2 F 134 22 115/74 100
10/09/23 07:30 10/09/23 08:11 10/09/23 07:30 10/09/23 08:11 10/09/23 07:30
I&O
10/08/23 10/09/23 10/10/23
06:59 06:59 06:59
Intake Total 3285 / 3285 3250 / 3250
Output Total 1450 / 1450 1950 / 1950
Balance 1835 / 1835 1300 / 1300
--- NOTE | 2023-10-09 15:48 | CM ---
Spoke with Patients Mother and discussed facilities that are interested in accepting patient.
Mother and patients daughter will go see the facilities.
Spoke with Emma ko [facility] and certain forms will need to be completed if patient is to transfer to one of their facilities.
Again discussed with patients mother the possibility of patient returning to [facility] and having them assist with the transfer process, she refused.
patient continues on IV anbx and wound care needs.
Plan: skilled rehab/LTC
[2023-10-09 16:19] VITALS: BP 141/95
[2023-10-09] MEDS: TRANSDERM-SCOP 1 PATCH TRANSDERM (21:04)
[2023-10-09 22:58] VITALS: BP 133/93
[2023-10-10] MEDS: ZOSYN 50 IV ×4 (03:04→21:49)
[2023-10-10] MEDS: ATROPINE SULFATE 1% DROPS 2 DROP SL ×3 (03:05→21:50)
[2023-10-10 04:50] VITALS: BMI 32.9
[2023-10-10 07:15] VITALS: BP 149/103
[2023-10-10 10:30] LABS: Hematocrit 27.6 % (37.0-47.0); Mean Corp Hgb Conc. 32.6 g/dL (33.0-37.0); Mean Corpuscular Hgb 27.1 pg (27.0-31.0); Mean Corpuscular Volume 83.1 fL (81.0-99.0); Mean Platelet Volume 10.4 fL (7.4-10.4); Platelet Count 539 10^3/uL (130-400); Red Blood Cell Count 3.32 10^6/uL (4.20-5.40); Red Cell Dist. Width 15.6 % (11.5-14.5); White Blood Cell Count 19.5 10^3/uL (4.8-10.8)
--- NOTE | 2023-10-10 10:51 | W.PN.HOSP.TC ---
Today's Communication/Plan
-
dc planning
Assessment / Plan
Assessment / Plan
pt is a 38 year old female
Sepsis likely from sacral wound-- WBC 32K to 21K, Lactic acid 3.1 to 1.8--CT scan c/w acute osteomyelitis---s/p vanco
c/w Zosyn
Apprec ID and surgery, no role for any other management-- blood cultures no growth
Wound culture expected to show multiple organisms
WBC at 20
Temp low grade 100-99, do Tylenol TID.
c/w low dose morphine to help with discomfort noted while cleaning the sacral wound. Informed the mother, she is agreeable.
Empiric Abx but unlikely to treat the infection completely but only help as palliative approach.
Coombs catheter to keep wound dry
hypernatremia- NA is down to 141
s/p -increased free water flushes
# BELL
improving
Creatinine is coming down with Coombs
d/w nursing staff
# Stage 4 sacral pressure ulcer.
Appreciate wound care nurse help
c/w care, change position / pressure relief protocol
Anemia of chronic disease--Hemoglobin stable
Acute LFT elevation likely from acute infection--
LFT is coming down
No abd distension
Anoxic Brain Injury/functional quadriplegia/History of Cardiac Arrest/Chronic Encephalopathy secondary to the above�- Continue supportive measures including O2, repositioning, trach care- Continue tube feeds.
sinus tachycardia--likely combination of fever, infection--no improvement with IVF
c/w low dose BB, increased BB to 50 BID
According to the patient's mother, the patient's older sister of Graves' disease. Normal TSH
Essential Hypertension- on high side, uncontrolled, increase BB.�
DVT Prophylaxis:� Lovenox
Code Status:� d/w mother on phone. She wanted pt to be DNR/DNI
Total time spent to see the patient, examine the patient on the floor, review data and lab results, discuss treatment plan with patient, mother, nursing staff around 55 minutes.
Anticipated Discharge: Today
Subjective/Interval History
-
Date of Service: October 10, 2023
No fevers
No events
Objective Data
-
Labs:
Laboratory Results
10/10/23
10:15
WBC 19.5 H
Hgb 9.0 L
Hct 27.6 L
Plt Count 539 H
Sodium Pending
Potassium Pending
Chloride Pending
Carbon Dioxide Pending
BUN Pending
Creatinine Pending
Glucose Pending
Calcium Pending
Total Bilirubin Pending
AST Pending
ALT Pending
Alkaline Phosphatase Pending
Vital Signs:
Vital Signs
Temp Pulse Resp BP Pulse Ox
99.3 F 128 18 149/103 100
10/10/23 07:15 10/10/23 07:15 10/10/23 07:15 10/10/23 07:15 10/10/23 08:39
I&O
10/09/23 10/10/23 10/11/23
06:59 06:59 06:59
Intake Total 3250 / 3250 1570 / 1570
Output Total 1950 / 1950 3100 / 3100
Balance 1300 / 1300 -1530 / -1530
[2023-10-10 11:15] LABS: ALT (SGPT) 26 U/L (0-35); AST (SGOT) 19 U/L (14-36); Albumin 3.1 g/dl (3.5-5.0); Alkaline Phosphatase 106 U/L (38-126); Blood Urea Nitrogen 21 mg/dl (7-17); Calcium 9.1 mg/dl (8.4-10.2); Carbon Dioxide 24 mmol/L (22-30); Chloride 99 mmol/L (98-107); Estimated Creatinine Clearance 92 ml/min; Glucose 129 mg/dl (70-99); Potassium 4.3 mmol/L (3.5-5.1); Sodium 135 mmol/L (135-145); Total Bilirubin 0.4 mg/dl (0.2-1.3); Total Protein 6.7 g/dl (6.3-8.2); eGFR > 60.00
[2023-10-10] MEDS: COLACE LIQUID 50 MG TUBE (11:17)
[2023-10-10] MEDS: MIRALAX 17 GRAMS TUBE (11:17)
[2023-10-10] MEDS: ATROPINE SULFATE 1% DROPS 1 DROP SL ×2 (11:17→15:43)
[2023-10-10] MEDS: TYLENOL 650 MG TUBE ×3 (11:18→21:50)
[2023-10-10] MEDS: LOPRESSOR 50 MG TUBE ×2 (11:18→21:49)
[2023-10-10] MEDS: SANTYL OINTMENT 1 APPLIC TOPICAL (11:18)
[2023-10-10] MEDS: DESENEX/MITRAZOL/ZEASORB 1 APPLIC TOPICAL ×2 (11:18→21:50)
--- NOTE | 2023-10-10 11:39 | CM ---
Addendum entered by Arely Hendrix 10/10/23 16:19:
Pilar Liakashif- call Elvis [phone] (covering for Emma)
Addendum entered by Arely Hendrix 10/10/23 15:54:
TC from Emma/дмитрий for [facility], they can accept tomorrow. No authorization required per Emma.
TC to Elias, patients mother and notified of possible d/c tomorrow.
updated that patient can be transferred tomorrow.
[facility]
Report# [phone]

Original Note:
TC to patients Mother Elias, she woule like [facility].
Spoke with дмитрий Carter for [facility], they are able to accept patient once [facility] completes and sends forms.
TC to Dayana at [facility], [facility] is requesting PA 162 to be sent to [facility] and she will need to file a PA 103. Piotr Caban's (adm director at [facility]) phone number [phone] to Dayana, she will contact him.
TC to Emma/Дмитрий for [facility] and updated her re above.
Emma will contact the CM department at [phone] when they are ready on their side (all information received) to accept patient.
Currently on Tube feeds Jevity 1.5 @ 60 cc/hr with 70 cc flush. patient also has a g-tube to drainage. Trach- 7.5 Shiley with 6.5 inner cannula. 28% humidified oxygen, Coombs catheter.
Patient will need an air mattress, Emma aware.
Patient will require ambulance transport.
Updates via [facility].
Plan: [facility] once they all info received and approved from [facility].
[facility]
Report# [phone]

Ambulance transport forms on chart
Please contact Emma/Pilar liaison to find out if transfer is a go on their end P#[phone].
Please update patients Mother Elias if all approved.
[2023-10-10 15:25] VITALS: BP 130/90
[2023-10-10] MEDS: ATROPINE SULFATE 1% DROPS SL (17:35)
--- NOTE | 2023-10-10 18:30 | PTCARENOTE ---
Patient transferred in to [facility] bed. Bed zeroed.
[2023-10-10 19:23] VITALS: BMI 32.4
[2023-10-10 23:26] VITALS: BP 148/103
[2023-10-11] MEDS: ATROPINE SULFATE 1% DROPS 2 DROP SL ×3 (03:05→10:49)
[2023-10-11] MEDS: ZOSYN 50 IV ×3 (03:05→16:29)
[2023-10-11 05:24] VITALS: BMI 31.9
[2023-10-11 07:30] VITALS: BP 149/111
[2023-10-11] MEDS: TYLENOL 650 MG TUBE ×2 (10:46→16:29)
[2023-10-11] MEDS: LOPRESSOR 50 MG TUBE (10:47)
[2023-10-11] MEDS: MIRALAX 17 GRAMS TUBE (10:47)
[2023-10-11] MEDS: COLACE LIQUID 50 MG TUBE (10:48)
[2023-10-11] MEDS: SANTYL OINTMENT 1 APPLIC TOPICAL (10:48)
[2023-10-11] MEDS: DESENEX/MITRAZOL/ZEASORB 1 APPLIC TOPICAL (10:48)
--- NOTE | 2023-10-11 10:54 | CM ---
Addendum entered by Ellyn Perez 10/11/23 16:09:
Ambulance transport changed to 6:30/7:00 p.m. [facility] updated with transport change. CM spoke with patients mom, updated with time change.
Plan; [facility], 6:30/7:00 p.m. ambulance transport.
[facility]
Report# [phone]

Addendum entered by Ellyn Perez 10/11/23 11:49:
Ambulance transport scheduled for 3:00 p.m., left for Elvis at [facility] with update. CM spoke with patients mother, provided time of transport. TT sent to Hospitalist with time of transport, nurse aware. CM will continue to follow
for discharge planning needs.
Plan; [facility], 3:00 p.m. ambulance transport.
[facility]
Report# [phone]

Original Note:
CM spoke with [facility] Elvis Choe, , able to accept patient. Patient will require ambulance transport, awaiting confirmation time. CM will update facility and patients mother once transport time confirmed. CM will continue to
follow for discharge planning needs.
Plan; [facility]
Report# [phone]
--- NOTE | 2023-10-11 12:00 | W.PN.HOSP.TC ---
Today's Communication/Plan
-
.
Assessment / Plan
Assessment / Plan
# Accidental giving the atropine into the eyes per nursing staff on 10/09.
Patient seems at baseline. Unable to assess fully as pt has underlying anoxic brain injury with inability to focus or follow objects, chronic pendular nystagmus. Pupils seem mildly dilated today.
Atropine should wear off
Nurse filed an accident report.
#Sepsis likely from sacral wound-- WBC 32K to 21K, Lactic acid 3.1 to 1.8--CT scan c/w acute osteomyelitis---s/p vanco
c/w Zosyn, last dose 10/15 to finish 14 days course.
Apprec ID and surgery, no role for any other management-- blood cultures no growth
Wound culture expected to show multiple organisms
WBC at 20
Temp low grade 100-99, c/w Tylenol TID for comfort also
c/w low dose morphine to help with discomfort noted while cleaning the sacral wound. Informed the mother, she is agreeable.
Empiric Abx but unlikely to treat the infection completely but only help as palliative approach.
Coombs catheter to keep wound dry
#hypernatremia- NA is down to 141
s/p -increased free water flushes
# BELL
improving
Creatinine is coming down with Coombs
d/w nursing staff
# Stage 4 sacral pressure ulcer.
Appreciate wound care nurse help
c/w care, change position / pressure relief protocol
Anemia of chronic disease--Hemoglobin stable
Acute LFT elevation likely from acute infection--
LFT is coming down
No abd distension
Anoxic Brain Injury/functional quadriplegia/History of Cardiac Arrest/Chronic Encephalopathy secondary to the above�- Continue supportive measures including O2, repositioning, trach care- Continue tube feeds.
sinus tachycardia--likely combination of fever, infection--no improvement with IVF
c/w low dose BB, increased BB to 50 BID
According to the patient's mother, the patient's older sister of Graves' disease. Normal TSH
Essential Hypertension- on high side, uncontrolled, increase BB.�
DVT Prophylaxis:� Lovenox
Code Status:� d/w mother on phone. She wanted pt to be DNR/DNI
Total discharge time spent to see the patient, examine the patient on the floor, review data and lab results, discuss discharge plan with patient, mother, nursing staff around 67 minutes.
Anticipated Discharge: Today
Subjective/Interval History
-
Date of Service: October 11, 2023
No fevers
No sob
Objective Data
-
Vital Signs:
Vital Signs
Temp Pulse Resp BP Pulse Ox
98.3 F 134 18 149/111 100
10/11/23 07:30 10/11/23 07:30 10/11/23 07:30 10/11/23 07:30 10/11/23 11:47
I&O
10/10/23 10/11/23 10/12/23
06:59 06:59 06:59
Intake Total 1570 / 1570 3590 / 3590
Output Total 3100 / 3100 2450 / 2450
Balance -1530 / -1530 1140 / 1140
--- NOTE | 2023-10-11 13:08 | W.DCSUMMARY ---
Discharge Summary
Discharge Data
Date of Admission: 10/03/23
Date of Discharge: 10/11/23
-
Pending Results: No
Hospital Course
Discharge diagnoses
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
Leukocytosis
Sinus tachycardia
Anoxic brain injury/functional quadriplegia/history of cardiopulmonary arrest/chronic encephalopathy since June 2023 after respiratory illness.
Tracheostomy with trach collar secretions management
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
Primary hypertension
Acute kidney injury, resolved
Hypernatremia
Status post percutaneous gastro-jejunal tube , on Jevity 1.5 nutrition with water flushes
Asthma
Gastroesophageal reflux disease
DO NOT RESUSCITATE/DO NOT INTUBATE
38 years old female presented to the hospital with infected sacral pressure ulcer. Patient was diagnosed with sepsis with leukocytosis, tachycardia, lactic acidosis and fevers. Patient was evaluated by surgery. Surgery doctor discussed with
patient's mother. Surgery recommended to continue local care to wound, apply Santyl to necrotic tissue and pack with Dakin's soaked gauze, cover with absorbent pad twice a day and as needed. Mother understood that such wound was unlikely to heal
and not much surgical options were available. Surgery recommended to continue with bowel regimen and keep the wound dry with Coombs catheter until started to heal. Imaging study was consistent with sacral osteomyelitis. Patient had significant
leukocytosis with fevers on admission. Patient was followed by infectious diseases cost consultant. She received intravenous antibiotic. Blood culture did not show any growth. Patient was noticed to have sinus tachycardia with uncontrolled high blood
pressure. She was started on metoprolol. She was started on low-dose acetaminophen to control her discomfort that was likely happening from the sacral wound. She had acute anemia injury that resolved, and she had hyponatremia at that was treated
with increasing water flushes through the feeding tube. Mother wanted the patient to remain DO NOT RESUSCITATE DO NOT INTUBATE. Mother was agreeable to continuous comfort medications including morphine to prevent suffering. Patient remained
hemodynamically stable. She was discharged in a stable condition.
Discharge Plan
-
Patient Disposition: Care Home/SNF
Discharge Diagnosis/Procedures: Stage IV sacral decubiti with osteomyelitis (exposed bone)
Leukocytosis
Sinus tachycardia
Anoxic brain injury/functional quadriplegia/history of cardiac arrest/chronic encephalopathy
Tracheostomy with trach collar secretions management
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
Primary hypertension
Asthma
Status post percutaneous gastro-jejunal tube: On Jevity 1.5
Gastroesophageal reflux disease
Constipation
DNR/DNI
Additional Diets: Jevity 1.5, rate 60 ml/ hour, water flushes 75 ml/per hour
Activity Restrictions/Additional Instructions:
Wound Care Instructions
Sacral Wound - pack wound with gauze soaked with 1/4 strength Dakin's solution, apply Santyl to necrotic areas. Change BID and PRN loosened dressing.
Air mattress.
Elevate heels off bed with pillow/s and/or air chair cushion.
Follow up with wound career development consultant as needed.
Referrals:
Kai Muhammad, DO [Family Provider] - in one to two weeks
Prescriptions:
New
metoprolol tartrate 50 mg Tablet
50 mg feeding tube BID Qty: 60 0RF
Dakin's Solution 0.125 % Solution
1 applic topical PRN PRN (Reason: WOUND CARE ORDERS) Qty: 30 0RF
polyethylene glycol 3350 [HealthyLax] 17 gram Powder In Packet
17 g feeding tube DAILY Qty: 30 0RF
Zosyn in dextrose (iso-osm) 3.375 gram/50 mL Piggyback
3.375 g IV Q6H Qty: 1200 0RF
Rx Instructions:
last dose on 10/16/2023
Santyl 250 unit/gram Ointment
1 applic topical DAILY Qty: 90 0RF
acetaminophen 325 mg Tablet
650 mg feeding tube TID Qty: 30 0RF
Continued
sennosides [senna] 8.6 mg Tablet
17.6 mg feeding tube DAILY PRN (Reason: constipation)
acetaminophen 325 mg Tablet
650 mg FEEDING TUBE Q6H PRN (Reason: mild pain/temp>100.4)
magnesium hydroxide [Milk of Magnesia] 400 mg/5 mL Suspension
30 ml feeding tube [id number] PRN (Reason: if no bm by 3rd day)
bisacodyl [Dulcolax (bisacodyl)] 10 mg Suppository
10 mg AR DAILY PRN (Reason: if mom ineffective)
atropine 1 % Drops
2 drp PO Q4H PRN (Reason: increased secretions)
Fleet Enema 19-7 gram/118 mL Enema
118 ml AR DAILY PRN (Reason: if dulcolax ineffective)
morphine concentrate 10 mg/0.5 mL Syringe
10 mg feeding tube Q4HPRN PRN (Reason: dyspnea) Qty: 1 0RF
acetaminophen 650 mg Suppository
650 mg AR Q8H PRN (Reason: mild pain/temp>100.4)
ondansetron HCl 4 mg Tablet
4 mg feeding tube Q6H PRN (Reason: nausea)
miconazole nitrate 2 % Powder
1 applic TOPICAL BID
Rx Instructions:
apply to abdominal folds/groin
scopolamine base 1 mg over 3 days Patch 3 Day
1 patch TRANSDERMAL Q3D
lorazepam [Lorazepam Intensol] 2 mg/mL Concentrate
0.5 mg FEEDING TUBE Q4H PRN (Reason: anxiety)
docusate sodium 50 mg tablet
50 mg feeding tube DAILY
Changed
atropine 1 % drops
2 drp sublingual Q4H Qty: 0 0RF
Discontinued
Flagyl 500 mg tablet
1 applic topical HS
Patient Comments:
for wound care R/T odor in wound
LG 10/03/23: on [facility] list it is listed as a tablet for topical administration starting on 09/30/23
docusate sodium
1 tab feeding tube Q12H PRN (Reason: constipation)
Discharge Orders:
Discharge Patient (As Directed); Ordered 10/11/23
Ordered By: Jag Van
Discharge Date and Time
Print Language: FINNISH
[2023-10-11] MEDS: ATROPINE SULFATE 1% DROPS 1 DROP SL (13:37)
[2023-10-11 14:15] VITALS: BP 141/90
[2023-10-11] MEDS: DAKIN'S SOLUTION 0.125% 1/4 STRENGTH 60 ML TOPICAL (14:24)
[2023-10-11] MEDS: ROXANOL ORAL CONCENTRATE 10 MG TUBE (14:40)
--- NOTE | 2023-10-11 16:05 | VATNOTE ---
Attempt made to place a midline in pt's right arm. After establishing a sterile field the basilic vein was accessed but the guide wire was unable to be advanced through the needle. A second attempt was made on the basilic vein but again, the guide
wire was unable to be advanced into the vessel. The decision was made to attempt a different vessel and the cephalic vein was assessed and accessed and again, the guide wire could not be advanced through the needle. The cephalic vein was accessed a
second time and the guide wire could not be advanced. Another VAT RN was asked to attempt at this time as this RN was unsuccessful.
[2023-10-11 16:10] VITALS: BP 170/115
--- NOTE | 2023-10-13 15:09 | CM ---
TT from [facility] nurse liaison Emma.
Requested patients emergency contact and stated they did not receive discharge instructions/orders.
Please fax to Emma at [phone].
== END 2023-10-11 17:58 | DRG 871 ==
LOC: 4 WEST ACU 18:04
PROVIDERS: Registered Nurse; ADMITTING PHYSICIAN Internal Medicine; ATTENDING PHYSICIAN Internal Medicine; CONSULT PHYSICIAN Internal Medicine Infectious Disease; CONSULT PHYSICIAN Surgery; EMERGENCY PHYSICIAN Emergency Medicine; FAMILY PHYSICIAN Internal Medicine
DX: A41.89 Other specified sepsis (principal); L89.154 Pressure ulcer of sacral region, stage 4; R53.2 Functional quadriplegia; M46.28 Osteomyelitis of vertebra, sacral and sacrococcygeal region; G93.1 Anoxic brain damage, not elsewhere classified; E87.0 Hyperosmolality and hypernatremia; N17.9 Acute kidney failure, unspecified; E87.20 Acidosis, unspecified; E87.1 Hypo-osmolality and hyponatremia; D63.8 Anemia in other chronic diseases classified elsewhere; I11.0 Hypertensive heart disease with heart failure; I50.9 Heart failure, unspecified; Z66 Do not resuscitate; Z11.52 Encounter for screening for COVID-19; Z87.891 Personal history of nicotine dependence
CPT/HCPCS: 71045; 72192; 80048; 80053; 80202; 83605; 83735; 84443; 85025; 85027; 87040; 87070; 87077; 87186; 87205; 87502; 87811; 93005; 96361; 96365; 96366; 96375; 99285